=== PATIENT | female | born 1950 | race Caucasian/White ===

== ENCOUNTER 2016-08-12 10:43 | Day surgery (SDC) | payer MEDICARE, MEDICAID ==
[2016-08-12] MEDS ORDERED: Lactated Ringers 1,000 ML IV SCH (11:30)
[2016-08-12] MEDS ORDERED: Cyanocobalamin (Vitamin B12) 1,000 MCG/ML SDV IM ONE (12:00)
[2016-08-12] MEDS ORDERED: Glycopyrrolate 0.2 MG/ML 2 ML SYRINGE IVPUSH ONE (12:00)
[2016-08-12] MEDS ORDERED: Propofol 200 MG/20 ML SDV ONE (12:05)
[2016-08-12] MEDS ORDERED: Midazolam 1 MG/ML 2 ML SDV ONE ×2 (12:05→14:28)
[2016-08-12] MEDS ORDERED: fentaNYL 100 MCG/2 ML SDV ONE ×2 (12:05→14:28)
[2016-08-12] MEDS ORDERED: MVI, Adult with Vitamin K 10 ML, Thiamine 200 MG, Chromium/Copper/Mang/Selen/Zn 1 ML in... IV SCH ×4 (13:30)
[2016-08-12 15:35] VITALS: BP 123/76
--- NOTE | 2016-08-15 14:55 | OR ---
DATE OF PROCEDURE: 08/12/2016 PREOPERATIVE DIAGNOSIS: Bilious emesis status post Kenny-en-Y gastric bypass. POSTOPERATIVE DIAGNOSES: Bilious emesis status post Kenny-en-Y gastric bypass with bile present within Kenny limb. OPERATIVE PROCEDURE: Upper GI endoscopy. ANESTHESIA: IV sedation. INDICATION FOR PROCEDURE: This is a 65-year-old status post Kenny-en-Y gastric bypass in 2010. 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 Recently, she has had some problems with bilious emesis, particularly in the evening. Plan is to proceed with upper GI endoscopy to investigate problems such as partial small bowel obstruction and/or recurrent gastrogastric fistula. Potential risks of the procedure including bleeding and perforation were discussed, and the patient wishes to proceed. DETAILS OF PROCEDURE: The patient was taken to the operating room and placed in a left lateral decubitus position. IV sedation was administered, after which the upper GI endoscope was passed orally through the length of the esophagus and into the gastric pouch, from there through the gastrojejunostomy and roughly 20 cm into the Kenny limb. Findings included normal esophagus and EG junction area at the gastrojejunostomy, gastric pouch, and surrounding area. There was no evidence of any fistula. There was no bile present at this time and minimal in the way of any inflammation. No stricture in the gastrojejunostomy. As one passed into the Kenny limb around 15 cm beyond the anastomosis, there was bile present and this would be suggestive of possible partial small-bowel obstruction. The scope was then withdrawn. The above findings reconfirmed. The procedure was then concluded. Given the patient's symptoms, she probably needs to have a revisional procedure to relieve the small-bowel obstruction. This would entail either a cner-ie-agwx jejunojejunostomy or revision of jejunojejunostomy making a more distal and such. We will see the patient back on Friday of this week to discuss the findings and develop a treatment plan. Jayant Hairston MD /[id number]
== END 2016-08-12 15:52 | disposition home or self-care (01) ==
LOC: JP.SDS 10:43
PROVIDERS: ATTEND Surgery
DX: R11.14 Bilious vomiting (principal); G47.33 Obstructive sleep apnea (adult) (pediatric); E78.5 Hyperlipidemia, unspecified; K21.9 Gastro-esophageal reflux disease without esophagitis; E03.9 Hypothyroidism, unspecified; E11.9 Type 2 diabetes mellitus without complications; Z88.1 Allergy status to other antibiotic agents; Z88.8 Allergy status to other drugs, medicaments and biological substances
CPT/HCPCS: 43235; J2250; J2704; J3010; J3411; J3420; J7120

== ENCOUNTER 2016-08-20 06:29 | Inpatient (IN) | payer MEDICARE, MEDICAID ==
[2016-08-20] MEDS ORDERED: Gabapentin 300 MG Cap PO ONE (06:45)
[2016-08-20] MEDS ORDERED: Celecoxib 200 MG Cap PO ONE (06:45)
[2016-08-20] MEDS ORDERED: Acetaminophen 325 MG Tab PO ONE (06:45)
[2016-08-20] MEDS ORDERED: Bupivacaine 0.5%/EPINEPHrine 1:200,000 50 ML MDV ONE (06:54)
[2016-08-20] MEDS ORDERED: Dextrose 5%-Lactated Ringers 1,000 ML IV SCH (07:00)
[2016-08-20] MEDS ORDERED: Scopolamine 1.5 MG Transdermal Patch TOP ONE (07:00)
[2016-08-20] MEDS ORDERED: HYDROmorphone/Normal Saline 15 MG/30 ML PCA IV PRN (07:27)
[2016-08-20] MEDS ORDERED: Naloxone 0.4 MG/ML SDV IVPUSH PRN (07:27)
[2016-08-20] MEDS ORDERED: Ropivacaine 32 ML, Dexamethasone 8 MG, EPINEPHrine 0.4 MG, Sodium Chloride 0.9% 45.6 ML INJECT SCH ×4 (08:00)
[2016-08-20] MEDS ORDERED: cefOXitin 2 GM in Sodium Chloride 0.9% 50 ML IV ONE (09:00)
[2016-08-20] MEDS ORDERED: Albuterol/Ipratropium 3.0-0.5 MG/3 ML Neb Soln NEB ONE (09:00)
[2016-08-20] MEDS ORDERED: Midazolam 1 MG/ML 2 ML SDV ONE (11:11)
[2016-08-20] MEDS ORDERED: Propofol 200 MG/20 ML SDV ONE (11:11)
[2016-08-20] MEDS ORDERED: fentaNYL 250 MCG/5 ML SDV ONE (11:11)
[2016-08-20] MEDS ORDERED: Dexamethasone 4 MG/ML SDV ONE (11:11)
[2016-08-20] MEDS ORDERED: Rocuronium 50 MG/5 ML Vial ONE ×2 (11:11→12:37)
[2016-08-20] MEDS ORDERED: Succinylcholine/Normal Saline 200 MG/10 ML Syringe ONE (11:11)
[2016-08-20] MEDS ORDERED: Neostigmine Methylsulfate 1 MG/ML 5 ML Syringe ONE (11:11)
[2016-08-20] MEDS ORDERED: Ondansetron 4 MG/2 ML SDV ONE (11:11)
[2016-08-20] MEDS ORDERED: Lactated Ringers 1,000 ML ONE (12:01)
[2016-08-20] MEDS ORDERED: Meropenem 500 MG SDV ONE (12:27)
[2016-08-20] MEDS ORDERED: fentaNYL 100 MCG/2 ML SDV IVPUSH ONE (14:15)
[2016-08-20] MEDS ORDERED: Albuterol/Ipratropium 3.0-0.5 MG/3 ML Neb Soln INH PRN (15:31)
[2016-08-20] MEDS ORDERED: Labetalol 20 MG/4 ML Syringe IVPUSH PRN (15:32)
[2016-08-20] MEDS ORDERED: hydrOXYzine HCl 50 MG/ML SDV IM PRN (15:32)
[2016-08-20] MEDS ORDERED: SCOPOLAMINE PATCH ASK TOP SCH (15:32)
[2016-08-20] MEDS ORDERED: Metoclopramide 10 MG/2 ML SDV IVPUSH PRN (15:34)
[2016-08-20] MEDS ORDERED: diphenhydrAMINE 50 MG/ML SDV IVPUSH PRN (15:35)
[2016-08-20] MEDS: MVI, Adult with Vitamin K 10 ML, Thiamine 200 MG, Chromium/Copper/Mang/Selen/Zn 1 ML in... IV SCH ×4 (16:29)
[2016-08-20] MEDS: Pantoprazole 40 MG Vial IVPUSH SCH (16:33)
[2016-08-20] MEDS: Acetaminophen 325 MG Tab PO SCH ×2 (16:33→23:27)
[2016-08-20] MEDS: cefOXitin 2 GM in Sodium Chloride 0.9% 50 ML IV SCH ×2 (18:17→23:26)
[2016-08-20] MEDS: Heparin Sodium 5,000 Units/ML Vial SUBCUT SCH (21:06)
[2016-08-20] MEDS: Gabapentin 300 MG Cap PO SCH (21:06)
[2016-08-20] MEDS: Albuterol/Ipratropium 3.0-0.5 MG/3 ML Neb Soln INH SCH (21:08)
[2016-08-20] MEDS: Dextrose 5%-Lactated Ringers 1,000 ML IV SCH (23:26)
[2016-08-21] MEDS ORDERED: Iohexol 647 MG/ML 50 ML SDV PO STA (04:15)
[2016-08-21] MEDS: cefOXitin 2 GM in Sodium Chloride 0.9% 50 ML IV SCH ×2 (05:16→11:17)
[2016-08-21] MEDS: Acetaminophen 325 MG Tab PO SCH ×4 (05:16→21:28)
[2016-08-21] MEDS: Dextrose 5%-Lactated Ringers 1,000 ML IV SCH (05:17)
[2016-08-21] MEDS: Albuterol/Ipratropium 3.0-0.5 MG/3 ML Neb Soln INH SCH ×4 (07:20→21:27)
[2016-08-21] MEDS ORDERED: Dextrose 5%-Lactated Ringers 1,000 ML IV SCH (07:51)
[2016-08-21] MEDS: SCOPOLAMINE PATCH CHECK TOP SCH (08:52)
[2016-08-21] MEDS: Celecoxib 200 MG Cap PO SCH (08:57)
[2016-08-21] MEDS: Heparin Sodium 5,000 Units/ML Vial SUBCUT SCH ×2 (08:57→21:27)
[2016-08-21] MEDS: Gabapentin 300 MG Cap PO SCH ×3 (08:58→21:28)
--- NOTE | 2016-08-21 09:22 | PN ---
DATE OF SERVICE: 08/21/2016 SUBJECTIVE: Ana Maria is postop day 1. She reports her pain is controlled. She has been up ambulating. She is requesting coffee. Vital signs have been stable. REVIEW OF SYSTEMS: Remainder of review of systems negative for any pertinent positives and negatives. OBJECTIVE: GENERAL: Ana Maria Bryant is a 66-year-old female. She is alert and orientated. VITAL SIGNS: TPR 97, 66, 18, blood pressure 103/52. HEENT: Negative. NECK: Supple. HEART: Regular rate and rhythm. LUNGS: Clear. ABDOMEN: Dressings dry and intact. Abdominal binder is on. EXTREMITIES: Without peripheral edema. ASSESSMENT: Diagnostic laparoscopy with lysis of adhesion, revision of the jejunostomy component of the Kenny-en-Y gastric bypass surgery, separate small-bowel stricturoplasty for partial small bowel obstruction secondary to extensive adhesions at the jejunostomy junction and separate stricture and small bowel, distal to the jejunostomy on 08/20/2016. PLAN: 1. Step-4 gastric bypass diet. 2. Discontinue Gomez catheter. 3. Decrease IV to 80 mL/h. 4. Good pulmonary toilet encouraged. 5. We will evaluate p.r.n. or in a.m. Nadia Mccoy PA-C /[id number]
--- NOTE | 2016-08-21 10:04 | CR ---
UGI wo KUB HISTORY: Post gastric bypass. COMPARISON: None FINDINGS: Opacification of the gastric remnant is seen without extravasation of oral contrast. Opaci fication of small bowel on the later films with no dilated loops or evidence for obstruction.
[2016-08-21] MEDS: MVI, Adult with Vitamin K 10 ML, Thiamine 200 MG, Chromium/Copper/Mang/Selen/Zn 1 ML in... IV SCH ×4 (16:13)
[2016-08-21] MEDS: Pantoprazole 40 MG Vial IVPUSH SCH (16:23)
[2016-08-22] MEDS: Acetaminophen 325 MG Tab PO SCH (03:17)
[2016-08-22] MEDS: Albuterol/Ipratropium 3.0-0.5 MG/3 ML Neb Soln INH SCH ×4 (07:25→21:19)
[2016-08-22] MEDS: Heparin Sodium 5,000 Units/ML Vial SUBCUT SCH ×2 (07:58→20:19)
[2016-08-22] MEDS: Gabapentin 300 MG Cap PO SCH ×3 (08:29→21:19)
[2016-08-22] MEDS: Acetaminophen/HYDROcodone 325-5 MG Tab PO PRN ×2 (08:29→12:24)
[2016-08-22] MEDS: Celecoxib 200 MG Cap PO SCH (08:29)
[2016-08-22] MEDS: SCOPOLAMINE PATCH CHECK TOP SCH (08:30)
[2016-08-22] MEDS ORDERED: Cyanocobalamin (Vitamin B12) 1,000 MCG/ML SDV IM ONE (09:00)
--- NOTE | 2016-08-22 10:16 | PN ---
DATE OF SERVICE: 08/22/2016 SUBJECTIVE: Ana Maria is postop day #2. She is up ambulating, tolerating a diet well. Vital signs have been stable. Pain is controlled. She has no problems or questions. REVIEW OF SYSTEMS: Review of systems negative for any pertinent positives or negatives. OBJECTIVE: GENERAL: Ana Maria Bryant is a 66-year-old female. She is alert and orientated. VITAL SIGNS: TPR is 99, 81, 16, blood pressure 111/58. HEENT: Negative. NECK: Supple. HEART: Regular rate and rhythm. LUNGS: Clear. ABDOMEN: Dressings dry and intact. Abdominal binder is on. EXTREMITIES: Without peripheral edema. ASSESSMENT: Diagnostic laparoscopy with lysis of adhesion, revision of the jejunostomy component of the Kenny-en-Y gastric bypass surgery, separate small-bowel strictureplasty for partial small bowel obstruction secondary to extensive adhesions at the jejunostomy junction and separate stricture and small bowel distal jejunostomy on 08/20/2016. PLAN: 1. 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 2. Discontinue continuous pulse ox and telemetry. 3. Dressing off, may shower. 4. Floyd 5/325 mg 1 to 2 every 4 hours p.r.n. pain. 5. Good pulmonary toilet encouraged. 6. We will evaluate p.r.n. or in a.m. Nadia Mccoy PA-C /[id number]
[2016-08-22] MEDS: Ondansetron 4 MG/2 ML SDV IVPUSH PRN ×2 (13:49→19:17)
[2016-08-22] MEDS: Pantoprazole 40 MG Tab.CR PO SCH (16:04)
[2016-08-22] MEDS: HYDROmorphone 2 MG Tab PO PRN ×2 (16:05→21:19)
[2016-08-22] MEDS: Metoclopramide 10 MG/2 ML SDV IVPUSH SCH (21:19)
[2016-08-22] MEDS ORDERED: HYDROmorphone/Normal Saline 15 MG/30 ML PCA IV SCH (22:15)
[2016-08-22] MEDS: Dextrose 5%-Lactated Ringers 1,000 ML IV SCH (22:36)
[2016-08-22] MEDS: Bisacodyl 10 MG Supp RECTAL PRN (23:03)
[2016-08-23] MEDS: Metoclopramide 10 MG/2 ML SDV IVPUSH SCH ×4 (03:57→20:34)
[2016-08-23] MEDS ORDERED: Sodium Chloride 0.9% 10 ML Syringe FLUSH ONE (06:02)
[2016-08-23] MEDS ORDERED: Sodium Chloride 0.9% 100 ML IV SCH (06:15)
[2016-08-23] MEDS ORDERED: Iopamidol 755 Mg/ML 100 ML Bottle IV SCH (06:15)
[2016-08-23] MEDS ORDERED: HYDROmorphone/Normal Saline 15 MG/30 ML PCA IV PRN (07:05)
[2016-08-23] MEDS ORDERED: Naloxone 0.4 MG/ML SDV IV PRN (07:06)
[2016-08-23] MEDS: Albuterol/Ipratropium 3.0-0.5 MG/3 ML Neb Soln INH SCH ×4 (07:07→20:34)
--- NOTE | 2016-08-23 08:43 | PCM.CONS ---
H&P History of Present Illness - General Date of Service: 08/23/16 Admit Problem/Dx: Admission Diagnosis/Problem Admission Diagnosis/Problem Kenny-en-Y gastrojejunostomy Source of Information: Patient, Provider History Limitations: Reports: No limitations - History of Present Illness Initial Comments - Free Text/Narative: Ana Maria is postop day 3 from an exploratory laparotomy with lysis of adhesions and revision of the jejunostomy. I was asked to see her this morning by Nadia Mccoy regarding hypotension, tachycardia and hypoxia. The patient was recently transferred from room to 40 down to the intensive care unit. She's currently receiving 8 L via face mask with saturations in the low 90s. Her heart rate is in the 100s. Blood pressures were in the normal range but on the low side. The patient reports that she feels well and is not sure what all the fuss is about. She does not feel short of breath and does not even feel tachypnea at this point. She has been coughing a little with occasional yellowish sputum production. She does not have any chest pain. She does not report any pleuritic type chest pain. She has not noticed that she has a temperature of greater than 102 at this time. No chills or sweats. Abdominal pain is approximately 3/10 and is very tolerable at this point. She has been up and walking around without much difficulty. She thinks that things went downhill overnight and had been feeling well yesterday. She was started on supplemental oxygen overnight with hypoxia noted on pulse oximetry monitoring. Lower Back Pain Score (Numeric/FACES): 4 Abdomen Pain Score (Numeric/FACES): 4 - Related Data Allergies/Adverse Reactions: Allergies Allergy/AdvReac Type Severity Reaction Status Date / Time erythromycin base Allergy Hives Verified 08/09/16 07:38 [Erythromycin Base] zolpidem tartrate AdvReac Disorientat Verified 08/20/16 12:40 [From Jacquelyn] [email or web address] Allergy Hives Uncoded 08/20/16 07:48 Home Medications: Home Meds Albuterol [Ventolin HFA] 1 - 2 puff IH Q4HR PRN 09/14/14 [History] Aspirin [Aspirin EC] 81 mg PO DAILY 09/14/14 [History] Calcium Carb & Citrate/Vit D3 [Citracal + D ER] 1 each PO BID 09/14/14 [History] Cholecalciferol (Vitamin D3) [Vitamin D] 2,000 unit PO DAILY 09/14/14 [History] Cyanocobalamin (Vitamin B-12) [Cyanocobalamin Injection] 1,000 mcg IJ .Q3WK [History] Cyanocobalamin (Vitamin B12) [Vitamin B12] 1,000 mcg PO DAILY 09/14/14 [History] Cyclobenzaprine [Flexeril] 10 mg PO TID 09/14/14 [History] Esomeprazole [NexIUM] 40 mg PO BID 09/14/14 [History] Folic Acid 1 mg PO DAILY 09/14/14 [History] Gabapentin [Gabapentin] 600 mg PO TID 09/14/14 [History] Multivitamin/Iron/Folic Acid [Centrum Complete Multivit] 2 tab PO DAILY [History] Sennosides [Senna] 1 tab PO DAILY PRN 09/14/14 [History] Thiamine HCl [Vitamin B-1] 100 mg PO DAILY 09/14/14 [History] Vitamin B Complex [Super B-50 Complex] 1 tab PO DAILY 09/14/14 [History] atorvaSTATin Calcium [Atorvastatin Calcium] 10 mg PO BEDTIME 09/14/14 [History] clonazePAM [Clonazepam] 2 mg PO DAILY 09/14/14 [History] traZODone HCl [Trazodone HCl] 100 mg PO BEDTIME 09/14/14 [History] Levothyroxine 112 mcg PO ACBREAKFAST 08/09/16 [History] Venlafaxine [Effexor XR] 37.5 mg PO DAILY 08/09/16 [History] Past Medical History HEENT History: Reports: Impaired vision Other HEENT History: wears glasses Cardiovascular History: Reports: High cholesterol, Hypertension Respiratory History: Reports: COPD, Other (see below) Other Respiratory History: granular naveed disease, checked every 6 months Gastrointestinal History: Reports: Bowel obstruction, Colon polyp, GERD Genitourinary History: Reports: None 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: Dysfunctional uterine bleeding, , Spontaneous Musculoskeletal History: Reports: Back pain, chronic, Fibromyalgia Neurological History: Reports: Neuropathy, diabetic Endocrine/Metabolic History: Reports: Diabetes, type II, Hypothyroidism, Vitamin D deficiency Hematologic History: Reports: Blood transfusion(s) - Infectious Disease History Infectious Disease History: Reports: Chicken pox, Measles, MRSA, Mumps, Rubella - Past Surgical History HEENT Surgical History: Reports: Cataract surgery, Tonsillectomy Cardiovascular Surgical History: Reports: None Respiratory Surgical History: Reports: None GI Surgical History: Reports: Appendectomy, Bariatric procedure, Colonoscopy, EGD, Hernia repair/other, Other (see below) Other GI Surgeries/Procedures: Panniculectomy Female Surgical History: Reports: Hysterectomy, Other (see below) Other Female Surgeries/Procedures: bladder lift Endocrine Surgical History: Reports: None Neurological Surgical History: Reports: None Musculoskeletal Surgical History: Reports: Arthroscopic knee, Carpal tunnel, Other (see below) Other Musculoskeletal Surgeries/Procedures:: surgery both knees, carpal tunnel surgery both hands Social & Family History - Family History Family Medical History: Noncontributory Cardiac: Reports: Arrhythmia, CAD Respiratory: Reports: COPD Musculoskeletal: Reports: Arthritis Endocrine/Metabolic: Reports: Diabetes, type II Oncologic: Reports: Breast, Lung - Tobacco Use Smoking Status *Q: Former Smoker Years of Tobacco use: 30 Used Tobacco, but Quit: Yes Month Tobacco Last Used: 05/2002 Second Hand Smoke Exposure: No - Caffeine Use Caffeine Use: Reports: Coffee - Alcohol Use Days Per Week of Alcohol Use: 0 - Recreational Drug Use Recreational Drug Use: No H&P Review of Systems - Review of Systems: Review Of Systems: See Below Free Text/Narrative: A complete 12 point review of systems was obtained. Pertinent positives and negatives are noted in the history of present illness. All other systems were reviewed and were negative except as noted. Exam - Exam Exam: See Below - Vital Signs Vital Signs: Last Vital Signs Temp 39.3 C H 08/23/16 07:00 Pulse 78 08/23/16 07:07 Resp 18 08/23/16 07:00 BP 91/55 L 08/23/16 07:00 Pulse Ox 96 08/23/16 07:00 Weight: 63.957 kg - Exam Quality Assessment: supplemental oxygen. No: urinary catheter General: alert, oriented, cooperative. No: mild distress HEENT: Conjunctiva clear, Mucosa moist & pink. No: Scleral icterus Neck: supple, trachea midline. No: lymphadenopathy, JVD, thyromegaly Lungs: Normal respiratory effort, Crackles (A few at both bases). No: Wheezing Cardiovascular: regular rhythm, tachycardia. No: systolic murmur Abdomen: normal bowel sounds, soft, tenderness. No: distention Back Exam: normal inspection, full range of motion Extremities: normal inspection, normal pulses. No: edema Peripheral Pulses: 2+: dorsalis pedis (L), dorsalis pedis (R) Skin: warm, dry, intact Neuro Extensive - Mental Status: alert, oriented x3, nl response to commands Neuro Extensive - Motor, Sensory, Reflexes: CN II-XII intact. No: dysarthria, abnormal motor, tremor Psychiatric: alert, normal affect - Patient Data Lab Results last 24 hrs: Laboratory Results - last 24 hr 08/23/16 08/23/16 08/23/16 Range/Units 05:55 05:55 05:55 WBC 8.2 (4.5-11.0) K/uL RBC 4.18 (3.30-5.50) M/uL Hgb 12.5 (12.0-15.0) g/dL Hct 39.3 (36.0-48.0) % MCV 94 (80-98) fL MCH 30 (27-31) pg MCHC 32 (32-36) % Plt Count 227 (150-400) K/uL Puncture Site ABG pH (7.350-7.450) ABG pCO2 (35.0-42.0) mmHg ABG pO2 (75.0-100.0) mmHg ABG HCO3 (22.0-26.0) mmol/L ABG Total CO2 (21.0-25.0) mmol/L ABG O2 Saturation (95.0-98.0) % ABG O2 Content (15.0-23.0) %vol ABG Base Excess mm/L ABG Hemoglobin (12.0-16.0) g/dL ABG Oxyhemoglobin % ABG Carboxyhemoglobin (0.0-1.6) % ABG Methemoglobin % Henry Test O2 Delivery Device Oxygen Flow Rate L Sodium 144 (140-148) mmol/L Potassium 3.5 L (3.6-5.2) mmol/L Chloride 103 (100-108) mmol/L Carbon Dioxide 34 H (21-32) mmol/L Anion Gap 10.5 (5.0-14.0) mmol/L BUN 6 L (7-18) mg/dL Creatinine 0.9 (0.6-1.0) mg/dL Est Cr Clr Drug Dosing 49.95 mL/min Estimated GFR (MDRD) > 60 (>60) BUN/Creatinine Ratio Not Reportable Glucose 115 H (74-106) mg/dL Calcium 8.4 L (8.5-10.1) mg/dL Phosphorus 4.3 (2.5-4.9) mg/dL Magnesium 1.7 L (1.8-2.4) mg/dL Total Bilirubin 0.8 D (0.2-1.0) mg/dL AST 16 (15-37) U/L ALT 20 (12-78) U/L Alkaline Phosphatase 84 (46-116) U/L Total Protein 6.8 (6.4-8.2) g/dL Albumin 3.2 L (3.4-5.0) g/dL Globulin 3.6 H (2.3-3.5) g/dL Albumin/Globulin Ratio 0.9 L (1.2-2.2) 08/23/16 Range/Units 07:53 WBC (4.5-11.0) K/uL RBC (3.30-5.50) M/uL Hgb (12.0-15.0) g/dL Hct (36.0-48.0) % MCV (80-98) fL MCH (27-31) pg MCHC (32-36) % Plt Count (150-400) K/uL Puncture Site Lt radial ABG pH 7.467 H (7.350-7.450) ABG pCO2 39.4 (35.0-42.0) mmHg ABG pO2 97.2 (75.0-100.0) mmHg ABG HCO3 28.1 H (22.0-26.0) mmol/L ABG Total CO2 25.2 H (21.0-25.0) mmol/L ABG O2 Saturation 96.4 (95.0-98.0) % ABG O2 Content 15.8 (15.0-23.0) %vol ABG Base Excess 4.5 mm/L ABG Hemoglobin 11.8 L (12.0-16.0) g/dL ABG Oxyhemoglobin 94.5 % ABG Carboxyhemoglobin 0.2 (0.0-1.6) % ABG Methemoglobin 1.8 % Henry Test Pass O2 Delivery Device Simple mask Oxygen Flow Rate 6 L Sodium (140-148) mmol/L Potassium (3.6-5.2) mmol/L Chloride (100-108) mmol/L Carbon Dioxide (21-32) mmol/L Anion Gap (5.0-14.0) mmol/L BUN (7-18) mg/dL Creatinine (0.6-1.0) mg/dL Est Cr Clr Drug Dosing mL/min Estimated GFR (MDRD) (>60) BUN/Creatinine Ratio Glucose (74-106) mg/dL Calcium (8.5-10.1) mg/dL Phosphorus (2.5-4.9) mg/dL Magnesium (1.8-2.4) mg/dL Total Bilirubin (0.2-1.0) mg/dL AST (15-37) U/L ALT (12-78) U/L Alkaline Phosphatase (46-116) U/L Total Protein (6.4-8.2) g/dL Albumin (3.4-5.0) g/dL Globulin (2.3-3.5) g/dL Albumin/Globulin Ratio (1.2-2.2) Result Diagrams: 08/23/16 05:55 08/23/16 05:55 Imaging Impressions last 24 hrs: CT scan of the chest abdomen and pelvis - images were all personally reviewed - there is no evidence for acute pulmonary embolism noted on the CT scan. There are patchy bilateral lower lung infiltrates consistent with pneumonia noted on the chest portion of the CT. No acute intra-abdominal pathology is noted with recent appropriate postop changes from small bowel resection. No evidence for abscess formation. Consult PN Assessment/Plan POD#: 3 Procedures: Procedures APPLY NEUROSTIMULATOR (11/03/13) ASSAY THYROID STIM HORMONE (01/21/16) C-REACTIVE PROTEIN (01/21/16) COMP SCREEN MAMMOGRAM ADD-ON (07/04/15) COMPLETE CBC W/AUTO DIFF WBC (01/21/16) COMPREHEN METABOLIC PANEL (01/21/16) CT THORAX W/O DYE (07/12/15) CULTURE SCREEN ONLY (01/13/14) EGD BIOPSY SINGLE/MULTIPLE (01/13/14) EGD DIAGNOSTIC BRUSH WASH (08/12/16) EMERGENCY DEPT VISIT (02/11/16) EMERGENCY DEPT VISIT (02/28/14) EMERGENCY DEPT VISIT (02/28/14) HOT OR COLD PACKS THERAPY (11/23/15) HYDRATE IV INFUSION ADD-ON (01/21/16) INJECT EPIDURAL PATCH (10/14/14) INJECT SPINE LUMBAR/SACRAL (10/12/14) LOWER EXTREMITY STUDY (03/05/16) MANUAL THERAPY 1/> REGIONS (09/09/14) MRI JOINT UPR EXTREM W/O DYE (10/25/15) MRI LUMBAR SPINE W/O DYE (07/11/14) NEUROMUSCULAR REEDUCATION (10/22/13) OT EVALUATION (07/19/13) POLYSOM 6/> YRS 4/> JACQUELINE (05/12/16) PT EVALUATION (11/23/15) ROUTINE VENIPUNCTURE (01/21/16) THER/PROPH/DIAG IV INF INIT (01/21/16) THERAPEUTIC EXERCISES (05/17/15) ULTRASOUND THERAPY (11/23/15) UPR/L XTREMITY ART 2 LEVELS (02/09/16) URINALYSIS AUTO W/SCOPE (02/11/16) URINE CULTURE/COLONY COUNT (02/11/16) X-RAY EXAM L-2 SPINE 4/>VWS (07/11/14) X-RAY EXAM SI JOINTS (07/11/14) (1) Bilateral pneumonia SNOMED Code(s): 059011308 Code(s): J18.9 - PNEUMONIA, UNSPECIFIED ORGANISM Current Visit: Yes Qualifiers: Pneumonia type: due to unspecified organism Lung location: lower lobe of lung Qualified Code(s): J18.9 - Pneumonia, unspecified organism Problem List Initiated/Reviewed/Updated: Yes My Orders last 24 hours: My Active Orders 08/23/16 08:28 Magnesium Sulfate/Water [Magnesium Sulfate 2 GM in Water 50 ML] 2 gm Premix Bag 1 bag IV ONETIME 08/23/16 08:30 Levofloxacin/Dextrose 5%-Water [Levaquin in D5W 750 MG/150 ML] 750 mg Premix Bag 1 bag IV Q24H Levothyroxine 112 mcg PO ACBREAKFAST Potassium Chloride 20 MEQ,Lidocaine 1% 2 ML IN 100ML NS @ 50 MLS/HR Potassium Chloride 20 meq Lidocaine 1% [Xylocaine 1%] 2 ml Sodium Chloride 0.9% [Normal Saline] 100 ml IV Q2H cefTRIAXone [Rocephin] 1 gm Sodium Chloride 0.9% [Normal Saline] 50 ml IV Q24H 08/23/16 08:45 Sodium Chloride 0.9% [Normal Saline] 1,000 ml IV ASDIRECTED Plan: Assessment and plan - Bilateral pneumonia with hypoxic respiratory failure - significant oxygen requirement at this time though her physical examination is relatively benign and clinically she looks well compared to the amount of supplemental oxygen she is requiring. There is no evidence for pulmonary embolism. No reason to suspect acute coronary syndrome. CT did show bilateral pulmonary infiltrates consistent with pneumonia. Aspiration versus bacterial are considerations. She would benefit from broad-spectrum antibiotic coverage. Blood cultures have been obtained. Volume overload does not seem to be an issue at this time. Arterial blood gases do not show CO2 retention. -Levofloxacin and ceftriaxone -Fluid challenges with tachycardia and borderline hypotension -Followup cultures -Supplement oxygen -Continue inspiratory spirometer use -Nebs Status post exploratory laparotomy with release of small bowel obstruction - clinically seems to be healing well from the surgery. -Postoperative cares per Dr. Hairston Thank you for the interesting consultation. I will be following along with Ana Maria's care during the acute phase. Sim Ortez M.D. Requesting Provider: Dr. Hairston Date Consult Requested: 08/23/16 Reason for Consult: Hypoxia and a possible sepsis Patient History Reviewed: Yes Admission H&P Reviewed: Yes Notified Requestor: No Time Spent (in minutes): 45
[2016-08-23] MEDS ORDERED: Sodium Chloride 0.9% 1,000 ML IV SCH (08:45)
[2016-08-23] MEDS: Levofloxacin/Dextrose 5%-Water 750 MG in Premix Bag 1 BAG IV SCH (08:57)
[2016-08-23] MEDS: Dextrose 5%-Lactated Ringers 1,000 ML IV SCH ×2 (09:16→22:28)
[2016-08-23] MEDS: Heparin Sodium 5,000 Units/ML Vial SUBCUT SCH ×2 (09:54→20:34)
[2016-08-23] MEDS: Gabapentin 300 MG Cap PO SCH ×3 (09:55→20:33)
[2016-08-23] MEDS: Celecoxib 200 MG Cap PO SCH (09:56)
[2016-08-23] MEDS: SCOPOLAMINE PATCH CHECK TOP SCH (09:56)
[2016-08-23] MEDS ORDERED: Magnesium Sulfate/Water 2 GM in Premix Bag 1 BAG IV ONE (10:00)
--- NOTE | 2016-08-23 10:05 | CR ---
Abdomen 2V AP Flat Upright HISTORY: No bowel movement. Pain. Nausea vomiting. COMPARISON: Upper GI KUB 08/21/2016. FINDINGS: Contrast from the prior upper GI KUB image has now reached the right colon. No obstruction is seen. Postoperative clips overlying the stomach and the left abdomen from prior gastric bypass. Moderate stool left colon.
[2016-08-23] MEDS: cefTRIAXone 1 GM in Sodium Chloride 0.9% 50 ML IV SCH (10:27)
[2016-08-23] MEDS: Levothyroxine 112 MCG Tab PO SCH (10:28)
[2016-08-23] MEDS ORDERED: Sodium Chloride 0.9% 1,000 ML IV ONE ×2 (10:45→15:15)
[2016-08-23] MEDS: Acetaminophen 325 MG Tab PO PRN ×2 (10:51→22:36)
[2016-08-23] MEDS: Potassium Chloride 20 MEQ, Lidocaine 1% 2 ML in Sodium Chloride 0.9% 100 ML IV SCH ×2 (11:05→14:06)
--- NOTE | 2016-08-23 11:42 | PN ---
DATE OF SERVICE: 08/23/2016 SUBJECTIVE: Ana Maria developed some emesis yesterday. During the night, she had a small emesis. Her everything was discontinued that was oral. She was started on a BATCH ATTENDANT and with the BATCH ATTENDANT, she did have normal pulse oximetry and put on. Her oxygen ranged between 89-94. She was put on 4 L of O2 to maintain that. Pulse did increase to 118. A stat CT of lungs and abdomen and pelvis was obtained. Temp max at this time was 98.1, 99, 98.4. Ana Maria reported her pain is controlled at 0610. She states her pain is controlled. She was feeling better. Denied any shortness of breath at all. She stated that she does have a cough, and she is coughing up some green-yellow sputum. She has slept with 2 L of O2 on. She was just going down for her CT at 0700, her temp spiked to 102.7, pulse was 114, respirations 18, O2 was 96% on 3 L, blood pressure 91/55. On next a.m., she stated she felt "fine." Dr. Sim Ortez was consulted and transferred to ICU. Culture and sensitivity of sputum ordered as well as blood cultures and Dr. Ortez would be in to see her within a few minutes. OBJECTIVE: GENERAL: Ana Maria is a 66-year-old female. VITAL SIGNS: TPR is 102.7, 114, 91/55, 18. Color pale. HEENT: Negative. NECK: Supple. HEART: Regular rate and rhythm. LUNGS: Revealed coarse breath sounds but good air exchange. ABDOMEN: Soft and nontender. EXTREMITIES: Without peripheral edema. ASSESSMENT: 1. Aspiration pneumonia per CT scan, bibasilar pneumonia. 2. Diagnostic laparoscopy with lysis of adhesion, revision of jejunostomy component of Kenny-en-Y gastric bypass, separate small-bowel, strictureplasty for partial small bowel obstruction secondary to sensitive extensive adhesions of the jejunostomy junction and separate stricture of the small bowel, distal jejunostomy on 08/20/2016. PLAN: Transfer to ICU and Sim Ortez MD consult. Nadia Mccoy PA-C /[id number]
[2016-08-23] MEDS: Pantoprazole 40 MG Tab.CR PO SCH (15:33)
[2016-08-24] MEDS: Metoclopramide 10 MG/2 ML SDV IVPUSH SCH ×2 (02:22→08:23)
[2016-08-24] MEDS: Acetaminophen 325 MG Tab PO PRN (02:22)
[2016-08-24] MEDS: Levothyroxine 112 MCG Tab PO SCH (07:14)
[2016-08-24] MEDS: Heparin Sodium 5,000 Units/ML Vial SUBCUT SCH ×2 (07:14→19:47)
[2016-08-24] MEDS: Albuterol/Ipratropium 3.0-0.5 MG/3 ML Neb Soln INH SCH ×4 (07:26→21:07)
[2016-08-24] MEDS ORDERED: Docusate Sodium 100 MG Cap PO PRN (07:31)
[2016-08-24] MEDS: Levofloxacin/Dextrose 5%-Water 750 MG in Premix Bag 1 BAG IV SCH (08:01)
[2016-08-24] MEDS: Celecoxib 200 MG Cap PO SCH (08:23)
[2016-08-24] MEDS: Gabapentin 300 MG Cap PO SCH ×3 (08:23→21:07)
[2016-08-24] MEDS: SCOPOLAMINE PATCH CHECK TOP SCH (08:27)
[2016-08-24] MEDS: HYDROmorphone 2 MG Tab PO PRN ×4 (08:55→22:16)
--- NOTE | 2016-08-24 09:04 | PCM.CONSN ---
- General Info Date of Service: 08/24/16 Functional Status: Reports: pain controlled, tolerating diet, ambulating - Review of Systems General: Denies: Fever Pulmonary: Reports: cough Systems Review Comment:: No acute events overnight. She has been weaned off of her supplemental oxygen. Minimal cough. Slept fairly well. Abdominal pain is fairly well-controlled unless she's moving around. No fevers overnight. Sputum culture with gram- positive cocci. - Patient Data Vitals - most recent: Last Vital Signs Temp 36.6 C 08/24/16 08:00 Pulse 80 08/24/16 08:00 Resp 19 08/24/16 08:00 BP 121/58 L 08/24/16 08:00 Pulse Ox 95 08/24/16 08:00 Weight - most recent: 63.957 kg I&O - last 24 hours: Intake & Output 08/23/16 08/24/16 08/24/16 22:59 06:59 14:59 Intake Total 2136 1298 150 Output Total 2575 800 Balance -439 498 150 Lab Results last 24 hrs: Laboratory Results - last 24 hr 08/23/16 Range/Units 09:13 Urine Color Yellow Urine Appearance Clear Urine pH 8.0 (4.5-8.0) Ur Specific [place] 1.005 L (1.008-1.030) Urine Protein Negative (NEGATIVE) mg/dL Urine Glucose (UA) Normal (NEGATIVE) mg/dL Urine Ketones 15 H (NEGATIVE) mg/dL Urine Occult Blood Negative (NEGATIVE) Urine Nitrite Negative (NEGATIVE) Urine Bilirubin Negative (NEGATIVE) Urine Urobilinogen Normal (NORMAL) mg/dL Ur Leukocyte Esterase Negative (NEGATIVE) Urine RBC 0-5 (0-5) Urine WBC Not seen (0-5) Ur Epithelial Cells Rare Amorphous Sediment Not seen Urine Bacteria Not seen Urine Mucus Not seen Jared Results last 24 hrs: Microbiology 08/23/16 07:53 Aerobic Blood Culture - Preliminary Blood - Artery NO GROWTH AFTER 1 DAY Anaerobic Blood Culture - Preliminary NO GROWTH AFTER 1 DAY 08/23/16 07:40 Aerobic Blood Culture - Preliminary Blood - Arm, Left NO GROWTH AFTER 1 DAY Anaerobic Blood Culture - Preliminary NO GROWTH AFTER 1 DAY 08/23/16 09:13 Urine Culture - Preliminary Urine, Clean Catch NO GROWTH AFTER 1 DAY 08/23/16 23:15 Gram Stain - Final Sputum - Expectorated Med Orders - Current: Current Medications Acetaminophen (Tylenol) 650 mg PO Q4H PRN PRN Reason: Pain/Fever Last Admin: 08/24/16 02:22 Dose: 650 mg Albuterol/Ipratropium (Duoneb 3.0-0.5 Mg/3 Ml) 3 ml INH QIDRT YAN Last Admin: 08/24/16 07:26 Dose: 3 ml Albuterol/Ipratropium (Duoneb 3.0-0.5 Mg/3 Ml) 3 ml INH ASDIRECTED PRN PRN Reason: * Last Admin: 08/23/16 03:20 Dose: 3 ml Bisacodyl (Dulcolax) 10 mg RECTAL BID PRN PRN Reason: Constipation Last Admin: 08/22/16 23:03 Dose: 10 mg Bisacodyl (Dulcolax) 10 mg PO ASDIRECTED PRN PRN Reason: Constipation Celecoxib (Celebrex) 200 mg PO DAILY [facility] Last Admin: 08/24/16 08:23 Dose: 200 mg Diphenhydramine HCl (Benadryl) 25 - 50 mg IVPUSH Q4H PRN PRN Reason: Itching Docusate Sodium (Colace) 100 mg PO BID PRN PRN Reason: Constipation Gabapentin (Neurontin) 300 mg PO TID [facility] Last Admin: 08/24/16 08:23 Dose: 300 mg Heparin Sodium (Porcine) (Heparin Sodium) 5,000 units SUBCUT Q12H [facility] Last Admin: 08/24/16 07:14 Dose: 5,000 units Hydromorphone HCl (Dilaudid) 2 - 4 mg PO Q4H PRN PRN Reason: Pain Last Admin: 08/24/16 08:55 Dose: 2 mg Hydroxyzine HCl (Vistaril) 75 - 100 mg IM Q4H PRN PRN Reason: PAIN NOT CONTROLLED BY TELLER COORDINATOR Levofloxacin/Dextrose 750 mg/ (Premix) 150 mls @ 100 mls/hr IV Q24H [facility] Stop: 08/24/16 11:00 Last Admin: 08/24/16 08:01 Dose: 100 mls/hr Ceftriaxone Sodium 1 gm/ (Sodium Chloride) 50 mls @ 100 mls/hr IV Q24H [facility] Last Admin: 08/23/16 10:27 Dose: 100 mls/hr Levothyroxine Sodium (Levothyroxine) 112 mcg PO ACBREAKFAST [facility] Last Admin: 08/24/16 07:14 Dose: 112 mcg Naloxone HCl (Narcan) 0.1 mg IV ASDIRECTED PRN PRN Reason: decreased respiratory rate Scopolamine Patch (Check) 1 each TOP DAILY [facility] Last Admin: 08/24/16 08:27 Dose: 1 each Ondansetron HCl (Zofran) 4 mg IVPUSH Q4H PRN PRN Reason: Nausea/Vomiting Last Admin: 08/22/16 19:17 Dose: 4 mg Pantoprazole Sodium (Protonix) 40 mg PO Q24H [facility] Last Admin: 08/23/16 15:33 Dose: 40 mg Discontinued Medications Acetaminophen (Tylenol) 650 mg PO NOW ONE Stop: 08/20/16 06:46 Last Admin: 08/20/16 07:08 Dose: 650 mg Acetaminophen (Tylenol) 650 mg PO Q6HR [facility] Last Admin: 08/22/16 03:17 Dose: 650 mg Hydrocodone Bitart/Acetaminophen ([place]ley 325-5 Mg) 1 - 2 tab PO Q4H PRN PRN Reason: Pain Last Admin: 08/22/16 12:24 Dose: 1 tab Albuterol/Ipratropium (Duoneb 3.0-0.5 Mg/3 Ml) 3 ml NEB ONETIME ONE Stop: 08/20/16 09:01 Last Admin: 08/20/16 09:50 Dose: 3 ml Bupivacaine HCl/Epinephrine Bitart (Marcaine 0.5%/Epinephrine 1:200,000) Confirm Administered Dose 50 ml .ROUTE .STK-MED ONE Stop: 08/20/16 06:55 Last Admin: 08/20/16 12:19 Dose: 20 ml Celecoxib (Celebrex) 200 mg PO ONETIME ONE Stop: 08/20/16 06:46 Last Admin: 08/20/16 07:07 Dose: 200 mg Ropivacaine 32 ml/Dexamethasone 8 mg/Epinephrine HCl 0.4 mg/ Sodium Chloride 45.6 ml 0 ml INJECT ASDIRECTED [facility] Stop: 08/20/16 10:00 Cyanocobalamin (Vitamin B12) 1,000 mcg IM ONETIME ONE Stop: 08/22/16 09:01 Last Admin: 08/22/16 08:30 Dose: 1,000 mcg Dexamethasone (Dexamethasone) Confirm Administered Dose 4 mg .ROUTE .STK-MED ONE Stop: 08/20/16 11:12 Fentanyl (Sublimaze) Confirm Administered Dose 250 mcg .ROUTE .STK-MED ONE Stop: 08/20/16 11:12 Fentanyl (Sublimaze) 100 mcg IVPUSH ONETIME ONE Stop: 08/20/16 14:16 Last Admin: 08/20/16 14:18 Dose: 100 mcg Gabapentin (Neurontin) 300 mg PO ONETIME ONE Stop: 08/20/16 06:46 Last Admin: 08/20/16 07:08 Dose: 300 mg Glycopyrrolate () Confirm Administered Dose 1 mg .ROUTE .STK-MED ONE Stop: 08/20/16 11:12 Hydromorphone HCl (Dilaudid Aircraft Engine Dismantler 15 Mg In Ns 30 Ml) 0 mg IV ASDIRECTED PRN; Protocol PRN Reason: Pain Last Admin: 08/20/16 07:32 Dose: 0.3 mg Hydromorphone HCl (Dilaudid Aircraft Engine Dismantler 15 Mg In Ns 30 Ml) 15 mg IV ASDIRECTED YAN PRN Reason: Protocol Last Admin: 08/22/16 22:34 Dose: 15 mg Hydromorphone HCl (Dilaudid Aircraft Engine Dismantler 15 Mg In Ns 30 Ml) 0 mg IV ASDIRECTED PRN; Protocol PRN Reason: PAIN Dextrose/Lactated Ringer's (Dextrose 5%-Lactated Ringers) 1,000 mls @ 100 mls/ hr IV ASDIRECTED [facility] Last Admin: 08/20/16 08:23 Dose: 100 mls/hr Cefoxitin Sodium 2 gm/ Sodium (Chloride) 50 mls @ 100 mls/hr IV ONETIME ONE Stop: 08/20/16 09:29 Last Admin: 08/20/16 11:26 Dose: 100 mls/hr Lactated Ringer's (Ringers, Lactated) Confirm Administered Dose 1,000 mls @ as directed .ROUTE .ST-MED ONE Stop: 08/20/16 12:02 Dextrose/Lactated Ringer's (Dextrose 5%-Lactated Ringers) 1,000 mls @ 175 mls/ hr IV ASDIRECTED [facility] Last Admin: 08/21/16 05:17 Dose: 175 mls/hr Multivitamins/Minerals 10 ml/Thiamine HCl 200 mg/ Chromium/Copper/Manganese/ Seleni/Zn 1 ml/ Dextrose/Lactated Ringer's 1,013 mls @ 175 mls/hr IV DAILY@ 1600 [facility] Last Admin: 08/21/16 16:13 Dose: 175 mls/hr Cefoxitin Sodium 2 gm/ Sodium (Chloride) 50 mls @ 100 mls/hr IV Q6H [facility] Stop: 08/21/16 11:29 Last Admin: 08/21/16 11:17 Dose: 100 mls/hr Dextrose/Lactated Ringer's (Dextrose 5%-Lactated Ringers) 1,000 mls @ 80 mls/ hr IV ASDIRECTED [facility] Last Admin: 08/22/16 04:49 Dose: 80 mls/hr Dextrose/Lactated Ringer's (Dextrose 5%-Lactated Ringers) 1,000 mls @ 100 mls/ hr IV ASDIRECTED [facility] Last Admin: 08/23/16 22:28 Dose: 100 mls/hr Sodium Chloride (Normal Saline) 100 mls @ 3 mls/sec IV ASDIRECTED [facility] Last Admin: 08/23/16 06:37 Dose: 3 mls/sec Magnesium Sulfate 2 gm/ Premix 50 mls @ 25 mls/hr IV ONETIME ONE Stop: 08/23/16 11:59 Last Admin: 08/23/16 11:03 Dose: 25 mls/hr Potassium Chloride 20 meq/Lidocaine HCl 2 ml/ Sodium Chloride 112 mls @ 56 mls/ hr IV Q2H [facility] Stop: 08/23/16 14:59 Last Admin: 08/23/16 14:06 Dose: 56 mls/hr Sodium Chloride (Normal Saline) 1,000 mls @ 500 mls/hr IV ASDIRECTED [facility] Stop: 08/23/16 10:46 Last Admin: 08/23/16 08:00 Dose: 500 mls/hr Sodium Chloride (Normal Saline) 1,000 mls @ 500 mls/hr IV ASDIRECTED [facility] Stop: 08/23/16 12:44 Last Admin: 08/23/16 10:49 Dose: 500 mls/hr Sodium Chloride (Normal Saline) 1,000 mls @ 500 mls/hr IV ASDIRECTED ONE Stop: 08/23/16 17:14 Last Admin: 08/23/16 15:33 Dose: 500 mls/hr Iohexol (Omnipaque-300) 50 ml PO . DIRECTED STA Stop: 08/21/16 04:16 Last Admin: 08/21/16 04:28 Dose: 50 ml Iopamidol (Isovue-370 (76%)) 100 ml IV . DIRECTED [facility] Last Admin: 08/23/16 06:37 Dose: 100 ml Labetalol HCl (Normodyne) 5 - 15 mg IVPUSH Q1H PRN PRN Reason: SBP over 160 OR DBP over 95 Meropenem (Merrem) Confirm Administered Dose 500 mg .ROUTE .STK-MED ONE Stop: 08/20/16 12:28 Last Admin: 08/20/16 12:54 Dose: 500 mg Metoclopramide HCl (Reglan) 10 mg IVPUSH ASDIRECTED PRN PRN Reason: NAUSEA UNCONTROLLED BY ZOFRAN Last Admin: 08/22/16 14:48 Dose: 10 mg Metoclopramide HCl (Reglan) 10 mg IVPUSH Q6H [facility] Last Admin: 08/24/16 08:23 Dose: 10 mg Midazolam HCl (Versed 1 Mg/Ml) Confirm Administered Dose 2 mg .ROUTE .STK-MED ONE Stop: 08/20/16 11:12 Naloxone HCl (Narcan) 0.1 mg IVPUSH Q2M PRN PRN Reason: Respiratory Distress Neostigmine Methylsulfate (Neostigmine) Confirm Administered Dose 5 mg .ROUTE .STK-MED ONE Stop: 08/20/16 11:12 Ondansetron HCl (Zofran) Confirm Administered Dose 4 mg .ROUTE .STK-MED ONE Stop: 08/20/16 11:12 Pantoprazole Sodium (Protonix Iv) 40 mg IVPUSH Q24H [facility] Last Admin: 08/21/16 16:23 Dose: 40 mg Propofol (Diprivan 20 Ml) Confirm Administered Dose 200 mg .ROUTE .STK-MED ONE Stop: 08/20/16 11:12 Rocuronium [place] (Zemuron) Confirm Administered Dose 50 mg .ROUTE .STK-MED ONE Stop: 08/20/16 11:12 Rocuronium [place] (Zemuron) Confirm Administered Dose 50 mg .ROUTE .STK-MED ONE Stop: 08/20/16 12:38 Scopolamine (Transderm-Scop) 1.5 mg TOP ONETIME ONE Stop: 08/20/16 07:01 Last Admin: 08/20/16 07:10 Dose: 1.5 mg Scopolamine (Transderm-Scop) 1.5 mg TOP ASDIRECTED YAN Stop: 08/23/16 16:00 Sodium Chloride (Normal Saline) 500 ml IRR .STK-MED ONE Stop: 08/20/16 12:56 Last Admin: 08/20/16 12:55 Dose: 500 ml Sodium Chloride (Saline Flush) 10 ml FLUSH ONETIME ONE Stop: 08/23/16 06:03 Last Admin: 08/23/16 06:37 Dose: 10 ml Succinylcholine Chloride (Succinylcholine In Ns Pf) Confirm Administered Dose 200 mg .ROUTE .STK-MED ONE Stop: 08/20/16 11:12 - Exam Quality Assessment: No: supplemental oxygen General: alert, oriented, cooperative, no acute distress Neck: supple Lungs: Normal respiratory effort, Crackles (rare at bases) Cardiovascular: Regular Rate, Regular Rhythm Abdomen: bowel sounds present, soft, no distension Extremities: no edema, no cyanosis Skin: warm, dry Psy/Mental Status: alert, normal affect Consult PN Assessment/Plan POD#: 4 Procedures: Procedures APPLY NEUROSTIMULATOR (11/03/13) ASSAY THYROID STIM HORMONE (01/21/16) C-REACTIVE PROTEIN (01/21/16) COMP SCREEN MAMMOGRAM ADD-ON (07/04/15) COMPLETE CBC W/AUTO DIFF WBC (01/21/16) COMPREHEN METABOLIC PANEL (01/21/16) CT THORAX W/O DYE (07/12/15) CULTURE SCREEN ONLY (01/13/14) EGD BIOPSY SINGLE/MULTIPLE (01/13/14) EGD DIAGNOSTIC BRUSH WASH (08/12/16) EMERGENCY DEPT VISIT (02/11/16) EMERGENCY DEPT VISIT (02/28/14) EMERGENCY DEPT VISIT (02/28/14) HOT OR COLD PACKS THERAPY (11/23/15) HYDRATE IV INFUSION ADD-ON (01/21/16) INJECT EPIDURAL PATCH (10/14/14) INJECT SPINE LUMBAR/SACRAL (10/12/14) LOWER EXTREMITY STUDY (03/05/16) MANUAL THERAPY 1/> REGIONS (09/09/14) MRI JOINT UPR EXTREM W/O DYE (10/25/15) MRI LUMBAR SPINE W/O DYE (07/11/14) NEUROMUSCULAR REEDUCATION (10/22/13) OT EVALUATION (07/19/13) POLYSOM 6/> YRS 4/> JACQUELINE (05/12/16) PT EVALUATION (11/23/15) ROUTINE VENIPUNCTURE (01/21/16) THER/PROPH/DIAG IV INF INIT (01/21/16) THERAPEUTIC EXERCISES (05/17/15) ULTRASOUND THERAPY (11/23/15) UPR/L XTREMITY ART 2 LEVELS (02/09/16) URINALYSIS AUTO W/SCOPE (02/11/16) URINE CULTURE/COLONY COUNT (02/11/16) X-RAY EXAM L-2 SPINE 4/>VWS (07/11/14) X-RAY EXAM SI JOINTS (07/11/14) (1) Bilateral pneumonia SNOMED Code(s): 842818884 Code(s): J18.9 - PNEUMONIA, UNSPECIFIED ORGANISM Current Visit: Yes Qualifiers: Pneumonia type: due to unspecified organism Lung location: lower lobe of lung Qualified Code(s): J18.9 - Pneumonia, unspecified organism Problem List Initiated/Reviewed/Updated: Yes My Orders last 24 hours: My Active Orders 08/23/16 08:30 Levofloxacin/Dextrose 5%-Water [Levaquin in D5W 750 MG/150 ML] 750 mg Premix Bag 1 bag IV Q24H Levothyroxine 112 mcg PO ACBREAKFAST 08/23/16 10:00 cefTRIAXone [Rocephin] 1 gm Sodium Chloride 0.9% [Normal Saline] 50 ml IV Q24H 08/23/16 10:42 Acetaminophen [Tylenol] 650 mg PO Q4H PRN 08/24/16 09:00 Convert IV to Saline Lock [OM.PC] Routine 08/24/16 09:02 Transfer Patient (Change bed) [ADT] Routine 08/25/16 09:00 Levofloxacin [Levaquin] 250 mg PO Q24H Levofloxacin [Levaquin] 500 mg PO Q24H Plan: Assessment and plan - Bilateral pneumonia with hypoxic respiratory failure - dramatic improvement in the past 24 hours. Sputum Gram stain with gram-positive cocci and culture pending. Tolerating current antibiotics. Blood pressures have been normal. -Levofloxacin and ceftriaxone -Followup cultures -Supplement oxygen -Continue inspiratory spirometer use -Nebs Status post exploratory laparotomy with release of small bowel obstruction - clinically seems to be healing well from the surgery. -Postoperative cares per Dr. Hairston Thank you for the interesting consultation. I will be following along with Ana Maria's care during the acute phase. I think she is safe for transfer out of the intensive care unit. She may be ready for discharge home tomorrow and I would recommend an 8 day course of levofloxacin based on current response unless cultures suggest otherwise. Sim Ortez M.D.
[2016-08-24] MEDS: Docusate Sodium 100 MG Cap PO SCH ×2 (09:45→21:07)
[2016-08-24] MEDS: Bisacodyl 5 MG Tab PO PRN (09:45)
[2016-08-24] MEDS: cefTRIAXone 1 GM in Sodium Chloride 0.9% 50 ML IV SCH (09:50)
[2016-08-24] MEDS: Pantoprazole 40 MG Tab.CR PO SCH (16:23)
[2016-08-24] MEDS: Ondansetron 4 MG/2 ML SDV IVPUSH PRN (19:40)
[2016-08-25] MEDS: HYDROmorphone 2 MG Tab PO PRN ×3 (03:53→22:51)
[2016-08-25] MEDS: Levothyroxine 112 MCG Tab PO SCH (07:09)
[2016-08-25] MEDS: Heparin Sodium 5,000 Units/ML Vial SUBCUT SCH ×2 (07:10→19:27)
[2016-08-25] MEDS: Albuterol/Ipratropium 3.0-0.5 MG/3 ML Neb Soln INH SCH ×4 (07:25→20:52)
[2016-08-25] MEDS: Celecoxib 200 MG Cap PO SCH (08:55)
[2016-08-25] MEDS: Docusate Sodium 100 MG Cap PO SCH ×2 (08:55→20:52)
[2016-08-25] MEDS: SCOPOLAMINE PATCH CHECK TOP SCH (08:56)
[2016-08-25] MEDS: Gabapentin 300 MG Cap PO SCH ×3 (08:56→20:52)
[2016-08-25] MEDS ORDERED: Levofloxacin 500 MG Tab PO SCH (09:00)
[2016-08-25] MEDS ORDERED: Levofloxacin 250 MG Tab PO SCH (09:00)
[2016-08-25] MEDS: Bisacodyl 5 MG Tab PO PRN (09:00)
[2016-08-25] MEDS: cefTRIAXone 1 GM in Sodium Chloride 0.9% 50 ML IV SCH (09:01)
--- NOTE | 2016-08-25 09:48 | PCM.CONSN ---
- General Info Date of Service: 08/25/16 Functional Status: Reports: pain controlled, tolerating diet, ambulating - Review of Systems General: Reports: Weakness Pulmonary: Reports: cough Gastrointestinal: Reports: Abdominal pain (mild) Systems Review Comment:: No acute events overnight. She did use of supplemental oxygen while she was sleeping but does not need it during the day. No complaints of chest pain. Abdominal pain continues to improve. She is passing gas but has not had a bowel movement. - Patient Data Vitals - most recent: Last Vital Signs Temp 36.2 C 08/25/16 07:02 Pulse 74 08/25/16 07:02 Resp 16 08/25/16 07:02 BP 124/67 08/25/16 07:02 Pulse Ox 94 L 08/25/16 07:02 Weight - most recent: 63.957 kg I&O - last 24 hours: Intake & Output 08/24/16 08/25/16 08/25/16 22:59 06:59 14:59 Intake Total 560 720 530 Output Total 2500 1000 1300 Balance -1940 -280 -770 Jared Results last 24 hrs: Microbiology 08/23/16 07:53 Aerobic Blood Culture - Preliminary Blood - Artery NO GROWTH AFTER 2 DAYS Anaerobic Blood Culture - Preliminary NO GROWTH AFTER 2 DAYS 08/23/16 07:40 Aerobic Blood Culture - Preliminary Blood - Arm, Left NO GROWTH AFTER 2 DAYS Anaerobic Blood Culture - Preliminary NO GROWTH AFTER 2 DAYS 08/23/16 23:15 Gram Stain - Final Sputum - Expectorated Respiratory Culture - Preliminary NORMAL RESPIRATORY DANIA 1 DAY 08/23/16 09:13 Urine Culture - Final Urine, Clean Catch MIXED POSITIVE DANIA DAY 2 Med Orders - Current: Current Medications Acetaminophen (Tylenol) 650 mg PO Q4H PRN PRN Reason: Pain/Fever Last Admin: 08/24/16 02:22 Dose: 650 mg Albuterol/Ipratropium (Duoneb 3.0-0.5 Mg/3 Ml) 3 ml INH QIDRT YAN Last Admin: 08/25/16 07:25 Dose: 3 ml Albuterol/Ipratropium (Duoneb 3.0-0.5 Mg/3 Ml) 3 ml INH ASDIRECTED PRN PRN Reason: * Last Admin: 08/23/16 03:20 Dose: 3 ml Bisacodyl (Dulcolax) 10 mg RECTAL BID PRN PRN Reason: Constipation Last Admin: 08/22/16 23:03 Dose: 10 mg Bisacodyl (Dulcolax) 10 mg PO ASDIRECTED PRN PRN Reason: Constipation Last Admin: 08/25/16 09:00 Dose: 10 mg Celecoxib (Celebrex) 200 mg PO DAILY [facility] Last Admin: 08/25/16 08:55 Dose: 200 mg Diphenhydramine HCl (Benadryl) 25 - 50 mg IVPUSH Q4H PRN PRN Reason: Itching Docusate Sodium (Colace) 100 mg PO BID [facility] Last Admin: 08/25/16 08:55 Dose: 100 mg Gabapentin (Neurontin) 300 mg PO TID [facility] Last Admin: 08/25/16 08:56 Dose: 300 mg Heparin Sodium (Porcine) (Heparin Sodium) 5,000 units SUBCUT Q12H [facility] Last Admin: 08/25/16 07:10 Dose: 5,000 units Hydromorphone HCl (Dilaudid) 2 - 4 mg PO Q4H PRN PRN Reason: Pain Last Admin: 08/25/16 09:01 Dose: 2 mg Hydroxyzine HCl (Vistaril) 75 - 100 mg IM Q4H PRN PRN Reason: PAIN NOT CONTROLLED BY [employer] Ceftriaxone Sodium 1 gm/ (Sodium Chloride) 50 mls @ 100 mls/hr IV Q24H [facility] Last Admin: 08/25/16 09:01 Dose: 100 mls/hr Levofloxacin 500 mg/ (Levofloxacin 250 mg) 750 mg PO ACBREAKFAST [facility] Last Admin: 08/25/16 07:09 Dose: 750 mg Levothyroxine Sodium (Levothyroxine) 112 mcg PO ACBREAKFAST [facility] Last Admin: 08/25/16 07:09 Dose: 112 mcg Scopolamine Patch (Check) 1 each TOP DAILY [facility] Last Admin: 08/25/16 08:56 Dose: Not Given Ondansetron HCl (Zofran) 4 mg IVPUSH Q4H PRN PRN Reason: Nausea/Vomiting Last Admin: 08/24/16 19:40 Dose: 4 mg Pantoprazole Sodium (Protonix) 40 mg PO Q24H [facility] Last Admin: 08/24/16 16:23 Dose: 40 mg Discontinued Medications Acetaminophen (Tylenol) 650 mg PO NOW ONE Stop: 08/20/16 06:46 Last Admin: 08/20/16 07:08 Dose: 650 mg Acetaminophen (Tylenol) 650 mg PO Q6HR YAN Last Admin: 08/22/16 03:17 Dose: 650 mg Hydrocodone Bitart/Acetaminophen ([place] 325-5 Mg) 1 - 2 tab PO Q4H PRN PRN Reason: Pain Last Admin: 08/22/16 12:24 Dose: 1 tab Albuterol/Ipratropium (Duoneb 3.0-0.5 Mg/3 Ml) 3 ml NEB ONETIME ONE Stop: 08/20/16 09:01 Last Admin: 08/20/16 09:50 Dose: 3 ml Bupivacaine HCl/Epinephrine Bitart (Marcaine 0.5%/Epinephrine 1:200,000) Confirm Administered Dose 50 ml .ROUTE .STK-MED ONE Stop: 08/20/16 06:55 Last Admin: 08/20/16 12:19 Dose: 20 ml Celecoxib (Celebrex) 200 mg PO ONETIME ONE Stop: 08/20/16 06:46 Last Admin: 08/20/16 07:07 Dose: 200 mg Ropivacaine 32 ml/Dexamethasone 8 mg/Epinephrine HCl 0.4 mg/ Sodium Chloride 45.6 ml 0 ml INJECT ASDIRECTED YAN Stop: 08/20/16 10:00 Cyanocobalamin (Vitamin B12) 1,000 mcg IM ONETIME ONE Stop: 08/22/16 09:01 Last Admin: 08/22/16 08:30 Dose: 1,000 mcg Dexamethasone (Dexamethasone) Confirm Administered Dose 4 mg .ROUTE .STK-MED ONE Stop: 08/20/16 11:12 Docusate Sodium (Colace) 100 mg PO BID PRN PRN Reason: Constipation Fentanyl (Sublimaze) Confirm Administered Dose 250 mcg .ROUTE .STK-MED ONE Stop: 08/20/16 11:12 Fentanyl (Sublimaze) 100 mcg IVPUSH ONETIME ONE Stop: 08/20/16 14:16 Last Admin: 08/20/16 14:18 Dose: 100 mcg Gabapentin (Neurontin) 300 mg PO ONETIME ONE Stop: 08/20/16 06:46 Last Admin: 08/20/16 07:08 Dose: 300 mg Glycopyrrolate () Confirm Administered Dose 1 mg .ROUTE .STK-MED ONE Stop: 08/20/16 11:12 Hydromorphone HCl (Dilaudid Card Puncher 15 Mg In Ns 30 Ml) 0 mg IV ASDIRECTED PRN; Protocol PRN Reason: Pain Last Admin: 08/20/16 07:32 Dose: 0.3 mg Hydromorphone HCl (Dilaudid Card Puncher 15 Mg In Ns 30 Ml) 15 mg IV ASDIRECTED YAN PRN Reason: Protocol Last Admin: 08/22/16 22:34 Dose: 15 mg Hydromorphone HCl (Dilaudid Card Puncher 15 Mg In Ns 30 Ml) 0 mg IV ASDIRECTED PRN; Protocol PRN Reason: PAIN Dextrose/Lactated Ringer's (Dextrose 5%-Lactated Ringers) 1,000 mls @ 100 mls/ hr IV ASDIRECTED [facility] Last Admin: 08/20/16 08:23 Dose: 100 mls/hr Cefoxitin Sodium 2 gm/ Sodium (Chloride) 50 mls @ 100 mls/hr IV ONETIME ONE Stop: 08/20/16 09:29 Last Admin: 08/20/16 11:26 Dose: 100 mls/hr Lactated Ringer's (Ringers, Lactated) Confirm Administered Dose 1,000 mls @ as directed .ROUTE .STK-MED ONE Stop: 08/20/16 12:02 Dextrose/Lactated Ringer's (Dextrose 5%-Lactated Ringers) 1,000 mls @ 175 mls/ hr IV ASDIRECTED [facility] Last Admin: 08/21/16 05:17 Dose: 175 mls/hr Multivitamins/Minerals 10 ml/Thiamine HCl 200 mg/ Chromium/Copper/Manganese/ Seleni/Zn 1 ml/ Dextrose/Lactated Ringer's 1,013 mls @ 175 mls/hr IV DAILY@ 1600 [facility] Last Admin: 08/21/16 16:13 Dose: 175 mls/hr Cefoxitin Sodium 2 gm/ Sodium (Chloride) 50 mls @ 100 mls/hr IV Q6H [facility] Stop: 08/21/16 11:29 Last Admin: 08/21/16 11:17 Dose: 100 mls/hr Dextrose/Lactated Ringer's (Dextrose 5%-Lactated Ringers) 1,000 mls @ 80 mls/ hr IV ASDIRECTED [facility] Last Admin: 08/22/16 04:49 Dose: 80 mls/hr Dextrose/Lactated Ringer's (Dextrose 5%-Lactated Ringers) 1,000 mls @ 100 mls/ hr IV ASDIRECTED [facility] Last Admin: 08/23/16 22:28 Dose: 100 mls/hr Sodium Chloride (Normal Saline) 100 mls @ 3 mls/sec IV ASDIRECTED YAN Last Admin: 08/23/16 06:37 Dose: 3 mls/sec Levofloxacin/Dextrose 750 mg/ (Premix) 150 mls @ 100 mls/hr IV Q24H YAN Stop: 08/24/16 11:00 Last Admin: 08/24/16 08:01 Dose: 100 mls/hr Magnesium Sulfate 2 gm/ Premix 50 mls @ 25 mls/hr IV ONETIME ONE Stop: 08/23/16 11:59 Last Admin: 08/23/16 11:03 Dose: 25 mls/hr Potassium Chloride 20 meq/Lidocaine HCl 2 ml/ Sodium Chloride 112 mls @ 56 mls/ hr IV Q2H YAN Stop: 08/23/16 14:59 Last Admin: 08/23/16 14:06 Dose: 56 mls/hr Sodium Chloride (Normal Saline) 1,000 mls @ 500 mls/hr IV ASDIRECTED YAN Stop: 08/23/16 10:46 Last Admin: 08/23/16 08:00 Dose: 500 mls/hr Sodium Chloride (Normal Saline) 1,000 mls @ 500 mls/hr IV ASDIRECTED ONE Stop: 08/23/16 12:44 Last Admin: 08/23/16 10:49 Dose: 500 mls/hr Sodium Chloride (Normal Saline) 1,000 mls @ 500 mls/hr IV ASDIRECTED ONE Stop: 08/23/16 17:14 Last Admin: 08/23/16 15:33 Dose: 500 mls/hr Iohexol (Omnipaque-300) 50 ml PO . DIRECTED STA Stop: 08/21/16 04:16 Last Admin: 08/21/16 04:28 Dose: 50 ml Iopamidol (Isovue-370 (76%)) 100 ml IV . DIRECTED YAN Last Admin: 08/23/16 06:37 Dose: 100 ml Labetalol HCl (Normodyne) 5 - 15 mg IVPUSH Q1H PRN PRN Reason: SBP over 160 OR DBP over 95 Meropenem (Merrem) Confirm Administered Dose 500 mg .ROUTE .STK-MED ONE Stop: 08/20/16 12:28 Last Admin: 08/20/16 12:54 Dose: 500 mg Metoclopramide HCl (Reglan) 10 mg IVPUSH ASDIRECTED PRN PRN Reason: NAUSEA UNCONTROLLED BY ZOFRAN Last Admin: 08/22/16 14:48 Dose: 10 mg Metoclopramide HCl (Reglan) 10 mg IVPUSH Q6H [facility] Last Admin: 08/24/16 08:23 Dose: 10 mg Midazolam HCl (Versed 1 Mg/Ml) Confirm Administered Dose 2 mg .ROUTE .STK-MED ONE Stop: 08/20/16 11:12 Naloxone HCl (Narcan) 0.1 mg IVPUSH Q2M PRN PRN Reason: Respiratory Distress Naloxone HCl (Narcan) 0.1 mg IV ASDIRECTED PRN PRN Reason: decreased respiratory rate Neostigmine Methylsulfate (Neostigmine) Confirm Administered Dose 5 mg .ROUTE .STK-MED ONE Stop: 08/20/16 11:12 Ondansetron HCl (Zofran) Confirm Administered Dose 4 mg .ROUTE .STK-MED ONE Stop: 08/20/16 11:12 Pantoprazole Sodium (Protonix Iv) 40 mg IVPUSH Q24H [facility] Last Admin: 08/21/16 16:23 Dose: 40 mg Propofol (Diprivan 20 Ml) Confirm Administered Dose 200 mg .ROUTE .STK-MED ONE Stop: 08/20/16 11:12 Rocuronium [place] (Zemuron) Confirm Administered Dose 50 mg .ROUTE .STK-MED ONE Stop: 08/20/16 11:12 Rocuronium [place] (Zemuron) Confirm Administered Dose 50 mg .ROUTE .STK-MED ONE Stop: 08/20/16 12:38 Scopolamine (Transderm-Scop) 1.5 mg TOP ONETIME ONE Stop: 08/20/16 07:01 Last Admin: 08/20/16 07:10 Dose: 1.5 mg Scopolamine (Transderm-Scop) 1.5 mg TOP ASDIRECTED [facility] Stop: 08/23/16 16:00 Sodium Chloride (Normal Saline) 500 ml IRR .STK-MED ONE Stop: 08/20/16 12:56 Last Admin: 08/20/16 12:55 Dose: 500 ml Sodium Chloride (Saline Flush) 10 ml FLUSH ONETIME ONE Stop: 08/23/16 06:03 Last Admin: 08/23/16 06:37 Dose: 10 ml Succinylcholine Chloride (Succinylcholine In Ns Pf) Confirm Administered Dose 200 mg .ROUTE .STK-MED ONE Stop: 08/20/16 11:12 - Exam Quality Assessment: supplemental oxygen General: alert, oriented, cooperative, no acute distress Neck: supple Lungs: Clear to auscultation, Normal respiratory effort. No: Decreased breath sounds Cardiovascular: Regular Rate, Regular Rhythm Abdomen: bowel sounds present, soft, no distension Extremities: no edema, no cyanosis Skin: warm, dry Psy/Mental Status: alert, normal affect Consult PN Assessment/Plan POD#: 5 Procedures: Procedures APPLY NEUROSTIMULATOR (11/03/13) ASSAY THYROID STIM HORMONE (01/21/16) C-REACTIVE PROTEIN (01/21/16) COMP SCREEN MAMMOGRAM ADD-ON (07/04/15) COMPLETE CBC W/AUTO DIFF WBC (01/21/16) COMPREHEN METABOLIC PANEL (01/21/16) CT THORAX W/O DYE (07/12/15) CULTURE SCREEN ONLY (01/13/14) EGD BIOPSY SINGLE/MULTIPLE (01/13/14) EGD DIAGNOSTIC BRUSH WASH (08/12/16) EMERGENCY DEPT VISIT (02/11/16) EMERGENCY DEPT VISIT (02/28/14) EMERGENCY DEPT VISIT (02/28/14) HOT OR COLD PACKS THERAPY (11/23/15) HYDRATE IV INFUSION ADD-ON (01/21/16) INJECT EPIDURAL PATCH (10/14/14) INJECT SPINE LUMBAR/SACRAL (10/12/14) LOWER EXTREMITY STUDY (03/05/16) MANUAL THERAPY 1/> REGIONS (09/09/14) MRI JOINT UPR EXTREM W/O DYE (10/25/15) MRI LUMBAR SPINE W/O DYE (07/11/14) NEUROMUSCULAR REEDUCATION (10/22/13) OT EVALUATION (07/19/13) POLYSOM 6/> YRS 4/> JACQUELINE (05/12/16) PT EVALUATION (11/23/15) ROUTINE VENIPUNCTURE (01/21/16) THER/PROPH/DIAG IV INF INIT (01/21/16) THERAPEUTIC EXERCISES (05/17/15) ULTRASOUND THERAPY (11/23/15) UPR/L XTREMITY ART 2 LEVELS (02/09/16) URINALYSIS AUTO W/SCOPE (02/11/16) URINE CULTURE/COLONY COUNT (02/11/16) X-RAY EXAM L-2 SPINE 4/>VWS (07/11/14) X-RAY EXAM SI JOINTS (07/11/14) (1) Bilateral pneumonia SNOMED Code(s): 452162311 Code(s): J18.9 - PNEUMONIA, UNSPECIFIED ORGANISM Current Visit: Yes Qualifiers: Pneumonia type: due to unspecified organism Lung location: lower lobe of lung Qualified Code(s): J18.9 - Pneumonia, unspecified organism Problem List Initiated/Reviewed/Updated: Yes My Orders last 24 hours: My Active Orders 08/24/16 09:00 Convert IV to Saline Lock [OM.PC] Routine 08/24/16 09:02 Transfer Patient (Change bed) [ADT] Routine 08/25/16 07:30 Levofloxacin [Levaquin] 750 mg PO ACBREAKFAST Plan: Assessment and plan - Bilateral pneumonia with hypoxic respiratory failure - dramatic improvement in the past 24 hours. Sputum Gram stain with gram-positive cocci and culture pending but normal dania at this point. Tolerating current antibiotics. Blood pressures have been normal. No longer hypoxic. -Levofloxacin (discharge with levofloxacin 750 mg daily x4 days) -Followup cultures -Supplement oxygen -Continue inspiratory spirometer use -Nebs Status post exploratory laparotomy with release of small bowel obstruction - clinically seems to be healing well from the surgery, minimal pain. -Postoperative cares per Dr. Hairston -Receiving bowel stimulation today Sim Ortez M.D.
[2016-08-25] MEDS: Pantoprazole 40 MG Tab.CR PO SCH (15:10)
[2016-08-25] MEDS: Bisacodyl 10 MG Supp RECTAL PRN (19:36)
[2016-08-26] MEDS: HYDROmorphone 2 MG Tab PO PRN (02:13)
[2016-08-26 07:09] VITALS: BP 124/72
[2016-08-26] MEDS: Albuterol/Ipratropium 3.0-0.5 MG/3 ML Neb Soln INH SCH (07:15)
[2016-08-26] MEDS: Levothyroxine 112 MCG Tab PO SCH (07:33)
--- NOTE | 2016-08-26 08:04 | PN ---
DATE OF SERVICE: 08/24/2016 The patient has been afebrile overnight and from oxygenation standpoint, improved quite a bit. She does have some bilateral infiltrates. Gram stain of sputum had mixed dania, so this may have been an aspiration event, although she was never overly sleepy at any point postoperatively. She had no further nausea or vomiting and probably restart regular diet today. She has not moved her bowels for a couple days. We will give her some bowel stimulation and otherwise maximize activity and work with pulmonary toilet. Otherwise, continue management with assistance of . Jayant Hairston MD /[id number]
--- NOTE | 2016-08-26 08:38 | PN ---
DATE OF SERVICE: 08/25/2016 The patient has been afebrile with stable vital signs. Respiratory status is unlabored. Chest x-ray shows bilateral infiltrates still, and this is clearly lying behind what is going on clinically. At present oral intake is good and will keep the IV antibiotics going 1 more day. We will saline lock the IV, continue with antibiotics, and then likely will be discharged home tomorrow. Jayant Hairston MD /[id number]
[2016-08-26] MEDS: Gabapentin 300 MG Cap PO SCH (08:46)
[2016-08-26] MEDS: Docusate Sodium 100 MG Cap PO SCH (08:46)
[2016-08-26] MEDS: Celecoxib 200 MG Cap PO SCH (08:46)
[2016-08-26] MEDS: Heparin Sodium 5,000 Units/ML Vial SUBCUT SCH (08:46)
--- NOTE | 2016-08-26 09:03 | CR ---
Chest 2V HISTORY: pneumonia COMPARISON: 08/03/2012 FINDINGS: There are patchy infiltrates bilaterally suspicious for pneumonia. Mild linear atelectasis can be se en right lung base. Cardiomediastinal silhouette is within normal limits. No vascular redistribution or pleural fluid can be seen. Bony structures and soft tissues are unremarkable. IMPRESSION: Patchy infiltrates bilaterally suspicious for pneumonia.
[2016-08-26] MEDS: SCOPOLAMINE PATCH CHECK TOP SCH (10:12)
--- NOTE | 2016-08-27 00:17 | DISCH ---
ADMISSION DIAGNOSES: 1. 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 2. B12 deficiency. 3. Polyneuropathy and diabetes. 4. Granulomatous lung disease. 5. Neuroforaminal stenosis of lumbar spine. 6. Pain of lumbar facet joint. 7. Chronic sacroiliac joint pain. 8. Hyperlipidemia. 9. Diabetes type 2 controlled. 10.Chronic pain. 11.Fibromyalgia. 12.Hypoxia. 13.Sleep-related vitamin D deficiency. DISCHARGE DIAGNOSES: 1. Diagnostic laparoscopy with lysis of adhesion with jejunostomy component of the Kenny-en- Y gastric bypass, separate small-bowel strictureplasty for partial small bowel obstruction secondary to extensive adhesions at the jejunostomy junction and separate stricture of the small bowel, distal jejunostomy on 08/20/2016. 2. Bibasilar pneumonia. HISTORY: Ana Maria Bryant is a 66-year-old female who had severe reflux that woke her up during the middle of the night and she would wake up choking and coughing. After preoperative evaluation and discussion of possible risks and possible complications, she wished to proceed with surgical procedure. HOSPITAL COURSE: Ana Maria had her surgery on 08/20/2016. She had no operative complications. On postop day #1, she was started on a diet and she was advanced to step 4 diet. On 08/23/2016, she developed hypoxia. A CT of lungs and abdomen was obtained, revealed pneumonia in both lungs in the bases. She was treated with antibiotics appropriately and her temp max at that time was 102.7. She was put on antibiotics. Her magnesium and potassium were replaced and she rapidly increased. She was no longer febrile. Her activity was good. Her oxygen corrected itself and she was able to be discharged to home on 08/26/2016. PHYSICAL EXAMINATION: GENERAL: Ana Maria Bryant is a 66-year-old female. Height is 5 feet 2 inches. Weight is 141 pounds. HEENT: Negative. NECK: Supple. HEART: Regular rate and rhythm. LUNGS: Reveal some decreased breath sounds in bases bilaterally, otherwise are clear. Denies cough. ABDOMEN: Incisions look good. Sutures in place. Abdominal binder is on. EXTREMITIES: Without peripheral edema. DISPOSITION: Discharged to home. CONDITION: Stable and improving. FOLLOWUP APPOINTMENT: With Nadia Mccoy PA-C, on 08/29/2016 at 9:30 a.m. HOME MEDICATIONS: Dilaudid 2 mg 1 to 2 every 4 hours p.r.n. pain #50, Levaquin 500 mg p.o. q.24 hours x7 days. She is to resume her home medications. Albuterol inhaler 1 to 2 puffs every 4 hours, aspirin 81 mg daily, calcium citrate 1 each twice daily, vitamin D3 2000 international units oral daily, vitamin B12 1000 mcg injection every three weeks, vitamin B12 1000 mcg sublingual daily, Flexeril 10 mg oral 3 times a day, Nexium 40 mg oral twice daily, folic acid 1 mg oral daily, gabapentin 600 mg oral 3 times a day, levothyroxine 112 mcg oral before breakfast, multivitamin two tablets daily, senna one tablet oral daily p.r.n. constipation, thiamine B1 100 mg oral daily, Effexor XR 37.5 mg oral daily, vitamin B complex 1 tablet oral daily, add a trial of Avastin, calcium 10 mg at bedtime, clonazepam 2 mg oral daily, and trazodone 100 mg oral at bedtime. DIET AFTER DISCHARGE: Step 4 gastric bypass diet. ACTIVITY: No lifting greater than 10 pounds for 2 weeks[address], do not drive on pain medication, may shower. Notify provider of fever, increased pain, nausea, or vomiting. SPECIAL INSTRUCTION: Wound incision care, keep site clean and dry, wear abdominal binder for 6 weeks and then as tolerated. Use Acapella 10 times every hour while awake for 2 weeks.
--- NOTE | 2016-08-30 07:49 | OR ---
DATE OF PROCEDURE: 08/20/2016 PREOPERATIVE DIAGNOSIS: Partial small bowel obstruction. POSTOPERATIVE DIAGNOSES: 1. Partial small bowel obstruction secondary to extensive adhesions at jejunojejunostomy. 2. Separate stricture of small bowel involving the area of the common limb distal to the jejunojejunostomy. OPERATIVE PROCEDURE: Diagnostic laparoscopy with lysis of adhesions and: 1. Revision of the jejunojejunostomy, accompanied with Kenny-en-Y gastric bypass (46941). 2. Separate small bowel stricturoplasty (72177). ANESTHESIA: General. DRY CELL TESTER: Nadia Mccoy PA-C. INDICATIONS FOR PROCEDURE: This is a 66-year-old status post Kenny-en-Y gastric bypass, presenting with some persistent bilious emesis. After recent upper endoscopy, a gastrogastric fistula was ruled out. The patient was noted to have some bile within the Kenny limb, indicative of probable partial obstruction. Plan is to proceed with a diagnostic laparoscopy, laparotomy if necessary, and bowel resection as indicated. Potential risks including bleeding, infection, injury to underlying viscera, leaks from various GI tract closures, as well as possible incomplete relief of symptoms were all gone over, and lastly, the possibility of cardiopulmonary, septic, or hemorrhagic complications leading to were all discussed, and the patient wishes to proceed. DETAILS OF PROCEDURE: The patient was taken to the operating room and placed in a supine position. After general endotracheal anesthesia was induced, she was converted to lithotomy position. Gomez catheter was inserted. The abdomen was then prepped and draped. In the left lower quadrant, a transverse incision was made. The peritoneal cavity entered under direct vision with an Optiview trocar, inflated to 15 mmHg pressure with CO2. Laparoscope was reinserted. No underlying trocar insertion site injuries were seen. Following this, eventually 4 additional trocars were placed, 2 on the right side of the abdomen and 2 on the left. As one traced down the Kenny limb and into the area of the jejunojejunostomy, this was found to be involved in a quite complex matted area of adhesion formation, and after initial dissection, this was felt to be best resected. After some additional lysis of adhesions, we were able to detach the Kenny limb, as it came into the common limb from the biliopancreatic limb. This was done with 2 firings of the AXEL lópez loads. Some of the biliopancreatic limb was then resected, this being around 10 cm, and that specimen delivered from the field. To rule out a reversed Kenny limb, the biliopancreatic limb was traced back to the ligament of Treitz, and the Kenny limb was confirmed to remain in continuity as a single length of bowel from the point where it entered the previous jejunojejunostomy and continued as the common limb. Roughly 15 cm distal to the point of anastomosis within the common limb, there was an additional area of stricture formation. This was initially treated with opening of the bowel at the level of stricture, flipping the bowel over on itself, and then firing the XAEL lópez load into the area, thus creating a connection between those two segments of bowel. The common opening at that point was closed transversely with a AXEL purple load. The angles of anastomosis were reinforced with some 3-0 Vicryl stitch, and there was no mesenteric defect. The Kenny-en-Y anatomy was then reconstructed by means of an anastomosis between the biliopancreatic limb and the small bowel, roughly 20 cm distal to the point of the stricturoplasty. This was accomplished with internal firing of the Endo-AXEL lópez load, again the common opening being closed transversely with purple load. The angles of anastomosis and, in this case, the mesenteric defect were approximated with some 0 Ethibond stitch, along with fibrin sealant. At that point, no further problems were noted. Trocars were removed. The peritoneal cavity deflated. Incision was closed with some 6-0 Vicryl skin stitch. Dressing was applied. The patient was taken to the recovery room in satisfactory condition. Physician physician assistant surgery, Nadia Mccoy, played an essential role in assisting in this case, helping to position the patient, retract structures as needed, as well as suturing and cutting sutures when indicated. Her presence improved the patient's safety and decreased the operative time. Jayant Hairston MD /[id number]
== END 2016-08-26 10:10 | disposition home or self-care (01) | DRG 326 ==
LOC: JP.SDS 06:29 → JP.MS 06:29 → EDSTATUS 09:00 → JP.2SS 15:00 → JP.ICU 08-23 08:06 → JP.MS 08-24 11:28
PROVIDERS: ADMIT Surgery; ATTEND Surgery
PROC: 0D164ZA Bypass Stomach to Jejunum, Percutaneous Endoscopic Approach (ICD-10-PCS; principal; 2016-08-20)
PROC: 0DBA4ZX Excision of Jejunum, Percutaneous Endoscopic Approach, Diagnostic (ICD-10-PCS; principal; 2016-08-20)
PROC: 0DNA4ZZ Release Jejunum, Percutaneous Endoscopic Approach (ICD-10-PCS; principal; 2016-08-20)
DX: K56.5 Intestinal adhesions [bands] with obstruction (postinfection) (principal); J69.0 Pneumonitis due to inhalation of food and vomit; J96.91 Respiratory failure, unspecified with hypoxia; K21.9 Gastro-esophageal reflux disease without esophagitis; Y95 Nosocomial condition; I10 Essential (primary) hypertension; Z98.84 Bariatric surgery status; Z98.0 Intestinal bypass and anastomosis status; E11.42 Type 2 diabetes mellitus with diabetic polyneuropathy; E03.9 Hypothyroidism, unspecified; G47.30 Sleep apnea, unspecified; M79.7 Fibromyalgia; G89.29 Other chronic pain; E53.8 Deficiency of other specified B group vitamins; E53.9 Vitamin B deficiency, unspecified; J44.9 Chronic obstructive pulmonary disease, unspecified; Z87.891 Personal history of nicotine dependence; I95.9 Hypotension, unspecified; R00.0 Tachycardia, unspecified; E87.6 Hypokalemia; E83.42 Hypomagnesemia; Z79.82 Long term (current) use of aspirin; Z88.1 Allergy status to other antibiotic agents; Z91.018 Allergy to other foods; E78.5 Hyperlipidemia, unspecified; M53.3 Sacrococcygeal disorders, not elsewhere classified
CPT/HCPCS: 36415; 36600; 71020; 71020-26; 71275; 74020; 74020-26; 74177; 74240; 74240-26; 80053; 81001; 82803; 83735; 84100; 85027; 87040; 87070; 87086; 87205; 88307; 94640-76; 94762; A9270-GY; C9113; J0171; J0694; J0696; J1100; J1170; J1644; J1956; J2185; J2250; J2405; J2704; J2765; J2795; J3010; J3411; J3420; J3475; J3480; J7030; J7040; J7042; J7050; J7120; J7620; Q9967

== ENCOUNTER 2017-03-03 19:53 | Inpatient (IN) | payer MEDICARE, MEDICAID ==
[2017-03-03] MEDS ORDERED: Acetaminophen Soln 650 MG/20.3 ML UD Cup PO ONE (21:18)
--- NOTE | 2017-03-03 21:21 | EDM.PDOC ---
ED HPI GENERAL MEDICAL PROBLEM - General Chief Complaint: Fever Stated Complaint: FEVER, CHEST RATTLELY Time Seen by Provider: 03/03/17 20:30 Source of Information: Reports: Patient, Family History Limitations: Reports: No Limitations - History of Present Illness INITIAL COMMENTS - FREE TEXT/NARRATIVE: pt arrived with a elevated temp and she is sob. She is not having pleuritic pain with breathing. About 2 weeks ago she did having a choking episode and she wondered if she might have asperated. Onset: Today Duration: Hour(s):, Other (pt has been running a fever since last nite. ) Location: Reports: Chest Associated Symptoms: Reports: Cough, Shortness of Breath Abdominal Pain Score (Numeric/FACES): 2 - Related Data Allergies Allergy/AdvReac Type Severity Reaction Status Date / Time erythromycin base Allergy Hives Verified 10/16/16 09:03 [Erythromycin Base] zolpidem tartrate AdvReac Disorientat Verified 10/16/16 09:03 [From Ambien] ion .lyle peppers Allergy Hives Uncoded 10/16/16 09:03 Home Meds: Home Meds Albuterol [Ventolin HFA] 1 - 2 puff IH Q4HR PRN 09/14/14 [History] Aspirin [Aspirin EC] 81 mg PO DAILY 09/14/14 [History] Calcium Carb & Citrate/Vit D3 [Citracal + D ER] 1 each PO BID 09/14/14 [History] Cholecalciferol (Vitamin D3) [Vitamin D3] 2,000 unit PO DAILY 09/14/14 [History] Cyanocobalamin (Vitamin B-12) [Cyanocobalamin Injection] 1,000 mcg IJ .Q3WK [History] Cyanocobalamin (Vitamin B12) [Vitamin B12] 1,000 mcg PO DAILY 09/14/14 [History] Cyclobenzaprine [Flexeril] 10 mg PO TID PRN 09/14/14 [History] Folic Acid 1 mg PO DAILY 09/14/14 [History] Gabapentin 600 mg PO TID 09/14/14 [History] Multivitamin/Iron/Folic Acid [Centrum Complete Multivit] 2 tab PO DAILY [History] Sennosides [Senna] 1 tab PO DAILY PRN 09/14/14 [History] Thiamine HCl [Vitamin B-1] 100 mg PO DAILY 09/14/14 [History] Vitamin B Complex [Super B-50 Complex] 1 tab PO DAILY 09/14/14 [History] atorvaSTATin Calcium [Atorvastatin Calcium] 10 mg PO BEDTIME 09/14/14 [History] clonazePAM [Clonazepam] 2 mg PO DAILY 09/14/14 [History] traZODone HCl [Trazodone HCl] 100 mg PO BEDTIME 09/14/14 [History] Levothyroxine 112 mcg PO ACBREAKFAST 08/09/16 [History] Venlafaxine [Effexor XR] 37.5 mg PO DAILY 08/09/16 [History] Ondansetron [Zofran ODT] 4 mg PO Q4H PRN 08/29/16 [History] Pantoprazole Sodium [Protonix] 40 mg PO DAILY 10/16/16 [History] Past Medical History HEENT History: Reports: Impaired Vision Other HEENT History: wears glasses Cardiovascular History: Reports: High Cholesterol, Hypertension Respiratory History: Reports: COPD, Other (See Below) Other Respiratory History: granular naveed disease, checked every 6 months Gastrointestinal History: Reports: Bowel Obstruction, Colon Polyp, GERD Genitourinary History: Reports: None 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: Dysfunctional Uterine Bleeding, , Spontaneous Musculoskeletal History: Reports: Back Pain, Chronic, Fibromyalgia Neurological History: Reports: Neuropathy, Diabetic Endocrine/Metabolic History: Reports: Diabetes, Type II, Hypothyroidism, Vitamin D Deficiency Hematologic History: Reports: Blood Transfusion(s) - Infectious Disease History Infectious Disease History: Reports: Chicken Pox, Measles, MRSA, Mumps, Rubella - Past Surgical History HEENT Surgical History: Reports: Cataract Surgery, Tonsillectomy GI Surgical History: Reports: Appendectomy, Bariatric Procedure, Colonoscopy, EGD, Hernia Repair/Other, Other (See Below) Female Surgical History: Reports: Hysterectomy, Other (See Below) Musculoskeletal Surgical History: Reports: Arthroscopic Knee, Carpal Tunnel, Other (See Below) Social & Family History - Family History Family Medical History: Noncontributory Cardiac: Reports: Arrhythmia, CAD Respiratory: Reports: COPD Musculoskeletal: Reports: Arthritis Endocrine/Metabolic: Reports: Diabetes, type II Oncologic: Reports: Breast, Lung - Tobacco Use Smoking Status *Q: Never Smoker Years of Tobacco use: 30 Used Tobacco, but Quit: Yes Month Tobacco Last Used: 05/2002 Second Hand Smoke Exposure: No - Caffeine Use Caffeine Use: Reports: Coffee - Alcohol Use Days Per Week of Alcohol Use: 0 - Recreational Drug Use Recreational Drug Use: No ED ROS GENERAL - Review of Systems Review Of Systems: See Below Constitutional: Reports: Fever, Chills, Malaise HEENT: Reports: No Symptoms Respiratory: Reports: Shortness of Breath, Cough Cardiovascular: Reports: No Symptoms Endocrine: Reports: No Symptoms GI/Abdominal: Reports: No Symptoms : Reports: No Symptoms ED EXAM, GENERAL - Physical Exam Exam: See Below Free Text/Narrative:: pt has been very sob and she has been running atemp and feeling sick all over. She has been slightly wheezy. She had a very bad asperation pneumonia and ended up in icu on bipap in the past few monthes. Exam Limited By: No Limitations General Appearance: Alert, Anxious Ears: Normal TMs Nose: Normal Inspection Throat/Mouth: Normal Inspection, Other (mouth is dry) Head: Atraumatic Neck: Normal Inspection Respiratory/Chest: No Respiratory Distress Cardiovascular: Regular Rate, Rhythm, Tachycardia GI/Abdominal: Soft, Non-Tender Rectal (Female) Exam: Deferred Back Exam: Normal Inspection Extremities: Normal Inspection Neurological: Alert, Oriented, Normal Cognition Psychiatric: Normal Affect Course - Vital Signs Last Recorded V/S: Last Vital Signs Temp 39.2 C H 03/03/17 20:35 Pulse 92 03/03/17 20:35 Resp 16 03/03/17 20:35 BP 137/69 03/03/17 20:35 Pulse Ox 92 L 03/03/17 20:35 - Orders/Labs/Meds Orders: Active Orders 24 hr Category Date Time Status RT Aerosol Therapy [RC] ASDIRECTED Care 03/03/17 22:00 Ordered Chest 2V [CR] Stat Exams 03/03/17 21:17 Taken CULTURE BLOOD [BC] Urgent Lab 03/03/17 21:58 Ordered CULTURE BLOOD [BC] Urgent Lab 03/03/17 21:58 Ordered Clindamycin Phosphate [Cleocin] 300 mg Med 03/03/17 22:01 Ordered Sodium Chloride 0.9% [Normal Saline] 50 ml IV ONETIME Sodium Chloride 0.9% [Normal Saline] 1,000 ml Med 03/03/17 22:00 Ordered IV ASDIRECTED Blood Culture x2 Reflex Set [OM.PC] Urgent Oth 03/03/17 21:58 Ordered Medication Orders Sodium Chloride (Normal Saline) 1,000 mls @ 999 mls/hr IV ASDIRECTED [facility] Labs: Laboratory Tests 03/03/17 03/03/17 03/03/17 Range/Units 20:36 20:39 20:39 WBC 9.0 (4.5-11.0) K/uL RBC 4.12 (3.30-5.50) M/uL Hgb 12.3 (12.0-15.0) g/dL Hct 37.4 (36.0-48.0) % MCV 91 (80-98) fL MCH 30 (27-31) pg MCHC 33 (32-36) % Plt Count 192 (150-400) K/uL Neut % (Auto) 75 H (36-66) % Lymph % (Auto) 15 L (24-44) % [place] % (Auto) 10 H (2-6) % Eos % (Auto) 0 L (2-4) % Baso % (Auto) 0 (0-1) % Sodium 136 L (140-148) mmol/L Potassium 3.6 (3.6-5.2) mmol/L Chloride 99 L (100-108) mmol/L Carbon Dioxide 30 (21-32) mmol/L Anion Gap 10.6 (5.0-14.0) mmol/L BUN 15 D (7-18) mg/dL Creatinine 0.7 (0.6-1.0) mg/dL Est Cr Clr Drug Dosing 58.32 mL/min Estimated GFR (MDRD) > 60 (>60) Glucose 132 H (74-106) mg/dL Calcium 8.4 L (8.5-10.1) mg/dL Total Bilirubin 0.6 (0.2-1.0) mg/dL AST 17 (15-37) U/L ALT 22 (12-78) U/L Alkaline Phosphatase 96 (46-116) U/L C-Reactive Protein (0.0-0.3) mg/dL Total Protein 6.8 (6.4-8.2) g/dL Albumin 3.2 L (3.4-5.0) g/dL Globulin 3.6 H (2.3-3.5) g/dL Albumin/Globulin Ratio 0.9 L (1.2-2.2) Urine Color Yellow Urine Appearance Slightly cloudy Urine pH 5.0 (4.5-8.0) Ur Specific [place] 1.015 (1.008-1.030) Urine Protein Negative (NEGATIVE) mg/dL Urine Glucose (UA) Normal (NEGATIVE) mg/dL Urine Ketones Negative (NEGATIVE) mg/dL Urine Occult Blood Moderate (NEGATIVE) Urine Nitrite Negative (NEGATIVE) Urine Bilirubin Negative (NEGATIVE) Urine Urobilinogen Normal (NORMAL) mg/dL Ur Leukocyte Esterase Negative (NEGATIVE) Urine RBC 0-5 (0-5) Urine WBC 0-5 (0-5) Ur Epithelial Cells Rare Amorphous Sediment Not seen Urine Bacteria Not seen Urine Mucus Not seen 03/03/17 Range/Units 21:11 WBC (4.5-11.0) K/uL RBC (3.30-5.50) M/uL Hgb (12.0-15.0) g/dL Hct (36.0-48.0) % MCV (80-98) fL MCH (27-31) pg MCHC (32-36) % Plt Count (150-400) K/uL Neut % (Auto) (36-66) % Lymph % (Auto) (24-44) % [place] % (Auto) (2-6) % Eos % (Auto) (2-4) % Baso % (Auto) (0-1) % Sodium (140-148) mmol/L Potassium (3.6-5.2) mmol/L Chloride (100-108) mmol/L Carbon Dioxide (21-32) mmol/L Anion Gap (5.0-14.0) mmol/L BUN (7-18) mg/dL Creatinine (0.6-1.0) mg/dL Est Cr Clr Drug Dosing mL/min Estimated GFR (MDRD) (>60) Glucose (74-106) mg/dL Calcium (8.5-10.1) mg/dL Total Bilirubin (0.2-1.0) mg/dL AST (15-37) U/L ALT (12-78) U/L Alkaline Phosphatase (46-116) U/L C-Reactive Protein 15.58 H (0.0-0.3) mg/dL Total Protein (6.4-8.2) g/dL Albumin (3.4-5.0) g/dL Globulin (2.3-3.5) g/dL Albumin/Globulin Ratio (1.2-2.2) Urine Color Urine Appearance Urine pH (4.5-8.0) Ur Specific [place] (1.008-1.030) Urine Protein (NEGATIVE) mg/dL Urine Glucose (UA) (NEGATIVE) mg/dL Urine Ketones (NEGATIVE) mg/dL Urine Occult Blood (NEGATIVE) Urine Nitrite (NEGATIVE) Urine Bilirubin (NEGATIVE) Urine Urobilinogen (NORMAL) mg/dL Ur Leukocyte Esterase (NEGATIVE) Urine RBC (0-5) Urine WBC (0-5) Ur Epithelial Cells Amorphous Sediment Urine Bacteria Urine Mucus Meds: Medications Generic Name Dose Route Start Last Admin Trade Name Freq PRN Reason Stop Dose Admin Sodium Chloride 1,000 mls @ 999 mls/hr 03/03/17 22:00 Normal Saline IV ASDIRECTED YAN Discontinued Medications Generic Name Dose Route Start Last Admin Trade Name Freq PRN Reason Stop Dose Admin Acetaminophen 650 mg 03/03/17 21:18 03/03/17 21:23 Tylenol PO 03/03/17 21:19 650 mg ONETIME ONE Administration Albuterol 2.5 mg 03/03/17 22:00 Proventil Neb Soln NEB 03/03/17 22:01 ONETIME ONE - Re-Assessments/Exams Free Text/Narrative Re-Assessment/Exam: 03/03/17 22:05 pt was found to have a elevated temp. Her wbc is not markedly elevated. She has caroline quite sob and her o2 sats are around 90. Iv fluids were started and she was given clindomycin. Departure - Departure Time of Disposition: 22:06 Disposition: Admitted As Inpatient 68 Condition: Fair Clinical Impression: Pneumonia, Dehydration - Discharge Information Referrals: Jose M Guadarrama PA-C [Primary Care Provider] - Forms: ED Department Discharge Care Plan Goals: admit to hosp. -- Dr skinner. - My Orders Last 24 Hours: My Active Orders 03/03/17 21:17 Chest 2V [CR] Stat 03/03/17 21:58 CULTURE BLOOD [BC] Urgent CULTURE BLOOD [BC] Urgent Blood Culture x2 Reflex Set [OM.PC] Urgent 03/03/17 22:00 RT Aerosol Therapy [RC] ASDIRECTED Sodium Chloride 0.9% [Normal Saline] 1,000 ml IV ASDIRECTED 03/03/17 22:01 Clindamycin Phosphate [Cleocin] 300 mg Sodium Chloride 0.9% [Normal Saline] 50 ml IV ONETIME - Assessment/Plan Last 24 Hours: My Active Orders 03/03/17 21:17 Chest 2V [CR] Stat 03/03/17 21:58 CULTURE BLOOD [BC] Urgent CULTURE BLOOD [BC] Urgent Blood Culture x2 Reflex Set [OM.PC] Urgent 03/03/17 22:00 RT Aerosol Therapy [RC] ASDIRECTED Sodium Chloride 0.9% [Normal Saline] 1,000 ml IV ASDIRECTED 03/03/17 22:01 Clindamycin Phosphate [Cleocin] 300 mg Sodium Chloride 0.9% [Normal Saline] 50 ml IV ONETIME
[2017-03-03] MEDS ORDERED: Sodium Chloride 0.9% 1,000 ML IV SCH (22:00)
[2017-03-03] MEDS ORDERED: Albuterol 0.083% 2.5 MG/3 ML Neb Soln NEB ONE (22:00)
[2017-03-03] MEDS: Piperacillin/Tazobactam 3.375 GM in Sodium Chloride 0.9% 50 ML IV SCH (23:42)
--- NOTE | 2017-03-04 00:13 | PCM.HP ---
H&P History of Present Illness - General Date of Service: 03/04/17 Admit Problem/Dx: Admission Diagnosis/Problem Admission Diagnosis/Problem Pneumonia Source of Information: Patient, Provider, RN Notes Reviewed History Limitations: Reports: No Limitations - History of Present Illness Initial Comments - Free Text/Narative: This patient is a 66-year-old woman who is admitted through the emergency department with left lung pneumonia and early sepsis. Approximate 2 days ago did have significant reflux and thinks that she may have aspirated, there was significant coughing at that time. Over the past 48 hours his developed weakness with anorexia, shortness of breath, and fever. Because of temperature elevation she presented to the emergency department this evening, white blood cell count is normal, chest x-ray shows left lung infiltrate, lactic acid level is pending. Blood cultures have been drawn and IV antibiotic therapy has been initiated in the emergency department. She has received vigorous IV fluid replacement thus far and is feeling somewhat better. Blood pressures were borderline on initial evaluation, temperature of 102, heart rate normal. Abdominal Pain Score (Numeric/FACES): 2 - Related Data Allergies/Adverse Reactions: Allergies Allergy/AdvReac Type Severity Reaction Status Date / Time erythromycin base Allergy Hives Verified 10/16/16 09:03 [Erythromycin Base] zolpidem tartrate AdvReac Disorientat Verified 10/16/16 09:03 [From Ambien] ion .lyle peppers Allergy Hives Uncoded 10/16/16 09:03 Home Medications: Home Meds Albuterol [Ventolin HFA] 1 - 2 puff IH Q4HR PRN 09/14/14 [History] Aspirin [Aspirin EC] 81 mg PO DAILY 09/14/14 [History] Calcium Carb & Citrate/Vit D3 [Citracal + D ER] 1 each PO BID 09/14/14 [History] Cholecalciferol (Vitamin D3) [Vitamin D3] 2,000 unit PO DAILY 09/14/14 [History] Cyanocobalamin (Vitamin B-12) [Cyanocobalamin Injection] 1,000 mcg IJ .Q3WK [History] Cyanocobalamin (Vitamin B12) [Vitamin B12] 1,000 mcg PO DAILY 09/14/14 [History] Cyclobenzaprine [Flexeril] 10 mg PO TID PRN 09/14/14 [History] Folic Acid 1 mg PO DAILY 09/14/14 [History] Gabapentin 600 mg PO TID 09/14/14 [History] Multivitamin/Iron/Folic Acid [Centrum Complete Multivit] 2 tab PO DAILY [History] Sennosides [Senna] 1 tab PO DAILY PRN 09/14/14 [History] Thiamine HCl [Vitamin B-1] 100 mg PO DAILY 09/14/14 [History] Vitamin B Complex [Super B-50 Complex] 1 tab PO DAILY 09/14/14 [History] atorvaSTATin Calcium [Atorvastatin Calcium] 10 mg PO BEDTIME 09/14/14 [History] clonazePAM [Clonazepam] 2 mg PO DAILY 09/14/14 [History] traZODone HCl [Trazodone HCl] 100 mg PO BEDTIME 09/14/14 [History] Levothyroxine 112 mcg PO ACBREAKFAST 08/09/16 [History] Venlafaxine [Effexor XR] 37.5 mg PO DAILY 08/09/16 [History] Ondansetron [Zofran ODT] 4 mg PO Q4H PRN 08/29/16 [History] Pantoprazole Sodium [Protonix] 40 mg PO DAILY 10/16/16 [History] Past Medical History HEENT History: Reports: Impaired Vision Other HEENT History: wears glasses Cardiovascular History: Reports: High Cholesterol, Hypertension Respiratory History: Reports: COPD, Other (See Below) Other Respiratory History: granular naveed disease, checked every 6 months Gastrointestinal History: Reports: Bowel Obstruction, Colon Polyp, GERD Genitourinary History: Reports: None 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: Dysfunctional Uterine Bleeding, , Spontaneous Musculoskeletal History: Reports: Back Pain, Chronic, Fibromyalgia Neurological History: Reports: Neuropathy, Diabetic Endocrine/Metabolic History: Reports: Diabetes, Type II, Hypothyroidism, Vitamin D Deficiency Hematologic History: Reports: Blood Transfusion(s) - Infectious Disease History Infectious Disease History: Reports: Chicken Pox, Measles, MRSA, Mumps, Rubella - Past Surgical History HEENT Surgical History: Reports: Cataract Surgery, Tonsillectomy GI Surgical History: Reports: Appendectomy, Bariatric Procedure, Colonoscopy, EGD, Hernia Repair/Other, Other (See Below) Female Surgical History: Reports: Hysterectomy, Other (See Below) Musculoskeletal Surgical History: Reports: Arthroscopic Knee, Carpal Tunnel, Other (See Below) Social & Family History - Family History Family Medical History: Noncontributory Cardiac: Reports: Arrhythmia, CAD Respiratory: Reports: COPD Musculoskeletal: Reports: Arthritis Endocrine/Metabolic: Reports: Diabetes, type II Oncologic: Reports: Breast, Lung - Tobacco Use Smoking Status *Q: Never Smoker Years of Tobacco use: 30 Used Tobacco, but Quit: Yes Month Tobacco Last Used: 05/2002 Second Hand Smoke Exposure: No - Caffeine Use Caffeine Use: Reports: Coffee - Alcohol Use Days Per Week of Alcohol Use: 0 - Recreational Drug Use Recreational Drug Use: No H&P Review of Systems - Review of Systems: Review Of Systems: See Below General: Reports: Fever, Chills, Weakness, Diaphoresis, Decreased Appetite HEENT: Reports: No Symptoms Pulmonary: Reports: Shortness of Breath, Cough. Denies: Wheezing, Pleuritic Chest Pain, Sputum, Hemoptysis Cardiovascular: Reports: Dyspnea on Exertion, Lightheadedness. Denies: Chest Pain, Palpitations, Orthopnea, PND, Edema Gastrointestinal: Reports: No Symptoms Genitourinary: Reports: No Symptoms Musculoskeletal: Reports: No Symptoms Skin: Reports: No Symptoms Psychiatric: Reports: No Symptoms Neurological: Reports: No Symptoms Hematologic/Lymphatic: Reports: No Symptoms Immunologic: Reports: No Symptoms Exam - Exam Exam: See Below - Vital Signs Vital Signs: Last Vital Signs Temp 102.1 F H 03/03/17 22:08 Pulse 81 03/03/17 22:08 Resp 20 03/03/17 22:08 BP 94/56 L 03/03/17 22:08 Pulse Ox 90 L 03/03/17 22:08 Weight: 130 lb 1.164 oz - Exam Quality Assessment: DVT Prophylaxis General: Alert, Oriented, Cooperative, Mild Distress HEENT: Conjunctiva Clear, Hearing Intact, Normal Nasal Septum, Posterior Pharynx Clear, Pupils Equal. No: Mucosa Moist & [place] Neck: Supple, Trachea Midline, +2 Carotid Pulse wo Bruit Lungs: Decreased Breath Sounds. No: Crackles, Rales, Rhonchi, Rub, Wheezing Cardiovascular: Regular Rate, Regular Rhythm, Normal S1, Normal S2. No: Systolic Murmur, Diastolic Murmur GI/Abdominal Exam: Normal Bowel Sounds, Soft, Non-Tender, No Organomegaly, No Distention Back Exam: Normal Inspection, Full Range of Motion Extremities: Non-Tender, No Pedal Edema Skin: Warm, Dry, Intact Neurological: Cranial Nerves Intact, Strength Equal Bilateral, Normal Speech, Normal Tone, Sensation Intact. No: Focal Deficit Neuro Extensive - Mental Status: Alert, Oriented x3, Normal Mood/Affect, Normal Cognition, Memory Intact - Patient Data Lab Results Last 24 hrs: Laboratory Results - last 24 hr 03/03/17 03/03/17 03/03/17 Range/Units 20:36 20:39 20:39 WBC 9.0 (4.5-11.0) K/uL RBC 4.12 (3.30-5.50) M/uL Hgb 12.3 (12.0-15.0) g/dL Hct 37.4 (36.0-48.0) % MCV 91 (80-98) fL MCH 30 (27-31) pg MCHC 33 (32-36) % Plt Count 192 (150-400) K/uL Neut % (Auto) 75 H (36-66) % Lymph % (Auto) 15 L (24-44) % [place] % (Auto) 10 H (2-6) % Eos % (Auto) 0 L (2-4) % Baso % (Auto) 0 (0-1) % Sodium 136 L (140-148) mmol/L Potassium 3.6 (3.6-5.2) mmol/L Chloride 99 L (100-108) mmol/L Carbon Dioxide 30 (21-32) mmol/L Anion Gap 10.6 (5.0-14.0) mmol/L BUN 15 D (7-18) mg/dL Creatinine 0.7 (0.6-1.0) mg/dL Est Cr Clr Drug Dosing 58.32 mL/min Estimated GFR (MDRD) > 60 (>60) Glucose 132 H (74-106) mg/dL Lactic Acid (0.4-2.0) mmol/L Calcium 8.4 L (8.5-10.1) mg/dL Total Bilirubin 0.6 (0.2-1.0) mg/dL AST 17 (15-37) U/L ALT 22 (12-78) U/L Alkaline Phosphatase 96 (46-116) U/L C-Reactive Protein (0.0-0.3) mg/dL Total Protein 6.8 (6.4-8.2) g/dL Albumin 3.2 L (3.4-5.0) g/dL Globulin 3.6 H (2.3-3.5) g/dL Albumin/Globulin Ratio 0.9 L (1.2-2.2) Urine Color Yellow Urine Appearance Slightly cloudy Urine pH 5.0 (4.5-8.0) Ur Specific [place] 1.015 (1.008-1.030) Urine Protein Negative (NEGATIVE) mg/dL Urine Glucose (UA) Normal (NEGATIVE) mg/dL Urine Ketones Negative (NEGATIVE) mg/dL Urine Occult Blood Moderate (NEGATIVE) Urine Nitrite Negative (NEGATIVE) Urine Bilirubin Negative (NEGATIVE) Urine Urobilinogen Normal (NORMAL) mg/dL Ur Leukocyte Esterase Negative (NEGATIVE) Urine RBC 0-5 (0-5) Urine WBC 0-5 (0-5) Ur Epithelial Cells Rare Amorphous Sediment Not seen Urine Bacteria Not seen Urine Mucus Not seen 03/03/17 03/03/17 Range/Units 21:11 23:18 WBC (4.5-11.0) K/uL RBC (3.30-5.50) M/uL Hgb (12.0-15.0) g/dL Hct (36.0-48.0) % MCV (80-98) fL MCH (27-31) pg MCHC (32-36) % Plt Count (150-400) K/uL Neut % (Auto) (36-66) % Lymph % (Auto) (24-44) % [place] % (Auto) (2-6) % Eos % (Auto) (2-4) % Baso % (Auto) (0-1) % Sodium (140-148) mmol/L Potassium (3.6-5.2) mmol/L Chloride (100-108) mmol/L Carbon Dioxide (21-32) mmol/L Anion Gap (5.0-14.0) mmol/L BUN (7-18) mg/dL Creatinine (0.6-1.0) mg/dL Est Cr Clr Drug Dosing mL/min Estimated GFR (MDRD) (>60) Glucose (74-106) mg/dL Lactic Acid 0.9 (0.4-2.0) mmol/L Calcium (8.5-10.1) mg/dL Total Bilirubin (0.2-1.0) mg/dL AST (15-37) U/L ALT (12-78) U/L Alkaline Phosphatase (46-116) U/L C-Reactive Protein 15.58 H (0.0-0.3) mg/dL Total Protein (6.4-8.2) g/dL Albumin (3.4-5.0) g/dL Globulin (2.3-3.5) g/dL Albumin/Globulin Ratio (1.2-2.2) Urine Color Urine Appearance Urine pH (4.5-8.0) Ur Specific [place] (1.008-1.030) Urine Protein (NEGATIVE) mg/dL Urine Glucose (UA) (NEGATIVE) mg/dL Urine Ketones (NEGATIVE) mg/dL Urine Occult Blood (NEGATIVE) Urine Nitrite (NEGATIVE) Urine Bilirubin (NEGATIVE) Urine Urobilinogen (NORMAL) mg/dL Ur Leukocyte Esterase (NEGATIVE) Urine RBC (0-5) Urine WBC (0-5) Ur Epithelial Cells Amorphous Sediment Urine Bacteria Urine Mucus Result Diagrams: 03/03/17 20:39 03/03/17 20:39 *Q Meaningful Use (ADM) - VTE *Q VTE Criteria *Q: - VTE Risk Assess *Q Each Risk Factor Represents 1 Point: Serious Lung Disease Including Pneumonia, Less than 1 Month, Abnormal Pulmonary Function (COPD) Total Score 1 Point Risk Factors: 2 Each Risk Factor Represents 2 Points: Age 60 - 74 Years Total Score 2 Point Risk Factors: 2 Each Risk Factor Represents 3 Points: None Total Score 3 Point Risk Factors: 0 Each Risk Factor Represents 5 Points: None Total Score 5 Point Risk Factors: 0 Venous Thromboembolism Risk Factor Score *Q: 4 - Stroke *Q Stroke Criteria *Q: - AMI *Q AMI Criteria *Q: Problem List Initiated/Reviewed/Updated: Yes Orders Last 24hrs: Active Orders 24 hr Category Date Time Status Patient Status Manage Transfer [TRANSFER] Routine ADT 03/03/17 23:56 Active RT Aerosol Therapy [RC] ASDIRECTED Care 03/03/17 22:00 Active Chest 2V [CR] Stat Exams 03/03/17 21:17 Taken CULTURE BLOOD [BC] Urgent Lab 03/03/17 20:30 Received CULTURE BLOOD [BC] Urgent Lab 03/03/17 20:40 Received INFLUENZA A+B AG SCREEN [RM] Stat Lab 03/03/17 23:46 Ordered Piperacillin/Tazobactam [Zosyn] 3.375 gm Med 03/03/17 23:30 Active Sodium Chloride 0.9% [Normal Saline] 50 ml IV Q6H Sodium Chloride 0.9% [Normal Saline] 1,000 ml Med 03/03/17 22:00 Active IV ASDIRECTED Blood Culture x2 Reflex Set [OM.PC] Urgent Oth 03/03/17 21:58 Ordered Resuscitation Status Routine Resus Stat 03/03/17 23:59 Ordered Medication Orders Sodium Chloride (Normal Saline) 1,000 mls @ 999 mls/hr IV ASDIRECTED [facility] Last Admin: 03/03/17 22:07 Dose: 999 mls/hr Piperacillin Sod/Tazobactam (Sod 3.375 gm/ Sodium Chloride) 50 mls @ 100 mls/ hr IV Q6H [facility] Last Admin: 03/03/17 23:42 Dose: 100 mls/hr Assessment/Plan Comment:: ASSESSMENT AND PLAN LEFT LUNG PNEUMONIA WITH EARLY SEPSIS-history of probable aspiration. Blood pressure borderline on initial assessment with elevated temperature. -Influenza screen pending -Lactic acid level pending -Blood cultures and sputum cultures pending -IV fluids for hydration and management of early sepsis per protocol -Because of possible aspiration will treat with expanded IV antibiotic coverage ; Zosyn and azithromycin COPD-no evidence of acute exacerbation at the present time, subjectively she feels more short of breath -Supplemental oxygen as needed -Nebulizer therapy with albuterol and duo nebs HYPOTHYROIDISM -Continue outpatient thyroid replacement medication MAINTENANCE ISSUES -DVT prophylaxis; Lovenox 40 mg subcutaneous daily -GI prophylaxis; continue outpatient PPI therapy -Gomez catheter; not indicated -Nutrition; regular diet -Nicotine dependence; not required CODE STATUS-FULL CODE ADMISSION STATUS-patient will be admitted to inpatient status, expect at least a 2 night hospital stay for evaluation and management of problems as outlined above. At the time of this admission I do not reasonably expected evaluation and management of this problem will require more than a 96 hour hospital stay. DISPOSITION-anticipate discharge to home after the hospital stay. PRIMARY CARE PROVIDER-Jose M Guadarrama
[2017-03-04] MEDS ORDERED: Polyethylene Glycol 3350 Powder 17 GM Packet PO PRN (00:33)
[2017-03-04] MEDS ORDERED: Magnesium Hydroxide 400 MG/5 ML Susp 30 ML Cup PO PRN (00:33)
[2017-03-04] MEDS ORDERED: Enoxaparin 40 MG/0.4 ML Syringe SUBCUT SCH (00:33)
[2017-03-04] MEDS ORDERED: Docusate Sodium 100 MG Cap PO PRN (00:33)
[2017-03-04] MEDS ORDERED: Azithromycin 500 MG in Sodium Chloride 0.9% 250 ML IV SCH ×2 (00:33→21:00)
[2017-03-04] MEDS ORDERED: Albuterol 0.083% 2.5 MG/3 ML Neb Soln NEB PRN (00:33)
[2017-03-04] MEDS ORDERED: Lactated Ringers 500 ML IV SCH (00:33)
[2017-03-04] MEDS ORDERED: Ondansetron 4 MG/2 ML SDV IV PRN (00:33)
[2017-03-04] MEDS ORDERED: Sodium Chloride 0.9% 10 ML Syringe FLUSH PRN (00:33)
[2017-03-04] MEDS ORDERED: Albuterol 8 GM Inhaler INH PRN (00:33)
[2017-03-04] MEDS ORDERED: ClonazePAM 1 MG Tab ONE (01:06)
[2017-03-04] MEDS ORDERED: traZODone 50 MG Tab ONE (01:06)
[2017-03-04] MEDS: ClonazePAM 1 MG Tab PO SCH ×3 (01:12→22:06)
[2017-03-04] MEDS: traZODone 50 MG Tab PO SCH ×2 (01:13→21:56)
[2017-03-04] MEDS ORDERED: Lactated Ringers 1,000 ML IV SCH (01:45)
[2017-03-04] MEDS: Piperacillin/Tazobactam 3.375 GM in Sodium Chloride 0.9% 50 ML IV SCH (05:29)
[2017-03-04] MEDS: Albuterol/Ipratropium 3.0-0.5 MG/3 ML Neb Soln NEB SCH ×4 (07:04→22:06)
[2017-03-04] MEDS: Levothyroxine 112 MCG Tab PO SCH (07:32)
[2017-03-04] MEDS: Pantoprazole 40 MG Tab.CR PO SCH (07:33)
[2017-03-04] MEDS: Gabapentin 300 MG Cap PO SCH ×3 (08:23→21:55)
[2017-03-04] MEDS: Aspirin 81 MG Tab.EC PO SCH (08:23)
[2017-03-04] MEDS ORDERED: Magnesium Sulfate/Water 2 GM in Premix Bag 1 BAG IV ONE (09:00)
[2017-03-04] MEDS ORDERED: Potassium Chloride 20 MEQ Tab.ER PO ONE (09:00)
--- NOTE | 2017-03-04 09:05 | CR ---
Chest 2V FINDINGS: The heart and vascular structures are normal in appearance. There has been interval develop ment of a focal infiltrate in the left lung base. Additional infiltrates seen on the prior study have resolved. There are no pleural effusions. Impression: 1. Left basilar pneumonia. Follow-up is recommended to confirm resolution.
--- NOTE | 2017-03-04 09:27 | PCM.PN ---
- General Info Date of Service: 03/04/17 Functional Status: Reports: Pain Controlled, Tolerating Diet - Review of Systems General: Reports: Fever Pulmonary: Reports: Shortness of Breath, Cough Systems Review Comment:: No acute events since admission. She is feeling less short of breath. Not much in the way of a cough. Temperature curve has improved since admission. She was on oxygen overnight but is off supplemental oxygen this morning. No complaints of chest pain. In general she is feeling better. - Patient Data Vitals - Most Recent: Last Vital Signs Temp 37.1 C 03/04/17 07:58 Pulse 75 03/04/17 07:58 Resp 20 03/04/17 07:58 BP 128/63 03/04/17 07:58 Pulse Ox 98 03/04/17 07:58 Weight - Most Recent: 60 kg I&O - Last 24 Hours: Intake & Output 03/03/17 03/04/17 03/04/17 22:59 06:59 14:59 Intake Total 1774 Output Total 1100 Balance 674 Lab Results Last 24 Hours: Laboratory Results - last 24 hr 03/04/17 03/04/17 Range/Units 05:07 05:07 WBC 6.0 (4.5-11.0) K/uL RBC 3.49 (3.30-5.50) M/uL Hgb 10.5 L (12.0-15.0) g/dL Hct 32.1 L (36.0-48.0) % MCV 92 (80-98) fL MCH 30 (27-31) pg MCHC 33 (32-36) % Plt Count 152 (150-400) K/uL Neut % (Auto) 60 (36-66) % Lymph % (Auto) 24 (24-44) % [place] % (Auto) 14 H (2-6) % Eos % (Auto) 1 L (2-4) % Baso % (Auto) 0 (0-1) % Sodium 141 (140-148) mmol/L Potassium 3.4 L (3.6-5.2) mmol/L Chloride 106 (100-108) mmol/L Carbon Dioxide 30 (21-32) mmol/L Anion Gap 8.4 (5.0-14.0) mmol/L BUN 10 (7-18) mg/dL Creatinine 0.6 (0.6-1.0) mg/dL Est Cr Clr Drug Dosing 74.92 mL/min Estimated GFR (MDRD) > 60 (>60) Glucose 102 (74-106) mg/dL Calcium 8.0 L (8.5-10.1) mg/dL Magnesium 1.7 L (1.8-2.4) mg/dL Med Orders - Current: Current Medications Acetaminophen (Tylenol) 650 mg PO Q4H PRN PRN Reason: Pain (Mild 1-3)/fever Albuterol (Ventolin Hfa) 0 gm INH Q4H PRN PRN Reason: Dyspnea Albuterol (Proventil Neb Soln) 2.5 mg NEB Q4H PRN PRN Reason: Shortness Of Breath/wheezing Albuterol/Ipratropium (Duoneb 3.0-0.5 Mg/3 Ml) 3 ml NEB QIDRT [facility] Last Admin: 03/04/17 07:04 Dose: 3 ml Aspirin (Halfprin) 81 mg PO DAILY [facility] Last Admin: 03/04/17 08:23 Dose: 81 mg Atorvastatin Calcium (Lipitor) 10 mg PO BEDTIME YAN Clonazepam (Klonopin) 2 mg PO BEDTIME YAN Docusate Sodium (Colace) 100 mg PO BID PRN PRN Reason: Constipation Enoxaparin Sodium (Lovenox) 40 mg SUBCUT Q24H [facility] Gabapentin (Neurontin) 600 mg PO TID [facility] Last Admin: 03/04/17 08:23 Dose: 600 mg Piperacillin Sod/Tazobactam (Sod 3.375 gm/ Sodium Chloride) 50 mls @ 100 mls/ hr IV Q6H [facility] Last Admin: 03/04/17 05:29 Dose: 100 mls/hr Lactated Ringer's (Ringers, Lactated) 1,000 mls @ 125 mls/hr IV ASDIRECTED [facility] Last Admin: 03/04/17 03:33 Dose: 125 mls/hr Azithromycin 500 mg/ Sodium (Chloride) 250 mls @ 250 mls/hr IV Q24H [facility] Magnesium Sulfate 2 gm/ Premix 50 mls @ 12.5 mls/hr IV ONETIME ONE Stop: 03/04/17 12:59 Last Admin: 03/04/17 08:25 Dose: 12.5 mls/hr Influenza Virus Vaccine (Fluzone Quad [id number]) 60 mcg IM .ONCE ONE Stop: 03/04/17 10:01 Levothyroxine Sodium (Levothyroxine) 112 mcg PO ACBREAKFAST [facility] Last Admin: 03/04/17 07:32 Dose: 112 mcg Magnesium Hydroxide (Milk Of Magnesia) 30 ml PO Q12H PRN PRN Reason: Constipation Ondansetron HCl (Zofran) 4 mg IV Q4H PRN PRN Reason: Nausea/Vomiting Oxycodone HCl (Oxycodone) 5 mg PO Q4H PRN PRN Reason: Pain (moderate 4-6) Pantoprazole Sodium (Protonix) 40 mg PO ACBREAKFAST [facility] Last Admin: 03/04/17 07:33 Dose: 40 mg Polyethylene Glycol (Miralax) 17 gm PO DAILY PRN PRN Reason: Constipation Sodium Chloride (Saline Flush) 10 ml FLUSH ASDIRECTED PRN PRN Reason: Keep Vein Open Trazodone HCl (Trazodone) 100 mg PO BEDTIME [facility] Last Admin: 03/04/17 01:13 Dose: 100 mg Discontinued Medications Acetaminophen (Tylenol) 650 mg PO ONETIME ONE Stop: 03/03/17 21:19 Last Admin: 03/03/17 21:23 Dose: 650 mg Albuterol (Proventil Neb Soln) 2.5 mg NEB ONETIME ONE Stop: 03/03/17 22:01 Last Admin: 03/03/17 22:20 Dose: 2.5 mg Clonazepam (Klonopin) 2 mg PO DAILY [facility] Last Admin: 03/04/17 01:12 Dose: 2 mg Clonazepam (Klonopin) Confirm Administered Dose 2 mg .ROUTE .STK-MED ONE Stop: 03/04/17 01:07 Last Admin: 03/04/17 01:37 Dose: Not Given Enoxaparin Sodium (Lovenox) 40 mg SUBCUT DAILY [facility] Last Admin: 03/04/17 01:13 Dose: 40 mg Sodium Chloride (Normal Saline) 1,000 mls @ 999 mls/hr IV ASDIRECTED [facility] Last Admin: 03/03/17 22:07 Dose: 999 mls/hr Clindamycin Phosphate 300 mg/ (Sodium Chloride) 52 mls @ 150 mls/hr IV ONETIME ONE Stop: 03/03/17 22:21 Last Admin: 03/03/17 22:18 Dose: 150 mls/hr Azithromycin 500 mg/ Sodium (Chloride) 250 mls @ 250 mls/hr IV Q24H YAN Last Admin: 03/04/17 01:13 Dose: 250 mls/hr Lactated Ringer's (Ringers, Lactated) 500 mls @ 500 mls/hr IV .BOLUS YAN Stop: 03/04/17 02:34 Last Admin: 03/04/17 00:54 Dose: 500 mls/hr Influenza Virus Vaccine (Pharmacy To Dose - Influenza Vaccine) 1 each IM ONETIME ONE Stop: 03/04/17 10:01 Potassium Chloride (Klor-Con M20) 40 meq PO ONETIME ONE Stop: 03/04/17 09:01 Last Admin: 03/04/17 08:24 Dose: 40 meq Trazodone HCl (Trazodone) Confirm Administered Dose 100 mg .ROUTE .STK-MED ONE Stop: 03/04/17 01:07 Last Admin: 03/04/17 01:37 Dose: Not Given - Exam Quality Assessment: No: Supplemental Oxygen General: Alert, Oriented, Cooperative, No Acute Distress Neck: Supple Lungs: Normal Respiratory Effort, Rales (few left lung base) Cardiovascular: Regular Rate, Regular Rhythm GI/Abdominal Exam: Soft, Non-Tender, No Distention Extremities: Normal Inspection, No Pedal Edema. No: Increased Warmth Skin: Warm, Dry Psy/Mental Status: Alert, Normal Affect - Problem List Review Problem List Initiated/Reviewed/Updated: Yes - My Orders Last 24 Hours: My Active Orders 03/04/17 09:00 Magnesium Sulfate/Water [Magnesium Sulfate 2 GM in Water 50 ML] 2 gm Premix Bag 1 bag IV ONETIME 03/04/17 09:25 Transfer Patient (Change bed) [ADT] Routine 03/04/17 09:30 Sodium Chloride 0.9% [Normal Saline] 1,000 ml IV ASDIRECTED 03/04/17 11:00 cefTRIAXone [Rocephin] 1 gm Sodium Chloride 0.9% [Normal Saline] 50 ml IV Q24H 03/04/17 21:00 Azithromycin [Zithromax] 500 mg PO BEDTIME 03/05/17 05:00 BASIC METABOLIC PANEL,BMP [CHEM] Timed CBC W/O DIFF,HEMOGRAM [HEME] Timed (1) - Plan Plan:: ASSESSMENT AND PLAN LEFT LUNG PNEUMONIA WITH EARLY SEPSIS - sepsis has resolved. Aspiration event was 2 weeks ago making it unlikely that this pneumonia is related to the aspiration. Influenza was negative. -Antibiotic coverage with azithromycin and ceftriaxone -Follow-up cultures -Gentle IV fluids -Supplement oxygen as needed COPD - no evidence of acute exacerbation at the present time, subjectively she feels better today with treatments overnight. -Supplemental oxygen as needed -Nebulizer therapy with albuterol and duo nebs HYPOTHYROIDISM -Continue outpatient thyroid replacement medication MAINTENANCE ISSUES -DVT prophylaxis; Lovenox 40 mg subcutaneous daily -GI prophylaxis; continue outpatient PPI therapy -Gomez catheter; not indicated -Nutrition; regular diet DISPOSITION - anticipate discharge to home after the hospital stay. Sim Ortez M.D.
[2017-03-04] MEDS ORDERED: Sodium Chloride 0.9% 1,000 ML IV SCH (09:30)
[2017-03-04] MEDS ORDERED: FLU Vacc QS 2017-18 (36mos UP)/PF 60 MCG/0.5 ML Syringe IM ONE (10:00)
[2017-03-04] MEDS: cefTRIAXone 1 GM in Sodium Chloride 0.9% 50 ML IV SCH (10:45)
[2017-03-04] MEDS: oxyCODONE 5 MG Tab PO PRN ×2 (11:53→22:20)
[2017-03-04] MEDS: Acetaminophen 325 MG Tab PO PRN ×2 (17:33→22:19)
[2017-03-04] MEDS: Enoxaparin 40 MG/0.4 ML Syringe SUBCUT SCH (21:55)
[2017-03-04] MEDS: atorvaSTATin 10 MG Tab PO SCH (21:56)
[2017-03-04] MEDS: Azithromycin 250 MG Tab PO SCH (21:56)
[2017-03-05] MEDS: Pantoprazole 40 MG Tab.CR PO SCH (07:17)
[2017-03-05] MEDS: Levothyroxine 112 MCG Tab PO SCH (07:17)
[2017-03-05] MEDS: Albuterol/Ipratropium 3.0-0.5 MG/3 ML Neb Soln NEB SCH ×4 (07:20→20:43)
[2017-03-05] MEDS: Acetaminophen 325 MG Tab PO PRN ×3 (08:44→19:32)
[2017-03-05] MEDS: oxyCODONE 5 MG Tab PO PRN ×3 (08:44→19:32)
[2017-03-05] MEDS: Gabapentin 300 MG Cap PO SCH ×4 (08:45→20:55)
[2017-03-05] MEDS: Aspirin 81 MG Tab.EC PO SCH (08:45)
[2017-03-05] MEDS ORDERED: Metoclopramide 10 MG/2 ML SDV IVPUSH ONE (09:20)
--- NOTE | 2017-03-05 09:23 | PCM.PN ---
- General Info Date of Service: 03/05/17 Functional Status: Reports: Pain Controlled - Review of Systems General: Reports: Weakness. Denies: Fever Gastrointestinal: Reports: Vomiting Neurological: Reports: Headache Systems Review Comment:: No acute events overnight and patient slept well. She has not had any fevers. She has not needed supplemental oxygen. Unfortunately this morning she developed nausea with vomiting. She reports that her headache that had been mild has now progressed to a severe bandlike headache. She has not received much help from the pain medications. Vital signs have been stable. No significant visual difficulties at this time. - Patient Data Vitals - Most Recent: Last Vital Signs Temp 36.9 C 03/05/17 07:49 Pulse 91 03/05/17 07:49 Resp 20 03/05/17 07:49 BP 111/51 L 03/05/17 07:49 Pulse Ox 96 03/05/17 07:21 Weight - Most Recent: 60 kg I&O - Last 24 Hours: Intake & Output 03/04/17 03/05/17 03/05/17 22:59 06:59 14:59 Intake Total 2272 590 100 Output Total 2000 500 1200 Balance 272 90 -1100 Lab Results Last 24 Hours: Laboratory Results - last 24 hr 03/05/17 03/05/17 Range/Units 04:50 04:50 WBC 6.3 (4.5-11.0) K/uL RBC 3.17 L (3.30-5.50) M/uL Hgb 9.6 L (12.0-15.0) g/dL Hct 29.6 L (36.0-48.0) % MCV 93 (80-98) fL MCH 30 (27-31) pg MCHC 32 (32-36) % Plt Count 165 (150-400) K/uL Sodium 142 (140-148) mmol/L Potassium 3.8 (3.6-5.2) mmol/L Chloride 107 (100-108) mmol/L Carbon Dioxide 30 (21-32) mmol/L Anion Gap 4.9 L (5.0-14.0) mmol/L BUN 9 (7-18) mg/dL Creatinine 0.6 (0.6-1.0) mg/dL Est Cr Clr Drug Dosing 74.92 mL/min Estimated GFR (MDRD) > 60 (>60) Glucose 114 H (74-106) mg/dL Calcium 7.9 L (8.5-10.1) mg/dL Med Orders - Current: Current Medications Acetaminophen (Tylenol) 650 mg PO Q4H PRN PRN Reason: Pain (Mild 1-3)/fever Last Admin: 03/05/17 08:44 Dose: 650 mg Albuterol (Ventolin Hfa) 0 gm INH Q4H PRN PRN Reason: Dyspnea Albuterol (Proventil Neb Soln) 2.5 mg NEB Q4H PRN PRN Reason: Shortness Of Breath/wheezing Albuterol/Ipratropium (Duoneb 3.0-0.5 Mg/3 Ml) 3 ml NEB QIDRT [facility] Last Admin: 03/05/17 07:20 Dose: 3 ml Aspirin (Halfprin) 81 mg PO DAILY [facility] Last Admin: 03/05/17 08:45 Dose: 81 mg Atorvastatin Calcium (Lipitor) 10 mg PO BEDTIME [facility] Last Admin: 03/04/17 21:56 Dose: 10 mg Azithromycin (Zithromax) 500 mg PO BEDTIME [facility] Last Admin: 03/04/17 21:56 Dose: 500 mg Clonazepam (Klonopin) 2 mg PO BEDTIME [facility] Last Admin: 03/04/17 22:06 Dose: 2 mg Docusate Sodium (Colace) 100 mg PO BID PRN PRN Reason: Constipation Enoxaparin Sodium (Lovenox) 40 mg SUBCUT Q24H [facility] Last Admin: 03/04/17 21:55 Dose: 40 mg Gabapentin (Neurontin) 600 mg PO TID [facility] Last Admin: 03/05/17 08:45 Dose: 600 mg Ceftriaxone Sodium 1 gm/ (Sodium Chloride) 50 mls @ 100 mls/hr IV Q24H [facility] Last Admin: 03/04/17 10:45 Dose: 100 mls/hr Influenza Virus Vaccine (Fluzone Quad [id number]) 60 mcg IM .ONCE ONE Stop: 03/05/17 16:01 Levothyroxine Sodium (Levothyroxine) 112 mcg PO ACBREAKFAST [facility] Last Admin: 03/05/17 07:17 Dose: 112 mcg Magnesium Hydroxide (Milk Of Magnesia) 30 ml PO Q12H PRN PRN Reason: Constipation Metoclopramide HCl (Reglan) 5 mg IVPUSH ONETIME ONE Stop: 03/05/17 09:21 Ondansetron HCl (Zofran) 4 mg IV Q4H PRN PRN Reason: Nausea/Vomiting Oxycodone HCl (Oxycodone) 5 mg PO Q4H PRN PRN Reason: Pain (moderate 4-6) Last Admin: 03/05/17 08:44 Dose: 5 mg Pantoprazole Sodium (Protonix) 40 mg PO ACBREAKFAST [facility] Last Admin: 03/05/17 07:17 Dose: 40 mg Polyethylene Glycol (Miralax) 17 gm PO DAILY PRN PRN Reason: Constipation Sodium Chloride (Saline Flush) 10 ml FLUSH ASDIRECTED PRN PRN Reason: Keep Vein Open Trazodone HCl (Trazodone) 100 mg PO BEDTIME [facility] Last Admin: 03/04/17 21:56 Dose: 100 mg Discontinued Medications Acetaminophen (Tylenol) 650 mg PO ONETIME ONE Stop: 03/03/17 21:19 Last Admin: 03/03/17 21:23 Dose: 650 mg Albuterol (Proventil Neb Soln) 2.5 mg NEB ONETIME ONE Stop: 03/03/17 22:01 Last Admin: 03/03/17 22:20 Dose: 2.5 mg Clonazepam (Klonopin) 2 mg PO DAILY [facility] Last Admin: 03/04/17 01:12 Dose: 2 mg Clonazepam (Klonopin) Confirm Administered Dose 2 mg .ROUTE .STK-MED ONE Stop: 03/04/17 01:07 Last Admin: 03/04/17 01:37 Dose: Not Given Enoxaparin Sodium (Lovenox) 40 mg SUBCUT DAILY [facility] Last Admin: 03/04/17 01:13 Dose: 40 mg Sodium Chloride (Normal Saline) 1,000 mls @ 999 mls/hr IV ASDIRECTED [facility] Last Admin: 03/03/17 22:07 Dose: 999 mls/hr Clindamycin Phosphate 300 mg/ (Sodium Chloride) 52 mls @ 150 mls/hr IV ONETIME ONE Stop: 03/03/17 22:21 Last Admin: 03/03/17 22:18 Dose: 150 mls/hr Piperacillin Sod/Tazobactam (Sod 3.375 gm/ Sodium Chloride) 50 mls @ 100 mls/ hr IV Q6H [facility] Last Admin: 03/04/17 05:29 Dose: 100 mls/hr Azithromycin 500 mg/ Sodium (Chloride) 250 mls @ 250 mls/hr IV Q24H YAN Last Admin: 03/04/17 01:13 Dose: 250 mls/hr Lactated Ringer's (Ringers, Lactated) 500 mls @ 500 mls/hr IV .BOLUS [facility] Stop: 03/04/17 02:34 Last Admin: 03/04/17 00:54 Dose: 500 mls/hr Lactated Ringer's (Ringers, Lactated) 1,000 mls @ 125 mls/hr IV ASDIRECTED [facility] Last Admin: 03/04/17 03:33 Dose: 125 mls/hr Azithromycin 500 mg/ Sodium (Chloride) 250 mls @ 250 mls/hr IV Q24H YAN Magnesium Sulfate 2 gm/ Premix 50 mls @ 12.5 mls/hr IV ONETIME ONE Stop: 03/04/17 12:59 Last Admin: 03/04/17 08:25 Dose: 12.5 mls/hr Sodium Chloride (Normal Saline) 1,000 mls @ 50 mls/hr IV ASDIRECTED [facility] Last Admin: 03/04/17 11:26 Dose: 50 mls/hr Influenza Virus Vaccine (Pharmacy To Dose - Influenza Vaccine) 1 each IM ONETIME ONE Stop: 03/04/17 10:01 Influenza Virus Vaccine (Fluzone Quad [id number]) 60 mcg IM .ONCE ONE Stop: 03/04/17 10:01 Last Admin: 03/04/17 11:14 Dose: Not Given Potassium Chloride (Klor-Con M20) 40 meq PO ONETIME ONE Stop: 03/04/17 09:01 Last Admin: 03/04/17 08:24 Dose: 40 meq Trazodone HCl (Trazodone) Confirm Administered Dose 100 mg .ROUTE .STK-MED ONE Stop: 03/04/17 01:07 Last Admin: 03/04/17 01:37 Dose: Not Given - Exam Quality Assessment: No: Supplemental Oxygen General: Alert, Oriented, Cooperative, No Acute Distress Neck: Supple Lungs: Normal Respiratory Effort, Crackles (few left lung base) Cardiovascular: Regular Rate, Regular Rhythm GI/Abdominal Exam: Soft, No Distention Extremities: No Pedal Edema. No: Increased Warmth Psy/Mental Status: Alert, Normal Affect - Problem List Review Problem List Initiated/Reviewed/Updated: Yes - My Orders Last 24 Hours: My Active Orders 03/04/17 09:25 Transfer Patient (Change bed) [ADT] Routine 03/04/17 11:00 cefTRIAXone [Rocephin] 1 gm Sodium Chloride 0.9% [Normal Saline] 50 ml IV Q24H 03/04/17 21:00 Azithromycin [Zithromax] 500 mg PO BEDTIME 03/05/17 09:20 Metoclopramide [Reglan] 5 mg IVPUSH ONETIME ONE 03/05/17 09:21 Convert IV to Saline Lock [OM.PC] Routine - Plan Plan:: ASSESSMENT AND PLAN LEFT LUNG PNEUMONIA WITH EARLY SEPSIS - sepsis has resolved. Clinically doing much better and is off supplemental oxygen. -Antibiotic coverage with azithromycin and transition to oral cefdinir -Follow-up cultures -Saline lock IV -Supplement oxygen as needed TENSION HEADACHE, SUSPECTED - headache sounds most consistent with a tension headache. There is a family history of brain cancer and patient is very worried that this may be once causing her headache. Headache has not responded to other medication so far. -Head CT -Muscle relaxer -Heating pad for her neck COPD - no evidence of acute exacerbation at the present time, subjectively she feels better today with treatments overnight. -Supplemental oxygen as needed -Nebulizer therapy with albuterol and duo nebs HYPOTHYROIDISM -Continue outpatient thyroid replacement medication MAINTENANCE ISSUES -DVT prophylaxis; enoxaparin 40 mg subcutaneous daily -GI prophylaxis; continue outpatient PPI therapy -Nutrition; regular diet DISPOSITION - anticipate discharge to home after the hospital stay, hopefully tomorrow if stable overnight Sim Ortez M.D.
[2017-03-05] MEDS ORDERED: FLU Vacc QS 2017-18 (36mos UP)/PF 60 MCG/0.5 ML Syringe IM ONE ×2 (10:00→16:00)
[2017-03-05] MEDS: cefTRIAXone 1 GM in Sodium Chloride 0.9% 50 ML IV SCH (11:35)
[2017-03-05] MEDS ORDERED: tiZANidine 4 MG Tab PO PRN (14:50)
[2017-03-05] MEDS: Enoxaparin 40 MG/0.4 ML Syringe SUBCUT SCH (19:33)
[2017-03-05] MEDS: atorvaSTATin 10 MG Tab PO SCH (20:55)
[2017-03-05] MEDS: Azithromycin 250 MG Tab PO SCH (20:55)
[2017-03-05] MEDS: traZODone 50 MG Tab PO SCH (21:01)
[2017-03-05] MEDS: ClonazePAM 1 MG Tab PO SCH (21:01)
[2017-03-06 07:20] VITALS: BP 117/65
[2017-03-06] MEDS: Albuterol/Ipratropium 3.0-0.5 MG/3 ML Neb Soln NEB SCH (07:24)
[2017-03-06] MEDS: Levothyroxine 112 MCG Tab PO SCH (07:27)
[2017-03-06] MEDS: Pantoprazole 40 MG Tab.CR PO SCH (07:27)
[2017-03-06] MEDS: Gabapentin 300 MG Cap PO SCH (08:51)
[2017-03-06] MEDS: Aspirin 81 MG Tab.EC PO SCH (08:51)
--- NOTE | 2017-03-06 09:10 | PCM.DCSUM1 ---
Discharge Summary - Hospital Course Brief History: 66-year-old female with history of gastric bypass who presented with cough, fever and shortness of breath. She is admitted for management of community-acquired pneumonia - Discharge Data Discharge Date: 03/06/17 Discharge Disposition: Home, Self-Care 01 Condition: Good - Discharge Diagnosis/Problem(s) (1) Pneumonia SNOMED Code(s): 464186984 ICD Code: J18.9 - PNEUMONIA, UNSPECIFIED ORGANISM Status: Acute Current Visit: Yes Qualifiers: Pneumonia type: due to unspecified organism Laterality: left Lung location: lower lobe of lung Qualified Code(s): J18.1 - Lobar pneumonia, unspecified organism (2) Tension headache SNOMED Code(s): 049183151 ICD Code: G44.209 - TENSION-TYPE HEADACHE, UNSPECIFIED, NOT INTRACTABLE Status: Acute Current Visit: Yes (3) Hx of bariatric surgery SNOMED Code(s): 127008950 ICD Code: Z98.84 - BARIATRIC SURGERY STATUS Status: Chronic Current Visit : No - Patient Summary/Data Labs Pending at D/C: final results of blood cultures which are negative at 2 days Hospital Course: Ana Maria presented to the emergency room with fever, cough and shortness of breath. Workup in the emergency room was suggestive of a left lower lobe pneumonia. She was started on antibiotics and admitted to the hospital. Overnight following admission she showed significant improvement and we were able to wean her off supplemental oxygen. She remained weak and had a fairly impressive cough. during the second night of hospitalization things were fairly uneventful but unfortunately the morning after she developed nausea and vomiting as well as a fairly impressive headache. We treated this as a migraine initially without any improvement. Further examination and information suggested more of a tension type headache. This has responded well to muscle relaxers as well as a heating pad and has not completely resolved but has improved significantly. She has continued to have normal oxygen saturations without supplemental oxygen. Her cough has been improving. Her strength has been improving. I believe she is safe for outpatient management at this time. She will have 3 additional days of azithromycin as well as 4-1/2 additional days of cefdinir. She will have limited number of narcotics and muscle relaxers to help with the resolution of her tension headache. She would benefit from close follow-up to ensure that she continues to improve. - Patient Instructions Diet: Usual Diet as Tolerated Activity: As Tolerated Driving: Do Not Drive (if taking pain pills) Showering/Bathing: May Shower Notify Provider of: Fever, Increased Pain, Nausea and/or Vomiting Other/Special Instructions: 1. You were in the hospital for management of a left lower lung pneumonia. I suspect this was caused by a bacteria rather than aspiration. We have not been able to culture the causative bacteria but you have been getting better with our antibiotic treatment. I recommend that you continue to take antibiotics as listed below to continue your course of treatment. -cefdinir 300 mg taken twice daily with food for 9 more doses. Your next dose is due tonight. -The azithromycin 500 mg taken once daily at bedtimefor 3 days. Your next dose is due tonight. 2. You had a tension type headache while you were in the hospital. I recommend using muscle relaxers as well as a heating pad to help reduce the muscle spasm in your upper back and neck. You may use acetaminophen for mild pain or oxycodone for more intense pain well the muscle spasm is resolving. 3. Please seek medical attention if you develop fever greater than 101, have sudden onset of shortness of breath or if you develop chest pain/chest tightness. - Discharge Plan Prescriptions/Med Rec: Azithromycin 500 mg PO BEDTIME #3 tablet Cefdinir 300 mg PO BID #9 capsule oxyCODONE 5 mg PO Q4H PRN #15 tablet PRN Reason: Pain tiZANidine [Zanaflex] 4 mg PO Q6H PRN #15 tablet PRN Reason: Muscle Spasm Home Medications: Home Meds Albuterol [Ventolin HFA] 1 - 2 puff IH Q4HR PRN 09/14/14 [History] Aspirin [Aspirin EC] 81 mg PO DAILY 09/14/14 [History] Calcium Carb & Citrate/Vit D3 [Citracal + D ER] 1 each PO BID 09/14/14 [History] Cholecalciferol (Vitamin D3) [Vitamin D3] 2,000 unit PO DAILY 09/14/14 [History] Cyanocobalamin (Vitamin B-12) [Cyanocobalamin Injection] 1,000 mcg IJ .Q3WK [History] Cyanocobalamin (Vitamin B12) [Vitamin B12] 1,000 mcg PO DAILY 09/14/14 [History] Cyclobenzaprine [Flexeril] 10 mg PO TID PRN 09/14/14 [History] Folic Acid 1 mg PO DAILY 09/14/14 [History] Gabapentin 600 mg PO TID 09/14/14 [History] Multivitamin/Iron/Folic Acid [Centrum Complete Multivit] 2 tab PO DAILY [History] Sennosides [Senna] 1 tab PO DAILY PRN 09/14/14 [History] Thiamine HCl [Vitamin B-1] 100 mg PO DAILY 09/14/14 [History] Vitamin B Complex [Super B-50 Complex] 1 tab PO DAILY 09/14/14 [History] atorvaSTATin Calcium [Atorvastatin Calcium] 10 mg PO BEDTIME 09/14/14 [History] clonazePAM [Clonazepam] 2 mg PO DAILY 09/14/14 [History] traZODone HCl [Trazodone HCl] 100 mg PO BEDTIME 09/14/14 [History] Levothyroxine 112 mcg PO ACBREAKFAST 08/09/16 [History] Venlafaxine [Effexor XR] 37.5 mg PO DAILY 08/09/16 [History] Ondansetron [Zofran ODT] 4 mg PO Q4H PRN 08/29/16 [History] Pantoprazole Sodium [Protonix] 40 mg PO DAILY 10/16/16 [History] Azithromycin 500 mg PO BEDTIME #3 tablet 03/06/17 [Rx] Cefdinir 300 mg PO BID #9 capsule 03/06/17 [Rx] oxyCODONE 5 mg PO Q4H PRN #15 tablet 03/06/17 [Rx] tiZANidine [Zanaflex] 4 mg PO Q6H PRN #15 tablet 03/06/17 [Rx] Patient Handouts: Cefdinir capsules, Azithromycin tablets, Community-Acquired Pneumonia, Adult, Tension Headache Referrals: Jose M Guadarrama PA-C [Primary Care Provider] - (f/u in one week - follow-up hospital stay for pneumonia and tension headache) - Discharge Summary/Plan Comment DC Time >30 min.: No (25) - Patient Data Vitals - Most Recent: Last Vital Signs Temp 36.1 C 03/06/17 07:19 Pulse 66 03/06/17 07:24 Resp 18 03/06/17 07:19 BP 117/65 03/06/17 07:19 Pulse Ox 94 L 03/06/17 07:24 Weight - Most Recent: 60 kg I&O - Last 24 hours: Intake & Output 03/05/17 03/06/17 03/06/17 22:59 06:59 14:59 Intake Total 240 Output Total 1800 1000 700 Balance -1560 -1000 -700 Med Orders - Current: Current Medications Acetaminophen (Tylenol) 650 mg PO Q4H PRN PRN Reason: Pain (Mild 1-3)/fever Last Admin: 03/05/17 19:32 Dose: 650 mg Albuterol (Ventolin Hfa) 0 gm INH Q4H PRN PRN Reason: Dyspnea Albuterol (Proventil Neb Soln) 2.5 mg NEB Q4H PRN PRN Reason: Shortness Of Breath/wheezing Albuterol/Ipratropium (Duoneb 3.0-0.5 Mg/3 Ml) 3 ml NEB QIDRT [facility] Last Admin: 03/06/17 07:24 Dose: 3 ml Aspirin (Halfprin) 81 mg PO DAILY [facility] Last Admin: 03/06/17 08:51 Dose: 81 mg Atorvastatin Calcium (Lipitor) 10 mg PO BEDTIME [facility] Last Admin: 03/05/17 20:55 Dose: 10 mg Azithromycin (Zithromax) 500 mg PO BEDTIME [facility] Last Admin: 03/05/17 20:55 Dose: 500 mg Clonazepam (Klonopin) 2 mg PO BEDTIME [facility] Last Admin: 03/05/17 21:01 Dose: 2 mg Docusate Sodium (Colace) 100 mg PO BID PRN PRN Reason: Constipation Enoxaparin Sodium (Lovenox) 40 mg SUBCUT Q24H [facility] Last Admin: 03/05/17 19:33 Dose: 40 mg Gabapentin (Neurontin) 600 mg PO TID [facility] Last Admin: 03/06/17 08:51 Dose: 600 mg Ceftriaxone Sodium 1 gm/ (Sodium Chloride) 50 mls @ 100 mls/hr IV Q24H [facility] Last Admin: 03/05/17 11:35 Dose: 100 mls/hr Levothyroxine Sodium (Levothyroxine) 112 mcg PO ACBREAKFAST [facility] Last Admin: 03/06/17 07:27 Dose: 112 mcg Magnesium Hydroxide (Milk Of Magnesia) 30 ml PO Q12H PRN PRN Reason: Constipation Ondansetron HCl (Zofran) 4 mg IV Q4H PRN PRN Reason: Nausea/Vomiting Oxycodone HCl (Oxycodone) 5 mg PO Q4H PRN PRN Reason: Pain (moderate 4-6) Last Admin: 03/05/17 19:32 Dose: 5 mg Pantoprazole Sodium (Protonix) 40 mg PO ACBREAKFAST [facility] Last Admin: 03/06/17 07:27 Dose: 40 mg Polyethylene Glycol (Miralax) 17 gm PO DAILY PRN PRN Reason: Constipation Last Admin: 03/05/17 14:09 Dose: 17 gm Sodium Chloride (Saline Flush) 10 ml FLUSH ASDIRECTED PRN PRN Reason: Keep Vein Open Tizanidine HCl (Zanaflex) 4 mg PO Q6H PRN PRN Reason: Muscle Spasm Last Admin: 03/05/17 23:12 Dose: 4 mg Trazodone HCl (Trazodone) 100 mg PO BEDTIME [facility] Last Admin: 03/05/17 21:01 Dose: 100 mg Discontinued Medications Acetaminophen (Tylenol) 650 mg PO ONETIME ONE Stop: 03/03/17 21:19 Last Admin: 03/03/17 21:23 Dose: 650 mg Albuterol (Proventil Neb Soln) 2.5 mg NEB ONETIME ONE Stop: 03/03/17 22:01 Last Admin: 03/03/17 22:20 Dose: 2.5 mg Clonazepam (Klonopin) 2 mg PO DAILY [facility] Last Admin: 03/04/17 01:12 Dose: 2 mg Clonazepam (Klonopin) Confirm Administered Dose 2 mg .ROUTE .STK-MED ONE Stop: 03/04/17 01:07 Last Admin: 03/04/17 01:37 Dose: Not Given Enoxaparin Sodium (Lovenox) 40 mg SUBCUT DAILY [facility] Last Admin: 03/04/17 01:13 Dose: 40 mg Sodium Chloride (Normal Saline) 1,000 mls @ 999 mls/hr IV ASDIRECTED [facility] Last Admin: 03/03/17 22:07 Dose: 999 mls/hr Clindamycin Phosphate 300 mg/ (Sodium Chloride) 52 mls @ 150 mls/hr IV ONETIME ONE Stop: 03/03/17 22:21 Last Admin: 03/03/17 22:18 Dose: 150 mls/hr Piperacillin Sod/Tazobactam (Sod 3.375 gm/ Sodium Chloride) 50 mls @ 100 mls/ hr IV Q6H [facility] Last Admin: 03/04/17 05:29 Dose: 100 mls/hr Azithromycin 500 mg/ Sodium (Chloride) 250 mls @ 250 mls/hr IV Q24H [facility] Last Admin: 03/04/17 01:13 Dose: 250 mls/hr Lactated Ringer's (Ringers, Lactated) 500 mls @ 500 mls/hr IV .BOLUS YAN Stop: 03/04/17 02:34 Last Admin: 03/04/17 00:54 Dose: 500 mls/hr Lactated Ringer's (Ringers, Lactated) 1,000 mls @ 125 mls/hr IV ASDIRECTED [facility] Last Admin: 03/04/17 03:33 Dose: 125 mls/hr Azithromycin 500 mg/ Sodium (Chloride) 250 mls @ 250 mls/hr IV Q24H [facility] Magnesium Sulfate 2 gm/ Premix 50 mls @ 12.5 mls/hr IV ONETIME ONE Stop: 03/04/17 12:59 Last Admin: 03/04/17 08:25 Dose: 12.5 mls/hr Sodium Chloride (Normal Saline) 1,000 mls @ 50 mls/hr IV ASDIRECTED [facility] Last Admin: 03/04/17 11:26 Dose: 50 mls/hr Influenza Virus Vaccine (Pharmacy To Dose - Influenza Vaccine) 1 each IM ONETIME ONE Stop: 03/04/17 10:01 Influenza Virus Vaccine (Fluzone Quad [id number]) 60 mcg IM .ONCE ONE Stop: 03/04/17 10:01 Last Admin: 03/04/17 11:14 Dose: Not Given Influenza Virus Vaccine (Fluzone Quad [id number]) 60 mcg IM .ONCE ONE Stop: 03/05/17 10:01 Last Admin: 03/05/17 10:02 Dose: 60 mcg Metoclopramide HCl (Reglan) 5 mg IVPUSH ONETIME ONE Stop: 03/05/17 09:21 Last Admin: 03/05/17 10:05 Dose: 5 mg Potassium Chloride (Klor-Con M20) 40 meq PO ONETIME ONE Stop: 03/04/17 09:01 Last Admin: 03/04/17 08:24 Dose: 40 meq Trazodone HCl (Trazodone) Confirm Administered Dose 100 mg .ROUTE .STK-MED ONE Stop: 03/04/17 01:07 Last Admin: 03/04/17 01:37 Dose: Not Given - Exam Quality Assessment: Denies: Supplemental Oxygen General: Reports: Alert, Oriented, Cooperative, No Acute Distress Neck: Reports: Supple Lungs: Reports: Normal Respiratory Effort GI/Abdominal Exam: Soft, No Distention Extremities: No Pedal Edema Psy/Mental Status: Reports: Alert, Normal Affect *Q Meaningful Use (DIS) - VTE *Q VTE Criteria *Q: - Stroke *Q Stroke Criteria *Q: - AMI *Q AMI Criteria *Q:
== END 2017-03-06 10:15 | disposition home or self-care (01) | DRG 871 ==
LOC: JP.ED 19:53 → JP.ICU 23:56 → JP.MS 03-04 11:30
PROVIDERS: ADMIT Hospitalist; ATTEND Internal Medicine
DX: A41.9 Sepsis, unspecified organism (principal); J18.1 Lobar pneumonia, unspecified organism; E11.40 Type 2 diabetes mellitus with diabetic neuropathy, unspecified; I10 Essential (primary) hypertension; E03.9 Hypothyroidism, unspecified; E55.9 Vitamin D deficiency, unspecified; Z87.891 Personal history of nicotine dependence; J44.9 Chronic obstructive pulmonary disease, unspecified; G44.209 Tension-type headache, unspecified, not intractable; Z23 Encounter for immunization; Z80.8 Family history of malignant neoplasm of other organs or systems; Z79.2 Long term (current) use of antibiotics; Z98.84 Bariatric surgery status; Z86.14 Personal history of Methicillin resistant Staphylococcus aureus infection; M79.7 Fibromyalgia; M54.9 Dorsalgia, unspecified; G89.29 Other chronic pain; K21.9 Gastro-esophageal reflux disease without esophagitis; E78.00 Pure hypercholesterolemia, unspecified; H54.7 Unspecified visual loss; Z79.82 Long term (current) use of aspirin; Z88.1 Allergy status to other antibiotic agents; Z91.018 Allergy to other foods; Z88.8 Allergy status to other drugs, medicaments and biological substances
CPT/HCPCS: 36415; 71020 ×2; 80053; 81001; 83605; 85025; 86140; 87040 ×2; 87804 ×2; 94640; 96361; 96365; 96367; 99285; A9270; J2543; J7040; J7050 ×2; 70450; 80048; 83735; 85027; 90686; 99284; G0008; J0456; J0696; J1650; J2765; J3475; J7120; J7620; S0077

== ENCOUNTER 2017-06-17 05:27 | Day surgery (SDC) | payer MEDICAID, MEDICARE ==
[2017-06-17] MEDS ORDERED: Lactated Ringers 1,000 ML IV SCH (06:00)
[2017-06-17] MEDS ORDERED: Povidone-Iodine 10% Soln 118.25 ML Bottle ONE (06:37)
[2017-06-17] MEDS ORDERED: EPINEPHrine 1 MG/ML SDV ONE (06:37)
[2017-06-17] MEDS ORDERED: fentaNYL 250 MCG/5 ML SDV ONE (07:12)
[2017-06-17] MEDS ORDERED: Neostigmine Methylsulfate 1 MG/ML 5 ML Syringe ONE (07:13)
[2017-06-17] MEDS ORDERED: Propofol 200 MG/20 ML SDV ONE (07:13)
[2017-06-17] MEDS ORDERED: Rocuronium 50 MG/5 ML Vial ONE (07:13)
[2017-06-17] MEDS ORDERED: Dexamethasone 4 MG/ML SDV ONE (07:13)
[2017-06-17] MEDS ORDERED: Ondansetron 4 MG/2 ML SDV ONE (07:13)
[2017-06-17] MEDS ORDERED: Glycopyrrolate 0.2 MG/ML 5 ML MDV ONE (07:13)
[2017-06-17] MEDS ORDERED: Albuterol/Ipratropium 3.0-0.5 MG/3 ML Neb Soln NEB ONE (07:15)
[2017-06-17] MEDS ORDERED: ceFAZolin 1 GM in Premix Bag 1 BAG IV ONE (07:30)
[2017-06-17] MEDS: Bupivacaine 0.5%/EPINEPHrine 1:200,000 50 ML MDV ONE ×2 (08:28→08:48)
[2017-06-17] MEDS ORDERED: fentaNYL 100 MCG/2 ML SDV IVPUSH ONE (09:40)
[2017-06-17] MEDS ORDERED: Acetaminophen/oxyCODONE 325-5 MG Tab PO ONE (11:30)
[2017-06-17 12:27] VITALS: BP 104/59
--- NOTE | 2017-06-17 13:34 | OR ---
DATE OF PROCEDURE: 06/17/2017 PREOPERATIVE DIAGNOSES: 1. Right shoulder rotator cuff tear. 2. Right shoulder impingement. 3. Right shoulder bursitis. POSTOPERATIVE DIAGNOSES: 1. Right shoulder rotator cuff tear. 2. Right shoulder impingement. 3. Right shoulder bursitis. PROCEDURES: 1. Right shoulder arthroscopy with subacromial decompression. 2. Right shoulder partial bursectomy and partial synovectomy for limited debridement. 3. Mini open rotator cuff tear repair. OFFICER LIEUTENANT: Ayde Ruby NP. Physician orthodontic assistant, Ayde Ruby NP, played an essential role in assisting in this case, helping to position the patient, retract structures as needed, as well as suturing and cutting sutures as indicated. Her presence improved patient's safety and decreased operative time. ANESTHESIA: General endotracheal intubation. FLUIDS: Lactated Ringer solution. ESTIMATED BLOOD LOSS: Less than 10 mL. COMPLICATIONS: None. SPECIMEN: None. DISCHARGE DISPOSITION: Stable to PACU. HISTORY AND INDICATIONS FOR THE PROCEDURE: The patient was seen preoperatively by myself in the clinic. She had failed nonoperative treatment for her right shoulder rotator cuff tear. Risks and benefits of procedure were explained to the patient. Informed consent was obtained. Preoperative imaging confirmed the above-mentioned diagnosis. DETAILS OF PROCEDURE: The patient was seen preoperatively by myself and the Anesthesia staff in the preoperative holding area, where the operative site was marked. She was brought to the operative suite by the Anesthesia staff, where general anesthesia was administered. She was placed into a beach chair position. All extremities found to be well padded. The right upper extremity was then prepped and draped in a sterile manner. Time- out was called identifying the correct patient, the correct procedure, the correct site, and antibiotics had been with appropriate period of time. A posterior portal was made and the joint was entered using a trocar. There was found to be partial fraying of the labrum and partial fraying of the proximal biceps tendon at its insertion anteriorly and posteriorly of the glenoid labrum. Spinal needle was used to enter just inferior to the biceps tendon and then a trocar with cannula was then used to enter the joint for the anterior portal. I then used a shaver as well as an ablation unit to perform a limited debridement of the partial labral and biceps tendon tears. The glenohumeral joint did not appear to have any significant arthritis present. I then removed my cannulas and then used the trocar to enter the subacromial space in the posterior portal. I then made a lateral portal and used a trocar to triangulate with the camera. I then used a shaver and debrided the subacromial space and performed a partial bursectomy. I then used the ablation unit to delineate the border of the acromion, although the acromion was noted as a type 1 on MRI. It certainly appeared to have a sizable hook consistent with a type 2 acromion through the arthroscope. I then used the jair to perform a subacromial decompression, removed the inferior portion of the acromion and then used an ablation unit to control any bleeding. After this had been performed, I removed all of my instruments from the subacromial space and then re-prepped with ChloraPrep and then made a transverse incision along the edge of the acromion cranially for my mini open rotator cuff repair. The place where the lateral portal had been placed was in line with the delineation of the raphae between the anterior and medial deltoid. I then split this area and then removed the bursa overlying the rotator cuff. I was then able to identify the rotator cuff tear on the MRI. It only showed that the ventral portion retracted, however, I saw a rotator cuff tear approximately 7 mm anterior to posterior of the supraspinatus tendon. I then cleared a space off for my JuggerKnot anchors. I placed 2 JuggerKnot anchors and then passed them through the rotator cuff and then under traction with the Magnolia tied the knots over the supraspinatus tendon. This provided excellent stability. We then copiously irrigated with saline and Betadine, closed our deltoid with #1 Stratafix and then closed the subcutaneous tissue with 3-0 Stratafix followed by glue and Steri-Strips. We closed them with 3-0 nylon and closed with Betadine-soaked Adaptic and a sterile dressing. The patient was then placed into a sling. She was then allowed to awaken from general anesthesia and taken to the PACU in stable condition. Armani Hairston DO /[id number]
== END 2017-06-17 12:25 | disposition home or self-care (01) ==
LOC: JP.SDS 05:27
PROVIDERS: ATTEND Orthopaedic Surgery
DX: M75.101 Unspecified rotator cuff tear or rupture of right shoulder, not specified as traumatic (principal); M75.41 Impingement syndrome of right shoulder; M75.51 Bursitis of right shoulder; I10 Essential (primary) hypertension; E78.00 Pure hypercholesterolemia, unspecified; J44.9 Chronic obstructive pulmonary disease, unspecified; E11.9 Type 2 diabetes mellitus without complications; E03.9 Hypothyroidism, unspecified; E55.9 Vitamin D deficiency, unspecified; E11.40 Type 2 diabetes mellitus with diabetic neuropathy, unspecified; K21.9 Gastro-esophageal reflux disease without esophagitis; Z88.1 Allergy status to other antibiotic agents; Z88.8 Allergy status to other drugs, medicaments and biological substances; Z91.018 Allergy to other foods; Z79.82 Long term (current) use of aspirin; Z79.899 Other long term (current) drug therapy
CPT/HCPCS: 23412; 29820; 29826; A9270; J0171; J0690; J1100; J2405; J2704; J3010; J7120; J7620; 29822; J2710

== ENCOUNTER → 2018-09-02 | Outpatient (CLI) | payer MEDICARE ==
[2018-09-02 08:50] VITALS: BP 108/60; PULSE 62
--- NOTE | 2018-09-02 12:22 | NM ---
Myocardial Perf Spect Multi INDICATION: DYSPNEA ON EXERTION,DIZZINESS COMPARISON: October 12, 2016 TECHNIQUE: Nuclear medicine myocardial perfusion scan was performed after IV administration of 8.43 millicuries uptake technetium 99m Myoview at rest and 25.7 millicuries of technetium 99m at stress (Lexiscan). FINDINGS: Myocardial perfusion: There is a large photopenic area involving the inferior wall towards the lateral aspect on stress images. This shows reperfusion on rest images. Wall motion: Normal wall motion. LVEF stress: 48 % LVEF rest: 71 % Other findings: None. IMPRESSION: Large area of reversible ischemia in the inferior wall towards the lateral aspect. This has increased in size since October 12, 2016 No focal wall motion abnormality. Ejection fraction was borderline low on stress study. It was normal at rest.
--- NOTE | 2018-09-02 20:23 | STRESS ---
DATE OF SERVICE: 09/02/2018 STRESS TEST REPORT PROPOSED PROCEDURE: Lexiscan stress test. INDICATION FOR STRESS TEST: Dyspnea on exertion, dizziness. DESCRIPTION OF PROCEDURE: Ana Maria is a 68-year-old female here for an outpatient stress test. Baseline EKG shows a normal sinus rhythm with a normal axis and no significant abnormalities. Baseline blood pressure is 108/60 with a pulse of 59. The stress test was administered per the protocol. Review of the continuous EKG monitoring showed no significant changes to the ST segments during the stress or recovery portion of the test. She did develop diffuse T-wave flattening and also had a slight T-wave inversion in lead 3. These changes slowly improved throughout the recovery phase. Her blood pressure remained relatively stable throughout the stress test. Heart rate went from 59 up to 98 and then slowly declined. After the procedure, her blood pressure is 111/58 and her pulse is 77. Review of the central supply technician supervisor's notes showed that the patient developed minimal symptoms including shortness of breath, tickle in her throat and chest tightness as well as a slight headache. She did not report any chest pain. Symptoms resolved in the recovery phase without intervention. IMPRESSION: Negative EKG portion of the stress test. The patient did report shortness of breath and chest tightness, but no chest pain. The nuclear medicine portion will be interpreted separately. Sim Ortez MD /[id number]
== END ==
LOC: JP.ACU 07:10
PROVIDERS: ATTEND Nurse Practitioner Family
DX: R06.09 Other forms of dyspnea (principal); R42 Dizziness and giddiness; I25.10 Atherosclerotic heart disease of native coronary artery without angina pectoris
CPT/HCPCS: 78452; 93017; A9500; J2785; 93018

== ENCOUNTER → 2018-11-11 | Outpatient (CLI) | payer MEDICAID, MEDICARE ==
--- NOTE | 2018-11-11 14:39 | CRLCT ---
INDICATION: Lung infiltrates. TECHNIQUE: CT chest without contrast. COMPARISON: September 14, 2018. FINDINGS: Lungs and pleura: Again demonstrated are small patchy ground-glass infiltrates which are predominant in the right upper lobe but also present in the left upper lobe, right middle lobe and right lower lobe. Right upper lobe scarring or interstitial infiltrates have increased. Left upper lobe scarring is unchanged. Stable calcified left lower lobe granuloma. No pleural effusions, pleural thickening, or pneumothorax. Heart and vasculature: Heart size is normal. Thoracic aorta and pulmonary artery are normal in caliber.Coronary artery atherosclerosis is present. Lymph nodes/mediastinum: Few borderline mediastinal lymph nodes are unchanged. Thyroid gland is normal. Chest wall: No masses. Upper abdomen: Normal. Bones: Unremarkable for age. IMPRESSION: Interval worsening of scattered ground-glass and interstitial infiltrates in both lungs, most prevalent in the right upper lobe. A nonspecific interstitial pneumonitis is suspected. No other acute findings or significant changes. Please note that all CT scans at this facility use dose modulation, iterative reconstruction, and/or weight-based dosing when appropriate to reduce radiation dose to as low as reasonably achievable. Dictated by Gerard Alvarado MD @ Nov 11 2018 2:30PM Signed by Dr. Gerard Alvarado @ Nov 11 2018 2:37PM
== END ==
LOC: JP.CT 08:01
PROVIDERS: ATTEND Internal Medicine Sleep Medicine
DX: R91.8 Other nonspecific abnormal finding of lung field (principal); R05 Cough
CPT/HCPCS: 71250

== ENCOUNTER 2018-12-26 15:28 | Emergency (ER) | payer MEDICARE ==
--- NOTE | 2018-12-26 15:54 | EDM.PDOC ---
ED HPI GENERAL MEDICAL PROBLEM - General Chief Complaint: Upper Extremity Injury/Pain Stated Complaint: PAIN UNDER HER LEFT BREAST/CHEST Time Seen by Provider: 12/26/18 15:53 Source of Information: Reports: Patient History Limitations: Reports: No Limitations - History of Present Illness INITIAL COMMENTS - FREE TEXT/NARRATIVE: pt had a marked coughing episode the lasted for 2 hours. SDhe had an episode of acid reflux 2 nites ago and elizabeth wondered about asperation. Onset: Today, Sudden Duration: Hour(s): Location: Reports: Chest, Other (pt has pain in the left side and it hurts to move and to take a deep breath. ) Associated Symptoms: Reports: Chest Pain, Cough Left Anterior Chest Pain Score (Numeric/FACES): 6 - Related Data Allergies Allergy/AdvReac Type Severity Reaction Status Date / Time erythromycin base Allergy Hives Verified 12/26/18 15:50 [Erythromycin Base] zolpidem tartrate AdvReac Disorientat Verified 12/26/18 15:50 [From Jacquelyn] ion .lyle peppers Allergy Hives Uncoded 12/26/18 15:50 Home Meds: Home Meds Albuterol [Ventolin HFA] 2 puff IH Q6H PRN 09/14/14 [History] Aspirin [Aspirin EC] 81 mg PO DAILY 09/14/14 [History] Calcium Carb & Citrate/Vit D3 [Citracal + D ER] 1 tab PO BID 09/14/14 [History] Cholecalciferol (Vitamin D3) [Vitamin D3] 2,000 unit PO DAILY 09/14/14 [History] Cyanocobalamin (Vitamin B-12) [Cyanocobalamin Injection] 1,000 mcg IM .[id number] 09/14/14 [History] Cyanocobalamin (Vitamin B12) [Vitamin B12] 1,000 mcg SL DAILY 09/14/14 [History] Cyclobenzaprine [Flexeril] 10 mg PO Q8H PRN 09/14/14 [History] Folic Acid 1 mg PO DAILY 09/14/14 [History] Multivitamin/Iron/Folic Acid [Centrum Complete Multivit] 2 tab PO DAILY [History] Sennosides [Senna] 1 - 2 tab PO DAILY PRN 09/14/14 [History] Thiamine HCl [Vitamin B-1] 100 mg PO DAILY 09/14/14 [History] Vitamin B Complex [Super B-50 Complex] 1 tab PO DAILY 09/14/14 [History] atorvaSTATin Calcium [Atorvastatin Calcium] 10 mg PO BEDTIME 09/14/14 [History] clonazePAM [Clonazepam] 2 mg PO BEDTIME 09/14/14 [History] traZODone HCl [Trazodone HCl] 150 mg PO BEDTIME 09/14/14 [History] Levothyroxine 125 mcg PO ACBREAKFAST 08/09/16 [History] Venlafaxine [Effexor XR] 37.5 mg PO DAILY 08/09/16 [History] Pantoprazole Sodium [Protonix] 40 mg PO DAILY 10/16/16 [History] Cetirizine HCl [All Day Allergy] 10 mg PO DAILY 04/10/18 [History] Ferrous Sulfate [Feosol] 325 mg PO DAILY 04/10/18 [History] Zinc Gluconate [Zinc] 25 mg PO DAILY 04/10/18 [History] Vitamin A 10,000 units PO DAILY 04/14/18 [History] Calcium Citrate/Vitamin D3 [Calcium Citrate + D] 1 tab PO BID 09/01/18 [History] Diclofenac Sodium [Voltaren] 4 g TOP QID 09/01/18 [History] Fluticasone Propionate [Flonase] 2 spray ANNAMARIE DAILY 09/01/18 [History] Sucralfate 1 gm PO QID 09/01/18 [History] Past Medical History HEENT History: Reports: Impaired Vision Other HEENT History: wears glasses Cardiovascular History: Reports: High Cholesterol, Hypertension, SOB on Exertion Respiratory History: Reports: COPD, Pneumonia, Recurrent, Other (See Below) Other Respiratory History: granular lung disease, checked every 6 months; 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 status post R TKA 06/17/17 Neurological History: Reports: Neuropathy, Diabetic, Other (See Below) Other Neuro History: radiofrequency for back pain Endocrine/Metabolic History: Reports: Diabetes, Type II, Hypothyroidism, Vitamin D Deficiency Hematologic History: Reports: Anemia, B12 Deficiency, Blood Transfusion(s), Folic Acid, Iron Deficiency Dermatologic History: Reports: None - Infectious Disease History Infectious Disease History: Reports: Chicken Pox, Measles, MRSA, Mumps, Rubella - Past Surgical History HEENT Surgical History: Reports: Cataract Surgery, Tonsillectomy Cardiovascular Surgical History: Reports: None Respiratory Surgical History: Reports: Lung Biopsies GI Surgical History: Reports: Appendectomy, Bariatric Procedure, Colonoscopy, EGD, Hernia Repair/Other, Small Bowel Female Surgical History: Reports: Hysterectomy, Tubal Ligation, Other (See Below) Other Female Surgeries/Procedures: bladder lift Endocrine Surgical History: Reports: None Neurological Surgical History: Reports: None Musculoskeletal Surgical History: Reports: Arthroscopic Knee, Carpal Tunnel, Shoulder Surgery Dermatological Surgical History: Reports: None Social & Family History - Family History Family Medical History: Noncontributory Cardiac: Reports: Arrhythmia, CAD, Hypertension Respiratory: Reports: COPD Musculoskeletal: Reports: Arthritis Endocrine/Metabolic: Reports: Diabetes, type II Oncologic: Reports: Breast, Lung - Caffeine Use Caffeine Use: Reports: Coffee Review of Systems - Review of Systems Review Of Systems: See Below Constitutional: Reports: Weakness, Other (pleuritic chest pain) Eyes: Reports: No Symptoms Ears: Reports: No Symptoms Nose: Reports: No Symptoms Mouth/Throat: Reports: No Symptoms Respiratory: Reports: Shortness of Breath, Pleuritic Chest Pain, Cough, Other ( pt coughed for over 2 hours last nite. She is elevating the head of her bed. ) Cardiovascular: Reports: No Symptoms GI/Abdominal: Reports: No Symptoms Genitourinary: Reports: No Symptoms Musculoskeletal: Reports: No Symptoms Skin: Reports: No Symptoms Neurological: Reports: No Symptoms Psychiatric: Reports: Anxiety ED EXAM, GENERAL - Physical Exam Exam: See Below Free Text/Narrative:: pt arrived with a history of pain left chest she is very uncomfortable with movement and deep breathing. She had a coughing spell last nite that last for 2 hours and she wondered if she might have broken a rib. She has not had a fever. She did have a choking and reflux problem and wondered if she might have asperated. Exam Limited By: No Limitations General Appearance: Alert, Anxious, Moderate Distress Ears: Normal TMs Nose: Normal Inspection Throat/Mouth: Normal Inspection Head: Atraumatic Neck: Normal Inspection Respiratory/Chest: No Respiratory Distress, Other (pt is having a o2 sat in the 91area. ) Cardiovascular: Regular Rate, Rhythm Peripheral Pulses: 0: Brachial (R) GI/Abdominal: Soft, Non-Tender (Female) Exam: Deferred Rectal (Female) Exam: Deferred Back Exam: Normal Inspection Extremities: Normal Inspection Neurological: Alert, Oriented, Normal Cognition Psychiatric: Normal Affect Course - Vital Signs Last Recorded V/S: Last Vital Signs Temp 36.1 C 12/26/18 15:49 Pulse 79 12/26/18 15:49 Resp 19 12/26/18 15:49 BP 111/63 12/26/18 15:49 Pulse Ox 91 L 12/26/18 15:49 - Orders/Labs/Meds Orders: Active Orders 24 hr Category Date Time Status CULTURE BLOOD [BC] Urgent Lab 12/26/18 18:05 Received CULTURE BLOOD [BC] Urgent Lab 12/26/18 18:15 Received Azithromycin [Zithromax] Med 12/26/18 20:30 Active 500 mg PO DAILY Sodium Chloride 0.9% [Normal Saline] 1,000 ml Med 12/26/18 18:00 Active IV ASDIRECTED cefTRIAXone [Rocephin] 1 gm Med 12/26/18 20:24 Active Sodium Chloride 0.9% [Normal Saline] 50 ml IV ONETIME Blood Culture x2 Reflex Set [OM.PC] Urgent Oth 12/26/18 17:48 Ordered Medication Orders Azithromycin (Zithromax) 500 mg PO DAILY YAN Sodium Chloride (Normal Saline) 1,000 mls @ 999 mls/hr IV ASDIRECTED YAN Last Admin: 12/26/18 18:12 Dose: 999 mls/hr Ceftriaxone Sodium 1 gm/ (Sodium Chloride) 50 mls @ 100 mls/hr IV ONETIME ONE Stop: 12/26/18 20:53 Labs: Laboratory Tests 12/26/18 12/26/18 12/26/18 Range/Units 16:05 16:05 17:50 WBC 10.3 (4.5-11.0) K/uL RBC 3.85 (3.30-5.50) M/uL Hgb 11.6 L (12.0-15.0) g/dL Hct 36.1 (36.0-48.0) % MCV 94 (80-98) fL MCH 30 (27-31) pg MCHC 32 (32-36) % Plt Count 247 (150-400) K/uL Neut % (Auto) 85 H (36-66) % Lymph % (Auto) 10 L (24-44) % Hooker % (Auto) 5 (2-6) % Eos % (Auto) 0 L (2-4) % Baso % (Auto) 0 (0-1) % Sodium 142 (140-148) mmol/L Potassium 3.4 L (3.6-5.2) mmol/L Chloride 105 (100-108) mmol/L Carbon Dioxide 26 (21-32) mmol/L Anion Gap 14.4 H (5.0-14.0) mmol/L BUN 16 (7-18) mg/dL Creatinine 0.6 (0.6-1.0) mg/dL Est Cr Clr Drug Dosing 72.95 mL/min Estimated GFR (MDRD) > 60 (>60) Glucose 102 (74-106) mg/dL Calcium 8.5 (8.5-10.1) mg/dL Total Bilirubin 0.6 (0.2-1.0) mg/dL AST 17 (15-37) U/L ALT 27 (12-78) U/L Alkaline Phosphatase 100 (46-116) U/L C-Reactive Protein 5.57 H (0.0-0.3) mg/dL Total Protein 6.5 (6.4-8.2) g/dL Albumin 2.9 L (3.4-5.0) g/dL Globulin 3.6 H (2.3-3.5) g/dL Albumin/Globulin Ratio 0.8 L (1.2-2.2) Meds: Medications Generic Name Dose Route Start Last Admin Trade Name Freq PRN Reason Stop Dose Admin Azithromycin 500 mg 12/26/18 20:30 Zithromax PO DAILY YAN Sodium Chloride 1,000 mls @ 999 mls/hr 12/26/18 18:00 12/26/18 18:12 Normal Saline IV 999 mls/hr ASDIRECTED YAN Administration Ceftriaxone Sodium 1 gm/ 50 mls @ 100 mls/hr 12/26/18 20:24 Sodium Chloride IV 12/26/18 20:53 ONETIME ONE Discontinued Medications Generic Name Dose Route Start Last Admin Trade Name Freq PRN Reason Stop Dose Admin Hydromorphone HCl 0.5 mg 12/26/18 17:50 12/26/18 18:13 Dilaudid IVPUSH 12/26/18 17:51 0.5 mg ONETIME ONE Administration Hydromorphone HCl 0.5 mg 12/26/18 19:47 12/26/18 20:07 Dilaudid IVPUSH 12/26/18 19:48 0.5 mg ONETIME ONE Administration Sodium Chloride 75 mls @ 0 mls/hr 12/26/18 18:45 12/26/18 19:18 Normal Saline IV 12/26/18 18:46 3 mls/hr ONETIME ONE Administration KVO Iopamidol 100 ml 12/26/18 19:00 12/26/18 19:17 Isovue-300 (61%) IV 12/26/18 19:01 100 ml ONETIME ONE Administration Sodium Chloride 10 ml 12/26/18 18:45 12/26/18 19:17 Saline Flush FLUSH 12/26/18 18:46 10 ml ONETIME ONE Administration - Re-Assessments/Exams Free Text/Narrative Re-Assessment/Exam: 12/26/18 20:18 cat scan of the chest reveals a large infiltrate involving alot of the left lung. She has severe pleuritic chest pain. She had a coughing episode last nite which lasted for 2 hours. She then developed the pleuritic chest pain, she had a cat scan of the chest which revealed a infiltrate which involved alot of the chest on the rt, her o2 sats are in the 90s-89. 12/26/18 20:26 12/26/18 20:29 Departure - Departure Time of Disposition: 20:30 Disposition: DC/Tfer to Acute Hospital 02 Condition: Fair Clinical Impression: Pneumonia, aspiration, Dehydration - Discharge Information Referrals: Surya Orellana BUSHLER [Primary Care Provider] - Forms: ED Department Discharge Care Plan Goals: transfer to [facility] - My Orders Last 24 Hours: My Active Orders 12/26/18 17:48 Blood Culture x2 Reflex Set [OM.PC] Urgent 12/26/18 18:00 Sodium Chloride 0.9% [Normal Saline] 1,000 ml IV ASDIRECTED 12/26/18 18:05 CULTURE BLOOD [BC] Urgent 12/26/18 18:15 CULTURE BLOOD [BC] Urgent 12/26/18 20:24 cefTRIAXone [Rocephin] 1 gm Sodium Chloride 0.9% [Normal Saline] 50 ml IV ONETIME 12/26/18 20:30 Azithromycin [Zithromax] 500 mg PO DAILY - Assessment/Plan Last 24 Hours: My Active Orders 12/26/18 17:48 Blood Culture x2 Reflex Set [OM.PC] Urgent 12/26/18 18:00 Sodium Chloride 0.9% [Normal Saline] 1,000 ml IV ASDIRECTED 12/26/18 18:05 CULTURE BLOOD [BC] Urgent 12/26/18 18:15 CULTURE BLOOD [BC] Urgent 12/26/18 20:24 cefTRIAXone [Rocephin] 1 gm Sodium Chloride 0.9% [Normal Saline] 50 ml IV ONETIME 12/26/18 20:30 Azithromycin [Zithromax] 500 mg PO DAILY
[2018-12-26] MEDS ORDERED: HYDROmorphone 0.5 MG/0.5 ML Syringe IVPUSH ONE ×2 (17:50→19:47)
[2018-12-26] MEDS ORDERED: Sodium Chloride 0.9% 1,000 ML IV SCH (18:00)
--- NOTE | 2018-12-26 18:04 | CRLCR ---
INDICATION: Pain in left chest after a coughing episode TECHNIQUE: Chest and left ribs 3 views. COMPARISON: Chest CT November 11, 2018 FINDINGS: Normal cardiac size. Patchy opacity in the right upper lobe, right perihilar region, and left lung base. No pneumothorax or effusion. IMPRESSION: No rib fracture. Patchy bilateral pulmonary infiltrates concerning for pneumonia. These are increased compared to the prior chest CT from November 11, 2018. Dictated by Pratima Lynn MD @ Dec 26 2018 5:59PM Signed by Dr. Pratima Lynn @ Dec 26 2018 6:02PM
[2018-12-26] MEDS ORDERED: Sodium Chloride 0.9% 75 ML IV ONE (18:45)
[2018-12-26] MEDS ORDERED: Sodium Chloride 0.9% 10 ML Syringe FLUSH ONE (18:45)
[2018-12-26] MEDS ORDERED: Iopamidol 612 MG/ML 100 ML Bottle IV ONE (19:00)
--- NOTE | 2018-12-26 20:01 | CRLCT ---
INDICATION: Left chest pain TECHNIQUE: CT chest was acquired with 100 cc Isovue-300 IV contrast. COMPARISON: November 11, 2018 FINDINGS: Cardiovascular structures: Heart size is normal. Coronary artery calcifications. Thoracic aorta and main pulmonary artery are normal in caliber. Mediastinum and neda: 1.0 cm right paratracheal lymph node 1.2 cm subcarinal lymph node. 1.1 cm left hilar lymph node. Lungs: Patchy infiltrates in both lungs, left greater than right. The findings in the left lung are new compared to the prior study. Calcified granuloma left lower lobe. Pleura and pericardium: No effusions. Chest wall and axilla: No mass or adenopathy. Upper abdomen: Splenic calcification. There is distention of the gallbladder. Hepatic steatosis. 1.1 cm calcification in the right hepatic lobe. Status post gastric surgery. Bones: No significant findings. IMPRESSION: Bilateral pulmonary infiltrates, left greater than right. The infiltrates in the left lung are new compared to the prior study and are concerning for new pneumonia. Mediastinal adenopathy is likely reactive. Coronary artery disease. Distended gallbladder. Consider right upper quadrant ultrasound for further evaluation. Hepatic steatosis. Please note that all CT scans at this facility use dose modulation, iterative reconstruction, and/or weight-based dosing when appropriate to reduce radiation dose to as low as reasonably achievable. Dictated by Pratima Lynn MD @ Dec 26 2018 7:44PM Signed by Dr. Pratima Lynn @ Dec 26 2018 7:59PM
[2018-12-26] MEDS ORDERED: cefTRIAXone 1 GM in Sodium Chloride 0.9% 50 ML IV ONE (20:24)
[2018-12-26] MEDS ORDERED: Azithromycin 250 MG Tab PO SCH (20:30)
[2018-12-26 21:01] VITALS: BP 126/67; PULSE 72
== END 2018-12-26 23:54 ==
LOC: JP.ED 15:28
DX: J69.0 Pneumonitis due to inhalation of food and vomit (principal); E86.0 Dehydration; E78.00 Pure hypercholesterolemia, unspecified; I10 Essential (primary) hypertension; J44.9 Chronic obstructive pulmonary disease, unspecified; K21.9 Gastro-esophageal reflux disease without esophagitis; E11.40 Type 2 diabetes mellitus with diabetic neuropathy, unspecified; E03.9 Hypothyroidism, unspecified; Z88.1 Allergy status to other antibiotic agents; Z88.8 Allergy status to other drugs, medicaments and biological substances; Z91.018 Allergy to other foods; Z79.82 Long term (current) use of aspirin; Z79.899 Other long term (current) drug therapy; Z99.81 Dependence on supplemental oxygen
CPT/HCPCS: 36415; 71101; 71260; 80053; 85025; 86140; 87040; 96361; 96365; 96375; 96376; 99285; A9270; J0696; J1170; J7030; J7050; Q9967

== ENCOUNTER 2019-06-10 07:10 | Day surgery (SDC) | payer MEDICARE ==
[2019-06-10] MEDS ORDERED: Propofol 200 MG/20 ML SDV ONE (07:23)
[2019-06-10] MEDS ORDERED: fentaNYL 100 MCG/2 ML SDV ONE (07:23)
[2019-06-10] MEDS ORDERED: Midazolam 1 MG/ML 2 ML SDV ONE (07:24)
[2019-06-10] MEDS ORDERED: Lactated Ringers 1,000 ML IV SCH (08:00)
[2019-06-10] MEDS ORDERED: Dexamethasone 4 MG/ML SDV ONE (08:14)
[2019-06-10] MEDS ORDERED: Glycopyrrolate 0.2 MG/ML 2 ML SDV IVPUSH ONE (08:15)
[2019-06-10] MEDS ORDERED: Cyanocobalamin (Vitamin B12) 1,000 MCG/ML SDV IM ONE (08:30)
[2019-06-10 09:51] VITALS: BP 121/68; PULSE 90
[2019-06-10] MEDS ORDERED: MVI, Adult with Vitamin K 10 ML, Thiamine 200 MG, Chromium/Copper/Mang/Selen/Zn 1 ML in... IV ONE ×4 (10:00)
--- NOTE | 2019-06-10 18:02 | OR ---
DATE OF PROCEDURE: 06/10/2019 SURGEON: Jayant Hairston MD PREOPERATIVE DIAGNOSIS: Recurrent bilious aspiration with complications of aspiration pneumonia. POSTOPERATIVE DIAGNOSIS: Recurrent bilious aspiration with complications of aspiration pneumonia. OPERATIVE PROCEDURE: Upper gastrointestinal endoscopy. ANESTHESIA: IV sedation. INDICATION: This is a 68-year-old with ongoing problems with bilious reflux. This was noted in 2018, at the time of an endoscopy. She was tried on erythromycin, which she did not tolerate. Recently, this has become somewhat worsened. She has, in fact, been treated for aspiration pneumonia. The plan is to proceed with an upper endoscopy to confirm the current status of the anatomy and the extent of bilious reflux. If the latter is present and there is no evidence of something like a gastrogastric fistula partial small bowel obstruction somewhat more distally in the small bowel system. Plan to proceed with upper endoscopy with biopsies and/or dilation as indicated. Potential risks including bleeding and perforation were discussed, and the patient wishes to proceed. DETAILS OF PROCEDURE: The patient was taken to the operating room and placed in a left lateral decubitus position. IV sedation was administered, after which, the upper GI endoscope was passed orally through the length of the esophagus and into the gastric pouch, from there roughly 20 cm into the Kenny limb. The overall anatomy of the esophagus, gastric pouch, gastrojejunostomy, and Kenny limb were unremarkable. There was, however, bile present within the Kenny limb and slightly into the area of the gastric pouch, consistent with partial small bowel obstruction more distally. There was no evidence of gastrogastric fistula or other complications. The scope was then withdrawn, and the procedure then concluded. The plan will be to proceed with an open laparotomy with revision of the small bowel components of the gastric bypass so as to minimize problems with the issue of the bile reflux. This will likely entail making the Kenny limb significantly longer and correcting any problems in terms of stricturing of the Kenny limb. There was noted, at last revision in 2016, that her small bowel was clearly not in the reversed Kenny limb pattern. The patient will be scheduled for the upcoming surgery on 06/21/2019. Jayant Hairston MD /[id number]
== END 2019-06-10 10:20 | disposition home or self-care (01) ==
LOC: JP.SDS 07:10
PROVIDERS: ATTEND Surgery
DX: Z09 Encounter for follow-up examination after completed treatment for conditions other than malignant neoplasm (principal); K21.9 Gastro-esophageal reflux disease without esophagitis; J44.9 Chronic obstructive pulmonary disease, unspecified; F41.9 Anxiety disorder, unspecified; F32.9 Major depressive disorder, single episode, unspecified; Z88.1 Allergy status to other antibiotic agents; Z88.8 Allergy status to other drugs, medicaments and biological substances; Z87.01 Personal history of pneumonia (recurrent)
CPT/HCPCS: J1100; J2250; J2704; J3010; J3411; J3420; J3490; J7120

== ENCOUNTER 2019-06-21 09:43 | Inpatient (IN) | payer MEDICARE ==
[~2019-06-21 09:43] MED LIST: Bupivacaine 0.5% 50 ML MDV ONE; Lidocaine 1% with EPINEPHrine 1:100,000 50 ML MDV ONE; Meropenem 500 MG SDV ONE
[2019-06-21] MEDS ORDERED: Celecoxib 200 MG Cap PO ONE (10:00)
[2019-06-21] MEDS ORDERED: Scopolamine 1.5 MG Transdermal Patch TOP ONE (10:00)
[2019-06-21] MEDS ORDERED: Acetaminophen 500 MG Tab PO ONE (10:00)
[2019-06-21] MEDS ORDERED: Gabapentin 300 MG Cap PO ONE (10:00)
[2019-06-21] MEDS ORDERED: Dextrose 5%-Lactated Ringers 1,000 ML IV SCH (10:15)
[2019-06-21] MEDS ORDERED: Albuterol/Ipratropium 3.0-0.5 MG/3 ML Neb Soln NEB ONE (10:45)
[2019-06-21] MEDS ORDERED: methylPREDNISolone Sodium Succinate 125 MG/2 ML SDV IV ONE (10:45)
[2019-06-21] MEDS ORDERED: Glycopyrrolate 0.2 MG/ML 5 ML MDV ONE (11:19)
[2019-06-21] MEDS ORDERED: fentaNYL 250 MCG/5 ML SDV ONE (11:19)
[2019-06-21] MEDS ORDERED: Succinylcholine 200 MG/10 ML MDV ONE (11:19)
[2019-06-21] MEDS ORDERED: Ondansetron 4 MG/2 ML SDV ONE (11:19)
[2019-06-21] MEDS ORDERED: Dexamethasone 4 MG/ML SDV ONE (11:19)
[2019-06-21] MEDS ORDERED: Rocuronium 50 MG/5 ML Vial ONE ×2 (11:19→14:13)
[2019-06-21] MEDS ORDERED: Propofol 200 MG/20 ML SDV ONE (11:19)
[2019-06-21] MEDS ORDERED: Neostigmine Methylsulfate 1 MG/ML 5 ML Syringe ONE (11:19)
[2019-06-21] MEDS ORDERED: Ketamine 50 MG in Sodium Chloride 0.9% 49.5 ML IV SCH (11:30)
[2019-06-21] MEDS ORDERED: Ropivacaine 32 ML, dexAMETHasone 8 MG, EPINEPHrine 0.4 MG, Sodium Chloride 0.9% 45.6 ML NERVRT SCH ×4 (11:30)
[2019-06-21] MEDS ORDERED: SODIUM CHLORIDE 0.9% IV ONE (11:30)
[2019-06-21] MEDS ORDERED: MAGNESIUM SULFATE IV ONE (11:30)
[2019-06-21] MEDS ORDERED: Ketamine 500 MG/5 ML MDV IV SCH (11:30)
[2019-06-21] MEDS ORDERED: Lactated Ringers 1,000 ML ONE (14:14)
[2019-06-21] MEDS: cefOXitin 2 GM in Sodium Chloride 0.9% 50 ML IV ONE ×2 (14:32→17:45)
[2019-06-21] MEDS ORDERED: HYDROmorphone/Normal Saline 15 MG/30 ML PCA IV PRN (15:24)
[2019-06-21] MEDS ORDERED: Naloxone 0.4 MG/ML SDV IVPUSH PRN (15:24)
[2019-06-21] MEDS ORDERED: Naloxone 0.4 MG/ML SDV IV PRN (15:25)
[2019-06-21] MEDS: HYDROmorphone/Normal Saline 15 MG/30 ML PCA IV PRN (15:58)
[2019-06-21] MEDS ORDERED: Hypromellose 0.3% Ophth Soln 15 ML Bottle EYEBOTH PRN (17:07)
[2019-06-21] MEDS ORDERED: diphenhydrAMINE 50 MG/ML SDV IVPUSH PRN (17:09)
[2019-06-21] MEDS ORDERED: HYDROmorphone 1 MG/ML Syringe IV PRN (17:09)
[2019-06-21] MEDS ORDERED: Cyclobenzaprine 10 MG Tab PO PRN (17:09)
[2019-06-21] MEDS ORDERED: Labetalol 20 MG/4 ML Syringe IVPUSH PRN (17:09)
[2019-06-21] MEDS ORDERED: Albuterol/Ipratropium 3.0-0.5 MG/3 ML Neb Soln INH PRN (17:09)
[2019-06-21] MEDS ORDERED: HYDROmorphone 0.5 MG/0.5 ML Syringe IVPUSH PRN (17:09)
[2019-06-21] MEDS ORDERED: hydrOXYzine HCL 100 MG/2 ML SDV IM PRN (17:09)
[2019-06-21] MEDS ORDERED: Metoclopramide 10 MG/2 ML SDV IVPUSH PRN (17:09)
[2019-06-21] MEDS ORDERED: Ondansetron 4 MG/2 ML SDV IVPUSH PRN (17:09)
[2019-06-21] MEDS ORDERED: MVI, Adult with Vitamin K 10 ML, Thiamine 200 MG, Chromium/Copper/Mang/Selen/Zn 1 ML in... IV SCH ×4 (18:00)
[2019-06-21] MEDS: Acetaminophen 500 MG Tab PO SCH (18:01)
[2019-06-21] MEDS: methylPREDNISolone Sodium Succinate 125 MG/2 ML SDV IVPUSH SCH (18:01)
[2019-06-21] MEDS: cefOXitin 2 GM in Sodium Chloride 0.9% 50 ML IV SCH (20:39)
[2019-06-21] MEDS: ClonazePAM 1 MG Tab PO SCH (20:40)
[2019-06-21] MEDS: Gabapentin 250 MG/5 ML Solution ML 470 ML Bottle PO SCH (20:40)
[2019-06-21] MEDS: Pantoprazole 40 MG Vial IVPUSH SCH (20:41)
[2019-06-21] MEDS: Heparin Sodium 5,000 Units/ML Vial SUBCUT SCH (20:41)
[2019-06-21] MEDS: traZODone 50 MG Tab PO SCH (20:41)
[2019-06-21] MEDS: Albuterol/Ipratropium 3.0-0.5 MG/3 ML Neb Soln INH SCH (20:41)
[2019-06-22] MEDS: Dextrose 5%-Lactated Ringers 1,000 ML IV SCH ×3 (00:24→14:21)
[2019-06-22] MEDS: Acetaminophen 500 MG Tab PO SCH ×3 (01:31→17:31)
[2019-06-22] MEDS: cefOXitin 2 GM in Sodium Chloride 0.9% 50 ML IV SCH ×3 (01:36→14:21)
[2019-06-22] MEDS ORDERED: Iopamidol 612 MG/ML 50 ML SDV PO STA (03:43)
--- NOTE | 2019-06-22 05:16 | CRLCR ---
Indication: Revision of Kenny-en-Y Technique: KUB 3 view Comparison: None Findings/Impression: : Three static images of the abdomen were obtained after administration of contrast. Contrast material is seen within the distal esophagus gastric pouch and proximal mid small bowel. No evidence leak of oral contrast. Midline laparotomy skin malinda noted. Multiple surgical suture in the left lower quadrant. Nonspecific bowel gas pattern. Dictated by Pratima Lynn MD @ Jun 22 2019 5:15AM Signed by Dr. Pratima Lynn @ Jun 22 2019 5:15AM
[2019-06-22] MEDS: methylPREDNISolone Sodium Succinate 125 MG/2 ML SDV IVPUSH SCH (05:37)
[2019-06-22] MEDS: Albuterol/Ipratropium 3.0-0.5 MG/3 ML Neb Soln INH SCH ×4 (07:22→21:34)
[2019-06-22] MEDS ORDERED: Benzocaine/Cetylpyridinium/Menthol Lozenge MUCMEM PRN (07:54)
[2019-06-22] MEDS ORDERED: Ondansetron 4 MG Tab.DIS PO PRN (07:57)
[2019-06-22] MEDS: Levothyroxine 100 MCG, Levothyroxine 25 MCG PO SCH ×2 (08:02)
[2019-06-22] MEDS: Venlafaxine 37.5 MG Cap.ER PO SCH (09:38)
[2019-06-22] MEDS: Aspirin 81 MG Tab.EC PO SCH (09:39)
[2019-06-22] MEDS: Cetirizine 10 MG Tab PO SCH (09:39)
[2019-06-22] MEDS: Celecoxib 200 MG Cap PO SCH ×2 (09:40→21:35)
[2019-06-22] MEDS: Heparin Sodium 5,000 Units/ML Vial SUBCUT SCH ×2 (09:40→21:35)
[2019-06-22] MEDS: SCOPOLAMINE PATCH CHECK TOP SCH (09:41)
[2019-06-22] MEDS: Gabapentin 250 MG/5 ML Solution ML 470 ML Bottle PO SCH ×3 (09:52→21:34)
--- NOTE | 2019-06-22 11:21 | PN ---
DATE OF SERVICE: 06/22/2019 SUBJECTIVE: Ana Maria is postoperative day #1. Vital signs have been stable. Pain has been controlled. She has been up ambulating. Oral intake 840. Urine output via Gomez catheter 1295. REVIEW OF SYSTEMS: Remainder of review of systems negative for any pertinent positives and negatives. OBJECTIVE: GENERAL: Ana Maria Bryant is a pleasant 68-year-old female. She is alert and orientated. VITAL SIGNS: TPR 95.7, 78, 15, blood pressure 105/48, and O2 is 94% on 1.5 L of O2. HEENT: Negative. NECK: Supple. HEART: Regular rate and rhythm. LUNGS: Clear. ABDOMEN: Dressings dry and intact. Abdominal binder is on. EXTREMITIES: Without peripheral edema. ASSESSMENT: 1. Exploratory laparotomy with lysis of adhesions. a. Revision bypass jejunostomy component of the Kenny-en-Y gastric bypass surgery. b. Repair of incarcerated incisional hernia. c. Reduction of small bowel volvulus and closure of internal hernia. d. Placement of Interceed mesh for focal small bowel volvulus, partial small bowel obstruction with recurrent bile aspiration related pneumonias, incarcerated incisional hernia and extensive intraabdominal adhesions. Date of surgery, 06/21/2019. Surgeon, Jayant Hairston MD. PLAN: 1. Discontinue Gomez catheter. 2. Step-2 gastric bypass diet without cereal. 3. Cepacol lozenges every 2 hours p.r.n. sore throat. 4. Decrease IV to 100 mL per hour. 5. Zofran ODT 4 mg every 4 hours p.r.n. nausea or vomiting. 6. Communication order, may have one-half decaf and one-half regular coffee. 7. Continue OFFICE AGENT for pain control. 8. Work on good pulmonary toilet. 9. We will evaluate p.r.n. or in a.m. Nadia Mccoy PA-C /[id number]
[2019-06-22] MEDS: HYDROmorphone/Normal Saline 15 MG/30 ML PCA IV PRN (14:08)
[2019-06-22] MEDS: MVI, Adult with Vitamin K 10 ML, Thiamine 200 MG, Chromium/Copper/Mang/Selen/Zn 1 ML in... IV SCH ×4 (17:30)
[2019-06-22] MEDS: ClonazePAM 1 MG Tab PO SCH (21:34)
[2019-06-22] MEDS: Pantoprazole 40 MG Vial IVPUSH SCH (21:35)
[2019-06-22] MEDS: traZODone 50 MG Tab PO SCH (21:35)
[2019-06-23] MEDS: Acetaminophen 500 MG Tab PO SCH ×3 (02:49→17:09)
[2019-06-23] MEDS: Dextrose 5%-Lactated Ringers 1,000 ML IV SCH ×2 (03:35→12:41)
[2019-06-23] MEDS: Albuterol/Ipratropium 3.0-0.5 MG/3 ML Neb Soln INH SCH ×4 (07:10→21:22)
[2019-06-23] MEDS: HYDROmorphone 2 MG Tab PO PRN ×3 (08:26→17:10)
[2019-06-23] MEDS: Venlafaxine 37.5 MG Cap.ER PO SCH (08:26)
[2019-06-23] MEDS: Heparin Sodium 5,000 Units/ML Vial SUBCUT SCH ×2 (08:26→21:25)
[2019-06-23] MEDS: Cetirizine 10 MG Tab PO SCH (08:27)
[2019-06-23] MEDS: Levothyroxine 100 MCG, Levothyroxine 25 MCG PO SCH ×2 (08:27)
[2019-06-23] MEDS: Celecoxib 200 MG Cap PO SCH ×2 (08:28→21:25)
[2019-06-23] MEDS: Aspirin 81 MG Tab.EC PO SCH (08:28)
[2019-06-23] MEDS: SCOPOLAMINE PATCH CHECK TOP SCH (08:30)
[2019-06-23] MEDS: Gabapentin 250 MG/5 ML Solution ML 470 ML Bottle PO SCH ×3 (08:45→21:26)
[2019-06-23] MEDS ORDERED: Cyanocobalamin (Vitamin B12) 1,000 MCG/ML SDV IM ONE (09:00)
[2019-06-23] MEDS ORDERED: predniSONE 5 MG Tab PO ONE (09:00)
--- NOTE | 2019-06-23 11:28 | PN ---
DATE OF SERVICE: 06/23/2019 SUBJECTIVE: Ana Maria is postoperative day #2. She states her pain is controlled. She has been up ambulating independently. Vital signs have been stable. Oral intake 1620, urine output 2049. REVIEW OF SYSTEMS: Remainder of review of systems negative for any pertinent positives and negatives. OBJECTIVE: GENERAL: Ana Maria is a 68-year-old female, alert and orientated. VITAL SIGNS: TPR is 96.3, 77, 16, blood pressure 110/53. HEENT: Negative. NECK: Supple. HEART: Regular rate and rhythm. LUNGS: Clear. ABDOMEN: Dressings dry and intact. Abdominal binder is on. EXTREMITIES: Without peripheral edema. ASSESSMENT: 1. Exploratory laparotomy with lysis of adhesions: a. Revision bypass jejunostomy component of the Kenny-en-Y gastric bypass surgery. b. Repair of incarcerated incisional hernia. c. Reduction of small bowel volvulus and closure of internal hernia. d. Placement of Interceed mesh for focal small bowel volvulus, partial small bowel obstruction with recurrent bile aspiration related pneumonias, incarcerated incisional hernia and extensive intraabdominal adhesions. Date of surgery, 06/21/2019. Surgeon, Jayant Hairston MD. PLAN: 1. May shower. 2. Full liquid diet. 3. Discontinue ASSISTANT STATISTICIAN. 4. Discontinue continuous pulse ox. 5. Discontinue cardiac monitoring. 6. Prednisone 15 mg p.o. 1 time today. 7. Tomorrow, start prednisone 10 mg p.o. daily. 8. Good pulmonary toilet. 9. We will evaluate p.r.n. or in a.m. Nadia Mccoy PA-C /[id number]
[2019-06-23] MEDS: MVI, Adult with Vitamin K 10 ML, Thiamine 200 MG, Chromium/Copper/Mang/Selen/Zn 1 ML in... IV SCH ×4 (17:09)
[2019-06-23] MEDS: traZODone 50 MG Tab PO SCH (21:25)
[2019-06-23] MEDS: Pantoprazole 40 MG Tab.CR PO SCH (21:25)
[2019-06-23] MEDS: ClonazePAM 1 MG Tab PO SCH (21:29)
[2019-06-24] MEDS: Acetaminophen 500 MG Tab PO SCH ×3 (02:06→17:04)
[2019-06-24] MEDS: Dextrose 5%-Lactated Ringers 1,000 ML IV SCH (03:15)
[2019-06-24] MEDS: Albuterol/Ipratropium 3.0-0.5 MG/3 ML Neb Soln INH SCH ×4 (07:13→21:38)
[2019-06-24] MEDS: predniSONE 10 MG Tab PO SCH (08:05)
[2019-06-24] MEDS: Aspirin 81 MG Tab.EC PO SCH (08:05)
[2019-06-24] MEDS: Venlafaxine 37.5 MG Cap.ER PO SCH (08:05)
[2019-06-24] MEDS: Cetirizine 10 MG Tab PO SCH (08:05)
[2019-06-24] MEDS: Celecoxib 200 MG Cap PO SCH ×2 (08:06→21:39)
[2019-06-24] MEDS: Levothyroxine 100 MCG, Levothyroxine 25 MCG PO SCH ×2 (08:06)
[2019-06-24] MEDS: Heparin Sodium 5,000 Units/ML Vial SUBCUT SCH ×2 (08:07→21:41)
[2019-06-24] MEDS: Gabapentin 250 MG/5 ML Solution ML 470 ML Bottle PO SCH ×3 (08:10→21:39)
--- NOTE | 2019-06-24 09:57 | PN ---
DATE OF SERVICE: 06/24/2019 SUBJECTIVE: Ana Maria has been up, ambulating. She has not had a bowel movement yet. Vital signs have been stable. No fever. Oral intake 3140. Urine output 5525. REVIEW OF SYSTEMS: Remainder of review of systems negative for any pertinent positives and negatives. OBJECTIVE: GENERAL: Ana Maria Bryant is a pleasant 68-year-old female. LAST VITAL SIGNS: 02:36, 96.5, 63, 16, blood pressure 123/64. HEENT: Negative. NECK: Supple. HEART: Regular rate and rhythm. LUNGS: Clear. ABDOMEN: Aquacel dressings is on. Abdominal binder is on. EXTREMITIES: Without peripheral edema. ASSESSMENT: 1. Exploratory laparotomy with lysis of adhesions; a. Revision bypass jejunostomy component of the Kenny-en-Y gastric bypass surgery. b. Repair of incarcerated incisional hernia. c. Reduction of small bowel volvulus and closure of internal hernia. d. Placement of Interceed mesh for focal small bowel volvulus, partial small bowel obstruction with recurrent bile aspiration related pneumonias, incarcerated incisional hernia and extensive intraabdominal adhesions. Date of surgery, 06/21/2019. Surgeon, Jayant Hairston MD. PLAN: 1. Advance diet to step 3 gastric bypass diet. 2. Dulcolax 2 tablets p.o. b.i.d., may stop when the patient has bowel movement. 3. Saline lock IV. 4. Good pulmonary toilet. 5. Plan discharge in a. Nadia Mccoy PA-C /[id number]
[2019-06-24] MEDS: Bisacodyl 5 MG Tab PO SCH ×2 (11:02→21:39)
--- NOTE | 2019-06-24 11:37 | OR ---
DATE OF PROCEDURE: 06/21/2019 SURGEON: Jayant Hairston MD PREOPERATIVE DIAGNOSIS: Partial small bowel obstruction associated with recurrent bilious aspiration and related pneumonia. POSTOPERATIVE DIAGNOSES: 1. Partial small bowel obstruction associated with recurrent bilious aspiration and related pneumonia. 2. Focal small bowel volvulus. 3. Incarcerated incisional hernia. 4. Extensive intraabdominal adhesions. OPERATIVE PROCEDURES: Exploratory laparotomy with lysis of adhesions and: 1. Revision of jejunojejunostomy component of Kenny-en-Y gastric bypass (44353). 2. Repair of incarcerated incisional hernia (38281). 3. Reduction of small bowel volvulus and closure of internal hernia (90661). 4. Placement of Interceed mesh (06886). ANESTHESIA: General. BOOKBINDER APPRENTICE: Nadia Mccoy PA-C INDICATIONS FOR PROCEDURE: The patient is a 68-year-old status post Kenny-en-Y gastric bypass, presenting with problems with bilious vomiting. This has been severe enough that at times she has developed pneumonia and presently is on chronic steroid therapy to reduce the inflammation associated with the recent pneumonias. An upper endoscopy was done which showed completely wide-open esophagogastric junction, gastrojejunostomy, and Kenny limb to around 20 cm distal to the gastrojejunostomy. There was some bile within that Kenny limb, but there was no evidence of a gastrogastric fistula, and based on this finding, the patient would likely have a partial small bowel obstruction resulting in backup of bile from the area of the jejunojejunostomy. The plan is to proceed with exploratory laparotomy, lysis of adhesions, and revision of the gastric bypass such that she would be less prone to have this bilious regurgitation. Potential risks including bleeding, infection, leaks from GI tract closures, and possible incomplete relief of the problems were all reviewed along with the remote possibility of cardiopulmonary, septic, or hemorrhagic complications leading to , and the patient wishes to proceed. DETAILS OF PROCEDURE: The patient was taken to the operating room. After general endotracheal anesthesia was induced, a Gomez catheter was inserted and the abdomen prepped and draped. A midline incision from the umbilicus roughly a handsbreadth superiorly was made and carried down through the full thickness of the abdominal wall. Upon entering the peritoneal cavity, quite extensive adhesions were present between small bowel, some of the omentum, and the abdominal wall. These were taken down. Eventually, we got into the area of the jejunojejunostomy. This appeared to be fairly normal at this time with no obvious points of obstruction, although the above-mentioned adhesions may have been contributing to that problem. The patient did have a focal volvulus of the common limb underneath the Kenny limb from a [id number] direction, and this was reduced and that mesenteric defect underlying the Kenny limb closed with a 2-0 silk stitch. At this point, the limb lengths were mapped out. The biliopancreatic limb was 80 cm, the Kenny limb 80 cm, and the common limb 260 cm. The patient had a fairly low BMI. At this point, it was felt that in general we did not want to significantly reduce the common limb as her total elementary length at this point was 340 cm. Rather than creating a markedly more distal attachment to the biliopancreatic limb, we opted at this point to do a side-to- side anastomosis between the biliopancreatic limb and the common limb, this being about 20 cm distal to the first jejunojejunostomy. Thi was fashioned in a way such that it would result in bile drainage into the common limb distal to the primary anastomosis involving the Kenny limb. Of note, it was once again confirmed that the patient did not have any reversed Kenny limb based on the inspection of the limb lengths and johnson anatomic points such as the ligament of Treitz being the origin of what we now had as the biliopancreatic limb. The anastomosis was then completed with a [id number] enteroenterostomy with a 60 mm internal firing of the AXEL stapler followed by a 30 mm internal firing. Common opening was then closed transversely with the same stapler and the angles anastomosed, reinforced with some 3- 0 Vicryl stitch. The mesenteric defect was closed with some 2-0 silk stitch. At this point, no further problems were noted. The abdomen was irrigated with antibiotic-containing saline solution. Of note, the patient did have an incisional hernia likely related to previous trocar site in the lower aspect of the incision, and that tissue was excised at the time of the midline incision. To limit recurrent adhesion formation between the viscera and the overlying pelvic and abdominal corbett, Interceed mesh was then placed in that area, and the midline fascia was then approximated with a #2 Vicryl stitch, subcutaneous tissue with 2 layers of 3-0 and 4-0 Vicryl stitch deep, and then malinda for the skin. A dressing was applied. The patient was taken to the recovery room in satisfactory condition. At the beginning of the operation, after lysis of adhesions, bilateral transversus abdominis plane blocks were placed, and the patient had her incision also anesthetized with 1% lidocaine mixed with Marcaine. Physician assistant office manager, Nadia Mccoy, played an essential role in assisting in this case, helping to position the patient, retract structures as needed, as well as suturing and cutting sutures when indicated. Her presence improved patient safety and decreased operative time. Jayant Hairston MD /[id number]
[2019-06-24] MEDS: MVI, Adult with Vitamin K 10 ML, Thiamine 200 MG, Chromium/Copper/Mang/Selen/Zn 1 ML in... IV SCH ×4 (15:09)
[2019-06-24] MEDS: ClonazePAM 1 MG Tab PO SCH (21:39)
[2019-06-24] MEDS: HYDROmorphone 2 MG Tab PO PRN (21:39)
[2019-06-24] MEDS: traZODone 50 MG Tab PO SCH (21:39)
[2019-06-24] MEDS: Pantoprazole 40 MG Tab.CR PO SCH (21:39)
[2019-06-25] MEDS: Acetaminophen 500 MG Tab PO SCH ×2 (03:30→08:38)
[2019-06-25 06:55] VITALS: BP 95/60
[2019-06-25] MEDS: Albuterol/Ipratropium 3.0-0.5 MG/3 ML Neb Soln INH SCH (07:46)
[2019-06-25 07:47] VITALS: PULSE 72
[2019-06-25] MEDS: Bisacodyl 5 MG Tab PO SCH (08:37)
[2019-06-25] MEDS: Celecoxib 200 MG Cap PO SCH (08:37)
[2019-06-25] MEDS: predniSONE 10 MG Tab PO SCH (08:37)
[2019-06-25] MEDS: Levothyroxine 100 MCG, Levothyroxine 25 MCG PO SCH ×2 (08:37)
[2019-06-25] MEDS: Cetirizine 10 MG Tab PO SCH (08:37)
[2019-06-25] MEDS: Heparin Sodium 5,000 Units/ML Vial SUBCUT SCH (08:38)
[2019-06-25] MEDS: Aspirin 81 MG Tab.EC PO SCH (08:38)
[2019-06-25] MEDS: Venlafaxine 37.5 MG Cap.ER PO SCH (08:38)
[2019-06-25] MEDS: Gabapentin 250 MG/5 ML Solution ML 470 ML Bottle PO SCH (08:49)
--- NOTE | 2019-06-25 17:22 | DISCH ---
ADMISSION DIAGNOSES: 1. Partial small bowel obstruction associated with recurrent bilious aspiration and related pneumonia. 2. Status post Kenny-en-Y gastric bypass surgery. 3. Unspecified surgical malabsorption. 4. B12 deficiency. 5. Vitamin D deficiency. 6. B complex deficiency. 7. Adjustment disorder with mixed anxiety. 8. Atherosclerosis of coronary artery of [place] without angina. 9. Central lobular emphysema. 10.Chronic pain syndrome. 11.Controlled type 2 diabetes. 12.Chronic obstructive pulmonary disease. 13.Dyslipidemia. 14.Fibromyalgia. DISCHARGE DIAGNOSES: 1. Partial small bowel obstruction associated with recurrent bilious aspiration and related pneumonia. 2. Status post Kenny-en-Y gastric bypass surgery. 3. Unspecified surgical malabsorption. 4. B12 deficiency. 5. Vitamin D deficiency. 6. B complex deficiency. 7. Adjustment disorder with mixed anxiety. 8. Atherosclerosis of coronary artery of [place] without angina. 9. Central lobular emphysema. 10.Chronic pain syndrome. 11.Controlled type 2 diabetes. 12.Chronic obstructive pulmonary disease. 13.Dyslipidemia. 14.Fibromyalgia. HISTORY: Ana Maria is a 68-year-old female who is status post Kenny-en-Y gastric bypass surgery, presenting with problems with bilious vomiting. She has had pneumonia, thought to be from aspiration and is presently on chronic steroid therapy to reduce the inflammation associated with recent pneumonias. After preoperative evaluation and discussion of possible risks and possible complications, she wished to proceed with surgical procedure. HOSPITAL COURSE: Ana Maria had her surgery on 06/21/2019. She had no operative complications. On postoperative day #1, she was started on a clear liquid diet and, on postop day #2, was advanced to a full liquid diet. Her pain was well managed. Her activity was good. On postop day #3, she was given bowel stimulation, and she did have a bowel movement, and was able to be discharged to home without any complications on 06/25/2019. PHYSICAL EXAMINATION: GENERAL: Ana Maria is a pleasant 68-year-old female. VITAL SIGNS: Height is 5 feet 2 inches. Weight is 144 pounds. BMI is 26.3. TPR is 96.7, 70, 18, and blood pressure 195/60. HEENT: Negative. NECK: Supple. HEART: Regular rate and rhythm. LUNGS: Clear. ABDOMEN: Stapled, incision looks good. Abdominal binder has been on. EXTREMITIES: Without peripheral edema. DISPOSITION: Discharged to home with Home Healthcare. FOLLOWUP: Appointment with Nadia Mccoy PA-C, on 06/28/2019, at 11 a.m. DISCHARGE MEDICATIONS: 1. Dilaudid 2 mg every 6 hours p.r.n. pain, #28. 2. Tylenol Extra Strength 1000 mg q.8 hours scheduled, may go to p.r.n. 3. Dulcolax tabs 10 mg oral twice daily, #30. Stop when having bowel movements. 4. Celebrex 200 mg oral twice daily, #28. To resume home medications of, 1. Ventolin 2 puffs inhalation every 6 hours. 2. Aspirin 81 mg oral daily. 3. Calcium supplement one b.i.d. 4. Cetirizine 10 mg oral daily. 5. Vitamin D 2000 International Units oral daily. 6. Voltaren topical 4 g four times a day. 7. Flonase 2 sprays intranasally in each nostril daily. 8. Folic acid 1 mg daily. 9. Levothyroxine 125 mcg oral daily. 10.Multivitamin two tablets oral daily. 11.Protonix 40 mg oral daily. 12. Refresh (one drop in each eye as directed). 13.Senna 1 to 2 tabs oral at bedtime p.r.n. constipation. 14.Sucralfate 1 g oral before meals and at bedtime. 15.Thiamine B1 100 mg oral daily. 16.Venlafaxine 37.5 mg oral daily. 17.Vitamin B complex one tablet oral daily. 18.Zinc 25 mg oral daily. 19.Atorvastatin calcium 10 mg oral at bedtime. 20.Imuran 50 mg oral daily. 21.Clonazepam 2 mg oral at bedtime. 22.Prednisone 10 mg oral daily. 23.Trazodone 150 mg oral at bedtime. DIET: Step-3 gastric bypass diet for 2 weeks. Drink 8 to 10 glasses of water a day. ACTIVITY: No lifting greater than 10 pounds for 6 weeks. Walk 6 times daily inside your home. Driving, do not drive for 1 week and while on pain medication. Shower/bathing, may shower. DISCHARGE INSTRUCTIONS: Notify provider if any fever, increased pain, nausea, or vomiting. Keep site clean and dry. Wear abdominal binder for 6 weeks if tolerable. Special Instructions, 1. Use incentive spirometer 10 times every hour while awake for 1 week. 2. Sit up for 2 hours after eating to allow the food or drink to empty out of esophagus.
== END 2019-06-25 10:00 | disposition home or self-care (01) | DRG 326 ==
LOC: JP.SDS 09:43 → JP.SDSSCHI 09:43 → EDSTATUS 13:15 → JP.2SS 16:30
PROVIDERS: ADMIT Surgery; ATTEND Surgery
PROC: 0D160ZA Bypass Stomach to Jejunum, Open Approach (ICD-10-PCS; principal; 2019-06-21)
PROC: 0DSA0ZZ Reposition Jejunum, Open Approach (ICD-10-PCS; 2019-06-21)
PROC: 0DNU0ZZ Release Omentum, Open Approach (ICD-10-PCS; 2019-06-21)
PROC: 3E0M05Z Introduction of Adhesion Barrier into Peritoneal Cavity, Open Approach (ICD-10-PCS; 2019-06-21)
DX: K95.89 Other complications of other bariatric procedure (principal); J69.0 Pneumonitis due to inhalation of food and vomit; K56.2 Volvulus; K43.0 Incisional hernia with obstruction, without gangrene; K56.51 Intestinal adhesions [bands], with partial obstruction; K91.2 Postsurgical malabsorption, not elsewhere classified; T17.918A Gastric contents in respiratory tract, part unspecified causing other injury, initial encounter; J44.9 Chronic obstructive pulmonary disease, unspecified; E11.9 Type 2 diabetes mellitus without complications; E78.5 Hyperlipidemia, unspecified; K21.9 Gastro-esophageal reflux disease without esophagitis; M10.9 Gout, unspecified; E53.9 Vitamin B deficiency, unspecified; M79.7 Fibromyalgia; F43.23 Adjustment disorder with mixed anxiety and depressed mood; Z79.82 Long term (current) use of aspirin; Z79.899 Other long term (current) drug therapy
CPT/HCPCS: 74240; 88302; 94640; A9270-GY; C9113; J0171; J0330; J0694; J1100; J1170; J1644; J2185; J2405; J2704; J2710; J2795; J2930; J3010; J3411; J3420; J3475; J3490; J7050; J7120; J7121; J7500; J7620-GY; Q9967

== ENCOUNTER 2020-05-29 05:26 | Day surgery (SDC) | payer MEDICARE ==
[2020-05-29] MEDS ORDERED: Acetaminophen 500 MG Tab PO ONE (05:35)
[2020-05-29] MEDS: Dextrose 5%-Lactated Ringers 1,000 ML IV SCH ×2 (05:54→20:10)
[2020-05-29] MEDS ORDERED: Bupivacaine 0.5%/EPINEPHrine 1:200,000 50 ML MDV ONE ×2 (06:52→08:49)
[2020-05-29] MEDS ORDERED: Albuterol/Ipratropium 3.0-0.5 MG/3 ML Neb Soln NEB ONE (07:00)
[2020-05-29] MEDS: cefOXitin 2 GM in Sodium Chloride 0.9% 50 ML IV ONE ×2 (07:34→11:46)
[2020-05-29] MEDS ORDERED: Succinylcholine 200 MG/10 ML MDV ONE (07:40)
[2020-05-29] MEDS ORDERED: Rocuronium 50 MG/5 ML Vial ONE (07:40)
[2020-05-29] MEDS ORDERED: Dexamethasone 4 MG/ML SDV ONE (07:40)
[2020-05-29] MEDS ORDERED: Neostigmine Methylsulfate 1 MG/ML 5 ML Syringe ONE (07:40)
[2020-05-29] MEDS ORDERED: fentaNYL 250 MCG/5 ML SDV ONE (07:40)
[2020-05-29] MEDS ORDERED: Ondansetron 4 MG/2 ML SDV ONE (07:40)
[2020-05-29] MEDS ORDERED: Glycopyrrolate 0.2 MG/ML 5 ML MDV ONE (07:40)
[2020-05-29] MEDS ORDERED: Propofol 200 MG/20 ML SDV ONE (07:40)
[2020-05-29] MEDS ORDERED: fentaNYL 100 MCG/2 ML SDV ONE (08:55)
[2020-05-29] MEDS ORDERED: hydrOXYzine HCL 100 MG/2 ML SDV IM ONE (09:44)
[2020-05-29] MEDS ORDERED: Mometasone Furoate Nasal Spray 17 GM Canister NASBOTH PRN (11:18)
[2020-05-29] MEDS: HYDROmorphone 0.5 MG/0.5 ML Syringe IVPUSH PRN ×2 (11:52→14:36)
[2020-05-29] MEDS ORDERED: Albuterol/Ipratropium 3.0-0.5 MG/3 ML Neb Soln INH PRN (12:00)
[2020-05-29] MEDS ORDERED: HYDROmorphone 1 MG/ML Syringe IV PRN (12:00)
[2020-05-29] MEDS ORDERED: Ondansetron 4 MG/2 ML SDV IVPUSH PRN (12:00)
[2020-05-29] MEDS ORDERED: Pantoprazole 40 MG Vial IVPUSH SCH (14:00)
[2020-05-29] MEDS: cefOXitin 2 GM in Sodium Chloride 0.9% 50 ML IV SCH ×2 (14:44→20:11)
[2020-05-29] MEDS: Acetaminophen/HYDROcodone 325-5 MG Tab PO PRN ×2 (17:47→22:10)
[2020-05-29] MEDS ORDERED: traZODone 50 MG Tab PO SCH (21:00)
[2020-05-29] MEDS ORDERED: ClonazePAM 1 MG Tab PO SCH (21:00)
[2020-05-29] MEDS ORDERED: Sennosides 8.6 MG Tab PO SCH (21:00)
[2020-05-30] MEDS: Acetaminophen/HYDROcodone 325-5 MG Tab PO PRN (02:39)
[2020-05-30] MEDS: cefOXitin 2 GM in Sodium Chloride 0.9% 50 ML IV SCH ×2 (02:40→07:24)
[2020-05-30 06:51] VITALS: BP 108/56; PULSE 67
[2020-05-30] MEDS ORDERED: Levothyroxine 112 MCG Tab PO SCH (07:30)
--- NOTE | 2020-05-30 08:45 | DISCH ---
ADMISSION DIAGNOSES: Biliary dyskinesia, cholecystitis, SP Kenny-en-Y gastric bypass surgery, unspecified surgical malabsorption, B12 deficiency, chronic obstructive pulmonary disease, fibromyalgia, restless legs syndrome, and hypertension. DISCHARGE DIAGNOSES: Laparoscopic cholecystectomy for chronic cholecystitis and cholelithiasis. Date of procedure: 05/29/2020. Surgeon: Jayant Hairston MD. HISTORY: Ana Maria Bryant is a pleasant 69-year-old female with history of right upper quadrant abdominal pain associated with nausea. After preoperative evaluation and discussion of possible risks and possible complications, she wished to proceed with surgical procedure. HOSPITAL COURSE: Ana Maria had her surgery on 05/29/2020. She had no operative complications. On postoperative day #1; vital signs were stable, pain was well managed, oral intake adequate, activity good, and she was able to be discharged to home. PHYSICAL EXAMINATION: GENERAL: Ana Maria is a pleasant 69-year-old female. VITAL SIGNS: Height 5 feet 2 inches. Weight is 164 pounds. TPR is 96.9, 67, 16. Blood pressure 108/56. HEENT: Negative. NECK: Supple. HEART: Regular rate and rhythm. LUNGS: Clear. ABDOMEN: Dressings dry and intact. Abdominal binder is on. DWAINE drain is draining a light- red drainage and will be removed prior to discharge. EXTREMITIES: Without peripheral edema. DISPOSITION: Discharged to home. CONDITION: Stable and improving. FOLLOWUP: Followup appointment with Nadia Mccoy PA-C, on 06/08/2020 at 10 a.m. HOME MEDICATIONS: 1. [place] 5/325 mg 1 to 2 q.4 hours p.r.n. pain, #42. 2. Senna S, take 2 daily p.o. p.r.n. constipation. To resume home medications that she was taking prior to admission. DIET: Step 4 gastric bypass diet, 65 g of protein in 64 ounces of water. ACTIVITY: No lifting greater than 10 pounds for 2 weeks. Other activity is walk at least 6 times daily inside your home. Driving do not drive for 1 week or while on pain medication. Shower/bathing: May shower. Wound incision care: Keep operative site clean and dry. Wear abdominal binder for 2 weeks and then as tolerated. Notify provider if any fever, increased pain, swelling, redness, drainage, nausea, or vomiting. SPECIAL INSTRUCTION: Use incentive spirometer 10 times every hour while awake for 1 week. /[id number]
[2020-05-30] MEDS ORDERED: Cetirizine 10 MG Tab PO SCH (09:00)
[2020-05-30] MEDS ORDERED: Aspirin 81 MG Tab.EC PO SCH (09:00)
[2020-05-30] MEDS ORDERED: Venlafaxine 37.5 MG Cap.ER PO SCH (09:00)
--- NOTE | 2020-06-11 10:55 | OR ---
DATE OF PROCEDURE: 05/29/2020 SURGEON: Jayant Hairston MD PREOPERATIVE DIAGNOSES: Chronic cholecystitis and cholelithiasis. POSTOPERATIVE DIAGNOSES: Chronic cholecystitis and cholelithiasis. OPERATIVE PROCEDURE: Laparoscopic cholecystectomy (85676). ANESTHESIA: General. GORE STITCHER: Nadia Mccoy PA-C INDICATIONS FOR PROCEDURE: A 69-year-old female presenting with some recurrent right upper quadrant pain. Workup was consistent with chronic cholecystitis and cholelithiasis. Plan was to proceed with a laparoscopic or if necessary open cholecystectomy. Potential risks including bleeding, infection, injury to the bile duct or other adjacent viscera, possible migration of stones in the common bile duct requiring additional procedures for correction were gone over, and the patient wished to proceed. DETAILS OF PROCEDURE: The patient was taken to the operating room, placed in a supine position. After general endotracheal anesthesia was induced, the abdomen was prepped and draped. A transverse incision was made in the epigastrium and peritoneal cavity entered under direct vision with an Optiview trocar, inflated to 15 mmHg pressure of CO2. The laparoscope was reinserted. No underlying trocar insertion site injuries were seen. Following this, a 12 mm subumbilical trocar was placed along with 5 mm right subcostal trocar. The area of the gallbladder was identified and was noted to be quite edematous and somewhat gilbert in appearance consistent with a chronic cholecystitis. The gallbladder was retracted anterolaterally and dissection began on the gallbladder neck with Harmonic scalpel continued around the gallbladder neck and cystic duct junction. The cystic artery adjacent was also then identified. The cystic duct was noted to be quite thickened and friable. Given this, we elected to divide that with a AXEL purple load. The artery was then divided placed proximally and 1 distally, and the gallbladder was then dissected off the gallbladder bed using Harmonic scalpel and delivered through the epigastric trocar site. It was noted to contain several stones. The area of dissection was then inspected. No bile leaks or bleeding were identified and the trocars were then sequentially removed and the peritoneal cavity deflated. The fascia at the 12 mm site was closed with 0 Vicryl stitch. Prior to closure, bilateral subcostal transversus abdominis plane blocks were placed. The skin at each incision was closed with 4- 0 Vicryl skin stitch and dressing applied. The patient was taken to the recovery room in satisfactory condition. Physician assistant to the dean, Nadia Mccoy, played an essential role in assisting in this case, helping to position the patient, retract structures as needed as well as suturing and cutting sutures when indicated. Her presence improved patient safety and decreased the operative time. Jayant Hairston MD /[id number]
== END 2020-05-30 09:15 | disposition home or self-care (01) ==
LOC: JP.SDS 05:26 → JP.MS 09:30 → JP.SDS 05-30 09:15
PROVIDERS: ATTEND Surgery
DX: K80.10 Calculus of gallbladder with chronic cholecystitis without obstruction (principal); K91.2 Postsurgical malabsorption, not elsewhere classified; E53.8 Deficiency of other specified B group vitamins; J44.9 Chronic obstructive pulmonary disease, unspecified; I10 Essential (primary) hypertension; G25.81 Restless legs syndrome; M79.7 Fibromyalgia; K21.9 Gastro-esophageal reflux disease without esophagitis; E78.5 Hyperlipidemia, unspecified; G89.4 Chronic pain syndrome; I25.10 Atherosclerotic heart disease of native coronary artery without angina pectoris; E11.40 Type 2 diabetes mellitus with diabetic neuropathy, unspecified; E03.9 Hypothyroidism, unspecified; Z90.49 Acquired absence of other specified parts of digestive tract; Z98.890 Other specified postprocedural states; Z98.84 Bariatric surgery status; Z79.899 Other long term (current) drug therapy; Z88.1 Allergy status to other antibiotic agents; Z91.018 Allergy to other foods; Z88.8 Allergy status to other drugs, medicaments and biological substances
CPT/HCPCS: 36415; 47562; 82247; 82607; 82728; 82746; 84075; 84132; 85025; 88304; 94640; A9270; C9113; J0171; J0330; J0694; J1100; J1170; J2405; J2704; J2710; J2795; J3010; J3410; J3490; J7121; J7500; J7620-GY

== ENCOUNTER 2021-03-19 08:19 | Inpatient (IN) | payer MEDICARE ==
--- NOTE | 2021-03-19 08:56 | EDM.PDOC ---
ED HPI GENERAL MEDICAL PROBLEM - General Chief Complaint: General Stated Complaint: PAIN RT ANKLE & RT KNEE VIA [facility] Time Seen by Provider: 03/19/21 08:39 Source of Information: Reports: Patient, EMS History Limitations: Reports: No Limitations - History of Present Illness INITIAL COMMENTS - FREE TEXT/NARRATIVE: 70-year-old female with a history of COPD, was oxygen dependent a few day years ago but not currently. She is fully vaccinated for Covid. She got up this morning and coughed several times, then went to drink some honey and water because it helps her reflux which induces her cough but then became very lightheaded and collapsed to the floor. She does not think she completely lost consciousness but she scraped her left knee slightly and bumped her right knee and foot and they are painful. Her kids came and checked on her and did not feel she was herself and should get checked out. When EMS arrived her O2 sats were only in the mid 70s, without oxygen she is running in the low 80s here in the emergency room. On 4 L she is at 91%. She does not complain of shortness of breath, does not have chest pain, palpitations, nausea or vomiting or other complaints. If you would not of been for her discomfort in her knee and foot she would not of come in. She also has a mild to moderate headache and just general malaise. Onset: Sudden (Near syncope was in the last hour, general malaise has been for several days) Associated Symptoms: Reports: Cough, Malaise, Weakness. Denies: Confusion, Chest Pain, Nausea/Vomiting, Shortness of Breath (Despite her decreased O2 saturations she does not complain of shortness of breath) Bilateral Feet Pain Score (Numeric/FACES): 8 - Related Data Allergies Allergy/AdvReac Type Severity Reaction Status Date / Time erythromycin base Allergy Hives Verified 03/19/21 08:26 [Erythromycin Base] zolpidem tartrate AdvReac Disorientat Verified 03/19/21 08:26 [From Jacquelyn] natalee Valelyle peppers Allergy Hives Uncoded 03/19/21 08:26 Home Meds: Home Meds Albuterol [Ventolin HFA] 2 puff IH Q6H PRN 09/14/14 [History] Aspirin [Aspirin EC] 81 mg PO DAILY 09/14/14 [History] Calcium Carb, Citrate/Vit D3 [Citracal + D ER] 1 tab PO BID 09/14/14 [History] Cholecalciferol (Vitamin D3) [Vitamin D3] 2,000 unit PO DAILY 09/14/14 [History] Folic Acid 1 mg PO DAILY 09/14/14 [History] Thiamine HCl [Vitamin B-1] 100 mg PO DAILY 09/14/14 [History] Vitamin B Complex [Super B-50 Complex] 1 tab PO DAILY 09/14/14 [History] clonazePAM [Clonazepam] 2 mg PO BEDTIME 09/14/14 [History] traZODone HCl [Trazodone HCl] 150 mg PO BEDTIME 09/14/14 [History] Levothyroxine 112 mcg PO ACBREAKFAST 08/09/16 [History] Venlafaxine [Effexor XR] 37.5 mg PO DAILY 08/09/16 [History] Pantoprazole Sodium [Protonix] 40 mg PO DAILY 10/16/16 [History] Cetirizine HCl [All Day Allergy] 10 mg PO DAILY 04/10/18 [History] Zinc Gluconate [Zinc] 25 mg PO DAILY 04/10/18 [History] Diclofenac Sodium [Voltaren] 4 g TOP QID 09/01/18 [History] Polyvinyl Alcohol/Povidone [Refresh] 1 drop EYEBOTH ASDIRECTED 06/09/19 [History] Magnesium Oxide 400 mg PO DAILY 05/24/20 [History] Mometasone Furoate [Nasonex [place]] 2 spray ANNAMARIE DAILY PRN 05/24/20 [History] Ondansetron [Zofran ODT] 4 mg PO Q4HR PRN 05/24/20 [History] Pediatric Multivit #36/Iron [Vitalets Tablet Chewable] 2 tab PO DAILY 05/24/20 [History] Sennosides [Senna] 1 - 2 tab PO BEDTIME PRN #100 05/30/20 [Rx] Sennosides/Docusate Sodium [Senna-S] 2 each PO DAILY PRN #60 tablet 05/30/20 [Rx] buPROPion [Wellbutrin] 75 mg PO BID 03/07/21 [History] Past Medical History HEENT History: Reports: Cataract, Impaired Vision Other HEENT History: wears glasses Cardiovascular History: Reports: High Cholesterol, Hypertension, SOB on Exertion Respiratory History: Reports: COPD, Pneumonia, Recurrent, Other (See Below) Other Respiratory History: granular lung disease, checked every 6 months Gastrointestinal History: Reports: Bowel Obstruction, Cholelithiasis, Colon Polyp, GERD Genitourinary History: Reports: None BROKER IN CHARGE History: Reports: Dysfunctional Uterine Bleeding, , Spontaneous Musculoskeletal History: Reports: Gout, Other (See Below) Other Musculoskeletal History: radiofrequency for chronic pain Neurological History: Reports: Neuropathy, Diabetic, Other (See Below) Other Neuro History: radiofrequency for back pain Endocrine/Metabolic History: Reports: Diabetes, Type II, Hypothyroidism, Vitamin D Deficiency Hematologic History: Reports: Anemia, B12 Deficiency, Blood Transfusion(s), Folic Acid, Iron Deficiency Dermatologic History: Reports: None - Infectious Disease History Infectious Disease History: Reports: Chicken Pox, Measles, MRSA, Mumps, Rubella - Past Surgical History HEENT Surgical History: Reports: Cataract Surgery, Tonsillectomy Cardiovascular Surgical History: Reports: None Respiratory Surgical History: Reports: Lung Biopsies GI Surgical History: Reports: Appendectomy, Bariatric Procedure, Colonoscopy, EGD, Hernia Repair/Other, Small Bowel Other GI Surgeries/Procedures: Panniculectomy Female Surgical History: Reports: Hysterectomy, Tubal Ligation, Other (See Below) Other Female Surgeries/Procedures: bladder lift Endocrine Surgical History: Reports: None Neurological Surgical History: Reports: None Musculoskeletal Surgical History: Reports: Arthroscopic Knee, Carpal Tunnel, Shoulder Surgery Other Musculoskeletal Surgeries/Procedures:: surgery both knees, carpal tunnel surgery both hands Dermatological Surgical History: Reports: None Social & Family History - Family History Family Medical History: No Pertinent Family History Cardiac: Reports: Arrhythmia, CAD, Hypertension Respiratory: Reports: COPD GI: Reports: PUD Musculoskeletal: Reports: Arthritis Endocrine/Metabolic: Reports: Diabetes, type II Oncologic: Reports: Bone, Brain, Breast, Lung - Tobacco Use Tobacco Use Status *Q: Former Tobacco User Used Tobacco, but Quit: Yes Month/Year Tobacco Last Used: 2002 - Caffeine Use Caffeine Use: Reports: Coffee - Recreational Drug Use Recreational Drug Use: No ED ROS GENERAL - Review of Systems Review Of Systems: See Below Constitutional: Reports: Malaise. Denies: Fever, Chills HEENT: Denies: Rhinitis, Throat Pain Respiratory: Reports: Cough. Denies: Shortness of Breath, Sputum Cardiovascular: Denies: Chest Pain, Palpitations GI/Abdominal: Reports: No Symptoms : Reports: No Symptoms Musculoskeletal: Reports: Foot Pain (Right side), Other (Right-sided knee pain) Skin: Reports: Other (Slight abrasion on the left knee but no discomfort) Neurological: Reports: Other (Near syncope, weakness) Psychiatric: Reports: No Symptoms ED EXAM, GENERAL - Physical Exam Exam: See Below Exam Limited By: No Limitations General Appearance: Alert, No Apparent Distress Eye Exam: Bilateral Eye: Normal Inspection (No jaundice, good hydration) Head: Atraumatic Neck: Supple, Non-Tender Respiratory/Chest: Other (Decreased breath sounds and rhonchi are heard on the left base, otherwise clear without wheezing) Cardiovascular: Regular Rate, Rhythm. No: Tachycardia GI/Abdominal: Normal Bowel Sounds, Soft, Non-Tender Extremities: Other (Some small slight abrasion on the left knee, no palpation tenderness. She does have palpable tenderness around the right knee, right foot and ankle but there is no deformity, bruising, or objective visual evidence of injury). No: Pedal Edema Neurological: Alert, Oriented, No Motor/Sensory Deficits. No: Inattentive Psychiatric: Normal Affect, Normal Mood Course - Vital Signs Last Recorded V/S: Last Vital Signs Temp 99.9 F 03/19/21 14:46 Pulse 72 03/19/21 14:35 Resp 16 03/19/21 13:52 BP 105/56 L 03/19/21 13:52 Pulse Ox 92 L 03/19/21 14:32 - Orders/Labs/Meds Orders: Active Orders 24 hr Category Date Time Status Patient Status [ADT] Routine ADT 03/19/21 13:52 Active Ambulate [RC] QID Care 03/19/21 13:52 Active Height and Weight [RC] DAILY Care 03/19/21 13:52 Active Intake and Output [RC] QSHIFT Care 03/19/21 13:52 Active Notify Provider Vital Signs [RC] ASDIRECTED Care 03/19/21 13:52 Active Oxygen Therapy [RC] PRN Care 03/19/21 13:52 Active Peripheral IV Care [RC] . DIRECTED Care 03/19/21 13:52 Active Pulse Oximetry [RC] CONTINUOUS Care 03/19/21 13:52 Active RT Aerosol Therapy [RC] ASDIRECTED Care 03/19/21 13:52 Active Up With Assistance [RC] ASDIRECTED Care 03/19/21 13:52 Active Up to Chair [RC] QID Care 03/19/21 13:52 Active VTE/DVT Education [RC] Per Unit Routine Care 03/19/21 13:52 Active Vital Signs [RC] Q4H Care 03/19/21 13:52 Active Regular Diet [DIET] Diet 03/19/21 Lunch Active BASIC METABOLIC PANEL,BMP [CHEM] AM Lab 03/20/21 05:11 Ordered CBC WITH AUTO DIFF [HEME] AM Lab 03/20/21 05:11 Ordered CULTURE BLOOD [BC] Urgent Lab 03/19/21 10:07 Received CULTURE BLOOD [BC] Urgent Lab 03/19/21 10:25 Received MAGNESIUM [CHEM] AM Lab 03/20/21 05:11 Ordered PROCALCITONIN [CHEM] Routine Lab 03/20/21 05:00 Ordered Acetaminophen [TylenoL] Med 03/19/21 13:52 Active 650 mg PO Q4H PRN Albuterol [Proventil Neb Soln] Med 03/19/21 13:52 Active 2.5 mg NEB Q4H PRN Albuterol/Ipratropium [DuoNeb 3.0-0.5 MG/3 ML] Med 03/19/21 15:00 Active 3 ml NEB QIDRT Aspirin [Halfprin] Med 03/20/21 09:00 Active 81 mg PO DAILY Cetirizine [ZyrTEC] Med 03/20/21 09:00 Active 10 mg PO DAILY ClonazePAM [KlonoPIN] Med 03/19/21 21:00 Active 2 mg PO BEDTIME Diclofenac Sodium [Voltaren 1% Gel] Med 03/19/21 16:00 Active 4 gm TOP QID Docusate Sodium/Sennosides [Senna Plus] Med 03/19/21 13:52 Active 1 tab PO BID PRN Enoxaparin [Lovenox] Med 03/19/21 13:52 Active 40 mg SUBCUT DAILY Levothyroxine Med 03/20/21 07:30 Active 112 mcg PO ACBREAKFAST Magnesium Oxide Med 03/20/21 09:00 Active 400 mg PO DAILY Ondansetron [Zofran] Med 03/19/21 13:52 Active 4 mg IV Q4H PRN Pantoprazole [ProTONIX] Med 03/20/21 09:00 Active 40 mg PO DAILY Piperacillin/Tazobactam/Dext [Zosyn in Dextrose Iso- Med 03/19/21 17:30 Active Osmotic 3.375 GM/50 ML] 3.375 gm Premix Bag 1 bag IV Q6H Sodium Chloride 0.9% [Normal Saline] 1,000 ml Med 03/19/21 13:52 Active IV ASDIRECTED Sodium Chloride 0.9% [Saline Flush] Med 03/19/21 13:52 Active 10 ml FLUSH ASDIRECTED PRN Venlafaxine [Effexor XR] Med 03/20/21 09:00 Active 37.5 mg PO DAILY buPROPion [Wellbutrin] Med 03/19/21 21:00 Active 75 mg PO BID oxyCODONE Med 03/19/21 13:52 Active 5 mg PO Q4H PRN traZODone Med 03/19/21 21:00 Active 150 mg PO BEDTIME Blood Culture x2 Reflex Set [OM.PC] Urgent Oth 03/19/21 09:56 Ordered Peripheral IV Insertion Adult [OM.PC] Routine Oth 03/19/21 13:52 Ordered Resuscitation Status Routine Resus Stat 03/19/21 13:05 Ordered Medication Orders Acetaminophen (Acetaminophen 325 Mg Tab) 650 mg PO Q4H PRN PRN Reason: Pain (Mild 1-3)/fever Last Admin: 03/19/21 14:16 Dose: 650 mg Documented by: LOS Albuterol (Albuterol 0.083% 2.5 Mg/3 Ml Neb Soln) 2.5 mg NEB Q4H PRN PRN Reason: Shortness Of Breath/wheezing Albuterol/Ipratropium (Albuterol/Ipratropium 3.0-0.5 Mg/3 Ml Neb Soln) 3 ml NEB QIDRT YAN Last Admin: 03/19/21 14:33 Dose: 3 ml Documented by: SHYLA Aspirin (Aspirin 81 Mg Tab.Ec) 81 mg PO DAILY YAN Bupropion HCl (Bupropion 75 Mg Tab) 75 mg PO BID [facility] Cetirizine HCl (Cetirizine 10 Mg Tab) 10 mg PO DAILY YAN Clonazepam (Clonazepam 1 Mg Tab) 2 mg PO BEDTIME YAN Diclofenac Sodium (Diclofenac Sodium 1% Gel 100 Gm Tube) 4 gm TOP QID YAN Enoxaparin Sodium (Enoxaparin 40 Mg/0.4 Ml Syringe) 40 mg SUBCUT DAILY [facility] Last Admin: 03/19/21 14:52 Dose: 40 mg Documented by: LOS Levofloxacin/Dextrose 750 mg/ (Premix) 150 mls @ 100 mls/hr IV Q24H [facility] Sodium Chloride (Normal Saline) 1,000 mls @ 125 mls/hr IV ASDIRECTED YAN Piperacillin/Tazobactam/ (Dextrose 3.375 gm/ Premix) 50 mls @ 100 mls/hr IV Q6H [facility] Levothyroxine Sodium (Levothyroxine 112 Mcg Tab) 112 mcg PO ACBREAKFAST [facility] Magnesium Oxide (Magnesium Oxide 400 Mg Tab) 400 mg PO DAILY [facility] Ondansetron HCl (Ondansetron 4 Mg/2 Ml Sdv) 4 mg IV Q4H PRN PRN Reason: Nausea/Vomiting Oxycodone HCl (Oxycodone 5 Mg Tab) 5 mg PO Q4H PRN PRN Reason: Pain (moderate 4-6) Last Admin: 03/19/21 14:22 Dose: 5 mg Documented by: LOS Pantoprazole Sodium (Pantoprazole 40 Mg Tab.Cr) 40 mg PO DAILY [facility] Senna/Docusate Sodium (Docusate Sodium/Sennosides 50-8.6 Mg Tab) 1 tab PO BID PRN PRN Reason: Constipation Sodium Chloride (Sodium Chloride 0.9% 10 Ml Syringe) 10 ml FLUSH ASDIRECTED PRN PRN Reason: Keep Vein Open Trazodone HCl (Trazodone 50 Mg Tab) 150 mg PO BEDTIME [facility] Venlafaxine HCl (Venlafaxine 37.5 Mg Cap.Er) 37.5 mg PO DAILY [facility] Labs: Laboratory Tests 03/19/21 03/19/21 03/19/21 Range/Units 08:51 09:01 09:01 WBC 10.5 (4.5-11.0) K/uL RBC 4.36 (3.30-5.50) M/uL Hgb 13.3 D (12.0-15.0) g/dL Hct 40.7 (36.0-48.0) % MCV 93 (80-98) fL MCH 31 (27-31) pg MCHC 33 (32-36) % Plt Count 211 (150-400) K/uL Neut % (Auto) 89.1 H (36-66) % Lymph % (Auto) 5.2 L (24-44) % Granite % (Auto) 5.6 (2-6) % Eos % (Auto) 0.0 L (2-4) % Baso % (Auto) 0.1 (0-1) % D-Dimer, Quantitative (0.0-500.0) ng/mL Sodium 140 (140-148) mmol/L Potassium 3.4 L (3.6-5.2) mmol/L Chloride 102 (100-108) mmol/L Carbon Dioxide 28 (21-32) mmol/L Anion Gap 13.4 (5.0-14.0) mmol/L BUN 22 H (7-18) mg/dL Creatinine 0.8 (0.6-1.0) mg/dL Est Cr Clr Drug Dosing 52.01 mL/min Estimated GFR (MDRD) > 60 (>60) Glucose 137 H (74-106) mg/dL Lactic Acid (0.4-2.0) mmol/L Calcium 8.4 L (8.5-10.1) mg/dL Total Bilirubin 0.5 (0.2-1.0) mg/dL AST 24 (15-37) U/L ALT 39 (12-78) U/L Alkaline Phosphatase 105 (46-116) U/L Troponin I (0.000-0.056) ng/mL Total Protein 6.2 L (6.4-8.2) g/dL Albumin 3.3 L (3.4-5.0) g/dL Globulin 2.9 (2.3-3.5) g/dL Albumin/Globulin Ratio 1.1 L (1.2-2.2) Procalcitonin ng/mL SARS-CoV-2 RNA ([place]) Negative (NEGATIVE) 03/19/21 03/19/21 03/19/21 Range/Units 09:01 09:01 09:45 WBC (4.5-11.0) K/uL RBC (3.30-5.50) M/uL Hgb (12.0-15.0) g/dL Hct (36.0-48.0) % MCV (80-98) fL MCH (27-31) pg MCHC (32-36) % Plt Count (150-400) K/uL Neut % (Auto) (36-66) % Lymph % (Auto) (24-44) % Granite % (Auto) (2-6) % Eos % (Auto) (2-4) % Baso % (Auto) (0-1) % D-Dimer, Quantitative 34849.70 H (0.0-500.0) ng/mL Sodium (140-148) mmol/L Potassium (3.6-5.2) mmol/L Chloride (100-108) mmol/L Carbon Dioxide (21-32) mmol/L Anion Gap (5.0-14.0) mmol/L BUN (7-18) mg/dL Creatinine (0.6-1.0) mg/dL Est Cr Clr Drug Dosing mL/min Estimated GFR (MDRD) (>60) Glucose (74-106) mg/dL Lactic Acid (0.4-2.0) mmol/L Calcium (8.5-10.1) mg/dL Total Bilirubin (0.2-1.0) mg/dL AST (15-37) U/L ALT (12-78) U/L Alkaline Phosphatase (46-116) U/L Troponin I < 0.017 (0.000-0.056) ng/mL Total Protein (6.4-8.2) g/dL Albumin (3.4-5.0) g/dL Globulin (2.3-3.5) g/dL Albumin/Globulin Ratio (1.2-2.2) Procalcitonin 0.46 ng/mL SARS-CoV-2 RNA ([place]) (NEGATIVE) 03/19/21 Range/Units 09:51 WBC (4.5-11.0) K/uL RBC (3.30-5.50) M/uL Hgb (12.0-15.0) g/dL Hct (36.0-48.0) % MCV (80-98) fL MCH (27-31) pg MCHC (32-36) % Plt Count (150-400) K/uL Neut % (Auto) (36-66) % Lymph % (Auto) (24-44) % Granite % (Auto) (2-6) % Eos % (Auto) (2-4) % Baso % (Auto) (0-1) % D-Dimer, Quantitative (0.0-500.0) ng/mL Sodium (140-148) mmol/L Potassium (3.6-5.2) mmol/L Chloride (100-108) mmol/L Carbon Dioxide (21-32) mmol/L Anion Gap (5.0-14.0) mmol/L BUN (7-18) mg/dL Creatinine (0.6-1.0) mg/dL Est Cr Clr Drug Dosing mL/min Estimated GFR (MDRD) (>60) Glucose (74-106) mg/dL Lactic Acid 1.9 (0.4-2.0) mmol/L Calcium (8.5-10.1) mg/dL Total Bilirubin (0.2-1.0) mg/dL AST (15-37) U/L ALT (12-78) U/L Alkaline Phosphatase (46-116) U/L Troponin I (0.000-0.056) ng/mL Total Protein (6.4-8.2) g/dL Albumin (3.4-5.0) g/dL Globulin (2.3-3.5) g/dL Albumin/Globulin Ratio (1.2-2.2) Procalcitonin ng/mL SARS-CoV-2 RNA ([place]) (NEGATIVE) Meds: Medications Generic Name Dose Route Start Last Admin Trade Name Freq PRN Reason Stop Dose Admin Acetaminophen 650 mg 03/19/21 13:52 03/19/21 14:16 Acetaminophen 325 Mg Tab PO 650 mg Q4H PRN Administration Pain (Mild 1-3)/fever Albuterol 2.5 mg 03/19/21 13:52 Albuterol 0.083% 2.5 Mg/3 Ml Neb Soln NEB Q4H PRN Shortness Of Breath/wheezing Albuterol/Ipratropium 3 ml 03/19/21 15:00 03/19/21 14:33 Albuterol/Ipratropium 3.0-0.5 Mg/3 Ml Neb Soln NEB 3 ml QIDRT YAN Administration Aspirin 81 mg 03/20/21 09:00 Aspirin 81 Mg Tab.Ec PO DAILY YAN Bupropion HCl 75 mg 03/19/21 21:00 Bupropion 75 Mg Tab PO BID YAN Cetirizine HCl 10 mg 03/20/21 09:00 Cetirizine 10 Mg Tab PO DAILY [facility] Clonazepam 2 mg 03/19/21 21:00 Clonazepam 1 Mg Tab PO BEDTIME [facility] Diclofenac Sodium 4 gm 03/19/21 16:00 Diclofenac Sodium 1% Gel 100 Gm Tube TOP QID [facility] Enoxaparin Sodium 40 mg 03/19/21 13:52 03/19/21 14:52 Enoxaparin 40 Mg/0.4 Ml Syringe SUBCUT 40 mg DAILY [facility] Administration Levofloxacin/Dextrose 750 mg/ 150 mls @ 100 mls/hr 03/20/21 12:00 Premix IV Q24H [facility] Sodium Chloride 1,000 mls @ 125 mls/hr 03/19/21 13:52 Normal Saline IV ASDIRECTED [facility] Piperacillin/Tazobactam/ 50 mls @ 100 mls/hr 03/19/21 17:30 Dextrose 3.375 gm/ Premix IV Q6H [facility] Levothyroxine Sodium 112 mcg 03/20/21 07:30 Levothyroxine 112 Mcg Tab PO ACBREAKFAST [facility] Magnesium Oxide 400 mg 03/20/21 09:00 Magnesium Oxide 400 Mg Tab PO DAILY [facility] Ondansetron HCl 4 mg 03/19/21 13:52 Ondansetron 4 Mg/2 Ml Sdv IV Q4H PRN Nausea/Vomiting Oxycodone HCl 5 mg 03/19/21 13:52 03/19/21 14:22 Oxycodone 5 Mg Tab PO 5 mg Q4H PRN Administration Pain (moderate 4-6) Pantoprazole Sodium 40 mg 03/20/21 09:00 Pantoprazole 40 Mg Tab.Cr PO DAILY [facility] Senna/Docusate Sodium 1 tab 03/19/21 13:52 Docusate Sodium/Sennosides 50-8.6 Mg Tab PO BID PRN Constipation Sodium Chloride 10 ml 03/19/21 13:52 Sodium Chloride 0.9% 10 Ml Syringe FLUSH ASDIRECTED PRN Keep Vein Open Trazodone HCl 150 mg 03/19/21 21:00 Trazodone 50 Mg Tab PO BEDTIME [facility] Venlafaxine HCl 37.5 mg 03/20/21 09:00 Venlafaxine 37.5 Mg Cap.Er PO DAILY [facility] Discontinued Medications Generic Name Dose Route Start Last Admin Trade Name Freq PRN Reason Stop Dose Admin Fentanyl 25 mcg 03/19/21 09:59 03/19/21 10:18 Fentanyl 100 Mcg/2 Ml Sdv IVPUSH 03/19/21 10:00 25 mcg ONETIME ONE Administration Sodium Chloride 1,000 mls @ 1,000 mls/hr 03/19/21 10:00 03/19/21 10:18 Normal Saline IV 1,000 mls/hr ASDIRECTED YAN Administration Sodium Chloride 100 mls @ 4 mls/sec 03/19/21 10:45 03/19/21 10:50 Normal Saline IV 4 mls/sec ASDIRECTED YAN Administration Levofloxacin/Dextrose 750 mg/ 150 mls @ 100 mls/hr 03/19/21 10:44 03/19/21 11:17 Premix IV 03/19/21 12:13 100 mls/hr ONETIME ONE Administration Piperacillin/Tazobactam/ 50 mls @ 100 mls/hr 03/19/21 12:15 03/19/21 13:08 Dextrose 3.375 gm/ Premix IV 03/19/21 12:44 100 mls/hr ONETIME ONE Administration Levofloxacin/Dextrose 750 mg/ 150 mls @ 100 mls/hr 03/19/21 13:45 Premix IV Q24H YAN Iopamidol 100 ml 03/19/21 10:35 03/19/21 10:51 Iopamidol 755 Mg/Ml 100 Ml Bottle IV 03/19/21 10:36 100 ml . DIRECTED ONE Administration - Re-Assessments/Exams Free Text/Narrative Re-Assessment/Exam: 03/19/21 08:55 A review of her clinic records show just 20 days ago she had a postoperative visit for gastric bypass and her O2 saturations were 96%. Her significant decrease in O2 saturations along with the abnormal lung sounds on the left are concerning. A 2 view chest x-ray, knee x-ray on the right as well as a foot x- ray ordered is along with CBC, CMP, troponin and D-dimer. She will continue with O2 supplementation. A Covid test was also obtained. 03/19/21 10:01 Knee and foot x-ray shows osteoporosis but no acute fractures. Chest x-ray does show a diffuse left lower infiltrate. Patient does sleep on her left side and has significant reflux with a history of aspiration pneumonia, despite her lack of fever, normal white count she very possibly has another aspiration pneumonia. Pro calcitonin, lactic acid and blood cultures were added prior to antibiotic initiation. She will be bolused with 1 L of normal saline and given 25 mcg of fentanyl for pain control. 03/19/21 16:02 D-dimer returned fairly elevated at 12,000, procalcitonin and lactic acid were normal. Therefore CT angiogram of the chest was done to rule out PE which was negative. Patient was given Zosyn and IV Levaquin after blood cultures were obtained, and she was admitted to the hospitalist service for left-sided pneumonia. Departure - Departure Time of Disposition: 12:31 Disposition: Admitted As Inpatient 68 Clinical Impression: Pneumonia involving left lung Qualifiers: Pneumonia type: due to unspecified organism Lung location: lower lobe of lung Qualified Code(s): J18.9 - Pneumonia, unspecified organism - Discharge Information Sepsis Event Note (ED) - Evaluation Sepsis Screening Result: No Definite Risk - Focused Exam Vital Signs: Vital Signs Temp Pulse Resp BP Pulse Ox 03/19/21 12:30 93 104/50 L 92 L 03/19/21 11:05 81 20 109/47 L 92 L 03/19/21 11:03 78 105/52 L 03/19/21 09:28 74 20 96/48 L 96 03/19/21 08:22 98.4 F 84 16 118/62 91 L - My Orders Last 24 Hours: My Active Orders 03/19/21 09:56 Blood Culture x2 Reflex Set [OM.PC] Urgent 03/19/21 10:07 CULTURE BLOOD [BC] Urgent 03/19/21 10:25 CULTURE BLOOD [BC] Urgent - Assessment/Plan Last 24 Hours: My Active Orders 03/19/21 09:56 Blood Culture x2 Reflex Set [OM.PC] Urgent 03/19/21 10:07 CULTURE BLOOD [BC] Urgent 03/19/21 10:25 CULTURE BLOOD [BC] Urgent
[2021-03-19] MEDS ORDERED: fentaNYL 100 MCG/2 ML SDV IVPUSH ONE (09:59)
[2021-03-19] MEDS ORDERED: Sodium Chloride 0.9% 1,000 ML IV SCH (10:00)
--- NOTE | 2021-03-19 10:22 | CR ---
Knee 3V Rt CLINICAL HISTORY: Fall, pain FINDINGS: No acute fracture or dislocation is noted. There are no osseous lesions. There is medial joint space narrowing. There is periarticular and patellar spurring. Impression: No fracture Moderate osteoarthritis
--- NOTE | 2021-03-19 10:25 | CR ---
FOOT RIGHT 3 views CLINICAL HISTORY:Fall, pain FINDINGS:There is some osteophytic changes in the toes. There is some mild deformity of the distal aspects second and third metatarsals. There is a small cortical step-off in the third. Impression: Mild degenerative changes. Acute fracture suspected. Clinical correlation necessary Impression: Limited study Deformities of the distal aspects of the second and third metatarsals are suspect for fractures.
[2021-03-19] MEDS ORDERED: Iopamidol 755 Mg/ML 100 ML Bottle IV ONE (10:35)
[2021-03-19] MEDS ORDERED: Levofloxacin/Dextrose 5%-Water 750 MG in Premix Bag 1 BAG IV ONE (10:44)
[2021-03-19] MEDS ORDERED: Piperacillin/Tazobactam 3.375 GM in Sodium Chloride 0.9% 50 ML IV SCH (10:45)
[2021-03-19] MEDS ORDERED: Sodium Chloride 0.9% 100 ML IV SCH (10:45)
--- NOTE | 2021-03-19 11:19 | CT ---
Ang Chest CLINICAL HISTORY: Dyspnea, elevated d-dimer TECHNIQUE: Thin section axial contiguous tomographic sections were taken through the chest after bolus IV iodinated contrast administration. Coronal and sagittal images were reconstructed. Auto dosage reduction and iterative reconstruction techniques employed. FINDINGS: Lung window images show patchy infiltrate and some areas of consolidation in the left upper and left lower lobe. There are also some scattered groundglass opacities. Right lung is clear. There is a 3 mm nodule in the right upper lobe on image #47 there is some scarring in the right upper lobe. There is a 1 cm granuloma in the left lower lobe. No filling defects are identified in the pulmonary arteries. There are atherosclerotic changes in the aorta. No mediastinal mass or suspicious lymphadenopathy is identified. IMPRESSION: No evidence of pulmonary embolus Moderate pneumonic infiltrate involving the left upper and lower lobes. Previous granulomatous exposure
--- NOTE | 2021-03-19 11:21 | CR ---
CHEST: 2 view CLINICAL HISTORY:Dyspnea COMPARISON:CT 2019 FINDINGS: There is diffuse pneumonic infiltrate involving the left lung. There is a granuloma in the left lower lobe. Heart and pulmonary vascularity appear normal. There are atherosclerotic changes in the aorta. Impression: Diffuse left lung pneumonia.
[2021-03-19] MEDS ORDERED: Piperacillin/Tazobactam/Dext 3.375 GM in Premix Bag 1 BAG IV ONE (12:15)
[2021-03-19] MEDS ORDERED: Levofloxacin/Dextrose 5%-Water 750 MG in Premix Bag 1 BAG IV SCH (13:45)
[2021-03-19] MEDS ORDERED: Albuterol 0.083% 2.5 MG/3 ML Neb Soln NEB PRN (13:52)
[2021-03-19] MEDS ORDERED: Ondansetron 4 MG/2 ML SDV IV PRN (13:52)
--- NOTE | 2021-03-19 14:03 | PCM.HP.2 ---
H&P History of Present Illness - General Date of Service: 03/19/21 Admit Problem/Dx: Admission Diagnosis/Problem Admission Diagnosis/Problem Pneumonia Source of Information: Patient, Provider, RN Notes Reviewed History Limitations: Reports: No Limitations - History of Present Illness Initial Comments - Free Text/Narative: Ms. Bryant is a 70-year-old woman who was admitted through the emergency department with weakness, shortness of breath, and hypoxia, secondary to left l lesa pneumonia. She was feeling well through the day yesterday, she awoke during the night and felt very weak with shortness of breath and a cough. She had been experiencing difficulty with reflux during the night. She had 3 near syncopal/syncopal events and was extremely weak. She was brought into the emergency department via EMS. White blood cell count is within normal range and procalcitonin borderline elevated. Chest x-ray documents a left lung infiltrate. CT scan of the chest was obtained because of a elevated D-dimer. There was no evidence of pulmonary emboli but the chest x-ray did document left lung infiltrate. Because of the history of reflux there is some suspicion for possible aspiration. Blood cultures were obtained in the emergency department and she has been started on antibiotic therapy with levofloxacin and Zosyn. There has been no evidence of sepsis. Bilateral Feet Pain Score (Numeric/FACES): 8 - Related Data Allergies/Adverse Reactions: Allergies Allergy/AdvReac Type Severity Reaction Status Date / Time erythromycin base Allergy Hives Verified 03/19/21 08:26 [Erythromycin Base] zolpidem tartrate AdvReac Disorientat Verified 03/19/21 08:26 [From Jacquelyn] natalee Valelyle peppers Allergy Hives Uncoded 03/19/21 08:26 Home Medications: Home Meds Albuterol [Ventolin HFA] 2 puff IH Q6H PRN 09/14/14 [History] Aspirin [Aspirin EC] 81 mg PO DAILY 09/14/14 [History] Calcium Carb, Citrate/Vit D3 [Citracal + D ER] 1 tab PO BID 09/14/14 [History] Cholecalciferol (Vitamin D3) [Vitamin D3] 2,000 unit PO DAILY 09/14/14 [History] Folic Acid 1 mg PO DAILY 09/14/14 [History] Thiamine HCl [Vitamin B-1] 100 mg PO DAILY 09/14/14 [History] Vitamin B Complex [Super B-50 Complex] 1 tab PO DAILY 09/14/14 [History] clonazePAM [Clonazepam] 2 mg PO BEDTIME 09/14/14 [History] traZODone HCl [Trazodone HCl] 150 mg PO BEDTIME 09/14/14 [History] Levothyroxine 112 mcg PO ACBREAKFAST 08/09/16 [History] Venlafaxine [Effexor XR] 37.5 mg PO DAILY 08/09/16 [History] Pantoprazole Sodium [Protonix] 40 mg PO DAILY 10/16/16 [History] Cetirizine HCl [All Day Allergy] 10 mg PO DAILY 04/10/18 [History] Zinc Gluconate [Zinc] 25 mg PO DAILY 04/10/18 [History] Diclofenac Sodium [Voltaren] 4 g TOP QID 09/01/18 [History] Polyvinyl Alcohol/Povidone [Refresh] 1 drop EYEBOTH ASDIRECTED 06/09/19 [History] Magnesium Oxide 400 mg PO DAILY 05/24/20 [History] Mometasone Furoate [Nasonex [place]] 2 spray ANNAMARIE DAILY PRN 05/24/20 [History] Ondansetron [Zofran ODT] 4 mg PO Q4HR PRN 05/24/20 [History] Pediatric Multivit #36/Iron [Vitalets Tablet Chewable] 2 tab PO DAILY 05/24/20 [History] Sennosides [Senna] 1 - 2 tab PO BEDTIME PRN #100 05/30/20 [Rx] Sennosides/Docusate Sodium [Senna-S] 2 each PO DAILY PRN #60 tablet 05/30/20 [Rx] buPROPion [Wellbutrin] 75 mg PO BID 03/07/21 [History] Past Medical History HEENT History: Reports: Cataract, Impaired Vision Other HEENT History: wears glasses Cardiovascular History: Reports: High Cholesterol, Hypertension, SOB on Exertion Respiratory History: Reports: COPD, Pneumonia, Recurrent, Other (See Below) Other Respiratory History: granular lung disease, checked every 6 months Gastrointestinal History: Reports: Bowel Obstruction, Cholelithiasis, Colon Polyp, GERD Genitourinary History: Reports: None BOTTOM SPRAYER History: Reports: Dysfunctional Uterine Bleeding, , Spontaneous Musculoskeletal History: Reports: Gout, Other (See Below) Other Musculoskeletal History: radiofrequency for chronic pain Neurological History: Reports: Neuropathy, Diabetic, Other (See Below) Other Neuro History: radiofrequency for back pain Endocrine/Metabolic History: Reports: Diabetes, Type II, Hypothyroidism, Vitamin D Deficiency Hematologic History: Reports: Anemia, B12 Deficiency, Blood Transfusion(s), Folic Acid, Iron Deficiency Dermatologic History: Reports: None - Infectious Disease History Infectious Disease History: Reports: Chicken Pox, Measles, MRSA, Mumps, Rubella - Past Surgical History HEENT Surgical History: Reports: Cataract Surgery, Tonsillectomy Cardiovascular Surgical History: Reports: None Respiratory Surgical History: Reports: Lung Biopsies GI Surgical History: Reports: Appendectomy, Bariatric Procedure, Colonoscopy, EGD, Hernia Repair/Other, Small Bowel Other GI Surgeries/Procedures: Panniculectomy Female Surgical History: Reports: Hysterectomy, Tubal Ligation, Other (See Below) Other Female Surgeries/Procedures: bladder lift Endocrine Surgical History: Reports: None Neurological Surgical History: Reports: None Musculoskeletal Surgical History: Reports: Arthroscopic Knee, Carpal Tunnel, Shoulder Surgery Other Musculoskeletal Surgeries/Procedures:: surgery both knees, carpal tunnel surgery both hands Dermatological Surgical History: Reports: None Social & Family History - Family History Family Medical History: No Pertinent Family History Cardiac: Reports: Arrhythmia, CAD, Hypertension Respiratory: Reports: COPD GI: Reports: PUD Musculoskeletal: Reports: Arthritis Endocrine/Metabolic: Reports: Diabetes, type II Oncologic: Reports: Bone, Brain, Breast, Lung - Tobacco Use Tobacco Use Status *Q: Former Tobacco User Used Tobacco, but Quit: Yes Month/Year Tobacco Last Used: 2002 - Caffeine Use Caffeine Use: Reports: Coffee - Recreational Drug Use Recreational Drug Use: No H&P Review of Systems - Review of Systems: Review Of Systems: See Below General: Reports: Malaise, Weakness, Fatigue. Denies: Fever, Chills HEENT: Reports: No Symptoms Pulmonary: Reports: Shortness of Breath, Cough. Denies: Pleuritic Chest Pain, Sputum, Hemoptysis Cardiovascular: Reports: Dyspnea on Exertion. Denies: Chest Pain, Palpitations, Orthopnea, PND, Edema, Lightheadedness Gastrointestinal: Reports: No Symptoms Genitourinary: Reports: No Symptoms Musculoskeletal: Reports: No Symptoms Skin: Reports: No Symptoms Psychiatric: Reports: No Symptoms Neurological: Reports: No Symptoms Hematologic/Lymphatic: Reports: No Symptoms Immunologic: Reports: No Symptoms Exam - Exam Exam: See Below - Vital Signs Vital Signs: Last Vital Signs Temp 100.1 F 03/19/21 13:52 Pulse 70 03/19/21 13:52 Resp 16 03/19/21 13:52 BP 105/56 L 03/19/21 13:52 Pulse Ox 90 L 03/19/21 13:52 Weight: 159 lb - Exam Quality Assessment: Supplemental Oxygen, DVT Prophylaxis General: Alert, Oriented, Cooperative, Mild Distress HEENT: Conjunctiva Clear, Hearing Intact, Mucosa Moist & [place], Normal Nasal Septum, Posterior Pharynx Clear, Pupils Equal Neck: Supple, Trachea Midline, +2 Carotid Pulse wo Bruit Lungs: Normal Respiratory Effort, Rales, Rhonchi. No: Crackles, Wheezing Cardiovascular: Regular Rate, Regular Rhythm, Normal S1, Normal S2. No: Systolic Murmur, Diastolic Murmur GI/Abdominal Exam: Soft, Non-Tender, No Organomegaly, No Distention Back Exam: Normal Inspection, Full Range of Motion Extremities: Non-Tender, No Pedal Edema Skin: Warm, Dry, Intact Neurological: Cranial Nerves Intact, Strength Equal Bilateral, Normal Speech, Normal Tone, Sensation Intact. No: Focal Deficit Neuro Extensive - Mental Status: Alert, Oriented x3, Normal Mood/Affect, Normal Cognition, Memory Intact - Patient Data Lab Results Last 24 hrs: Laboratory Results - last 24 hr 03/19/21 03/19/21 03/19/21 Range/Units 08:51 09:01 09:01 WBC 10.5 (4.5-11.0) K/uL RBC 4.36 (3.30-5.50) M/uL Hgb 13.3 D (12.0-15.0) g/dL Hct 40.7 (36.0-48.0) % MCV 93 (80-98) fL MCH 31 (27-31) pg MCHC 33 (32-36) % Plt Count 211 (150-400) K/uL Neut % (Auto) 89.1 H (36-66) % Lymph % (Auto) 5.2 L (24-44) % [place] % (Auto) 5.6 (2-6) % Eos % (Auto) 0.0 L (2-4) % Baso % (Auto) 0.1 (0-1) % D-Dimer, Quantitative (0.0-500.0) ng/mL Sodium 140 (140-148) mmol/L Potassium 3.4 L (3.6-5.2) mmol/L Chloride 102 (100-108) mmol/L Carbon Dioxide 28 (21-32) mmol/L Anion Gap 13.4 (5.0-14.0) mmol/L BUN 22 H (7-18) mg/dL Creatinine 0.8 (0.6-1.0) mg/dL Est Cr Clr Drug Dosing 52.01 mL/min Estimated GFR (MDRD) > 60 (>60) Glucose 137 H (74-106) mg/dL Lactic Acid (0.4-2.0) mmol/L Calcium 8.4 L (8.5-10.1) mg/dL Total Bilirubin 0.5 (0.2-1.0) mg/dL AST 24 (15-37) U/L ALT 39 (12-78) U/L Alkaline Phosphatase 105 (46-116) U/L Troponin I (0.000-0.056) ng/mL Total Protein 6.2 L (6.4-8.2) g/dL Albumin 3.3 L (3.4-5.0) g/dL Globulin 2.9 (2.3-3.5) g/dL Albumin/Globulin Ratio 1.1 L (1.2-2.2) Procalcitonin ng/mL SARS-CoV-2 RNA ([place]) Negative (NEGATIVE) 03/19/21 03/19/21 03/19/21 Range/Units 09:01 09:01 09:45 WBC (4.5-11.0) K/uL RBC (3.30-5.50) M/uL Hgb (12.0-15.0) g/dL Hct (36.0-48.0) % MCV (80-98) fL MCH (27-31) pg MCHC (32-36) % Plt Count (150-400) K/uL Neut % (Auto) (36-66) % Lymph % (Auto) (24-44) % [place] % (Auto) (2-6) % Eos % (Auto) (2-4) % Baso % (Auto) (0-1) % D-Dimer, Quantitative 60810.70 H (0.0-500.0) ng/mL Sodium (140-148) mmol/L Potassium (3.6-5.2) mmol/L Chloride (100-108) mmol/L Carbon Dioxide (21-32) mmol/L Anion Gap (5.0-14.0) mmol/L BUN (7-18) mg/dL Creatinine (0.6-1.0) mg/dL Est Cr Clr Drug Dosing mL/min Estimated GFR (MDRD) (>60) Glucose (74-106) mg/dL Lactic Acid (0.4-2.0) mmol/L Calcium (8.5-10.1) mg/dL Total Bilirubin (0.2-1.0) mg/dL AST (15-37) U/L ALT (12-78) U/L Alkaline Phosphatase (46-116) U/L Troponin I < 0.017 (0.000-0.056) ng/mL Total Protein (6.4-8.2) g/dL Albumin (3.4-5.0) g/dL Globulin (2.3-3.5) g/dL Albumin/Globulin Ratio (1.2-2.2) Procalcitonin 0.46 ng/mL SARS-CoV-2 RNA ([place]) (NEGATIVE) 03/19/21 Range/Units 09:51 WBC (4.5-11.0) K/uL RBC (3.30-5.50) M/uL Hgb (12.0-15.0) g/dL Hct (36.0-48.0) % MCV (80-98) fL MCH (27-31) pg MCHC (32-36) % Plt Count (150-400) K/uL Neut % (Auto) (36-66) % Lymph % (Auto) (24-44) % [place] % (Auto) (2-6) % Eos % (Auto) (2-4) % Baso % (Auto) (0-1) % D-Dimer, Quantitative (0.0-500.0) ng/mL Sodium (140-148) mmol/L Potassium (3.6-5.2) mmol/L Chloride (100-108) mmol/L Carbon Dioxide (21-32) mmol/L Anion Gap (5.0-14.0) mmol/L BUN (7-18) mg/dL Creatinine (0.6-1.0) mg/dL Est Cr Clr Drug Dosing mL/min Estimated GFR (MDRD) (>60) Glucose (74-106) mg/dL Lactic Acid 1.9 (0.4-2.0) mmol/L Calcium (8.5-10.1) mg/dL Total Bilirubin (0.2-1.0) mg/dL AST (15-37) U/L ALT (12-78) U/L Alkaline Phosphatase (46-116) U/L Troponin I (0.000-0.056) ng/mL Total Protein (6.4-8.2) g/dL Albumin (3.4-5.0) g/dL Globulin (2.3-3.5) g/dL Albumin/Globulin Ratio (1.2-2.2) Procalcitonin ng/mL SARS-CoV-2 RNA ([place]) (NEGATIVE) Result Diagrams: 03/19/21 09:01 03/19/21 09:01 Sepsis Event Note - Evaluation Sepsis Screening Result: No Definite Risk - Focused Exam Vital Signs: Vital Signs Temp Temp Pulse Resp BP Pulse Ox 03/19/21 13:52 100.1 F 70 16 105/56 L 90 L 03/19/21 13:29 85 96/55 L 03/19/21 12:30 93 104/50 L 92 L 03/19/21 11:05 81 20 109/47 L 92 L 03/19/21 11:03 78 105/52 L 03/19/21 09:28 74 20 96/48 L 96 03/19/21 08:22 98.4 F 84 16 118/62 91 L *Q Meaningful Use (ADM) - VTE Risk Assess *Q Each Risk Factor Represents 1 Point: Obesity ( BMI > 25 kg/m2), Serious lung disease including pneumonia Total Score 1 Point Risk Factors: 2 Each Risk Factor Represents 2 Points: Age 60 - 74 Years Total Score 2 Point Risk Factors: 2 Each Risk Factor Represents 3 Points: None Total Score 3 Point Risk Factors: 0 Each Risk Factor Represents 5 Points: None Total Score 5 Point Risk Factors: 0 Venous Thromboembolism Risk Factor Score *Q: 4 Problem List Initiated/Reviewed/Updated: Yes Orders Last 24hrs: Active Orders 24 hr Category Date Time Status Patient Status [ADT] Routine ADT 03/19/21 13:52 Active Ambulate [RC] QID Care 03/19/21 13:52 Active Height and Weight [RC] DAILY Care 03/19/21 13:52 Active Intake and Output [RC] QSHIFT Care 03/19/21 13:52 Active Notify Provider Vital Signs [RC] ASDIRECTED Care 03/19/21 13:52 Active Oxygen Therapy [RC] PRN Care 03/19/21 13:52 Active Peripheral IV Care [RC] . DIRECTED Care 03/19/21 13:52 Active Pulse Oximetry [RC] CONTINUOUS Care 03/19/21 13:52 Active RT Aerosol Therapy [RC] ASDIRECTED Care 03/19/21 13:52 Active Up With Assistance [RC] ASDIRECTED Care 03/19/21 13:52 Active Up to Chair [RC] QID Care 03/19/21 13:52 Active VTE/DVT Education [RC] Per Unit Routine Care 03/19/21 13:52 Active Vital Signs [RC] Q4H Care 03/19/21 13:52 Active Regular Diet [DIET] Diet 03/19/21 Lunch Active BASIC METABOLIC PANEL,BMP [CHEM] AM Lab 03/20/21 05:11 Ordered CBC WITH AUTO DIFF [HEME] AM Lab 03/20/21 05:11 Ordered CULTURE BLOOD [BC] Urgent Lab 03/19/21 10:07 Received CULTURE BLOOD [BC] Urgent Lab 03/19/21 10:25 Received MAGNESIUM [CHEM] AM Lab 03/20/21 05:11 Ordered PROCALCITONIN [CHEM] Routine Lab 03/20/21 05:00 Ordered Acetaminophen [TylenoL] Med 03/19/21 13:52 Active 650 mg PO Q4H PRN Albuterol [Proventil Neb Soln] Med 03/19/21 13:52 Active 2.5 mg NEB Q4H PRN Albuterol/Ipratropium [DuoNeb 3.0-0.5 MG/3 ML] Med 03/19/21 15:00 Active 3 ml NEB QIDRT Aspirin [Halfprin] Med 03/20/21 09:00 Active 81 mg PO DAILY Cetirizine HCl [All Day Allergy] Med 03/20/21 09:00 Ordered 10 mg PO DAILY Diclofenac Sodium [Voltaren 1% Gel] Med 03/19/21 16:00 Active 4 gm TOP QID Docusate Sodium/Sennosides [Senna Plus] Med 03/19/21 13:52 Active 1 tab PO BID PRN Enoxaparin [Lovenox] Med 03/19/21 13:52 Active 40 mg SUBCUT DAILY Levofloxacin/Dextrose 5%-Water [Levaquin in D5W 750 MG/ Med 03/20/21 14:30 Active 150 ML] 750 mg Premix Bag 1 bag IV Q24H Levothyroxine Med 03/20/21 07:30 Ordered 112 mcg PO ACBREAKFAST Magnesium Oxide Med 03/20/21 09:00 Ordered 400 mg PO DAILY Ondansetron [Zofran] Med 03/19/21 13:52 Ordered 4 mg IV Q4H PRN Pantoprazole [ProTONIX Granules] Med 03/20/21 09:00 Ordered 40 mg PO DAILY Piperacillin/Tazobactam [Zosyn] 3.375 gm Med 03/19/21 13:52 Ordered Sodium Chloride 0.9% [Normal Saline] 50 ml IV Q6H Sodium Chloride 0.9% [Normal Saline] 1,000 ml Med 03/19/21 13:52 Ordered IV ASDIRECTED Sodium Chloride 0.9% [Saline Flush] Med 03/19/21 13:52 Ordered 10 ml FLUSH ASDIRECTED PRN Venlafaxine [Effexor XR] Med 03/20/21 09:00 Ordered 37.5 mg PO DAILY buPROPion [Wellbutrin] Med 03/19/21 21:00 Active 75 mg PO BID clonazePAM [Clonazepam] Med 03/19/21 21:00 Ordered 2 mg PO BEDTIME oxyCODONE Med 03/19/21 13:52 Ordered 5 mg PO Q4H PRN traZODone HCl [Trazodone HCl] Med 03/19/21 21:00 Ordered 150 mg PO BEDTIME Blood Culture x2 Reflex Set [OM.PC] Urgent Oth 03/19/21 09:56 Ordered Peripheral IV Insertion Adult [OM.PC] Routine Oth 03/19/21 13:52 Ordered Resuscitation Status Routine Resus Stat 03/19/21 13:05 Ordered Medication Orders Acetaminophen (Acetaminophen 325 Mg Tab) 650 mg PO Q4H PRN PRN Reason: Pain (Mild 1-3)/fever Albuterol (Albuterol 0.083% 2.5 Mg/3 Ml Neb Soln) 2.5 mg NEB Q4H PRN PRN Reason: Shortness Of Breath/wheezing Albuterol/Ipratropium (Albuterol/Ipratropium 3.0-0.5 Mg/3 Ml Neb Soln) 3 ml NEB QIDRT [facility] Aspirin (Aspirin 81 Mg Tab.Ec) 81 mg PO DAILY [facility] Bupropion HCl (Bupropion 75 Mg Tab) 75 mg PO BID [facility] Diclofenac Sodium (Diclofenac Sodium 1% Gel 100 Gm Tube) 4 gm TOP QID YAN Enoxaparin Sodium (Enoxaparin 40 Mg/0.4 Ml Syringe) 40 mg SUBCUT DAILY [facility] Levofloxacin/Dextrose 750 mg/ (Premix) 150 mls @ 100 mls/hr IV Q24H [facility] Sodium Chloride (Normal Saline) 1,000 mls @ 125 mls/hr IV ASDIRECTED [facility] Piperacillin Sod/Tazobactam (Sod 3.375 gm/ Sodium Chloride) 50 mls @ 100 mls/hr IV Q6H [facility] Levothyroxine Sodium (Levothyroxine 112 Mcg Tab) 112 mcg PO ACBREAKFAST [facility] Magnesium Oxide (Magnesium Oxide 400 Mg Tab) 400 mg PO DAILY [facility] Non-Formulary Medication (Cetirizine Hcl [All Day Allergy]) 10 mg PO DAILY [facility] Non-Formulary Medication (Clonazepam [Clonazepam]) 2 mg PO BEDTIME [facility] Non-Formulary Medication (Trazodone Hcl [Trazodone Hcl]) 150 mg PO BEDTIME [facility] Ondansetron HCl (Ondansetron 4 Mg/2 Ml Sdv) 4 mg IV Q4H PRN PRN Reason: Nausea/Vomiting Oxycodone HCl (Oxycodone 5 Mg Tab) 5 mg PO Q4H PRN PRN Reason: Pain (moderate 4-6) Pantoprazole Sodium (Pantoprazole 40 Mg Delayed-Release Granules 1 Packet) 40 mg PO DAILY [facility] Senna/Docusate Sodium (Docusate Sodium/Sennosides 50-8.6 Mg Tab) 1 tab PO BID PRN PRN Reason: Constipation Sodium Chloride (Sodium Chloride 0.9% 10 Ml Syringe) 10 ml FLUSH ASDIRECTED PRN PRN Reason: Keep Vein Open Venlafaxine HCl (Venlafaxine 37.5 Mg Cap.Er) 37.5 mg PO DAILY YAN Assessment/Plan Comment:: ASSESSMENT AND PLAN LEFT LUNG PNEUMONIA-possible aspiration with history of reflux last night. Relatively abrupt onset of symptoms early this morning. No evidence presently of significant sepsis. -Blood cultures pending -IV fluids, reassess in a.m. -IV Zosyn and levofloxacin pending culture results HYPOXIA-secondary to underlying pneumonia and COPD -Supplemental oxygen as needed -Nebulized albuterol and DuoNebs HISTORY OF COPD -Management as above MAINTENANCE ISSUES -DVT prophylaxis; Lovenox 40 mg subcu daily -GI prophylaxis; not indicated -Gomez catheter; not indicated -Nutrition; regular diet -Nicotine dependence; not required CODE STATUS-FULL CODE ADMISSION STATUS-patient will be admitted to inpatient status, expect at least a 2 night hospital stay for evaluation and management of problems as outlined above. At the time of this admission I do not reasonably expected evaluation and management of this problem will require more than a 96 hour hospital stay. DISPOSITION-anticipate discharge to home after the hospital stay. PRIMARY CARE PROVIDER-Radha Davison - Mortality Measure Prognosis:: Good
[2021-03-19] MEDS: Acetaminophen 325 MG Tab PO PRN ×2 (14:16→18:11)
[2021-03-19] MEDS: oxyCODONE 5 MG Tab PO PRN ×3 (14:22→22:10)
[2021-03-19] MEDS: Albuterol/Ipratropium 3.0-0.5 MG/3 ML Neb Soln NEB SCH ×2 (14:33→20:53)
[2021-03-19] MEDS: Enoxaparin 40 MG/0.4 ML Syringe SUBCUT SCH (14:52)
[2021-03-19] MEDS: Sodium Chloride 0.9% 1,000 ML IV SCH (16:25)
[2021-03-19] MEDS: Diclofenac Sodium 1% Gel 100 GM Tube TOP SCH ×2 (16:26→21:18)
[2021-03-19] MEDS: Piperacillin/Tazobactam/Dext 3.375 GM in Premix Bag 1 BAG IV SCH ×2 (17:20→23:38)
[2021-03-19] MEDS: traZODone 50 MG Tab PO SCH (20:53)
[2021-03-19] MEDS: ClonazePAM 1 MG Tab PO SCH (20:57)
[2021-03-20] MEDS: oxyCODONE 5 MG Tab PO PRN ×5 (02:42→21:41)
[2021-03-20] MEDS: Piperacillin/Tazobactam/Dext 3.375 GM in Premix Bag 1 BAG IV SCH ×4 (05:22→23:20)
[2021-03-20] MEDS: Albuterol/Ipratropium 3.0-0.5 MG/3 ML Neb Soln NEB SCH ×4 (07:10→21:40)
[2021-03-20] MEDS: Levothyroxine 112 MCG Tab PO SCH (07:44)
[2021-03-20] MEDS: Diclofenac Sodium 1% Gel 100 GM Tube TOP SCH ×4 (07:44→21:43)
[2021-03-20] MEDS ORDERED: Magnesium Sulfate/Water 2 GM in Premix Bag 1 BAG IV ONE (08:30)
[2021-03-20] MEDS: Enoxaparin 40 MG/0.4 ML Syringe SUBCUT SCH (08:54)
[2021-03-20] MEDS: Cetirizine 10 MG Tab PO SCH (08:55)
[2021-03-20] MEDS: Aspirin 81 MG Tab.EC PO SCH (08:55)
[2021-03-20] MEDS: Magnesium Oxide 400 MG Tab PO SCH (08:55)
[2021-03-20] MEDS ORDERED: Pantoprazole 40 MG Tab.CR PO SCH (09:00)
[2021-03-20] MEDS: Acetaminophen 325 MG Tab PO PRN ×4 (09:02→21:40)
[2021-03-20] MEDS: Venlafaxine 37.5 MG Cap.ER PO SCH (09:57)
[2021-03-20] MEDS: Sodium Chloride 0.9% 1,000 ML IV SCH (11:09)
[2021-03-20] MEDS: Levofloxacin/Dextrose 5%-Water 750 MG in Premix Bag 1 BAG IV SCH (11:12)
--- NOTE | 2021-03-20 13:38 | PCM.PN ---
- General Info Date of Service: 03/20/21 Subjective Update: Ms. Bryant has been fairly stable since admission yesterday. She continues to require supplemental oxygen and does get short of breath with minimal exertion. Continues to experience pain in her right foot. Formal x-ray report now available and does show possible metatarsal fractures in the foot. Functional Status: Reports: Tolerating Diet, Urinating - Review of Systems General: Reports: Weakness, Fatigue. Denies: Fever, Chills Pulmonary: Reports: Shortness of Breath, Cough. Denies: Pleuritic Chest Pain, Sputum, Hemoptysis, Wheezing Cardiovascular: Reports: Dyspnea on Exertion. Denies: Chest Pain, Palpitations, Orthopnea, PND, Edema, Lightheadedness Gastrointestinal: Reports: No Symptoms Genitourinary: Reports: No Symptoms - Patient Data Vitals - Most Recent: Last Vital Signs Temp 96.1 F L 03/20/21 11:01 Pulse 68 03/20/21 11:01 Resp 20 03/20/21 11:01 BP 103/78 03/20/21 11:01 Pulse Ox 93 L 03/20/21 12:38 Weight - Most Recent: 161 lb I&O - Last 24 Hours: Intake & Output 03/19/21 03/20/21 03/20/21 22:59 06:59 14:59 Intake Total 450 850 413 Output Total 3109 933 1029 Balance -956 -22 -120 Lab Results Last 24 Hours: Laboratory Results - last 24 hr 03/20/21 03/20/21 03/20/21 Range/Units 04:50 04:50 04:50 WBC 13.1 H (4.5-11.0) K/uL RBC 3.39 (3.30-5.50) M/uL Hgb 10.5 L D (12.0-15.0) g/dL Hct 32.3 L (36.0-48.0) % MCV 95 (80-98) fL MCH 31 (27-31) pg MCHC 33 (32-36) % Plt Count 156 (150-400) K/uL Neut % (Auto) 88.4 H (36-66) % Lymph % (Auto) 7.7 L (24-44) % [place] % (Auto) 3.0 (2-6) % Eos % (Auto) 0.8 L (2-4) % Baso % (Auto) 0.1 (0-1) % Sodium 139 L (140-148) mmol/L Potassium 3.7 (3.6-5.2) mmol/L Chloride 103 (100-108) mmol/L Carbon Dioxide 29 (21-32) mmol/L Anion Gap 10.7 (5.0-14.0) mmol/L BUN 12 (7-18) mg/dL Creatinine 0.7 (0.6-1.0) mg/dL Est Cr Clr Drug Dosing 59.44 mL/min Estimated GFR (MDRD) > 60 (>60) Glucose 90 (74-106) mg/dL Calcium 7.5 L (8.5-10.1) mg/dL Magnesium 1.6 L (1.8-2.4) mg/dL Procalcitonin 0.58 ng/mL Jared Results Last 24 Hours: Microbiology 03/19/21 10:25 Aerobic Blood Culture - Preliminary Blood - Arm, Right NO GROWTH AFTER 1 DAY Anaerobic Blood Culture - Preliminary NO GROWTH AFTER 1 DAY 03/19/21 10:07 Aerobic Blood Culture - Preliminary Blood - Arm, Right NO GROWTH AFTER 1 DAY Anaerobic Blood Culture - Preliminary NO GROWTH AFTER 1 DAY Med Orders - Current: Current Medications Acetaminophen (Acetaminophen 325 Mg Tab) 650 mg PO Q4H PRN PRN Reason: Pain (Mild 1-3)/fever Last Admin: 03/20/21 13:04 Dose: 650 mg Documented by: Albuterol (Albuterol 0.083% 2.5 Mg/3 Ml Neb Soln) 2.5 mg NEB Q4H PRN PRN Reason: Shortness Of Breath/wheezing Albuterol/Ipratropium (Albuterol/Ipratropium 3.0-0.5 Mg/3 Ml Neb Soln) 3 ml NEB QIDRT [facility] Last Admin: 03/20/21 10:56 Dose: 3 ml Documented by: Aspirin (Aspirin 81 Mg Tab.Ec) 81 mg PO DAILY [facility] Last Admin: 03/20/21 08:55 Dose: 81 mg Documented by: Bupropion HCl (Bupropion 75 Mg Tab) 75 mg PO BID [facility] Last Admin: 03/20/21 08:55 Dose: 75 mg Documented by: Cetirizine HCl (Cetirizine 10 Mg Tab) 10 mg PO DAILY [facility] Last Admin: 03/20/21 08:55 Dose: 10 mg Documented by: Clonazepam (Clonazepam 1 Mg Tab) 2 mg PO BEDTIME [facility] Last Admin: 03/19/21 20:57 Dose: 2 mg Documented by: Diclofenac Sodium (Diclofenac Sodium 1% Gel 100 Gm Tube) 4 gm TOP QID [facility] Last Admin: 03/20/21 11:59 Dose: Not Given Documented by: Enoxaparin Sodium (Enoxaparin 40 Mg/0.4 Ml Syringe) 40 mg SUBCUT DAILY [facility] Last Admin: 03/20/21 08:54 Dose: 40 mg Documented by: Levofloxacin/Dextrose 750 mg/ (Premix) 150 mls @ 100 mls/hr IV Q24H [facility] Last Admin: 03/20/21 11:12 Dose: 100 mls/hr Documented by: Piperacillin/Tazobactam/ (Dextrose 3.375 gm/ Premix) 50 mls @ 100 mls/hr IV Q6H [facility] Last Admin: 03/20/21 11:09 Dose: 100 mls/hr Documented by: Levothyroxine Sodium (Levothyroxine 112 Mcg Tab) 112 mcg PO ACBREAKFAST [facility] Last Admin: 03/20/21 07:44 Dose: 112 mcg Documented by: Magnesium Oxide (Magnesium Oxide 400 Mg Tab) 400 mg PO DAILY [facility] Last Admin: 03/20/21 08:55 Dose: 400 mg Documented by: Ondansetron HCl (Ondansetron 4 Mg/2 Ml Sdv) 4 mg IV Q4H PRN PRN Reason: Nausea/Vomiting Oxycodone HCl (Oxycodone 5 Mg Tab) 5 mg PO Q4H PRN PRN Reason: Pain (moderate 4-6) Last Admin: 03/20/21 13:04 Dose: 5 mg Documented by: Pantoprazole Sodium (Pantoprazole 40 Mg Tab.Cr) 40 mg PO ACBREAKFAST [facility] Senna/Docusate Sodium (Docusate Sodium/Sennosides 50-8.6 Mg Tab) 1 tab PO BID PRN PRN Reason: Constipation Sodium Chloride (Sodium Chloride 0.9% 10 Ml Syringe) 10 ml FLUSH ASDIRECTED PRN PRN Reason: Keep Vein Open Trazodone HCl (Trazodone 50 Mg Tab) 150 mg PO BEDTIME [facility] Last Admin: 03/19/21 20:53 Dose: 150 mg Documented by: Venlafaxine HCl (Venlafaxine 37.5 Mg Cap.Er) 37.5 mg PO DAILY [facility] Last Admin: 03/20/21 09:57 Dose: 37.5 mg Documented by: Discontinued Medications Fentanyl (Fentanyl 100 Mcg/2 Ml Sdv) 25 mcg IVPUSH ONETIME ONE Stop: 03/19/21 10:00 Last Admin: 03/19/21 10:18 Dose: 25 mcg Documented by: Sodium Chloride (Normal Saline) 1,000 mls @ 1,000 mls/hr IV ASDIRECTED [facility] Last Admin: 03/19/21 10:18 Dose: 1,000 mls/hr Documented by: Sodium Chloride (Normal Saline) 100 mls @ 4 mls/sec IV ASDIRECTED [facility] Last Admin: 03/19/21 10:50 Dose: 4 mls/sec Documented by: Levofloxacin/Dextrose 750 mg/ (Premix) 150 mls @ 100 mls/hr IV ONETIME ONE Stop: 03/19/21 12:13 Last Admin: 03/19/21 11:17 Dose: 100 mls/hr Documented by: Piperacillin/Tazobactam/ (Dextrose 3.375 gm/ Premix) 50 mls @ 100 mls/hr IV ONETIME ONE Stop: 03/19/21 12:44 Last Admin: 03/19/21 13:08 Dose: 100 mls/hr Documented by: Levofloxacin/Dextrose 750 mg/ (Premix) 150 mls @ 100 mls/hr IV Q24H [facility] Sodium Chloride (Normal Saline) 1,000 mls @ 125 mls/hr IV ASDIRECTED [facility] Last Admin: 03/20/21 11:09 Dose: 125 mls/hr Documented by: Magnesium Sulfate 2 gm/ Premix 50 mls @ 25 mls/hr IV ONETIME ONE Stop: 03/20/21 10:29 Last Admin: 03/20/21 08:53 Dose: 25 mls/hr Documented by: Iopamidol (Iopamidol 755 Mg/Ml 100 Ml Bottle) 100 ml IV . DIRECTED ONE Stop: 03/19/21 10:36 Last Admin: 03/19/21 10:51 Dose: 100 ml Documented by: Pantoprazole Sodium (Pantoprazole 40 Mg Tab.Cr) 40 mg PO DAILY [facility] Last Admin: 03/20/21 08:55 Dose: 40 mg Documented by: - Exam Quality Assessment: Supplemental Oxygen, DVT Prophylaxis General: Alert, Oriented, Cooperative, Mild Distress Lungs: Normal Respiratory Effort, Rales, Rhonchi. No: Crackles, Wheezing Cardiovascular: Regular Rate, Regular Rhythm, No Murmurs GI/Abdominal Exam: Soft, Non-Tender, No Organomegaly, No Distention Extremities: Non-Tender, No Pedal Edema - Patient Data Lab Results Last 24 hrs: Laboratory Results - last 24 hr 03/20/21 03/20/21 03/20/21 Range/Units 04:50 04:50 04:50 WBC 13.1 H (4.5-11.0) K/uL RBC 3.39 (3.30-5.50) M/uL Hgb 10.5 L D (12.0-15.0) g/dL Hct 32.3 L (36.0-48.0) % MCV 95 (80-98) fL MCH 31 (27-31) pg MCHC 33 (32-36) % Plt Count 156 (150-400) K/uL Neut % (Auto) 88.4 H (36-66) % Lymph % (Auto) 7.7 L (24-44) % Rowan % (Auto) 3.0 (2-6) % Eos % (Auto) 0.8 L (2-4) % Baso % (Auto) 0.1 (0-1) % Sodium 139 L (140-148) mmol/L Potassium 3.7 (3.6-5.2) mmol/L Chloride 103 (100-108) mmol/L Carbon Dioxide 29 (21-32) mmol/L Anion Gap 10.7 (5.0-14.0) mmol/L BUN 12 (7-18) mg/dL Creatinine 0.7 (0.6-1.0) mg/dL Est Cr Clr Drug Dosing 59.44 mL/min Estimated GFR (MDRD) > 60 (>60) Glucose 90 (74-106) mg/dL Calcium 7.5 L (8.5-10.1) mg/dL Magnesium 1.6 L (1.8-2.4) mg/dL Procalcitonin 0.58 ng/mL Result Diagrams: 03/20/21 04:50 03/20/21 04:50 Jared Results Last 24 hrs: Microbiology 03/19/21 10:25 Aerobic Blood Culture - Preliminary Blood - Arm, Right NO GROWTH AFTER 1 DAY Anaerobic Blood Culture - Preliminary NO GROWTH AFTER 1 DAY 03/19/21 10:07 Aerobic Blood Culture - Preliminary Blood - Arm, Right NO GROWTH AFTER 1 DAY Anaerobic Blood Culture - Preliminary NO GROWTH AFTER 1 DAY Sepsis Event Note - Evaluation Sepsis Screening Result: No Definite Risk - Focused Exam Vital Signs: Vital Signs Temp Pulse Resp BP Pulse Ox 03/20/21 12:38 93 L 03/20/21 11:01 96.1 F L 68 20 103/78 92 L 03/20/21 07:13 93 L 03/20/21 07:10 76 03/20/21 02:38 95 F L 78 18 99/41 L 93 L - Problem List Review Problem List Initiated/Reviewed/Updated: Yes - My Orders Last 24 Hours: My Active Orders 03/19/21 13:05 Resuscitation Status Routine 03/19/21 13:52 Acetaminophen [TylenoL] 650 mg PO Q4H PRN Albuterol [Proventil Neb Soln] 2.5 mg NEB Q4H PRN Docusate Sodium/Sennosides [Senna Plus] 1 tab PO BID PRN Enoxaparin [Lovenox] 40 mg SUBCUT DAILY Ondansetron [Zofran] 4 mg IV Q4H PRN Sodium Chloride 0.9% [Saline Flush] 10 ml FLUSH ASDIRECTED PRN oxyCODONE 5 mg PO Q4H PRN 03/19/21 13:52 Patient Status [ADT] Routine Ambulate [RC] QID Height and Weight [RC] DAILY Intake and Output [RC] QSHIFT Notify Provider Vital Signs [RC] ASDIRECTED Oxygen Therapy [RC] PRN Peripheral IV Care [RC] . DIRECTED Pulse Oximetry [RC] CONTINUOUS RT Aerosol Therapy [RC] ASDIRECTED Up With Assistance [RC] ASDIRECTED Up to Chair [RC] QID VTE/DVT Education [RC] Per Unit Routine Vital Signs [RC] Q4H Peripheral IV Insertion Adult [OM.PC] Routine 03/19/21 15:00 Albuterol/Ipratropium [DuoNeb 3.0-0.5 MG/3 ML] 3 ml NEB QIDRT 03/19/21 16:00 Diclofenac Sodium [Voltaren 1% Gel] 4 gm TOP QID 03/19/21 17:30 Piperacillin/Tazobactam/Dext [Zosyn in Dextrose Iso-Osmotic 3.375 GM/50 ML] 3.375 gm Premix Bag 1 bag IV Q6H 03/19/21 21:00 ClonazePAM [KlonoPIN] 2 mg PO BEDTIME buPROPion [Wellbutrin] 75 mg PO BID traZODone 150 mg PO BEDTIME 03/20/21 07:30 Levothyroxine 112 mcg PO ACBREAKFAST 03/20/21 09:00 Aspirin [Halfprin] 81 mg PO DAILY Cetirizine [ZyrTEC] 10 mg PO DAILY Magnesium Oxide 400 mg PO DAILY Venlafaxine [Effexor XR] 37.5 mg PO DAILY 03/20/21 12:00 Levofloxacin/Dextrose 5%-Water [Levaquin in D5W 750 MG/150 ML] 750 mg Premix Bag 1 bag IV Q24H 03/20/21 13:12 Consult to Physician [CONS] Routine 03/20/21 13:13 Notify Provider Consults [RC] ASDIRECTED 03/20/21 13:14 RT Acapella [RESPCARE] Routine 03/20/21 13:33 Convert IV to Saline Lock [OM.PC] Routine 03/21/21 05:00 BASIC METABOLIC PANEL,BMP [CHEM] Timed CBC WITH AUTO DIFF [HEME] Timed MAGNESIUM [CHEM] Timed 03/21/21 07:30 Pantoprazole [ProTONIX] 40 mg PO ACBREAKFAST - Plan Plan:: ASSESSMENT AND PLAN LEFT LUNG PNEUMONIA-possible aspiration with history of reflux. Fairly stable since admission, continues to require supplemental oxygen. -Blood cultures pending -Saline lock IV -IV Zosyn and levofloxacin pending culture results HYPOXIA-secondary to underlying pneumonia and COPD -Supplemental oxygen as needed -Nebulized albuterol and DuoNebs METATARSAL FRACTURES RIGHT FOOT -Orthopedic consult HISTORY OF COPD -Management as above MAINTENANCE ISSUES -DVT prophylaxis; Lovenox 40 mg subcu daily -GI prophylaxis; not indicated -Gomez catheter; not indicated -Nutrition; regular diet -Nicotine dependence; not required CODE STATUS-FULL CODE ADMISSION STATUS-patient will be admitted to inpatient status, expect at least a 2 night hospital stay for evaluation and management of problems as outlined above. At the time of this admission I do not reasonably expected evaluation and management of this problem will require more than a 96 hour hospital stay. DISPOSITION-anticipate discharge to home after the hospital stay. PRIMARY CARE PROVIDER-Radha Davison
--- NOTE | 2021-03-20 17:34 | PCM.CONS ---
H&P History of Present Illness - General Date of Service: 03/20/21 Admit Problem/Dx: Admission Diagnosis/Problem Admission Diagnosis/Problem Pneumonia Fractures of 2nd and 3rd metatarsal necks Source of Information: Patient, Old Records History Limitations: Reports: No Limitations - History of Present Illness Initial Comments - Free Text/Narative: Asked to see 70 year old female admitted with pneumonia and right foot pain. Had near syncopal episode and caught her foot. Now has pain with attempted weight bearing. Also with some right knee pain. History of distant trauma to right knee and moderate osteoarthritis. Onset of Symptoms: Reports: Sudden Duration of Symptoms: Reports: Day(s): Location: Reports: Lower Extremity, Right Quality: Reports: Sharp, Stabbing Severity: Moderate Improves with: Reports: Immobilization Worsens with: Reports: Other (weight bearing) Bilateral Feet Pain Score (Numeric/FACES): 6 - Related Data Allergies/Adverse Reactions: Allergies Allergy/AdvReac Type Severity Reaction Status Date / Time erythromycin base Allergy Hives Verified 03/19/21 08:26 [Erythromycin Base] zolpidem tartrate AdvReac Disorientat Verified 03/19/21 08:26 [From Ambien] ion .lyle peppers Allergy Hives Uncoded 03/19/21 08:26 Home Medications: Home Meds Albuterol [Ventolin HFA] 2 puff IH Q6H PRN 09/14/14 [History] Aspirin [Aspirin EC] 81 mg PO DAILY 09/14/14 [History] Calcium Carb, Citrate/Vit D3 [Citracal + D ER] 1 tab PO BID 09/14/14 [History] Cholecalciferol (Vitamin D3) [Vitamin D3] 2,000 unit PO DAILY 09/14/14 [History] Folic Acid 1 mg PO DAILY 09/14/14 [History] Thiamine HCl [Vitamin B-1] 100 mg PO DAILY 09/14/14 [History] Vitamin B Complex [Super B-50 Complex] 1 tab PO DAILY 09/14/14 [History] clonazePAM [Clonazepam] 2 mg PO BEDTIME 09/14/14 [History] traZODone HCl [Trazodone HCl] 150 mg PO BEDTIME 09/14/14 [History] Levothyroxine 112 mcg PO ACBREAKFAST 08/09/16 [History] Venlafaxine [Effexor XR] 37.5 mg PO DAILY 08/09/16 [History] Pantoprazole Sodium [Protonix] 40 mg PO DAILY 10/16/16 [History] Cetirizine HCl [All Day Allergy] 10 mg PO DAILY 04/10/18 [History] Zinc Gluconate [Zinc] 25 mg PO DAILY 04/10/18 [History] Diclofenac Sodium [Voltaren] 4 g TOP QID 09/01/18 [History] Polyvinyl Alcohol/Povidone [Refresh] 1 drop EYEBOTH ASDIRECTED 06/09/19 [History] Magnesium Oxide 400 mg PO DAILY 05/24/20 [History] Mometasone Furoate [Nasonex [place]] 2 spray ANNAMARIE DAILY PRN 05/24/20 [History] Ondansetron [Zofran ODT] 4 mg PO Q4HR PRN 05/24/20 [History] Pediatric Multivit #36/Iron [Vitalets Tablet Chewable] 2 tab PO DAILY 05/24/20 [History] Sennosides [Senna] 1 - 2 tab PO BEDTIME PRN #100 05/30/20 [Rx] Sennosides/Docusate Sodium [Senna-S] 2 each PO DAILY PRN #60 tablet 05/30/20 [Rx] buPROPion [Wellbutrin] 75 mg PO BID 03/07/21 [History] Past Medical History HEENT History: Reports: Cataract, Impaired Vision Other HEENT History: wears glasses Cardiovascular History: Reports: High Cholesterol, Hypertension, SOB on Exertion Respiratory History: Reports: COPD, Pneumonia, Recurrent, Other (See Below) Other Respiratory History: granular lung disease, checked every 6 months Gastrointestinal History: Reports: Bowel Obstruction, Cholelithiasis, Colon Polyp, GERD Genitourinary History: Reports: None 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 INSPECTOR History: Reports: Dysfunctional Uterine Bleeding, , Spontaneous Musculoskeletal History: Reports: Gout, Other (See Below) Other Musculoskeletal History: radiofrequency for chronic pain Neurological History: Reports: Neuropathy, Diabetic, Other (See Below) Other Neuro History: radiofrequency for back pain Endocrine/Metabolic History: Reports: Diabetes, Type II, Hypothyroidism, Vitamin D Deficiency Hematologic History: Reports: Anemia, B12 Deficiency, Blood Transfusion(s), Folic Acid, Iron Deficiency Dermatologic History: Reports: None - Infectious Disease History Infectious Disease History: Reports: Chicken Pox, Measles, MRSA, Mumps, Rubella - Past Surgical History HEENT Surgical History: Reports: Cataract Surgery, Tonsillectomy Cardiovascular Surgical History: Reports: None Respiratory Surgical History: Reports: Lung Biopsies GI Surgical History: Reports: Appendectomy, Bariatric Procedure, Colonoscopy, EGD, Hernia Repair/Other, Small Bowel Other GI Surgeries/Procedures: Panniculectomy Female Surgical History: Reports: Hysterectomy, Tubal Ligation, Other (See Below) Other Female Surgeries/Procedures: bladder lift Endocrine Surgical History: Reports: None Neurological Surgical History: Reports: None Musculoskeletal Surgical History: Reports: Arthroscopic Knee, Carpal Tunnel, Shoulder Surgery Other Musculoskeletal Surgeries/Procedures:: surgery both knees, carpal tunnel surgery both hands Dermatological Surgical History: Reports: None Social & Family History - Family History Family Medical History: No Pertinent Family History Cardiac: Reports: Arrhythmia, CAD, Hypertension Respiratory: Reports: COPD GI: Reports: PUD Musculoskeletal: Reports: Arthritis Endocrine/Metabolic: Reports: Diabetes, type II Oncologic: Reports: Bone, Brain, Breast, Lung - Tobacco Use Tobacco Use Status *Q: Former Tobacco User Used Tobacco, but Quit: Yes Month/Year Tobacco Last Used: 02/2003 - Caffeine Use Caffeine Use: Reports: Coffee - Recreational Drug Use Recreational Drug Use: No H&P Review of Systems - Review of Systems: Review Of Systems: See Below Pulmonary: Reports: Shortness of Breath Exam - Exam Exam: See Below - Vital Signs Vital Signs: Last Vital Signs Temp 35.8 C L 03/20/21 15:00 Pulse 63 03/20/21 15:00 Resp 16 03/20/21 15:00 BP 122/47 L 03/20/21 15:00 Pulse Ox 93 L 03/20/21 15:00 Weight: 73.028 kg - Exam General: Alert, Oriented Physical Exam Comments:: Right foot with swelling and early ecchymosis over MTP joints, tender over 2nd and 3rd distal metatarsals Right knee mildly tender over patella laterally, old scar, no effusion, mild PFJ crepitus - Patient Data Lab Results Last 24 hrs: Laboratory Results - last 24 hr 03/20/21 03/20/21 03/20/21 Range/Units 04:50 04:50 04:50 WBC 13.1 H (4.5-11.0) K/uL RBC 3.39 (3.30-5.50) M/uL Hgb 10.5 L D (12.0-15.0) g/dL Hct 32.3 L (36.0-48.0) % MCV 95 (80-98) fL MCH 31 (27-31) pg MCHC 33 (32-36) % Plt Count 156 (150-400) K/uL Neut % (Auto) 88.4 H (36-66) % Lymph % (Auto) 7.7 L (24-44) % [place] % (Auto) 3.0 (2-6) % Eos % (Auto) 0.8 L (2-4) % Baso % (Auto) 0.1 (0-1) % Sodium 139 L (140-148) mmol/L Potassium 3.7 (3.6-5.2) mmol/L Chloride 103 (100-108) mmol/L Carbon Dioxide 29 (21-32) mmol/L Anion Gap 10.7 (5.0-14.0) mmol/L BUN 12 (7-18) mg/dL Creatinine 0.7 (0.6-1.0) mg/dL Est Cr Clr Drug Dosing 59.44 mL/min Estimated GFR (MDRD) > 60 (>60) Glucose 90 (74-106) mg/dL Calcium 7.5 L (8.5-10.1) mg/dL Magnesium 1.6 L (1.8-2.4) mg/dL Procalcitonin 0.58 ng/mL Result Diagrams: 03/20/21 04:50 03/20/21 04:50 Jared Results Last 24 hrs: Microbiology 03/19/21 10:25 Aerobic Blood Culture - Preliminary Blood - Arm, Right NO GROWTH AFTER 1 DAY Anaerobic Blood Culture - Preliminary NO GROWTH AFTER 1 DAY 03/19/21 10:07 Aerobic Blood Culture - Preliminary Blood - Arm, Right NO GROWTH AFTER 1 DAY Anaerobic Blood Culture - Preliminary NO GROWTH AFTER 1 DAY Sepsis Event Note - Evaluation Sepsis Screening Result: Sepsis Risk - Focused Exam Vital Signs: Vital Signs Temp Pulse Resp BP Pulse Ox 03/20/21 15:00 35.8 C L 63 16 122/47 L 93 L 03/20/21 12:38 93 L 03/20/21 11:01 35.6 C L 68 20 103/78 92 L 03/20/21 07:13 93 L 03/20/21 07:10 76 Consult PN Assessment/Plan Procedures: Procedures AIRWAY INHALATION TREATMENT (05/29/20) APPL SURFACE NEUROSTIMULATOR (11/03/13) ASSAY ALKALINE PHOSPHATASE (05/29/20) ASSAY OF COPPER (04/14/18) ASSAY OF FERRITIN (05/29/20) ASSAY OF FOLIC ACID SERUM (05/29/20) ASSAY OF LACTIC ACID (03/03/17) ASSAY OF MAGNESIUM (03/03/17) ASSAY OF PHOSPHORUS (08/20/16) ASSAY OF SERUM POTASSIUM (05/29/20) ASSAY OF VITAMIN A (04/14/18) ASSAY OF VITAMIN B-1 (04/14/18) ASSAY OF ZINC (04/14/18) ASSAY THYROID STIM HORMONE (01/21/16) BILIRUBIN TOTAL (05/29/20) BLOOD CULTURE FOR BACTERIA (12/26/18) BLOOD GASES ANY COMBINATION (08/20/16) BREAST TOMOSYNTHESIS BI (11/15/20) C-REACTIVE PROTEIN (12/26/18) CARDIOVASCULAR STRESS TEST (09/02/18) CHEST X-RAY 2VW FRONTAL&LATL (03/03/17) COMP SCREEN MAMMOGRAM ADD-ON (07/04/15) COMPLETE CBC AUTOMATED (05/28/17) COMPLETE CBC W/AUTO DIFF WBC (05/29/20) COMPREHEN METABOLIC PANEL (12/26/18) CT ABD & PELV W/CONTRAST (08/20/16) CT ANGIOGRAPHY CHEST (08/20/16) CT HEAD/BRAIN W/O DYE (03/03/17) CT THORAX DX C+ (12/26/18) CT THORAX DX C- (05/24/19) CULTURE OTHR SPECIMN AEROBIC (08/20/16) CULTURE SCREEN ONLY (01/13/14) DIAGNOSTIC COLONOSCOPY (04/14/18) ECHO EXAM OF ABDOMEN (04/18/20) EGD BIOPSY SINGLE/MULTIPLE (01/13/14) EGD DIAGNOSTIC BRUSH WASH (06/10/19) ELECTROCARDIOGRAM TRACING (06/16/17) EMERGENCY DEPT VISIT (12/26/18) EMERGENCY DEPT VISIT (02/11/16) EMERGENCY DEPT VISIT (02/28/14) EMERGENCY DEPT VISIT (02/28/14) HOT OR COLD PACKS THERAPY (09/16/17) HT MUSCLE IMAGE SPECT MULT (09/02/18) HYDRATE IV INFUSION ADD-ON (12/26/18) INFLUENZA ASSAY W/OPTIC (03/03/17) INJECT EPIDURAL PATCH (10/14/14) INJECT SPINE LUMBAR/SACRAL (10/12/14) LAPAROSCOPIC CHOLECYSTECTOMY (05/29/20) LOWER EXTREMITY STUDY (03/05/16) MANUAL THERAPY 1/> REGIONS (07/17/18) MEASURE BLOOD OXYGEN LEVEL (08/20/16) METABOLIC PANEL TOTAL CA (03/03/17) MRI JOINT UPR EXTREM W/O DYE (05/15/17) MRI LUMBAR SPINE W/O DYE (07/11/14) NEUROMUSCULAR REEDUCATION (07/17/18) NJX INTERLAMINAR CRV/THRC (01/10/21) NJX INTERLAMINAR LMBR/SAC (01/24/21) OT EVALUATION (07/19/13) POLYSOM 6/> YRS 4/> JACQUELINE (05/12/16) POSTOP FOLLOW-UP VISIT (07/28/17) PT EVAL LOW COMPLEX 20 MIN (07/21/17) PT EVAL MOD COMPLEX 30 MIN (07/17/18) PT EVALUATION (11/23/15) REPAIR ROTATOR CUFF CHRONIC (06/17/17) ROUTINE VENIPUNCTURE (05/29/20) SCR MAMMO BI INCL CAD (11/15/20) JESSICA ARTHRS SRG DECOMPRESSION (06/17/17) JESSICA ARTHRS SRG LMTD DBRDMT (06/17/17) JESSICA ARTHRS SRG PRTL SYNVCT (06/17/17) SMEAR GRAM STAIN (08/20/16) THER/PROPH/DIAG IV INF INIT (12/26/18) THERAPEUTIC ACTIVITIES (08/19/17) THERAPEUTIC EXERCISES (07/17/18) TISSUE EXAM BY PATHOLOGIST (05/29/20) TISSUE EXAM BY PATHOLOGIST (06/21/19) TISSUE EXAM BY PATHOLOGIST (08/20/16) TTE W/DOPPLER COMPLETE (09/14/18) TX/PRO/DX INJ NEW DRUG ADDON (12/26/18) TX/PRO/DX INJ SAME DRUG TECHNICAL LABORATORY ASST (12/26/18) TX/PROPH/DG ADDL SEQ IV INF (03/03/17) ULTRASOUND THERAPY (11/23/15) UPR/L XTREMITY ART 2 LEVELS (02/09/16) URINALYSIS AUTO W/SCOPE (03/03/17) URINE CULTURE/COLONY COUNT (08/20/16) VITAMIN B-12 (05/29/20) VITAMIN D 25 HYDROXY (04/14/18) WITHDRAWAL OF ARTERIAL BLOOD (08/20/16) X-RAY EXAM L-2 SPINE 4/>VWS (07/11/14) X-RAY EXAM OF ABDOMEN (08/20/16) X-RAY EXAM SI JOINTS (07/11/14) X-RAY EXAM UNILAT RIBS/CHEST (12/26/18) X-RAY XM UPR GI TRC 1CNTRST (06/21/19) (1) Metatarsal bone fracture SNOMED Code(s): 295291687 Code(s): S92.309A - FRACTURE OF UNSP METATARSAL BONE(S), UNSP FOOT, INIT Current Visit: Yes Comment: mildly displaced 2nd and third metatarsal neck fractures Qualifiers: Encounter type: initial encounter Metatarsal bone: unspecified metatarsal Fracture type: closed Fracture alignment: displaced Laterality: right Qualified Code(s): S92.301A - Fracture of unspecified metatarsal bone(s), right foot, initial encounter for closed fracture (2) Knee contusion SNOMED Code(s): 56436885 Code(s): S80.00XA - CONTUSION OF UNSPECIFIED KNEE, INITIAL ENCOUNTER Current Visit: Yes Qualifiers: Encounter type: initial encounter Laterality: right Qualified Code(s): S80.01XA - Contusion of right knee, initial encounter Problem List Initiated/Reviewed/Updated: Yes Plan: Mildly displaced fractures of right 2nd and 3rd metatarsal necks. Contusion of right knee. CAM boot fitted to right foot. Recommend wearing the boot for weight bearing, my be removed for showers/bath and as needed. Will follow up tomorrow. Can be up with PT, WBAT with boot. Plan follow up as outpatient in 2 weeks.
[2021-03-20] MEDS: ClonazePAM 1 MG Tab PO SCH (21:41)
[2021-03-20] MEDS: traZODone 50 MG Tab PO SCH (21:42)
[2021-03-21] MEDS: oxyCODONE 5 MG Tab PO PRN ×2 (02:33→10:07)
[2021-03-21] MEDS: Acetaminophen 325 MG Tab PO PRN ×3 (02:33→20:40)
[2021-03-21] MEDS: Piperacillin/Tazobactam/Dext 3.375 GM in Premix Bag 1 BAG IV SCH ×4 (05:32→22:34)
[2021-03-21] MEDS: Diclofenac Sodium 1% Gel 100 GM Tube TOP SCH ×4 (05:35→22:35)
[2021-03-21] MEDS: Albuterol/Ipratropium 3.0-0.5 MG/3 ML Neb Soln NEB SCH ×4 (07:18→20:40)
[2021-03-21] MEDS: Pantoprazole 40 MG Tab.CR PO SCH (08:14)
[2021-03-21] MEDS: Levothyroxine 112 MCG Tab PO SCH (08:14)
[2021-03-21] MEDS: Venlafaxine 37.5 MG Cap.ER PO SCH (09:15)
[2021-03-21] MEDS: Magnesium Oxide 400 MG Tab PO SCH (09:15)
[2021-03-21] MEDS: Aspirin 81 MG Tab.EC PO SCH (09:15)
[2021-03-21] MEDS: Enoxaparin 40 MG/0.4 ML Syringe SUBCUT SCH (09:16)
[2021-03-21] MEDS: Cetirizine 10 MG Tab PO SCH (09:16)
[2021-03-21] MEDS: Sodium Chloride 0.9% 10 ML Syringe FLUSH PRN ×3 (10:14→13:30)
--- NOTE | 2021-03-21 11:08 | PCM.PN ---
- General Info Date of Service: 03/21/21 Subjective Update: Ms. Bryant has been stable since yesterday. Energy level and shortness of breath have improved. Right foot feels better with use of the cam walker. She continues to require supplemental oxygen at 4 L/min via nasal cannula. Functional Status: Reports: Tolerating Diet, Ambulating, Urinating - Review of Systems General: Reports: Weakness, Fatigue. Denies: Fever, Chills Pulmonary: Reports: Shortness of Breath, Cough. Denies: Sputum, Hemoptysis, Wheezing Cardiovascular: Reports: Dyspnea on Exertion. Denies: Chest Pain, Palpitations, Orthopnea, PND, Edema, Lightheadedness Gastrointestinal: Reports: No Symptoms Genitourinary: Reports: No Symptoms - Patient Data Vitals - Most Recent: Last Vital Signs Temp 96.4 F L 03/21/21 07:15 Pulse 57 L 03/21/21 07:15 Resp 13 03/21/21 07:15 BP 91/48 L 03/21/21 07:15 Pulse Ox 97 03/21/21 07:15 Weight - Most Recent: 167 lb 3.2 oz I&O - Last 24 Hours: Intake & Output 03/20/21 03/21/21 03/21/21 22:59 06:59 14:59 Intake Total 50 350 650 Output Total 300 900 600 Balance -250 -550 50 Lab Results Last 24 Hours: Laboratory Results - last 24 hr 03/21/21 03/21/21 Range/Units 05:45 05:45 WBC 10.4 (4.5-11.0) K/uL RBC 3.37 (3.30-5.50) M/uL Hgb 10.3 L (12.0-15.0) g/dL Hct 32.0 L (36.0-48.0) % MCV 95 (80-98) fL MCH 31 (27-31) pg MCHC 32 (32-36) % Plt Count 165 (150-400) K/uL Neut % (Auto) 83.6 H (36-66) % Lymph % (Auto) 8.5 L (24-44) % Hubbard % (Auto) 3.6 (2-6) % Eos % (Auto) 4.2 H (2-4) % Baso % (Auto) 0.1 (0-1) % Sodium 141 (140-148) mmol/L Potassium 3.7 (3.6-5.2) mmol/L Chloride 104 (100-108) mmol/L Carbon Dioxide 30 (21-32) mmol/L Anion Gap 7.5 (5.0-14.0) mmol/L BUN 7 (7-18) mg/dL Creatinine 0.7 (0.6-1.0) mg/dL Est Cr Clr Drug Dosing 59.44 mL/min Estimated GFR (MDRD) > 60 (>60) Glucose 95 (74-106) mg/dL Calcium 8.0 L (8.5-10.1) mg/dL Magnesium 2.0 (1.8-2.4) mg/dL Jared Results Last 24 Hours: Microbiology 03/19/21 10:25 Aerobic Blood Culture - Preliminary Blood - Arm, Right NO GROWTH AFTER 2 DAYS Anaerobic Blood Culture - Preliminary NO GROWTH AFTER 2 DAYS 03/19/21 10:07 Aerobic Blood Culture - Preliminary Blood - Arm, Right NO GROWTH AFTER 2 DAYS Anaerobic Blood Culture - Preliminary NO GROWTH AFTER 2 DAYS Med Orders - Current: Current Medications Acetaminophen (Acetaminophen 325 Mg Tab) 650 mg PO Q4H PRN PRN Reason: Pain (Mild 1-3)/fever Last Admin: 03/21/21 10:04 Dose: 650 mg Documented by: Albuterol (Albuterol 0.083% 2.5 Mg/3 Ml Neb Soln) 2.5 mg NEB Q4H PRN PRN Reason: Shortness Of Breath/wheezing Albuterol/Ipratropium (Albuterol/Ipratropium 3.0-0.5 Mg/3 Ml Neb Soln) 3 ml NEB QIDRT [facility] Last Admin: 03/21/21 10:54 Dose: 3 ml Documented by: Aspirin (Aspirin 81 Mg Tab.Ec) 81 mg PO DAILY [facility] Last Admin: 03/21/21 09:15 Dose: 81 mg Documented by: Bupropion HCl (Bupropion 75 Mg Tab) 75 mg PO BID [facility] Last Admin: 03/21/21 09:16 Dose: 75 mg Documented by: Cetirizine HCl (Cetirizine 10 Mg Tab) 10 mg PO DAILY [facility] Last Admin: 03/21/21 09:16 Dose: 10 mg Documented by: Clonazepam (Clonazepam 1 Mg Tab) 2 mg PO BEDTIME [facility] Last Admin: 03/20/21 21:41 Dose: 2 mg Documented by: Diclofenac Sodium (Diclofenac Sodium 1% Gel 100 Gm Tube) 4 gm TOP QID [facility] Last Admin: 03/21/21 09:22 Dose: Not Given Documented by: Enoxaparin Sodium (Enoxaparin 40 Mg/0.4 Ml Syringe) 40 mg SUBCUT DAILY [facility] Last Admin: 03/21/21 09:16 Dose: 40 mg Documented by: Levofloxacin/Dextrose 750 mg/ (Premix) 150 mls @ 100 mls/hr IV Q24H [facility] Last Admin: 03/20/21 11:12 Dose: 100 mls/hr Documented by: Piperacillin/Tazobactam/ (Dextrose 3.375 gm/ Premix) 50 mls @ 100 mls/hr IV Q6H [facility] Last Admin: 03/21/21 05:32 Dose: 100 mls/hr Documented by: Levothyroxine Sodium (Levothyroxine 112 Mcg Tab) 112 mcg PO ACBREAKFAST [facility] Last Admin: 03/21/21 08:14 Dose: 112 mcg Documented by: Magnesium Oxide (Magnesium Oxide 400 Mg Tab) 400 mg PO DAILY [facility] Last Admin: 03/21/21 09:15 Dose: 400 mg Documented by: Ondansetron HCl (Ondansetron 4 Mg/2 Ml Sdv) 4 mg IV Q4H PRN PRN Reason: Nausea/Vomiting Oxycodone HCl (Oxycodone 5 Mg Tab) 5 mg PO Q4H PRN PRN Reason: Pain (moderate 4-6) Last Admin: 03/21/21 10:07 Dose: 5 mg Documented by: Pantoprazole Sodium (Pantoprazole 40 Mg Tab.Cr) 40 mg PO ACBREAKFAST [facility] Last Admin: 03/21/21 08:14 Dose: 40 mg Documented by: Senna/Docusate Sodium (Docusate Sodium/Sennosides 50-8.6 Mg Tab) 1 tab PO BID PRN PRN Reason: Constipation Sodium Chloride (Sodium Chloride 0.9% 10 Ml Syringe) 10 ml FLUSH ASDIRECTED PRN PRN Reason: Keep Vein Open Last Admin: 03/21/21 10:14 Dose: 10 ml Documented by: Trazodone HCl (Trazodone 50 Mg Tab) 150 mg PO BEDTIME [facility] Last Admin: 03/20/21 21:42 Dose: 150 mg Documented by: Venlafaxine HCl (Venlafaxine 37.5 Mg Cap.Er) 37.5 mg PO DAILY [facility] Last Admin: 03/21/21 09:15 Dose: 37.5 mg Documented by: Discontinued Medications Fentanyl (Fentanyl 100 Mcg/2 Ml Sdv) 25 mcg IVPUSH ONETIME ONE Stop: 03/19/21 10:00 Last Admin: 03/19/21 10:18 Dose: 25 mcg Documented by: Sodium Chloride (Normal Saline) 1,000 mls @ 1,000 mls/hr IV ASDIRECTED [facility] Last Admin: 03/19/21 10:18 Dose: 1,000 mls/hr Documented by: Sodium Chloride (Normal Saline) 100 mls @ 4 mls/sec IV ASDIRECTED [facility] Last Admin: 03/19/21 10:50 Dose: 4 mls/sec Documented by: Levofloxacin/Dextrose 750 mg/ (Premix) 150 mls @ 100 mls/hr IV ONETIME ONE Stop: 03/19/21 12:13 Last Admin: 03/19/21 11:17 Dose: 100 mls/hr Documented by: Piperacillin/Tazobactam/ (Dextrose 3.375 gm/ Premix) 50 mls @ 100 mls/hr IV ONETIME ONE Stop: 03/19/21 12:44 Last Admin: 03/19/21 13:08 Dose: 100 mls/hr Documented by: Levofloxacin/Dextrose 750 mg/ (Premix) 150 mls @ 100 mls/hr IV Q24H [facility] Sodium Chloride (Normal Saline) 1,000 mls @ 125 mls/hr IV ASDIRECTED [facility] Last Admin: 03/20/21 11:09 Dose: 125 mls/hr Documented by: Magnesium Sulfate 2 gm/ Premix 50 mls @ 25 mls/hr IV ONETIME ONE Stop: 03/20/21 10:29 Last Admin: 03/20/21 08:53 Dose: 25 mls/hr Documented by: Influenza Virus Vaccine (Pharmacy To Dose - Influenza Vaccine) 1 each IM O NETIME ONE Stop: 03/21/21 10:01 Influenza Virus Vaccine (Flu Vacc [id number](65yr Up)/Pf 240 Mcg/0.7 Ml Syringe) 240 mcg IM .ONCE ONE Stop: 03/21/21 10:01 Last Admin: 03/21/21 10:10 Dose: 240 mcg Documented by: Iopamidol (Iopamidol 755 Mg/Ml 100 Ml Bottle) 100 ml IV . DIRECTED ONE Stop: 03/19/21 10:36 Last Admin: 03/19/21 10:51 Dose: 100 ml Documented by: Pantoprazole Sodium (Pantoprazole 40 Mg Tab.Cr) 40 mg PO DAILY [facility] Last Admin: 03/20/21 08:55 Dose: 40 mg Documented by: - Exam Quality Assessment: Supplemental Oxygen, DVT Prophylaxis General: Alert, Oriented, Cooperative, Mild Distress Lungs: Normal Respiratory Effort, Rales, Rhonchi. No: Wheezing Cardiovascular: Regular Rate, Regular Rhythm, No Murmurs GI/Abdominal Exam: Soft, Non-Tender, No Organomegaly, No Distention Extremities: Other (Right foot pain) - Patient Data Lab Results Last 24 hrs: Laboratory Results - last 24 hr 03/21/21 03/21/21 Range/Units 05:45 05:45 WBC 10.4 (4.5-11.0) K/uL RBC 3.37 (3.30-5.50) M/uL Hgb 10.3 L (12.0-15.0) g/dL Hct 32.0 L (36.0-48.0) % MCV 95 (80-98) fL MCH 31 (27-31) pg MCHC 32 (32-36) % Plt Count 165 (150-400) K/uL Neut % (Auto) 83.6 H (36-66) % Lymph % (Auto) 8.5 L (24-44) % Hubbard % (Auto) 3.6 (2-6) % Eos % (Auto) 4.2 H (2-4) % Baso % (Auto) 0.1 (0-1) % Sodium 141 (140-148) mmol/L Potassium 3.7 (3.6-5.2) mmol/L Chloride 104 (100-108) mmol/L Carbon Dioxide 30 (21-32) mmol/L Anion Gap 7.5 (5.0-14.0) mmol/L BUN 7 (7-18) mg/dL Creatinine 0.7 (0.6-1.0) mg/dL Est Cr Clr Drug Dosing 59.44 mL/min Estimated GFR (MDRD) > 60 (>60) Glucose 95 (74-106) mg/dL Calcium 8.0 L (8.5-10.1) mg/dL Magnesium 2.0 (1.8-2.4) mg/dL Result Diagrams: 03/21/21 05:45 03/21/21 05:45 Jared Results Last 24 hrs: Microbiology 03/19/21 10:25 Aerobic Blood Culture - Preliminary Blood - Arm, Right NO GROWTH AFTER 2 DAYS Anaerobic Blood Culture - Preliminary NO GROWTH AFTER 2 DAYS 03/19/21 10:07 Aerobic Blood Culture - Preliminary Blood - Arm, Right NO GROWTH AFTER 2 DAYS Anaerobic Blood Culture - Preliminary NO GROWTH AFTER 2 DAYS Sepsis Event Note - Evaluation Sepsis Screening Result: Sepsis Risk - Focused Exam Vital Signs: Vital Signs Temp Pulse Resp BP Pulse Ox 03/21/21 07:15 96.4 F L 57 L 13 91/48 L 97 03/21/21 07:02 94 L 03/21/21 02:34 96.4 F L 67 18 103/55 L 92 L 03/21/21 01:56 92 L 03/20/21 23:20 96.4 F L 71 18 89/65 L 93 L - Problem List Review Problem List Initiated/Reviewed/Updated: Yes - My Orders Last 24 Hours: My Active Orders 03/20/21 12:00 Levofloxacin/Dextrose 5%-Water [Levaquin in D5W 750 MG/150 ML] 750 mg Premix Bag 1 bag IV Q24H 03/20/21 13:12 Consult to Physician [CONS] Routine 03/20/21 13:13 Notify Provider Consults [RC] ASDIRECTED 03/20/21 13:14 RT Acapella [RESPCARE] Routine 03/20/21 13:33 Convert IV to Saline Lock [OM.PC] Routine 03/20/21 19:21 Vaccine to be Administered/Admin Charge [RC] ASDIRECTED 03/21/21 07:30 Pantoprazole [ProTONIX] 40 mg PO ACBREAKFAST - Plan Plan:: ASSESSMENT AND PLAN LEFT LUNG PNEUMONIA-possible aspiration with history of reflux. Fairly stable s eleni admission, continues to require supplemental oxygen. -Blood cultures pending -Saline lock IV -IV Zosyn and levofloxacin pending culture results HYPOXIA-secondary to underlying pneumonia and COPD -Supplemental oxygen as needed -Nebulized albuterol and DuoNebs METATARSAL FRACTURES RIGHT FOOT -CAM Walker -Follow-up per orthopedic surgery HISTORY OF COPD -Management as above MAINTENANCE ISSUES -DVT prophylaxis; Lovenox 40 mg subcu daily -GI prophylaxis; not indicated -Gomez catheter; not indicated -Nutrition; regular diet -Nicotine dependence; not required CODE STATUS-FULL CODE ADMISSION STATUS-patient will be admitted to inpatient status, expect at least a 2 night hospital stay for evaluation and management of problems as outlined above. At the time of this admission I do not reasonably expected evaluation and management of this problem will require more than a 96 hour hospital stay. DISPOSITION-anticipate discharge to home after the hospital stay. PRIMARY CARE PROVIDER-Radha Davison
[2021-03-21] MEDS: Levofloxacin/Dextrose 5%-Water 750 MG in Premix Bag 1 BAG IV SCH (11:37)
--- NOTE | 2021-03-21 12:39 | PCM.CONSN ---
- General Info Date of Service: 03/21/21 Admission Dx/Problem (Free Text): Admission Diagnosis/Problem Admission Diagnosis/Problem Pneumonia Fractures of 2nd and 3rd metatarsal necks Subjective Update: Pleasant 70 y/o female, suffered right 2nd and 3rd metatarsal fractures and right knee contusion from fall during near syncopal episode. Was placed in CAM boot yesterday. Patient notes ambulation within hospital room with CAM boot on, weight bearing as tolerated on right foot. Pain has been adequately controlled with current pain medications and with boot on during ambulation. Takes boot off while resting in bed. Notes knee is still sore, but improved from the day prior. Functional Status: Reports: Pain Controlled, Tolerating Diet, Ambulating (with CAM boot on RLE ) - Review of Systems Musculoskeletal: Reports: Leg Pain (right ), Foot Pain (right ), Joint Swelling (right ankle extending into forefoot and toes ) Skin: Reports: Bruising (right foot) - Patient Data Vitals - Most Recent: Last Vital Signs Temp 96.4 F L 03/21/21 11:00 Pulse 61 03/21/21 11:00 Resp 17 03/21/21 11:00 BP 104/48 L 03/21/21 11:00 Pulse Ox 95 03/21/21 12:10 Weight - Most Recent: 167 lb 3.2 oz I&O - Last 24 Hours: Intake & Output 03/20/21 03/21/21 03/21/21 22:59 06:59 14:59 Intake Total 50 350 1330 Output Total 218 276 4556 Balance -250 -550 330 Lab Results Last 24 Hours: Laboratory Results - last 24 hr 03/21/21 03/21/21 Range/Units 05:45 05:45 WBC 10.4 (4.5-11.0) K/uL RBC 3.37 (3.30-5.50) M/uL Hgb 10.3 L (12.0-15.0) g/dL Hct 32.0 L (36.0-48.0) % MCV 95 (80-98) fL MCH 31 (27-31) pg MCHC 32 (32-36) % Plt Count 165 (150-400) K/uL Neut % (Auto) 83.6 H (36-66) % Lymph % (Auto) 8.5 L (24-44) % [place] % (Auto) 3.6 (2-6) % Eos % (Auto) 4.2 H (2-4) % Baso % (Auto) 0.1 (0-1) % Sodium 141 (140-148) mmol/L Potassium 3.7 (3.6-5.2) mmol/L Chloride 104 (100-108) mmol/L Carbon Dioxide 30 (21-32) mmol/L Anion Gap 7.5 (5.0-14.0) mmol/L BUN 7 (7-18) mg/dL Creatinine 0.7 (0.6-1.0) mg/dL Est Cr Clr Drug Dosing 59.44 mL/min Estimated GFR (MDRD) > 60 (>60) Glucose 95 (74-106) mg/dL Calcium 8.0 L (8.5-10.1) mg/dL Magnesium 2.0 (1.8-2.4) mg/dL Jared Results Last 24 Hours: Microbiology 03/19/21 10:25 Aerobic Blood Culture - Preliminary Blood - Arm, Right NO GROWTH AFTER 2 DAYS Anaerobic Blood Culture - Preliminary NO GROWTH AFTER 2 DAYS 03/19/21 10:07 Aerobic Blood Culture - Preliminary Blood - Arm, Right NO GROWTH AFTER 2 DAYS Anaerobic Blood Culture - Preliminary NO GROWTH AFTER 2 DAYS Med Orders - Current: Current Medications Acetaminophen (Acetaminophen 325 Mg Tab) 650 mg PO Q4H PRN PRN Reason: Pain (Mild 1-3)/fever Last Admin: 03/21/21 10:04 Dose: 650 mg Documented by: Albuterol (Albuterol 0.083% 2.5 Mg/3 Ml Neb Soln) 2.5 mg NEB Q4H PRN PRN Reason: Shortness Of Breath/wheezing Albuterol/Ipratropium (Albuterol/Ipratropium 3.0-0.5 Mg/3 Ml Neb Soln) 3 ml NEB QIDRT [facility] Last Admin: 03/21/21 10:54 Dose: 3 ml Documented by: Aspirin (Aspirin 81 Mg Tab.Ec) 81 mg PO DAILY [facility] Last Admin: 03/21/21 09:15 Dose: 81 mg Documented by: Bupropion HCl (Bupropion 75 Mg Tab) 75 mg PO BID [facility] Last Admin: 03/21/21 09:16 Dose: 75 mg Documented by: Cetirizine HCl (Cetirizine 10 Mg Tab) 10 mg PO DAILY [facility] Last Admin: 03/21/21 09:16 Dose: 10 mg Documented by: Clonazepam (Clonazepam 1 Mg Tab) 2 mg PO BEDTIME [facility] Last Admin: 03/20/21 21:41 Dose: 2 mg Documented by: Diclofenac Sodium (Diclofenac Sodium 1% Gel 100 Gm Tube) 4 gm TOP QID [facility] Last Admin: 03/21/21 09:22 Dose: Not Given Documented by: Enoxaparin Sodium (Enoxaparin 40 Mg/0.4 Ml Syringe) 40 mg SUBCUT DAILY [facility] Last Admin: 03/21/21 09:16 Dose: 40 mg Documented by: Levofloxacin/Dextrose 750 mg/ (Premix) 150 mls @ 100 mls/hr IV Q24H [facility] Last Admin: 03/21/21 11:37 Dose: 100 mls/hr Documented by: Piperacillin/Tazobactam/ (Dextrose 3.375 gm/ Premix) 50 mls @ 100 mls/hr IV Q6H [facility] Last Admin: 03/21/21 11:05 Dose: 100 mls/hr Documented by: Levothyroxine Sodium (Levothyroxine 112 Mcg Tab) 112 mcg PO ACBREAKFAST [facility] Last Admin: 03/21/21 08:14 Dose: 112 mcg Documented by: Magnesium Oxide (Magnesium Oxide 400 Mg Tab) 400 mg PO DAILY [facility] Last Admin: 03/21/21 09:15 Dose: 400 mg Documented by: Ondansetron HCl (Ondansetron 4 Mg/2 Ml Sdv) 4 mg IV Q4H PRN PRN Reason: Nausea/Vomiting Oxycodone HCl (Oxycodone 5 Mg Tab) 5 mg PO Q4H PRN PRN Reason: Pain (moderate 4-6) Last Admin: 03/21/21 10:07 Dose: 5 mg Documented by: Pantoprazole Sodium (Pantoprazole 40 Mg Tab.Cr) 40 mg PO ACBREAKFAST [facility] Last Admin: 03/21/21 08:14 Dose: 40 mg Documented by: Senna/Docusate Sodium (Docusate Sodium/Sennosides 50-8.6 Mg Tab) 1 tab PO BID PRN PRN Reason: Constipation Sodium Chloride (Sodium Chloride 0.9% 10 Ml Syringe) 10 ml FLUSH ASDIRECTED PRN PRN Reason: Keep Vein Open Last Admin: 03/21/21 10:14 Dose: 10 ml Documented by: Trazodone HCl (Trazodone 50 Mg Tab) 150 mg PO BEDTIME [facility] Last Admin: 03/20/21 21:42 Dose: 150 mg Documented by: Venlafaxine HCl (Venlafaxine 37.5 Mg Cap.Er) 37.5 mg PO DAILY [facility] Last Admin: 03/21/21 09:15 Dose: 37.5 mg Documented by: Discontinued Medications Fentanyl (Fentanyl 100 Mcg/2 Ml Sdv) 25 mcg IVPUSH ONETIME ONE Stop: 03/19/21 10:00 Last Admin: 03/19/21 10:18 Dose: 25 mcg Documented by: Sodium Chloride (Normal Saline) 1,000 mls @ 1,000 mls/hr IV ASDIRECTED [facility] Last Admin: 03/19/21 10:18 Dose: 1,000 mls/hr Documented by: Sodium Chloride (Normal Saline) 100 mls @ 4 mls/sec IV ASDIRECTED [facility] Last Admin: 03/19/21 10:50 Dose: 4 mls/sec Documented by: Levofloxacin/Dextrose 750 mg/ (Premix) 150 mls @ 100 mls/hr IV ONETIME ONE Stop: 03/19/21 12:13 Last Admin: 03/19/21 11:17 Dose: 100 mls/hr Documented by: Piperacillin/Tazobactam/ (Dextrose 3.375 gm/ Premix) 50 mls @ 100 mls/hr IV ON ETIME ONE Stop: 03/19/21 12:44 Last Admin: 03/19/21 13:08 Dose: 100 mls/hr Documented by: Levofloxacin/Dextrose 750 mg/ (Premix) 150 mls @ 100 mls/hr IV Q24H [facility] Sodium Chloride (Normal Saline) 1,000 mls @ 125 mls/hr IV ASDIRECTED [facility] Last Admin: 03/20/21 11:09 Dose: 125 mls/hr Documented by: Magnesium Sulfate 2 gm/ Premix 50 mls @ 25 mls/hr IV ONETIME ONE Stop: 03/20/21 10:29 Last Admin: 03/20/21 08:53 Dose: 25 mls/hr Documented by: Influenza Virus Vaccine (Pharmacy To Dose - Influenza Vaccine) 1 each IM ONETIME ONE Stop: 03/21/21 10:01 Influenza Virus Vaccine (Flu Vacc [id number](65yr Up)/Pf 240 Mcg/0.7 Ml Syringe) 240 mcg IM .ONCE ONE Stop: 03/21/21 10:01 Last Admin: 03/21/21 10:10 Dose: 240 mcg Documented by: Iopamidol (Iopamidol 755 Mg/Ml 100 Ml Bottle) 100 ml IV . DIRECTED ONE Stop: 03/19/21 10:36 Last Admin: 03/19/21 10:51 Dose: 100 ml Documented by: Pantoprazole Sodium (Pantoprazole 40 Mg Tab.Cr) 40 mg PO DAILY [facility] Last Admin: 03/20/21 08:55 Dose: 40 mg Documented by: - Exam Quality Assessment: Supplemental Oxygen General: Alert, Oriented, Cooperative Extremities: Normal Capillary Refill, Joint Swelling (right ankle, extending into foot and toes. ), Leg Pain (right ), Limited Range of Motion (right foot ), Other (Tender over neck +mid shaft of 2nd and 3rd metatarsals) Skin: Warm, Ecchymosis Neurological: No New Focal Deficit Psy/Mental Status: Alert, Normal Affect, Normal Mood Sepsis Event Note - Evaluation Sepsis Screening Result: Sepsis Risk - Focused Exam Vital Signs: Vital Signs Temp Pulse Resp BP Pulse Ox 03/21/21 12:10 95 03/21/21 11:00 96.4 F L 61 17 104/48 L 95 03/21/21 07:15 96.4 F L 57 L 13 91/48 L 97 03/21/21 07:02 94 L 03/21/21 02:34 96.4 F L 67 18 103/55 L 92 L 03/21/21 01:56 92 L Consult PN Assessment/Plan Procedures: Procedures AIRWAY INHALATION TREATMENT (05/29/20) APPL SURFACE NEUROSTIMULATOR (11/03/13) ASSAY ALKALINE PHOSPHATASE (05/29/20) ASSAY OF COPPER (04/14/18) ASSAY OF FERRITIN (05/29/20) ASSAY OF FOLIC ACID SERUM (05/29/20) ASSAY OF LACTIC ACID (03/03/17) ASSAY OF MAGNESIUM (03/03/17) ASSAY OF PHOSPHORUS (08/20/16) ASSAY OF SERUM POTASSIUM (05/29/20) ASSAY OF VITAMIN A (04/14/18) ASSAY OF VITAMIN B-1 (04/14/18) ASSAY OF ZINC (04/14/18) ASSAY THYROID STIM HORMONE (01/21/16) BILIRUBIN TOTAL (05/29/20) BLOOD CULTURE FOR BACTERIA (12/26/18) BLOOD GASES ANY COMBINATION (08/20/16) BREAST TOMOSYNTHESIS BI (11/15/20) C-REACTIVE PROTEIN (12/26/18) CARDIOVASCULAR STRESS TEST (09/02/18) CHEST X-RAY 2VW FRONTAL&LATL (03/03/17) COMP SCREEN MAMMOGRAM ADD-ON (07/04/15) COMPLETE CBC AUTOMATED (05/28/17) COMPLETE CBC W/AUTO DIFF WBC (05/29/20) COMPREHEN METABOLIC PANEL (12/26/18) CT ABD & PELV W/CONTRAST (08/20/16) CT ANGIOGRAPHY CHEST (08/20/16) CT HEAD/BRAIN W/O DYE (03/03/17) CT THORAX DX C+ (12/26/18) CT THORAX DX C- (05/24/19) CULTURE OTHR SPECIMN AEROBIC (08/20/16) CULTURE SCREEN ONLY (01/13/14) DIAGNOSTIC COLONOSCOPY (04/14/18) ECHO EXAM OF ABDOMEN (04/18/20) EGD BIOPSY SINGLE/MULTIPLE (01/13/14) EGD DIAGNOSTIC BRUSH WASH (06/10/19) ELECTROCARDIOGRAM TRACING (06/16/17) EMERGENCY DEPT VISIT (12/26/18) EMERGENCY DEPT VISIT (02/11/16) EMERGENCY DEPT VISIT (02/28/14) EMERGENCY DEPT VISIT (02/28/14) HOT OR COLD PACKS THERAPY (09/16/17) HT MUSCLE IMAGE SPECT MULT (09/02/18) HYDRATE IV INFUSION ADD-ON (12/26/18) INFLUENZA ASSAY W/OPTIC (03/03/17) INJECT EPIDURAL PATCH (10/14/14) INJECT SPINE LUMBAR/SACRAL (10/12/14) LAPAROSCOPIC CHOLECYSTECTOMY (05/29/20) LOWER EXTREMITY STUDY (03/05/16) MANUAL THERAPY 1/> REGIONS (07/17/18) MEASURE BLOOD OXYGEN LEVEL (08/20/16) METABOLIC PANEL TOTAL CA (03/03/17) MRI JOINT UPR EXTREM W/O DYE (05/15/17) MRI LUMBAR SPINE W/O DYE (07/11/14) NEUROMUSCULAR REEDUCATION (07/17/18) NJX INTERLAMINAR CRV/THRC (01/10/21) NJX INTERLAMINAR LMBR/SAC (01/24/21) OT EVALUATION (07/19/13) POLYSOM 6/> YRS 4/> JACQUELINE (05/12/16) POSTOP FOLLOW-UP VISIT (07/28/17) PT EVAL LOW COMPLEX 20 MIN (07/21/17) PT EVAL MOD COMPLEX 30 MIN (07/17/18) PT EVALUATION (11/23/15) REPAIR ROTATOR CUFF CHRONIC (06/17/17) ROUTINE VENIPUNCTURE (05/29/20) SCR MAMMO BI INCL CAD (11/15/20) JESSICA ARTHRS SRG DECOMPRESSION (06/17/17) JESSICA ARTHRS SRG LMTD DBRDMT (06/17/17) JESSICA ARTHRS SRG PRTL SYNVCT (06/17/17) SMEAR GRAM STAIN (08/20/16) THER/PROPH/DIAG IV INF INIT (12/26/18) THERAPEUTIC ACTIVITIES (08/19/17) THERAPEUTIC EXERCISES (07/17/18) TISSUE EXAM BY PATHOLOGIST (05/29/20) TISSUE EXAM BY PATHOLOGIST (06/21/19) TISSUE EXAM BY PATHOLOGIST (08/20/16) TTE W/DOPPLER COMPLETE (09/14/18) TX/PRO/DX INJ NEW DRUG ADDON (12/26/18) TX/PRO/DX INJ SAME DRUG CAREER ORIENTATION TEACHER (12/26/18) TX/PROPH/DG ADDL SEQ IV INF (03/03/17) ULTRASOUND THERAPY (11/23/15) UPR/L XTREMITY ART 2 LEVELS (02/09/16) URINALYSIS AUTO W/SCOPE (03/03/17) URINE CULTURE/COLONY COUNT (08/20/16) VITAMIN B-12 (05/29/20) VITAMIN D 25 HYDROXY (04/14/18) WITHDRAWAL OF ARTERIAL BLOOD (08/20/16) X-RAY EXAM L-2 SPINE 4/>VWS (07/11/14) X-RAY EXAM OF ABDOMEN (08/20/16) X-RAY EXAM SI JOINTS (07/11/14) X-RAY EXAM UNILAT RIBS/CHEST (12/26/18) X-RAY XM UPR GI TRC 1CNTRST (06/21/19) (1) Metatarsal bone fracture SNOMED Code(s): 467667879 Code(s): S92.309A - FRACTURE OF UNSP METATARSAL BONE(S), UNSP FOOT, INIT Current Visit: Yes Comment: mildly displaced 2nd and third metatarsal neck fractures Qualifiers: Encounter type: initial encounter Metatarsal bone: unspecified metatarsal Fracture type: closed Fracture alignment: displaced Laterality: right Qualified Code(s): S92.301A - Fracture of unspecified metatarsal bone(s), right foot, initial encounter for closed fracture (2) Knee contusion SNOMED Code(s): 08560225 Code(s): S80.00XA - CONTUSION OF UNSPECIFIED KNEE, INITIAL ENCOUNTER Current Visit: Yes Qualifiers: Encounter type: initial encounter Laterality: right Qualified Code(s): S80.01XA - Contusion of right knee, initial encounter Problem List Initiated/Reviewed/Updated: Yes Plan: * Hospitalist to continue medical management of patient. * Continue with current pain control regimen. * Patient to continue wearing CAM boot on R foot with ambulation. May weight bear as tolerated on right foot with CAM boot on. Okay to take boot off at rest. * Orthopedic service will sign off at this time. Will follow up with patient in outpatient clinic in 2 weeks with repeat films. Encouraged to contact clinic with any concerns.
[2021-03-21] MEDS: ClonazePAM 1 MG Tab PO SCH (20:40)
[2021-03-21] MEDS: traZODone 50 MG Tab PO SCH (20:40)
[2021-03-22] MEDS: Diclofenac Sodium 1% Gel 100 GM Tube TOP SCH ×4 (05:09→21:45)
[2021-03-22] MEDS: Piperacillin/Tazobactam/Dext 3.375 GM in Premix Bag 1 BAG IV SCH ×4 (05:09→23:14)
[2021-03-22] MEDS: Albuterol/Ipratropium 3.0-0.5 MG/3 ML Neb Soln NEB SCH ×4 (07:15→21:44)
[2021-03-22] MEDS: Levothyroxine 112 MCG Tab PO SCH (07:38)
[2021-03-22] MEDS: Pantoprazole 40 MG Tab.CR PO SCH (07:41)
[2021-03-22] MEDS: Aspirin 81 MG Tab.EC PO SCH (09:06)
[2021-03-22] MEDS: Cetirizine 10 MG Tab PO SCH (09:06)
[2021-03-22] MEDS: Enoxaparin 40 MG/0.4 ML Syringe SUBCUT SCH (09:06)
[2021-03-22] MEDS: Venlafaxine 37.5 MG Cap.ER PO SCH (09:06)
[2021-03-22] MEDS: Magnesium Oxide 400 MG Tab PO SCH (09:06)
[2021-03-22] MEDS: Acetaminophen 325 MG Tab PO PRN (09:12)
[2021-03-22] MEDS: Levofloxacin/Dextrose 5%-Water 750 MG in Premix Bag 1 BAG IV SCH (11:56)
--- NOTE | 2021-03-22 15:40 | PCM.PN ---
- General Info Date of Service: 03/22/21 Subjective Update: Ms. Bryant fairly stable since yesterday. She does feel more fatigued today and does continue to require supplemental oxygen at 4 L/min to maintain adequate oxy genation. She is doing better with ambulation and use of the cam walker. Functional Status: Reports: Tolerating Diet, Ambulating, Urinating - Review of Systems General: Reports: Weakness, Fatigue. Denies: Fever, Chills Pulmonary: Reports: Shortness of Breath, Cough, Sputum. Denies: Pleuritic Chest Pain, Hemoptysis, Wheezing Cardiovascular: Reports: Dyspnea on Exertion. Denies: Chest Pain, Palpitations, Orthopnea, PND, Edema, Lightheadedness Gastrointestinal: Reports: No Symptoms Genitourinary: Reports: No Symptoms - Patient Data Vitals - Most Recent: Last Vital Signs Temp 97.6 F 03/22/21 10:33 Pulse 74 03/22/21 14:44 Resp 18 03/22/21 14:39 BP 101/51 L 03/22/21 14:39 Pulse Ox 90 L 03/22/21 14:44 Weight - Most Recent: 171 lb 1.259 oz I&O - Last 24 Hours: Intake & Output 03/22/21 03/22/21 03/22/21 06:59 14:59 22:59 Intake Total 350 503 Output Total 2300 Balance 350 -1797 Jared Results Last 24 Hours: Microbiology 03/19/21 10:25 Aerobic Blood Culture - Preliminary Blood - Arm, Right NO GROWTH AFTER 3 DAYS Anaerobic Blood Culture - Preliminary NO GROWTH AFTER 3 DAYS 03/19/21 10:07 Aerobic Blood Culture - Preliminary Blood - Arm, Right NO GROWTH AFTER 3 DAYS Anaerobic Blood Culture - Preliminary NO GROWTH AFTER 3 DAYS Med Orders - Current: Current Medications Acetaminophen (Acetaminophen 325 Mg Tab) 650 mg PO Q4H PRN PRN Reason: Pain (Mild 1-3)/fever Last Admin: 03/22/21 09:12 Dose: 650 mg Documented by: Albuterol (Albuterol 0.083% 2.5 Mg/3 Ml Neb Soln) 2.5 mg NEB Q4H PRN PRN Reason: Shortness Of Breath/wheezing Albuterol/Ipratropium (Albuterol/Ipratropium 3.0-0.5 Mg/3 Ml Neb Soln) 3 ml NEB QIDRT [facility] Last Admin: 03/22/21 14:44 Dose: 3 ml Documented by: Aspirin (Aspirin 81 Mg Tab.Ec) 81 mg PO DAILY [facility] Last Admin: 03/22/21 09:06 Dose: 81 mg Documented by: Bupropion HCl (Bupropion 75 Mg Tab) 75 mg PO BID [facility] Last Admin: 03/22/21 09:06 Dose: 75 mg Documented by: Cetirizine HCl (Cetirizine 10 Mg Tab) 10 mg PO DAILY [facility] Last Admin: 03/22/21 09:06 Dose: 10 mg Documented by: Clonazepam (Clonazepam 1 Mg Tab) 2 mg PO BEDTIME [facility] Last Admin: 03/21/21 20:40 Dose: 2 mg Documented by: Diclofenac Sodium (Diclofenac Sodium 1% Gel 100 Gm Tube) 4 gm TOP QID [facility] Last Admin: 03/22/21 15:21 Dose: Not Given Documented by: Enoxaparin Sodium (Enoxaparin 40 Mg/0.4 Ml Syringe) 40 mg SUBCUT DAILY [facility] Last Admin: 03/22/21 09:06 Dose: 40 mg Documented by: Levofloxacin/Dextrose 750 mg/ (Premix) 150 mls @ 100 mls/hr IV Q24H [facility] Last Admin: 03/22/21 11:56 Dose: 100 mls/hr Documented by: Piperacillin/Tazobactam/ (Dextrose 3.375 gm/ Premix) 50 mls @ 100 mls/hr IV Q6H [facility] Last Admin: 03/22/21 11:09 Dose: 100 mls/hr Documented by: Levothyroxine Sodium (Levothyroxine 112 Mcg Tab) 112 mcg PO ACBREAKFAST [facility] Last Admin: 03/22/21 07:38 Dose: 112 mcg Documented by: Magnesium Oxide (Magnesium Oxide 400 Mg Tab) 400 mg PO DAILY [facility] Last Admin: 03/22/21 09:06 Dose: 400 mg Documented by: Ondansetron HCl (Ondansetron 4 Mg/2 Ml Sdv) 4 mg IV Q4H PRN PRN Reason: Nausea/Vomiting Oxycodone HCl (Oxycodone 5 Mg Tab) 5 mg PO Q4H PRN PRN Reason: Pain (moderate 4-6) Last Admin: 03/21/21 10:07 Dose: 5 mg Documented by: Pantoprazole Sodium (Pantoprazole 40 Mg Tab.Cr) 40 mg PO ACBREAKFAST [facility] Last Admin: 03/22/21 07:41 Dose: 40 mg Documented by: Senna/Docusate Sodium (Docusate Sodium/Sennosides 50-8.6 Mg Tab) 1 tab PO BID PRN PRN Reason: Constipation Sodium Chloride (Sodium Chloride 0.9% 10 Ml Syringe) 10 ml FLUSH ASDIRECTED PRN PRN Reason: Keep Vein Open Last Admin: 03/21/21 13:30 Dose: 10 ml Documented by: Trazodone HCl (Trazodone 50 Mg Tab) 150 mg PO BEDTIME [facility] Last Admin: 03/21/21 20:40 Dose: 150 mg Documented by: Venlafaxine HCl (Venlafaxine 37.5 Mg Cap.Er) 37.5 mg PO DAILY [facility] Last Admin: 03/22/21 09:06 Dose: 37.5 mg Documented by: Discontinued Medications Fentanyl (Fentanyl 100 Mcg/2 Ml Sdv) 25 mcg IVPUSH ONETIME ONE Stop: 03/19/21 10:00 Last Admin: 03/19/21 10:18 Dose: 25 mcg Documented by: Sodium Chloride (Normal Saline) 1,000 mls @ 1,000 mls/hr IV ASDIRECTED [facility] Last Admin: 03/19/21 10:18 Dose: 1,000 mls/hr Documented by: Sodium Chloride (Normal Saline) 100 mls @ 4 mls/sec IV ASDIRECTED [facility] Last Admin: 03/19/21 10:50 Dose: 4 mls/sec Documented by: Levofloxacin/Dextrose 750 mg/ (Premix) 150 mls @ 100 mls/hr IV ONETIME ONE Stop: 03/19/21 12:13 Last Admin: 03/19/21 11:17 Dose: 100 mls/hr Documented by: Piperacillin/Tazobactam/ (Dextrose 3.375 gm/ Premix) 50 mls @ 100 mls/hr IV ONETIME ONE Stop: 03/19/21 12:44 Last Admin: 03/19/21 13:08 Dose: 100 mls/hr Documented by: Levofloxacin/Dextrose 750 mg/ (Premix) 150 mls @ 100 mls/hr IV Q24H [facility] Sodium Chloride (Normal Saline) 1,000 mls @ 125 mls/hr IV ASDIRECTED [facility] Last Admin: 03/20/21 11:09 Dose: 125 mls/hr Documented by: Magnesium Sulfate 2 gm/ Premix 50 mls @ 25 mls/hr IV ONETIME ONE Stop: 03/20/21 10:29 Last Admin: 03/20/21 08:53 Dose: 25 mls/hr Documented by: Influenza Virus Vaccine (Pharmacy To Dose - Influenza Vaccine) 1 each IM ONETIME ONE Stop: 03/21/21 10:01 Influenza Virus Vaccine (Flu Vacc [id number](65yr Up)/Pf 240 Mcg/0.7 Ml Syringe) 240 mcg IM .ONCE ONE Stop: 03/21/21 10:01 Last Admin: 03/21/21 10:10 Dose: 240 mcg Documented by: Iopamidol (Iopamidol 755 Mg/Ml 100 Ml Bottle) 100 ml IV . DIRECTED ONE Stop: 03/19/21 10:36 Last Admin: 03/19/21 10:51 Dose: 100 ml Documented by: Pantoprazole Sodium (Pantoprazole 40 Mg Tab.Cr) 40 mg PO DAILY [facility] Last Admin: 03/20/21 08:55 Dose: 40 mg Documented by: - Exam Quality Assessment: Supplemental Oxygen, DVT Prophylaxis General: Alert, Oriented, Cooperative, Mild Distress Lungs: Normal Respiratory Effort, Decreased Breath Sounds, Rales, Rhonchi. No: Crackles, Wheezing Cardiovascular: Regular Rate, Regular Rhythm, No Murmurs GI/Abdominal Exam: Soft, Non-Tender, No Organomegaly, No Distention Extremities: No Pedal Edema, Other (Right foot pain) - Patient Data Result Diagrams: 03/21/21 05:45 03/21/21 05:45 Jared Results Last 24 hrs: Microbiology 03/19/21 10:25 Aerobic Blood Culture - Preliminary Blood - Arm, Right NO GROWTH AFTER 3 DAYS Anaerobic Blood Culture - Preliminary NO GROWTH AFTER 3 DAYS 03/19/21 10:07 Aerobic Blood Culture - Preliminary Blood - Arm, Right NO GROWTH AFTER 3 DAYS Anaerobic Blood Culture - Preliminary NO GROWTH AFTER 3 DAYS Sepsis Event Note - Evaluation Sepsis Screening Result: No Definite Risk - Focused Exam Vital Signs: Vital Signs Temp Pulse Resp BP Pulse Ox Pulse Ox 03/22/21 14:44 74 90 L 03/22/21 14:39 78 18 101/51 L 91 L 03/22/21 13:00 92 L 03/22/21 10:42 65 03/22/21 10:33 97.6 F 60 18 107/52 L 94 L 03/22/21 07:52 92 L 03/22/21 06:55 99.1 F 75 18 102/46 L 91 L - Problem List Review Problem List Initiated/Reviewed/Updated: Yes - My Orders Last 24 Hours: My Active Orders 03/22/21 14:04 Dietary Supplements [RC] TIDMEALS - Plan Plan:: ASSESSMENT AND PLAN LEFT LUNG PNEUMONIA-possible aspiration with history of reflux. Fairly stable since admission, continues to require supplemental oxygen at 4 L/min via nasal cannula -Blood cultures pending -Saline lock IV -IV Zosyn and levofloxacin pending culture results HYPOXIA-secondary to underlying pneumonia and COPD -Supplemental oxygen as needed -Nebulized albuterol and DuoNebs METATARSAL FRACTURES RIGHT FOOT-ambulation has improved with use of the cam walker -CAM Walker -Follow-up per orthopedic surgery HISTORY OF COPD -Management as above MAINTENANCE ISSUES -DVT prophylaxis; Lovenox 40 mg subcu daily -GI prophylaxis; not indicated -Gomez catheter; not indicated -Nutrition; regular diet -Nicotine dependence; not required CODE STATUS-FULL CODE ADMISSION STATUS-patient will be admitted to inpatient status, expect at least a 2 night hospital stay for evaluation and management of problems as outlined abo ve. At the time of this admission I do not reasonably expected evaluation and management of this problem will require more than a 96 hour hospital stay. DISPOSITION-anticipate discharge to home after the hospital stay. PRIMARY CARE PROVIDER-Radha Davison
[2021-03-22] MEDS: oxyCODONE 5 MG Tab PO PRN (19:31)
[2021-03-22] MEDS: ClonazePAM 1 MG Tab PO SCH (21:48)
[2021-03-22] MEDS: traZODone 50 MG Tab PO SCH (21:48)
[2021-03-23] MEDS: Piperacillin/Tazobactam/Dext 3.375 GM in Premix Bag 1 BAG IV SCH ×3 (05:31→16:50)
[2021-03-23] MEDS: Diclofenac Sodium 1% Gel 100 GM Tube TOP SCH ×3 (05:34→16:51)
[2021-03-23] MEDS: Albuterol/Ipratropium 3.0-0.5 MG/3 ML Neb Soln NEB SCH ×4 (07:03→20:13)
[2021-03-23] MEDS: Levothyroxine 112 MCG Tab PO SCH (07:51)
[2021-03-23] MEDS: Pantoprazole 40 MG Tab.CR PO SCH (07:51)
[2021-03-23] MEDS: Cetirizine 10 MG Tab PO SCH (09:38)
[2021-03-23] MEDS: Enoxaparin 40 MG/0.4 ML Syringe SUBCUT SCH (09:38)
[2021-03-23] MEDS: Venlafaxine 37.5 MG Cap.ER PO SCH (09:39)
[2021-03-23] MEDS: Magnesium Oxide 400 MG Tab PO SCH (09:39)
[2021-03-23] MEDS: Aspirin 81 MG Tab.EC PO SCH (09:39)
[2021-03-23] MEDS: Levofloxacin/Dextrose 5%-Water 750 MG in Premix Bag 1 BAG IV SCH (12:21)
--- NOTE | 2021-03-23 13:10 | PCM.PN ---
- General Info Date of Service: 03/23/21 Subjective Update: Ms. Bryant remains fairly weak and does get short of breath with mild to moderate levels of exertion. She continues to require 4 L of oxygen via nasal cannula. Ongoing difficulty with cough and chest wall tenderness related to cough and deep breathing. Vital signs have otherwise been stable and she has remained afebrile. Functional Status: Reports: Tolerating Diet, Ambulating, Urinating - Review of Systems General: Reports: Weakness, Fatigue. Denies: Fever, Chills Pulmonary: Reports: Shortness of Breath, Cough, Sputum. Denies: Pleuritic Chest Pain, Hemoptysis, Wheezing Cardiovascular: Reports: Dyspnea on Exertion. Denies: Chest Pain, Palpitations, Orthopnea, PND, Edema, Lightheadedness Gastrointestinal: Reports: No Symptoms Genitourinary: Reports: No Symptoms - Patient Data Vitals - Most Recent: Last Vital Signs Temp 97.4 F 03/23/21 11:00 Pulse 78 03/23/21 11:00 Resp 16 03/23/21 11:00 BP 113/57 L 03/23/21 11:00 Pulse Ox 92 L 03/23/21 11:00 Weight - Most Recent: 164 lb 10.965 oz I&O - Last 24 Hours: Intake & Output 03/22/21 03/23/21 03/23/21 22:59 06:59 14:59 Intake Total 510 620 Output Total 400 650 Balance -400 -140 620 Jared Results Last 24 Hours: Microbiology 03/19/21 10:25 Aerobic Blood Culture - Preliminary Blood - Arm, Right NO GROWTH AFTER 4 DAYS Anaerobic Blood Culture - Preliminary NO GROWTH AFTER 4 DAYS 03/19/21 10:07 Aerobic Blood Culture - Preliminary Blood - Arm, Right NO GROWTH AFTER 4 DAYS Anaerobic Blood Culture - Preliminary NO GROWTH AFTER 4 DAYS Med Orders - Current: Current Medications Acetaminophen (Acetaminophen 325 Mg Tab) 650 mg PO Q4H PRN PRN Reason: Pain (Mild 1-3)/fever Last Admin: 03/22/21 09:12 Dose: 650 mg Documented by: Albuterol (Albuterol 0.083% 2.5 Mg/3 Ml Neb Soln) 2.5 mg NEB Q4H PRN PRN Reason: Shortness Of Breath/wheezing Albuterol/Ipratropium (Albuterol/Ipratropium 3.0-0.5 Mg/3 Ml Neb Soln) 3 ml NEB QIDRT [facility] Last Admin: 03/23/21 10:39 Dose: 3 ml Documented by: Aspirin (Aspirin 81 Mg Tab.Ec) 81 mg PO DAILY [facility] Last Admin: 03/23/21 09:39 Dose: 81 mg Documented by: Bupropion HCl (Bupropion 75 Mg Tab) 75 mg PO BID [facility] Last Admin: 03/23/21 09:39 Dose: 75 mg Documented by: Cetirizine HCl (Cetirizine 10 Mg Tab) 10 mg PO DAILY [facility] Last Admin: 03/23/21 09:38 Dose: 10 mg Documented by: Clonazepam (Clonazepam 1 Mg Tab) 2 mg PO BEDTIME [facility] Last Admin: 03/22/21 21:48 Dose: 2 mg Documented by: Diclofenac Sodium (Diclofenac Sodium 1% Gel 100 Gm Tube) 4 gm TOP QID [facility] Last Admin: 03/23/21 09:40 Dose: Not Given Documented by: Enoxaparin Sodium (Enoxaparin 40 Mg/0.4 Ml Syringe) 40 mg SUBCUT DAILY [facility] Last Admin: 03/23/21 09:38 Dose: 40 mg Documented by: Levofloxacin/Dextrose 750 mg/ (Premix) 150 mls @ 100 mls/hr IV Q24H [facility] Last Admin: 03/23/21 12:21 Dose: 100 mls/hr Documented by: Piperacillin/Tazobactam/ (Dextrose 3.375 gm/ Premix) 50 mls @ 100 mls/hr IV Q6H [facility] Last Admin: 03/23/21 11:32 Dose: 100 mls/hr Documented by: Levothyroxine Sodium (Levothyroxine 112 Mcg Tab) 112 mcg PO ACBREAKFAST [facility] Last Admin: 03/23/21 07:51 Dose: 112 mcg Documented by: Magnesium Oxide (Magnesium Oxide 400 Mg Tab) 400 mg PO DAILY [facility] Last Admin: 03/23/21 09:39 Dose: 400 mg Documented by: Ondansetron HCl (Ondansetron 4 Mg/2 Ml Sdv) 4 mg IV Q4H PRN PRN Reason: Nausea/Vomiting Oxycodone HCl (Oxycodone 5 Mg Tab) 5 mg PO Q4H PRN PRN Reason: Pain (moderate 4-6) Last Admin: 03/22/21 19:31 Dose: 5 mg Documented by: Pantoprazole Sodium (Pantoprazole 40 Mg Tab.Cr) 40 mg PO ACBREAKFAST [facility] Last Admin: 03/23/21 07:51 Dose: 40 mg Documented by: Senna/Docusate Sodium (Docusate Sodium/Sennosides 50-8.6 Mg Tab) 1 tab PO BID PRN PRN Reason: Constipation Sodium Chloride (Sodium Chloride 0.9% 10 Ml Syringe) 10 ml FLUSH ASDIRECTED PRN PRN Reason: Keep Vein Open Last Admin: 03/21/21 13:30 Dose: 10 ml Documented by: Trazodone HCl (Trazodone 50 Mg Tab) 150 mg PO BEDTIME [facility] Last Admin: 03/22/21 21:48 Dose: 150 mg Documented by: Venlafaxine HCl (Venlafaxine 37.5 Mg Cap.Er) 37.5 mg PO DAILY [facility] Last Admin: 03/23/21 09:39 Dose: 37.5 mg Documented by: Discontinued Medications Fentanyl (Fentanyl 100 Mcg/2 Ml Sdv) 25 mcg IVPUSH ONETIME ONE Stop: 03/19/21 10:00 Last Admin: 03/19/21 10:18 Dose: 25 mcg Documented by: Sodium Chloride (Normal Saline) 1,000 mls @ 1,000 mls/hr IV ASDIRECTED [facility] Last Admin: 03/19/21 10:18 Dose: 1,000 mls/hr Documented by: Sodium Chloride (Normal Saline) 100 mls @ 4 mls/sec IV ASDIRECTED [facility] Last Admin: 03/19/21 10:50 Dose: 4 mls/sec Documented by: Levofloxacin/Dextrose 750 mg/ (Premix) 150 mls @ 100 mls/hr IV ONETIME ONE Stop: 03/19/21 12:13 Last Admin: 03/19/21 11:17 Dose: 100 mls/hr Documented by: Piperacillin/Tazobactam/ (Dextrose 3.375 gm/ Premix) 50 mls @ 100 mls/hr IV ONETIME ONE Stop: 03/19/21 12:44 Last Admin: 03/19/21 13:08 Dose: 100 mls/hr Documented by: Levofloxacin/Dextrose 750 mg/ (Premix) 150 mls @ 100 mls/hr IV Q24H [facility] Sodium Chloride (Normal Saline) 1,000 mls @ 125 mls/hr IV ASDIRECTED [facility] Last Admin: 03/20/21 11:09 Dose: 125 mls/hr Documented by: Magnesium Sulfate 2 gm/ Premix 50 mls @ 25 mls/hr IV ONETIME ONE Stop: 03/20/21 10:29 Last Admin: 03/20/21 08:53 Dose: 25 mls/hr Documented by: Influenza Virus Vaccine (Pharmacy To Dose - Influenza Vaccine) 1 each IM ONETIME ONE Stop: 03/21/21 10:01 Influenza Virus Vaccine (Flu Vacc [id number](65yr Up)/Pf 240 Mcg/0.7 Ml Syringe) 240 mcg IM .ONCE ONE Stop: 03/21/21 10:01 Last Admin: 03/21/21 10:10 Dose: 240 mcg Documented by: Iopamidol (Iopamidol 755 Mg/Ml 100 Ml Bottle) 100 ml IV . DIRECTED ONE Stop: 03/19/21 10:36 Last Admin: 03/19/21 10:51 Dose: 100 ml Documented by: Pantoprazole Sodium (Pantoprazole 40 Mg Tab.Cr) 40 mg PO DAILY [facility] Last Admin: 03/20/21 08:55 Dose: 40 mg Documented by: - Exam Quality Assessment: Supplemental Oxygen, DVT Prophylaxis General: Alert, Oriented, Cooperative, Moderate Distress Lungs: Normal Respiratory Effort, Rales, Rhonchi. No: Wheezing Cardiovascular: Regular Rate, Regular Rhythm, No Murmurs GI/Abdominal Exam: Soft, Non-Tender, No Organomegaly, No Distention Extremities: Non-Tender, No Pedal Edema - Patient Data Result Diagrams: 03/21/21 05:45 03/21/21 05:45 Jared Results Last 24 hrs: Microbiology 03/19/21 10:25 Aerobic Blood Culture - Preliminary Blood - Arm, Right NO GROWTH AFTER 4 DAYS Anaerobic Blood Culture - Preliminary NO GROWTH AFTER 4 DAYS 03/19/21 10:07 Aerobic Blood Culture - Preliminary Blood - Arm, Right NO GROWTH AFTER 4 DAYS Anaerobic Blood Culture - Preliminary NO GROWTH AFTER 4 DAYS Sepsis Event Note - Evaluation Sepsis Screening Result: No Definite Risk - Focused Exam Vital Signs: Vital Signs Temp Pulse Resp BP Pulse Ox Pulse Ox 03/23/21 11:00 97.4 F 78 16 113/57 L 92 L 03/23/21 07:00 97.1 F 81 16 108/49 L 93 L 93 L 03/23/21 03:00 97.0 F 80 20 106/49 L 92 L - Problem List Review Problem List Initiated/Reviewed/Updated: Yes - My Orders Last 24 Hours: My Active Orders 03/22/21 14:04 Dietary Supplements [RC] TIDMEALS - Plan Plan:: ASSESSMENT AND PLAN LEFT LUNG PNEUMONIA-possible aspiration with history of reflux. Fairly stable since admission, continues to require supplemental oxygen at 4 L/min via nasal cannula. Remains weak and fatigued, ongoing cough with occasional sputum production. Chest wall pain related to cough and deep breathing. -Blood cultures pending -Saline lock IV -IV Zosyn and levofloxacin pending culture results HYPOXIA-secondary to underlying pneumonia and COPD -Supplemental oxygen as needed -Nebulized albuterol and DuoNebs METATARSAL FRACTURES RIGHT FOOT-ambulation has improved with use of the cam walker -CAM Walker -Follow-up per orthopedic surgery HISTORY OF COPD -Management as above MAINTENANCE ISSUES -DVT prophylaxis; Lovenox 40 mg subcu daily -GI prophylaxis; not indicated -Gomez catheter; not indicated -Nutrition; regular diet -Nicotine dependence; not required CODE STATUS-FULL CODE ADMISSION STATUS-patient will be admitted to inpatient status, expect at least a 2 night hospital stay for evaluation and management of problems as outlined above. At the time of this admission I do not reasonably expected evaluation and management of this problem will require more than a 96 hour hospital stay. DISPOSITION-anticipate discharge to home after the hospital stay. PRIMARY CARE PROVIDER-Radha Davison
[2021-03-23] MEDS: oxyCODONE 5 MG Tab PO PRN (17:01)
[2021-03-23] MEDS: Acetaminophen 325 MG Tab PO PRN (20:05)
[2021-03-23] MEDS: traZODone 50 MG Tab PO SCH (20:07)
[2021-03-23] MEDS: ClonazePAM 1 MG Tab PO SCH (20:12)
[2021-03-24] MEDS: Piperacillin/Tazobactam/Dext 3.375 GM in Premix Bag 1 BAG IV SCH ×5 (00:07→23:22)
[2021-03-24] MEDS: Diclofenac Sodium 1% Gel 100 GM Tube TOP SCH ×5 (00:14→21:21)
[2021-03-24] MEDS: Albuterol/Ipratropium 3.0-0.5 MG/3 ML Neb Soln NEB SCH ×4 (07:05→21:19)
[2021-03-24] MEDS: Pantoprazole 40 MG Tab.CR PO SCH (07:51)
[2021-03-24] MEDS: Levothyroxine 112 MCG Tab PO SCH (07:51)
[2021-03-24] MEDS: Magnesium Oxide 400 MG Tab PO SCH (09:29)
[2021-03-24] MEDS: Venlafaxine 37.5 MG Cap.ER PO SCH (09:29)
[2021-03-24] MEDS: Aspirin 81 MG Tab.EC PO SCH (09:29)
[2021-03-24] MEDS: Enoxaparin 40 MG/0.4 ML Syringe SUBCUT SCH (09:29)
[2021-03-24] MEDS: Cetirizine 10 MG Tab PO SCH (09:29)
[2021-03-24] MEDS: Levofloxacin/Dextrose 5%-Water 750 MG in Premix Bag 1 BAG IV SCH (13:20)
--- NOTE | 2021-03-24 16:40 | PCM.PN ---
- General Info Date of Service: 03/24/21 Subjective Update: Ms. Bryant continues to experience generalized weakness and shortness of breath. No significant improvement in oxygenation over the last 24 hours. She has been afebrile and otherwise hemodynamically stable. There is been no significant worsening of her hypoxia but thus far we have seen no improvement. Functional Status: Reports: Tolerating Diet, Ambulating, Urinating - Review of Systems General: Reports: Weakness, Fatigue. Denies: Fever, Chills Pulmonary: Reports: Shortness of Breath, Cough. Denies: Pleuritic Chest Pain, Sputum, Hemoptysis, Wheezing Cardiovascular: Reports: Dyspnea on Exertion. Denies: Chest Pain, Palpitations, Orthopnea, PND, Edema, Lightheadedness Gastrointestinal: Reports: No Symptoms Genitourinary: Reports: No Symptoms - Patient Data Vitals - Most Recent: Last Vital Signs Temp 97.7 F 03/24/21 16:05 Pulse 74 03/24/21 16:05 Resp 18 03/24/21 16:05 BP 113/51 L 03/24/21 16:05 Pulse Ox 96 03/24/21 16:05 Weight - Most Recent: 165 lb 5.547 oz I&O - Last 24 Hours: Intake & Output 03/24/21 03/24/21 03/24/21 06:59 14:59 22:59 Intake Total 100 960 Output Total 1800 600 Balance -1700 360 Jared Results Last 24 Hours: Microbiology 03/19/21 10:25 Aerobic Blood Culture - Final Blood - Arm, Right NO GROWTH AFTER 5 DAYS Anaerobic Blood Culture - Final NO GROWTH AFTER 5 DAYS 03/19/21 10:07 Aerobic Blood Culture - Final Blood - Arm, Right NO GROWTH AFTER 5 DAYS Anaerobic Blood Culture - Final NO GROWTH AFTER 5 DAYS Med Orders - Current: Current Medications Acetaminophen (Acetaminophen 325 Mg Tab) 650 mg PO Q4H PRN PRN Reason: Pain (Mild 1-3)/fever Last Admin: 03/23/21 20:05 Dose: 650 mg Documented by: Albuterol (Albuterol 0.083% 2.5 Mg/3 Ml Neb Soln) 2.5 mg NEB Q4H PRN PRN Reason: Shortness Of Breath/wheezing Albuterol/Ipratropium (Albuterol/Ipratropium 3.0-0.5 Mg/3 Ml Neb Soln) 3 ml NEB QIDRT [facility] Last Admin: 03/24/21 14:32 Dose: 3 ml Documented by: Aspirin (Aspirin 81 Mg Tab.Ec) 81 mg PO DAILY [facility] Last Admin: 03/24/21 09:29 Dose: 81 mg Documented by: Bupropion HCl (Bupropion 75 Mg Tab) 75 mg PO BID [facility] Last Admin: 03/24/21 09:29 Dose: 75 mg Documented by: Cetirizine HCl (Cetirizine 10 Mg Tab) 10 mg PO DAILY [facility] Last Admin: 03/24/21 09:29 Dose: 10 mg Documented by: Clonazepam (Clonazepam 1 Mg Tab) 2 mg PO BEDTIME [facility] Last Admin: 03/23/21 20:12 Dose: 2 mg Documented by: Diclofenac Sodium (Diclofenac Sodium 1% Gel 100 Gm Tube) 4 gm TOP QID [facility] Last Admin: 03/24/21 09:30 Dose: 1 applic Documented by: Enoxaparin Sodium (Enoxaparin 40 Mg/0.4 Ml Syringe) 40 mg SUBCUT DAILY [facility] Last Admin: 03/24/21 09:29 Dose: 40 mg Documented by: Levofloxacin/Dextrose 750 mg/ (Premix) 150 mls @ 100 mls/hr IV Q24H [facility] Last Admin: 03/24/21 13:20 Dose: 100 mls/hr Documented by: Piperacillin/Tazobactam/ (Dextrose 3.375 gm/ Premix) 50 mls @ 100 mls/hr IV Q6H [facility] Last Admin: 03/24/21 12:34 Dose: 100 mls/hr Documented by: Levothyroxine Sodium (Levothyroxine 112 Mcg Tab) 112 mcg PO ACBREAKFAST [facility] Last Admin: 03/24/21 07:51 Dose: 112 mcg Documented by: Magnesium Oxide (Magnesium Oxide 400 Mg Tab) 400 mg PO DAILY [facility] Last Admin: 03/24/21 09:29 Dose: 400 mg Documented by: Ondansetron HCl (Ondansetron 4 Mg/2 Ml Sdv) 4 mg IV Q4H PRN PRN Reason: Nausea/Vomiting Oxycodone HCl (Oxycodone 5 Mg Tab) 5 mg PO Q4H PRN PRN Reason: Pain (moderate 4-6) Last Admin: 03/23/21 17:01 Dose: 5 mg Documented by: Pantoprazole Sodium (Pantoprazole 40 Mg Tab.Cr) 40 mg PO ACBREAKFAST [facility] Last Admin: 03/24/21 07:51 Dose: 40 mg Documented by: Senna/Docusate Sodium (Docusate Sodium/Sennosides 50-8.6 Mg Tab) 1 tab PO BID PRN PRN Reason: Constipation Sodium Chloride (Sodium Chloride 0.9% 10 Ml Syringe) 10 ml FLUSH ASDIRECTED PRN PRN Reason: Keep Vein Open Last Admin: 03/21/21 13:30 Dose: 10 ml Documented by: Trazodone HCl (Trazodone 50 Mg Tab) 150 mg PO BEDTIME [facility] Last Admin: 03/23/21 20:07 Dose: 150 mg Documented by: Venlafaxine HCl (Venlafaxine 37.5 Mg Cap.Er) 37.5 mg PO DAILY [facility] Last Admin: 03/24/21 09:29 Dose: 37.5 mg Documented by: Discontinued Medications Fentanyl (Fentanyl 100 Mcg/2 Ml Sdv) 25 mcg IVPUSH ONETIME ONE Stop: 03/19/21 10:00 Last Admin: 03/19/21 10:18 Dose: 25 mcg Documented by: Sodium Chloride (Normal Saline) 1,000 mls @ 1,000 mls/hr IV ASDIRECTED [facility] Last Admin: 03/19/21 10:18 Dose: 1,000 mls/hr Documented by: Sodium Chloride (Normal Saline) 100 mls @ 4 mls/sec IV ASDIRECTED [facility] Last Admin: 03/19/21 10:50 Dose: 4 mls/sec Documented by: Levofloxacin/Dextrose 750 mg/ (Premix) 150 mls @ 100 mls/hr IV ONETIME ONE Stop: 03/19/21 12:13 Last Admin: 03/19/21 11:17 Dose: 100 mls/hr Documented by: Piperacillin/Tazobactam/ (Dextrose 3.375 gm/ Premix) 50 mls @ 100 mls/hr IV ONETIME ONE Stop: 03/19/21 12:44 Last Admin: 03/19/21 13:08 Dose: 100 mls/hr Documented by: Levofloxacin/Dextrose 750 mg/ (Premix) 150 mls @ 100 mls/hr IV Q24H [facility] Sodium Chloride (Normal Saline) 1,000 mls @ 125 mls/hr IV ASDIRECTED [facility] Last Admin: 03/20/21 11:09 Dose: 125 mls/hr Documented by: Magnesium Sulfate 2 gm/ Premix 50 mls @ 25 mls/hr IV ONETIME ONE Stop: 03/20/21 10:29 Last Admin: 03/20/21 08:53 Dose: 25 mls/hr Documented by: Influenza Virus Vaccine (Pharmacy To Dose - Influenza Vaccine) 1 each IM ONETIM E ONE Stop: 03/21/21 10:01 Influenza Virus Vaccine (Flu Vacc [id number](65yr Up)/Pf 240 Mcg/0.7 Ml Syringe) 240 mcg IM .ONCE ONE Stop: 03/21/21 10:01 Last Admin: 03/21/21 10:10 Dose: 240 mcg Documented by: Iopamidol (Iopamidol 755 Mg/Ml 100 Ml Bottle) 100 ml IV . DIRECTED ONE Stop: 03/19/21 10:36 Last Admin: 03/19/21 10:51 Dose: 100 ml Documented by: Pantoprazole Sodium (Pantoprazole 40 Mg Tab.Cr) 40 mg PO DAILY [facility] Last Admin: 03/20/21 08:55 Dose: 40 mg Documented by: - Exam Quality Assessment: Supplemental Oxygen, DVT Prophylaxis General: Alert, Oriented, Cooperative, Mild Distress Lungs: Normal Respiratory Effort, Rales, Rhonchi. No: Crackles, Wheezing Cardiovascular: Regular Rate, Regular Rhythm, No Murmurs GI/Abdominal Exam: Soft, Non-Tender, No Organomegaly, No Distention Extremities: Non-Tender, No Pedal Edema - Patient Data Result Diagrams: 03/21/21 05:45 03/21/21 05:45 Jared Results Last 24 hrs: Microbiology 03/19/21 10:25 Aerobic Blood Culture - Final Blood - Arm, Right NO GROWTH AFTER 5 DAYS Anaerobic Blood Culture - Final NO GROWTH AFTER 5 DAYS 03/19/21 10:07 Aerobic Blood Culture - Final Blood - Arm, Right NO GROWTH AFTER 5 DAYS Anaerobic Blood Culture - Final NO GROWTH AFTER 5 DAYS Sepsis Event Note - Evaluation Sepsis Screening Result: No Definite Risk - Focused Exam Vital Signs: Vital Signs Temp Pulse Resp BP Pulse Ox 03/24/21 16:05 97.7 F 74 18 113/51 L 96 03/24/21 11:00 97.7 F 75 18 100/50 L 94 L 03/24/21 07:00 96.8 F L 69 17 111/73 92 L - Problem List Review Problem List Initiated/Reviewed/Updated: Yes - My Orders Last 24 Hours: My Active Orders 03/24/21 16:33 Chest 2V [CR] Urgent 03/25/21 05:00 BASIC METABOLIC PANEL,BMP [CHEM] Timed CBC WITH AUTO DIFF [HEME] Timed MAGNESIUM [CHEM] Timed - Plan Plan:: ASSESSMENT AND PLAN LEFT LUNG PNEUMONIA-possible aspiration with history of reflux. Continues to require supplemental oxygen at 4 L/min via nasal cannula. Remains weak and fatigued, ongoing cough with occasional sputum production. Chest wall pain related to cough and deep breathing. -Blood cultures pending -Saline lock IV -IV Zosyn and levofloxacin pending culture results -Follow-up PA and lateral chest x-ray -BMP and CBC in a.m. HYPOXIA-secondary to underlying pneumonia and COPD -Supplemental oxygen as needed -Nebulized albuterol and DuoNebs METATARSAL FRACTURES RIGHT FOOT-ambulation has improved with use of the cam walker -CAM Walker -Follow-up per orthopedic surgery HISTORY OF COPD -Management as above -IV Solu-Medrol 40 mg IV every 8 hours -Albuterol and DuoNebs MAINTENANCE ISSUES -DVT prophylaxis; Lovenox 40 mg subcu daily -GI prophylaxis; not indicated -Gomez catheter; not indicated -Nutrition; regular diet -Nicotine dependence; not required CODE STATUS-FULL CODE ADMISSION STATUS-patient will be admitted to inpatient status, expect at least a 2 night hospital stay for evaluation and management of problems as outlined above. At the time of this admission I do not reasonably expected evaluation and management of this problem will require more than a 96 hour hospital stay. DISPOSITION-anticipate discharge to home after the hospital stay. PRIMARY CARE PROVIDER-Radha Davison
[2021-03-24] MEDS: methylPREDNISolone Sodium Succinate 40 MG/1 ML SDV IVPUSH SCH (16:57)
[2021-03-24] MEDS: ClonazePAM 1 MG Tab PO SCH (21:19)
[2021-03-24] MEDS: traZODone 50 MG Tab PO SCH (21:20)
[2021-03-24] MEDS: Acetaminophen 325 MG Tab PO PRN (22:38)
[2021-03-25] MEDS: methylPREDNISolone Sodium Succinate 40 MG/1 ML SDV IVPUSH SCH ×5 (00:15→23:05)
[2021-03-25] MEDS: Diclofenac Sodium 1% Gel 100 GM Tube TOP SCH ×4 (05:02→22:36)
[2021-03-25] MEDS: Piperacillin/Tazobactam/Dext 3.375 GM in Premix Bag 1 BAG IV SCH ×4 (05:02→22:36)
[2021-03-25] MEDS: Albuterol/Ipratropium 3.0-0.5 MG/3 ML Neb Soln NEB SCH ×4 (07:08→20:41)
[2021-03-25] MEDS: Pantoprazole 40 MG Tab.CR PO SCH (07:55)
[2021-03-25] MEDS: Levothyroxine 112 MCG Tab PO SCH (07:55)
[2021-03-25] MEDS ORDERED: Furosemide 20 MG/2 ML VIAL IVPUSH ONE ×2 (08:30→18:00)
[2021-03-25] MEDS: Venlafaxine 37.5 MG Cap.ER PO SCH (08:56)
[2021-03-25] MEDS: Aspirin 81 MG Tab.EC PO SCH (08:57)
[2021-03-25] MEDS: Enoxaparin 40 MG/0.4 ML Syringe SUBCUT SCH (08:57)
[2021-03-25] MEDS: Cetirizine 10 MG Tab PO SCH (08:57)
[2021-03-25] MEDS: Magnesium Oxide 400 MG Tab PO SCH (08:57)
[2021-03-25] MEDS: Acetaminophen 325 MG Tab PO PRN ×2 (11:05→19:41)
[2021-03-25] MEDS: Levofloxacin/Dextrose 5%-Water 750 MG in Premix Bag 1 BAG IV SCH (12:21)
--- NOTE | 2021-03-25 15:03 | PCM.PN ---
- General Info Date of Service: 03/25/21 Subjective Update: Ms. Bryant has felt modestly improved over the last 24 hours with some improvement in shortness of breath. She continues to require 4 L of oxygen per minute via nasal cannula to maintain adequate oxygenation. Energy level seems to be improved as well as appetite. Functional Status: Reports: Tolerating Diet, Ambulating, Urinating - Review of Systems General: Reports: Weakness, Fatigue. Denies: Fever, Chills Pulmonary: Reports: Shortness of Breath, Cough, Sputum. Denies: Pleuritic Chest Pain, Hemoptysis, Wheezing Cardiovascular: Reports: Dyspnea on Exertion. Denies: Chest Pain, Palpitations, Orthopnea, PND, Edema, Lightheadedness Gastrointestinal: Reports: No Symptoms Genitourinary: Reports: No Symptoms - Patient Data Vitals - Most Recent: Last Vital Signs Temp 97.2 F 03/25/21 14:11 Pulse 68 03/25/21 14:38 Resp 16 03/25/21 14:11 BP 105/59 L 03/25/21 14:11 Pulse Ox 95 03/25/21 14:11 Weight - Most Recent: 164 lb 10.965 oz I&O - Last 24 Hours: Intake & Output 03/24/21 03/25/21 03/25/21 22:59 06:59 14:59 Intake Total 50 100 950 Output Total 500 1900 1400 Balance -450 -1800 -450 Lab Results Last 24 Hours: Laboratory Results - last 24 hr 03/25/21 03/25/21 Range/Units 05:52 05:52 WBC 6.8 (4.5-11.0) K/uL RBC 3.38 (3.30-5.50) M/uL Hgb 10.5 L (12.0-15.0) g/dL Hct 32.1 L (36.0-48.0) % MCV 95 (80-98) fL MCH 31 (27-31) pg MCHC 33 (32-36) % Plt Count 240 (150-400) K/uL Neut % (Auto) 86.3 H (36-66) % Lymph % (Auto) 8.7 L (24-44) % [place] % (Auto) 2.5 (2-6) % Eos % (Auto) 0.1 L (2-4) % Baso % (Auto) 0.3 (0-1) % Sodium 142 (140-148) mmol/L Potassium 4.3 (3.6-5.2) mmol/L Chloride 102 (100-108) mmol/L Carbon Dioxide 32 (21-32) mmol/L Anion Gap 7.6 (5.0-14.0) mmol/L BUN 12 D (7-18) mg/dL Creatinine 0.6 (0.6-1.0) mg/dL Est Cr Clr Drug Dosing 69.35 mL/min Estimated GFR (MDRD) > 60 (>60) Glucose 161 H (74-106) mg/dL Calcium 8.9 (8.5-10.1) mg/dL Magnesium 2.0 (1.8-2.4) mg/dL Jared Results Last 24 Hours: Microbiology 03/19/21 10:25 Aerobic Blood Culture - Final Blood - Arm, Right NO GROWTH AFTER 5 DAYS Anaerobic Blood Culture - Final NO GROWTH AFTER 5 DAYS 03/19/21 10:07 Aerobic Blood Culture - Final Blood - Arm, Right NO GROWTH AFTER 5 DAYS Anaerobic Blood Culture - Final NO GROWTH AFTER 5 DAYS Med Orders - Current: Current Medications Acetaminophen (Acetaminophen 325 Mg Tab) 650 mg PO Q4H PRN PRN Reason: Pain (Mild 1-3)/fever Last Admin: 03/25/21 11:05 Dose: 650 mg Documented by: Albuterol (Albuterol 0.083% 2.5 Mg/3 Ml Neb Soln) 2.5 mg NEB Q4H PRN PRN Reason: Shortness Of Breath/wheezing Albuterol/Ipratropium (Albuterol/Ipratropium 3.0-0.5 Mg/3 Ml Neb Soln) 3 ml NEB QIDRT [facility] Last Admin: 03/25/21 14:38 Dose: 3 ml Documented by: Aspirin (Aspirin 81 Mg Tab.Ec) 81 mg PO DAILY [facility] Last Admin: 03/25/21 08:57 Dose: 81 mg Documented by: Bupropion HCl (Bupropion 75 Mg Tab) 75 mg PO BID [facility] Last Admin: 03/25/21 08:57 Dose: 75 mg Documented by: Cetirizine HCl (Cetirizine 10 Mg Tab) 10 mg PO DAILY [facility] Last Admin: 03/25/21 08:57 Dose: 10 mg Documented by: Clonazepam (Clonazepam 1 Mg Tab) 2 mg PO BEDTIME [facility] Last Admin: 03/24/21 21:19 Dose: 2 mg Documented by: Diclofenac Sodium (Diclofenac Sodium 1% Gel 100 Gm Tube) 4 gm TOP QID [facility] Last Admin: 03/25/21 09:03 Dose: 4 applic Documented by: Enoxaparin Sodium (Enoxaparin 40 Mg/0.4 Ml Syringe) 40 mg SUBCUT DAILY [facility] Last Admin: 03/25/21 08:57 Dose: 40 mg Documented by: Furosemide (Furosemide 40 Mg/4 Ml Vial) 20 mg IVPUSH NOW ONE Stop: 03/25/21 18:01 Furosemide (Furosemide 40 Mg/4 Ml Vial) 20 mg IVPUSH NOW ONE Stop: 03/26/21 08:01 Levofloxacin/Dextrose 750 mg/ (Premix) 150 mls @ 100 mls/hr IV Q24H [facility] Last Admin: 03/25/21 12:21 Dose: 100 mls/hr Documented by: Piperacillin/Tazobactam/ (Dextrose 3.375 gm/ Premix) 50 mls @ 100 mls/hr IV Q6H [facility] Last Admin: 03/25/21 11:10 Dose: 100 mls/hr Documented by: Levothyroxine Sodium (Levothyroxine 112 Mcg Tab) 112 mcg PO ACBREAKFAST [facility] Last Admin: 03/25/21 07:55 Dose: 112 mcg Documented by: Magnesium Oxide (Magnesium Oxide 400 Mg Tab) 400 mg PO DAILY [facility] Last Admin: 03/25/21 08:57 Dose: 400 mg Documented by: Methylprednisolone Sodium Succinate (Methylprednisolone Sodium Succinate 40 Mg/1 Ml Sdv) 40 mg IVPUSH Q8H [facility] Last Admin: 03/25/21 09:05 Dose: 40 mg Documented by: Ondansetron HCl (Ondansetron 4 Mg/2 Ml Sdv) 4 mg IV Q4H PRN PRN Reason: Nausea/Vomiting Oxycodone HCl (Oxycodone 5 Mg Tab) 5 mg PO Q4H PRN PRN Reason: Pain (moderate 4-6) Last Admin: 03/23/21 17:01 Dose: 5 mg Documented by: Pantoprazole Sodium (Pantoprazole 40 Mg Tab.Cr) 40 mg PO ACBREAKFAST [facility] Last Admin: 03/25/21 07:55 Dose: 40 mg Documented by: Senna/Docusate Sodium (Docusate Sodium/Sennosides 50-8.6 Mg Tab) 1 tab PO BID PRN PRN Reason: Constipation Last Admin: 03/25/21 11:07 Dose: 1 tab Documented by: Sodium Chloride (Sodium Chloride 0.9% 10 Ml Syringe) 10 ml FLUSH ASDIRECTED PRN PRN Reason: Keep Vein Open Last Admin: 03/21/21 13:30 Dose: 10 ml Documented by: Trazodone HCl (Trazodone 50 Mg Tab) 150 mg PO BEDTIME [facility] Last Admin: 03/24/21 21:20 Dose: 150 mg Documented by: Venlafaxine HCl (Venlafaxine 37.5 Mg Cap.Er) 37.5 mg PO DAILY [facility] Last Admin: 03/25/21 08:56 Dose: 37.5 mg Documented by: Discontinued Medications Fentanyl (Fentanyl 100 Mcg/2 Ml Sdv) 25 mcg IVPUSH ONETIME ONE Stop: 03/19/21 10:00 Last Admin: 03/19/21 10:18 Dose: 25 mcg Documented by: Furosemide (Furosemide 20 Mg/2 Ml Vial) 20 mg IVPUSH NOW ONE Stop: 03/25/21 08:31 Last Admin: 03/25/21 09:07 Dose: 20 mg Documented by: Sodium Chloride (Normal Saline) 1,000 mls @ 1,000 mls/hr IV ASDIRECTED [facility] Last Admin: 03/19/21 10:18 Dose: 1,000 mls/hr Documented by: Sodium Chloride (Normal Saline) 100 mls @ 4 mls/sec IV ASDIRECTED [facility] Last Admin: 03/19/21 10:50 Dose: 4 mls/sec Documented by: Levofloxacin/Dextrose 750 mg/ (Premix) 150 mls @ 100 mls/hr IV ONETIME ONE Stop: 03/19/21 12:13 Last Admin: 03/19/21 11:17 Dose: 100 mls/hr Documented by: Piperacillin/Tazobactam/ (Dextrose 3.375 gm/ Premix) 50 mls @ 100 mls/hr IV ONETIME ONE Stop: 03/19/21 12:44 Last Admin: 03/19/21 13:08 Dose: 100 mls/hr Documented by: Levofloxacin/Dextrose 750 mg/ (Premix) 150 mls @ 100 mls/hr IV Q24H [facility] Sodium Chloride (Normal Saline) 1,000 mls @ 125 mls/hr IV ASDIRECTED [facility] Last Admin: 03/20/21 11:09 Dose: 125 mls/hr Documented by: Magnesium Sulfate 2 gm/ Premix 50 mls @ 25 mls/hr IV ONETIME ONE Stop: 03/20/21 10:29 Last Admin: 03/20/21 08:53 Dose: 25 mls/hr Documented by: Influenza Virus Vaccine (Pharmacy To Dose - Influenza Vaccine) 1 each IM ONETIME ONE Stop: 03/21/21 10:01 Influenza Virus Vaccine (Flu Vacc [id number](65yr Up)/Pf 240 Mcg/0.7 Ml Syringe) 240 mcg IM .ONCE ONE Stop: 03/21/21 10:01 Last Admin: 03/21/21 10:10 Dose: 240 mcg Documented by: Iopamidol (Iopamidol 755 Mg/Ml 100 Ml Bottle) 100 ml IV . DIRECTED ONE Stop: 03/19/21 10:36 Last Admin: 03/19/21 10:51 Dose: 100 ml Documented by: Methylprednisolone Sodium Succinate (Methylprednisolone Sodium Succinate 40 Mg/1 Ml Sdv) 40 mg IVPUSH Q8H [facility] Last Admin: 03/25/21 00:15 Dose: 40 mg Documented by: Pantoprazole Sodium (Pantoprazole 40 Mg Tab.Cr) 40 mg PO DAILY [facility] Last Admin: 03/20/21 08:55 Dose: 40 mg Documented by: - Exam Quality Assessment: Supplemental Oxygen, DVT Prophylaxis General: Alert, Oriented, Cooperative, Mild Distress Lungs: Normal Respiratory Effort, Decreased Breath Sounds, Rales. No: Crackles, Rhonchi, Wheezing Cardiovascular: Regular Rate, Regular Rhythm, No Murmurs GI/Abdominal Exam: Soft, Non-Tender, No Organomegaly, No Distention Extremities: Non-Tender, No Pedal Edema - Patient Data Lab Results Last 24 hrs: Laboratory Results - last 24 hr 03/25/21 03/25/21 Range/Units 05:52 05:52 WBC 6.8 (4.5-11.0) K/uL RBC 3.38 (3.30-5.50) M/uL Hgb 10.5 L (12.0-15.0) g/dL Hct 32.1 L (36.0-48.0) % MCV 95 (80-98) fL MCH 31 (27-31) pg MCHC 33 (32-36) % Plt Count 240 (150-400) K/uL Neut % (Auto) 86.3 H (36-66) % Lymph % (Auto) 8.7 L (24-44) % [place] % (Auto) 2.5 (2-6) % Eos % (Auto) 0.1 L (2-4) % Baso % (Auto) 0.3 (0-1) % Sodium 142 (140-148) mmol/L Potassium 4.3 (3.6-5.2) mmol/L Chloride 102 (100-108) mmol/L Carbon Dioxide 32 (21-32) mmol/L Anion Gap 7.6 (5.0-14.0) mmol/L BUN 12 D (7-18) mg/dL Creatinine 0.6 (0.6-1.0) mg/dL Est Cr Clr Drug Dosing 69.35 mL/min Estimated GFR (MDRD) > 60 (>60) Glucose 161 H (74-106) mg/dL Calcium 8.9 (8.5-10.1) mg/dL Magnesium 2.0 (1.8-2.4) mg/dL Result Diagrams: 03/25/21 05:52 03/25/21 05:52 Jared Results Last 24 hrs: Microbiology 03/19/21 10:25 Aerobic Blood Culture - Final Blood - Arm, Right NO GROWTH AFTER 5 DAYS Anaerobic Blood Culture - Final NO GROWTH AFTER 5 DAYS 03/19/21 10:07 Aerobic Blood Culture - Final Blood - Arm, Right NO GROWTH AFTER 5 DAYS Anaerobic Blood Culture - Final NO GROWTH AFTER 5 DAYS Sepsis Event Note - Evaluation Sepsis Screening Result: No Definite Risk - Focused Exam Vital Signs: Vital Signs Temp Pulse Resp BP Pulse Ox 03/25/21 14:38 68 03/25/21 14:11 97.2 F 68 16 105/59 L 95 03/25/21 11:29 97.2 F 80 16 100/53 L 95 03/25/21 07:33 96.9 F 62 15 106/53 L 95 03/25/21 03:00 95.7 F L 59 L 16 130/62 96 - Problem List Review Problem List Initiated/Reviewed/Updated: Yes - My Orders Last 24 Hours: My Active Orders 10/30/21 16:33 Chest 2V [CR] Urgent 03/25/21 08:00 methylPREDNISolone Sod Succ [Solu-MEDROL] 40 mg IVPUSH Q8H 03/25/21 18:00 Furosemide [Lasix] 20 mg IVPUSH NOW ONE 03/26/21 05:00 BASIC METABOLIC PANEL,BMP [CHEM] Timed 03/26/21 08:00 Furosemide [Lasix] 20 mg IVPUSH NOW ONE - Plan Plan:: ASSESSMENT AND PLAN LEFT LUNG PNEUMONIA-possible aspiration with history of reflux. Continues to require supplemental oxygen at 4 L/min via nasal cannula. Subjectively mild improvement in shortness of breath over the last 24 hours. Appetite and energy level also appear to be mildly improved. -Blood cultures negative so far -Saline lock IV -IV Zosyn and levofloxacin pending culture results -Follow-up PA and lateral chest x-ray -BMP and CBC in a.m. HYPOXIA-secondary to underlying pneumonia and COPD. Chest x-ray shows evidence of pulmonary edema, despite negative fluid balance over the past several days. -Supplemental oxygen as needed -Nebulized albuterol and DuoNebs -Solu-Medrol 40 mg IV every 8 hours -Furosemide 20 mg IV twice today and again in a.m., then reassess METATARSAL FRACTURES RIGHT FOOT-ambulation has improved with use of the cam walker -CAM Walker -Follow-up per orthopedic surgery HISTORY OF COPD -Management as above -IV Solu-Medrol 40 mg IV every 8 hours -Albuterol and DuoNebs MAINTENANCE ISSUES -DVT prophylaxis; Lovenox 40 mg subcu daily -GI prophylaxis; not indicated -Gomez catheter; not indicated -Nutrition; regular diet -Nicotine dependence; not required CODE STATUS-FULL CODE ADMISSION STATUS-patient will be admitted to inpatient status, expect at least a 2 night hospital stay for evaluation and management of problems as outlined above. At the time of this admission I do not reasonably expected evaluation and management of this problem will require more than a 96 hour hospital stay. DISPOSITION-anticipate discharge to home after the hospital stay. PRIMARY CARE PROVIDER-Radha Davison
[2021-03-25] MEDS: traZODone 50 MG Tab PO SCH (20:37)
[2021-03-25] MEDS: ClonazePAM 1 MG Tab PO SCH (20:42)
[2021-03-26] MEDS: Diclofenac Sodium 1% Gel 100 GM Tube TOP SCH ×4 (05:31→22:23)
[2021-03-26] MEDS: Piperacillin/Tazobactam/Dext 3.375 GM in Premix Bag 1 BAG IV SCH ×2 (05:35→11:34)
[2021-03-26] MEDS: Levothyroxine 112 MCG Tab PO SCH (07:17)
[2021-03-26] MEDS: methylPREDNISolone Sodium Succinate 40 MG/1 ML SDV IVPUSH SCH ×2 (07:17→15:12)
[2021-03-26] MEDS: Pantoprazole 40 MG Tab.CR PO SCH (07:17)
[2021-03-26] MEDS: Albuterol/Ipratropium 3.0-0.5 MG/3 ML Neb Soln NEB SCH ×4 (07:21→20:14)
[2021-03-26] MEDS ORDERED: Furosemide 20 MG/2 ML VIAL IVPUSH ONE (08:00)
--- NOTE | 2021-03-26 09:29 | CR ---
CHEST: 2 view CLINICAL HISTORY:Follow-up pneumonia, persistent hypoxia COMPARISON:CT 03/19/2021 FINDINGS: There has been some improvement in the diffuse left lung pneumonia. There has been development of some right lower lobe infiltrate. The granuloma in the left lower lobe Impression: Slight improvement left lung infiltrate New right lower lobe infiltrate
[2021-03-26] MEDS: Enoxaparin 40 MG/0.4 ML Syringe SUBCUT SCH (09:38)
[2021-03-26] MEDS: Cetirizine 10 MG Tab PO SCH (09:38)
[2021-03-26] MEDS: Aspirin 81 MG Tab.EC PO SCH (09:38)
[2021-03-26] MEDS: Magnesium Oxide 400 MG Tab PO SCH (09:38)
[2021-03-26] MEDS: Venlafaxine 37.5 MG Cap.ER PO SCH (09:38)
[2021-03-26] MEDS: Levofloxacin/Dextrose 5%-Water 750 MG in Premix Bag 1 BAG IV SCH (12:37)
[2021-03-26] MEDS: Acetaminophen 325 MG Tab PO PRN ×2 (15:12→22:33)
--- NOTE | 2021-03-26 16:17 | PCM.PN ---
- General Info Date of Service: 03/26/21 Subjective Update: No acute events overnight. No fevers. She did stay on supplemental oxygen overnight. They did try to wean her off this morning but she became mildly hypoxic. Currently requiring 1/2 to 1 L of supplemental oxygen. Strength and breathing are slowly improving. Appetite has not been very good. Blood pressure and heart rate have been stable. She has been walking in the [place] and going a little bit further each day. - Patient Data Vitals - Most Recent: Last Vital Signs Temp 36.8 C 03/26/21 15:08 Pulse 43 L 03/26/21 15:08 Resp 16 03/26/21 15:08 BP 131/56 L 03/26/21 15:08 Pulse Ox 91 L 03/26/21 15:08 Weight - Most Recent: 73.8 kg I&O - Last 24 Hours: Intake & Output 03/26/21 03/26/21 03/26/21 06:59 14:59 22:59 Intake Total 50 Output Total 1800 1300 Balance -1750 -1300 Lab Results Last 24 Hours: Laboratory Results - last 24 hr 03/26/21 Range/Units 05:00 Sodium 140 (140-148) mmol/L Potassium 4.1 (3.6-5.2) mmol/L Chloride 100 (100-108) mmol/L Carbon Dioxide 34 H (21-32) mmol/L Anion Gap 10.1 (5.0-14.0) mmol/L BUN 20 H D (7-18) mg/dL Creatinine 0.7 (0.6-1.0) mg/dL Est Cr Clr Drug Dosing 59.44 mL/min Estimated GFR (MDRD) > 60 (>60) Glucose 153 H (74-106) mg/dL Calcium 9.2 (8.5-10.1) mg/dL Med Orders - Current: Current Medications Acetaminophen (Acetaminophen 325 Mg Tab) 650 mg PO Q4H PRN PRN Reason: Pain (Mild 1-3)/fever Last Admin: 03/26/21 15:12 Dose: 650 mg Documented by: Albuterol (Albuterol 0.083% 2.5 Mg/3 Ml Neb Soln) 2.5 mg NEB Q4H PRN PRN Reason: Shortness Of Breath/wheezing Albuterol/Ipratropium (Albuterol/Ipratropium 3.0-0.5 Mg/3 Ml Neb Soln) 3 ml NEB QIDRT [facility] Last Admin: 03/26/21 14:35 Dose: 3 ml Documented by: Aspirin (Aspirin 81 Mg Tab.Ec) 81 mg PO DAILY [facility] Last Admin: 03/26/21 09:38 Dose: 81 mg Documented by: Bupropion HCl (Bupropion 75 Mg Tab) 75 mg PO BID [facility] Last Admin: 03/26/21 09:38 Dose: 75 mg Documented by: Cetirizine HCl (Cetirizine 10 Mg Tab) 10 mg PO DAILY [facility] Last Admin: 03/26/21 09:38 Dose: 10 mg Documented by: Clonazepam (Clonazepam 1 Mg Tab) 2 mg PO BEDTIME [facility] Last Admin: 03/25/21 20:42 Dose: 2 mg Documented by: Diclofenac Sodium (Diclofenac Sodium 1% Gel 100 Gm Tube) 4 gm TOP QID [facility] Last Admin: 03/26/21 15:09 Dose: Not Given Documented by: Enoxaparin Sodium (Enoxaparin 40 Mg/0.4 Ml Syringe) 40 mg SUBCUT DAILY [facility] Last Admin: 03/26/21 09:38 Dose: 40 mg Documented by: Levofloxacin/Dextrose 750 mg/ (Premix) 150 mls @ 100 mls/hr IV Q24H [facility] Last Admin: 03/26/21 12:37 Dose: 100 mls/hr Documented by: Piperacillin/Tazobactam/ (Dextrose 3.375 gm/ Premix) 50 mls @ 100 mls/hr IV Q6H [facility] Last Admin: 03/26/21 11:34 Dose: 100 mls/hr Documented by: Levothyroxine Sodium (Levothyroxine 112 Mcg Tab) 112 mcg PO ACBREAKFAST [facility] Last Admin: 03/26/21 07:17 Dose: 112 mcg Documented by: Magnesium Oxide (Magnesium Oxide 400 Mg Tab) 400 mg PO DAILY [facility] Last Admin: 03/26/21 09:38 Dose: 400 mg Documented by: Methylprednisolone Sodium Succinate (Methylprednisolone Sodium Succinate 40 Mg/1 Ml Sdv) 40 mg IVPUSH Q8H [facility] Last Admin: 03/26/21 15:12 Dose: 40 mg Documented by: Ondansetron HCl (Ondansetron 4 Mg/2 Ml Sdv) 4 mg IV Q4H PRN PRN Reason: Nausea/Vomiting Oxycodone HCl (Oxycodone 5 Mg Tab) 5 mg PO Q4H PRN PRN Reason: Pain (moderate 4-6) Last Admin: 03/23/21 17:01 Dose: 5 mg Documented by: Pantoprazole Sodium (Pantoprazole 40 Mg Tab.Cr) 40 mg PO ACBREAKFAST [facility] Last Admin: 03/26/21 07:17 Dose: 40 mg Documented by: Senna/Docusate Sodium (Docusate Sodium/Sennosides 50-8.6 Mg Tab) 1 tab PO BID PRN PRN Reason: Constipation Last Admin: 03/25/21 11:07 Dose: 1 tab Documented by: Sodium Chloride (Sodium Chloride 0.9% 10 Ml Syringe) 10 ml FLUSH ASDIRECTED PRN PRN Reason: Keep Vein Open Last Admin: 03/21/21 13:30 Dose: 10 ml Documented by: Trazodone HCl (Trazodone 50 Mg Tab) 150 mg PO BEDTIME [facility] Last Admin: 03/25/21 20:37 Dose: 150 mg Documented by: Venlafaxine HCl (Venlafaxine 37.5 Mg Cap.Er) 37.5 mg PO DAILY [facility] Last Admin: 03/26/21 09:38 Dose: 37.5 mg Documented by: Discontinued Medications Fentanyl (Fentanyl 100 Mcg/2 Ml Sdv) 25 mcg IVPUSH ONETIME ONE Stop: 03/19/21 10:00 Last Admin: 03/19/21 10:18 Dose: 25 mcg Documented by: Furosemide (Furosemide 20 Mg/2 Ml Vial) 20 mg IVPUSH NOW ONE Stop: 03/25/21 08:31 Last Admin: 03/25/21 09:07 Dose: 20 mg Documented by: Furosemide (Furosemide 20 Mg/2 Ml Vial) 20 mg IVPUSH NOW ONE Stop: 03/25/21 18:01 Last Admin: 03/25/21 17:12 Dose: 20 mg Documented by: Furosemide (Furosemide 20 Mg/2 Ml Vial) 20 mg IVPUSH NOW ONE Stop: 03/26/21 08:01 Last Admin: 03/26/21 07:17 Dose: 20 mg Documented by: Sodium Chloride (Normal Saline) 1,000 mls @ 1,000 mls/hr IV ASDIRECTED [facility] Last Admin: 03/19/21 10:18 Dose: 1,000 mls/hr Documented by: Sodium Chloride (Normal Saline) 100 mls @ 4 mls/sec IV ASDIRECTED [facility] Last Admin: 03/19/21 10:50 Dose: 4 mls/sec Documented by: Levofloxacin/Dextrose 750 mg/ (Premix) 150 mls @ 100 mls/hr IV ONETIME ONE Stop: 03/19/21 12:13 Last Admin: 03/19/21 11:17 Dose: 100 mls/hr Documented by: Piperacillin/Tazobactam/ (Dextrose 3.375 gm/ Premix) 50 mls @ 100 mls/hr IV ONETIME ONE Stop: 03/19/21 12:44 Last Admin: 03/19/21 13:08 Dose: 100 mls/hr Documented by: Levofloxacin/Dextrose 750 mg/ (Premix) 150 mls @ 100 mls/hr IV Q24H [facility] Sodium Chloride (Normal Saline) 1,000 mls @ 125 mls/hr IV ASDIRECTED [facility] Last Admin: 03/20/21 11:09 Dose: 125 mls/hr Documented by: Magnesium Sulfate 2 gm/ Premix 50 mls @ 25 mls/hr IV ONETIME ONE Stop: 03/20/21 10:29 Last Admin: 03/20/21 08:53 Dose: 25 mls/hr Documented by: Influenza Virus Vaccine (Pharmacy To Dose - Influenza Vaccine) 1 each IM ONETIME ONE Stop: 03/21/21 10:01 Influenza Virus Vaccine (Flu Vacc [id number](65yr Up)/Pf 240 Mcg/0.7 Ml Syringe) 240 mcg IM .ONCE ONE Stop: 03/21/21 10:01 Last Admin: 03/21/21 10:10 Dose: 240 mcg Documented by: Iopamidol (Iopamidol 755 Mg/Ml 100 Ml Bottle) 100 ml IV . DIRECTED ONE Stop: 03/19/21 10:36 Last Admin: 03/19/21 10:51 Dose: 100 ml Documented by: Methylprednisolone Sodium Succinate (Methylprednisolone Sodium Succinate 40 Mg/1 Ml Sdv) 40 mg IVPUSH Q8H [facility] Last Admin: 03/25/21 00:15 Dose: 40 mg Documented by: Pantoprazole Sodium (Pantoprazole 40 Mg Tab.Cr) 40 mg PO DAILY [facility] Last Admin: 03/20/21 08:55 Dose: 40 mg Documented by: - Exam Quality Assessment: Supplemental Oxygen General: Alert, Oriented, Cooperative, No Acute Distress Neck: No JVD Lungs: Clear to Auscultation, Normal Respiratory Effort. No: Wheezing Cardiovascular: Regular Rate, Regular Rhythm GI/Abdominal Exam: Soft, No Distention Extremities: No Pedal Edema. No: Increased Warmth Skin: Warm, Dry Psy/Mental Status: Alert, Normal Affect - Patient Data Lab Results Last 24 hrs: Laboratory Results - last 24 hr 03/26/21 Range/Units 05:00 Sodium 140 (140-148) mmol/L Potassium 4.1 (3.6-5.2) mmol/L Chloride 100 (100-108) mmol/L Carbon Dioxide 34 H (21-32) mmol/L Anion Gap 10.1 (5.0-14.0) mmol/L BUN 20 H D (7-18) mg/dL Creatinine 0.7 (0.6-1.0) mg/dL Est Cr Clr Drug Dosing 59.44 mL/min Estimated GFR (MDRD) > 60 (>60) Glucose 153 H (74-106) mg/dL Calcium 9.2 (8.5-10.1) mg/dL Result Diagrams: 03/25/21 05:52 03/26/21 05:00 Sepsis Event Note - Evaluation Sepsis Screening Result: No Definite Risk - Focused Exam Vital Signs: Vital Signs Temp Pulse Resp BP Pulse Ox 03/26/21 15:08 36.8 C 43 L 16 131/56 L 91 L 03/26/21 09:56 35.6 C L 75 16 112/56 L 90 L - Problem List Review Problem List Initiated/Reviewed/Updated: Yes - Plan Plan:: ASSESSMENT AND PLAN - LEFT LUNG PNEUMONIA-possible aspiration with history of reflux. Supplemental oxygen requirements decreasing but not off oxygen as of yet. Chest x-ray yesterday showed improvement in the infiltrate. -Blood cultures negative so far -Saline lock IV -Continue levofloxacin -BMP and CBC in a.m. HYPOXIA-secondary to underlying pneumonia and COPD. Fluid status improving. -Supplemental oxygen as needed -Nebulized albuterol and DuoNebs -Solu-Medrol 40 mg IV every 8 hours today, transition to prednisone tomorrow -Reassess volume status tomorrow METATARSAL FRACTURES RIGHT FOOT-ambulation has improved with use of the cam walker. -CAM Walker -Follow-up per orthopedic surgery HISTORY OF COPD -Management as above -IV steroids today, prednisone tomorrow -Albuterol and DuoNebs MAINTENANCE ISSUES -DVT prophylaxis; Lovenox 40 mg subcu daily -GI prophylaxis; not indicated -Gomez catheter; not indicated -Nutrition; regular diet DISPOSITION-anticipate discharge to home after the hospital stay. Sim Ortez MD
[2021-03-26] MEDS: ClonazePAM 1 MG Tab PO SCH (20:14)
[2021-03-26] MEDS: traZODone 50 MG Tab PO SCH (20:14)
[2021-03-27] MEDS: methylPREDNISolone Sodium Succinate 40 MG/1 ML SDV IVPUSH SCH (02:04)
[2021-03-27] MEDS: Diclofenac Sodium 1% Gel 100 GM Tube TOP SCH (05:45)
[2021-03-27] MEDS: Albuterol/Ipratropium 3.0-0.5 MG/3 ML Neb Soln NEB SCH ×3 (07:27→14:25)
[2021-03-27] MEDS: Pantoprazole 40 MG Tab.CR PO SCH (07:31)
[2021-03-27] MEDS: Levothyroxine 112 MCG Tab PO SCH (07:31)
[2021-03-27 07:34] VITALS: BP 104/52
[2021-03-27] MEDS ORDERED: predniSONE 20 MG Tab PO SCH (08:00)
[2021-03-27] MEDS: Venlafaxine 37.5 MG Cap.ER PO SCH (08:53)
[2021-03-27] MEDS: Magnesium Oxide 400 MG Tab PO SCH (08:53)
[2021-03-27] MEDS: Cetirizine 10 MG Tab PO SCH (08:54)
[2021-03-27] MEDS: Enoxaparin 40 MG/0.4 ML Syringe SUBCUT SCH (08:54)
[2021-03-27] MEDS: Aspirin 81 MG Tab.EC PO SCH (08:54)
[2021-03-27 10:52] VITALS: PULSE 103
--- NOTE | 2021-03-27 10:55 | PCM.DCSUM1 ---
Discharge Summary - Hospital Course Brief History: 70-year-old female with history of COPD, type 2 diabetes mellitus and previous gastric bypass surgery who presented with syncope and shortness of breath. She was admitted for management of a left lower lobe pneumonia with acute respiratory failure and hypoxia. Diagnosis: Stroke: No - Discharge Data Discharge Date: 03/27/21 Discharge Disposition: Home, W Home Health Agency 06 Condition: Fair - Referral to Home Health Date of Face to Face Encounter: 03/27/21 Reason for Homebound Status: dyspnea, weakness after pneumonia Primary Care Physician: PCP Unknown Skilled Need: Nursing and PT - Discharge Diagnosis/Problem(s) (1) Pneumonia involving left lung SNOMED Code(s): 678823182 ICD Code: J18.9 - PNEUMONIA, UNSPECIFIED ORGANISM Status: Acute Qualifiers: Pneumonia type: due to unspecified organism Lung location: lower lobe of lung Qualified Code(s): J18.9 - Pneumonia, unspecified organism (2) Acute respiratory failure with hypoxia SNOMED Code(s): 29235480, 568664398 ICD Code: J96.01 - ACUTE RESPIRATORY FAILURE WITH HYPOXIA Status: Acute (3) Metatarsal bone fracture SNOMED Code(s): 696900652 ICD Code: S92.309A - FRACTURE OF UNSP METATARSAL BONE(S), UNSP FOOT, INIT Status: Acute Problem Details: mildly displaced 2nd and third metatarsal neck fractures Qualifiers: Encounter type: initial encounter Metatarsal bone: unspecified metatarsal Fracture type: closed Fracture alignment: displaced Laterality: right Qualified Code(s): S92.301A - Fracture of unspecified metatarsal bone(s), right foot, initial encounter for closed fracture (4) Hx of bariatric surgery SNOMED Code(s): 570283179, 973971168 ICD Code: Z98.84 - BARIATRIC SURGERY STATUS Status: Chronic (5) Type 2 diabetes mellitus SNOMED Code(s): 48717608 ICD Code: E11.9 - TYPE 2 DIABETES MELLITUS WITHOUT COMPLICATIONS Status: Chronic Qualifiers: Diabetes mellitus mcc insulin use: without medical terminologist use Diabetes mellitus complication status: with other specified complication Qualified Code(s): E11.69 - Type 2 diabetes mellitus with other specified complication - Patient Summary/Data Consults: Consultations 03/20/21 13:12 Consult to Physician [CONS] Routine Consulting Provider: Jamison Emery Courtesy Call Completed to Consulting Physician: Yes Reason for Consult: Possible metatarsal fractures right foot Hospital Course: Ana Maria presented to the emergency room after several episodes of near syncope as well as dyspnea and weakness. Work-up in the emergency room revealed evidence for a left lung pneumonia with acute respiratory failure with hypoxia. There is also evidence for fractures of the second and third metatarsals on the right foot secondary to a fall she sustained at home. She was started on broad-spectr um antibiotic coverage after cultures were obtained. She was admitted to the hospital for further management of the pneumonia. Over the next several days we did see some clinical improvement with no fevers and normalization of her white blood cell count. Her pain related to the fractures of the right foot was well controlled. She continued to require 4 L of supplemental oxygen. There was some evidence for volume overload so diuresis was initiated and once this was undertaken then we did see a steady improvement in her respiratory status. Repeat x-ray imaging showed improvement in the left lung infiltrate. All of her cultures have been negative. By the time of readiness for hospital discharge we have weaned her supplemental oxygen down to about 1 L of oxygen. She does drop down to about 87% without supplemental oxygen. She feels well enough to go home and would like to go home. I think she is safe for discharge home. She has completed 8 days of antibiotics and this should be adequate antibiotic therapy. Cough is minimal. Appetite is good. Strength steadily improving. She was set up for home oxygen through [facility]. She has early follow-up with primary care. Imaging in the emergency room revealed fractures of the second and third metatarsals. Orthopedics was consulted. A cam boot was placed. She will continue to wear this while she is up and about but may have it off when she is resting or showering. Pain has been well controlled. - Patient Instructions Diet: Usual Diet as Tolerated Activity: As Tolerated Showering/Bathing: May Shower Other/Special Instructions: 1. You were in the hospital for management of a left lower lobe pneumonia. We did not determine a causative bacteria. Your condition has been improving with antibiotic therapy as well as diuresis. I believe you have completed adequate antibiotic therapy at this time. Your volume status seems to be appropriate and you do not need additional diuresis. Your oxygen levels did drop without supplemental oxygen. We did complete paperwork so you can have oxygen at home. I would recommend that you use 1 to 2 L/min to keep your oxygen saturations greater than 90%. Hopefully over the next few weeks you will be able to wean yourself down and then eventually off of the supplemental oxygen. 2. X ray imaging of the right foot showed fractures of metatarsal bones. You have been placed in a cam walker. I would recommend that you use this while you are up and about. You may have it off while you are resting at night. Follow-up with the orthopedic team has been scheduled. 3. Follow up as scheduled with your primary care to ensure that you continue to improve after treatment for pneumonia. 4. I have placed a referral to home health care. They will provide nursing and physical therapy services to help ease your transition home from the hospital. - Discharge Plan *PRESCRIPTION DRUG MONITORING PROGRAM REVIEWED*: Not Applicable *COPY OF PRESCRIPTION DRUG MONITORING REPORT IN PATIENT [place]ONITA: Not Applicable Prescriptions/Med Rec: oxyCODONE 5 mg PO Q4H PRN #10 tablet PRN Reason: Pain (Moderate 4-6) Home Medications: Home Meds Albuterol [Ventolin HFA] 2 puff IH Q6H PRN 09/14/14 [History] Aspirin [Aspirin EC] 81 mg PO DAILY 09/14/14 [History] Calcium Carb, Citrate/Vit D3 [Citracal + D ER] 1 tab PO BID 09/14/14 [History] Cholecalciferol (Vitamin D3) [Vitamin D3] 2,000 unit PO DAILY 09/14/14 [History] Folic Acid 1 mg PO DAILY 09/14/14 [History] Thiamine HCl [Vitamin B-1] 100 mg PO DAILY 09/14/14 [History] Vitamin B Complex [Super B-50 Complex] 1 tab PO DAILY 09/14/14 [History] clonazePAM [Clonazepam] 2 mg PO BEDTIME 09/14/14 [History] traZODone HCl [Trazodone HCl] 150 mg PO BEDTIME 09/14/14 [History] Levothyroxine 112 mcg PO ACBREAKFAST 08/09/16 [History] Venlafaxine [Effexor XR] 37.5 mg PO DAILY 08/09/16 [History] Pantoprazole Sodium [Protonix] 40 mg PO DAILY 10/16/16 [History] Cetirizine HCl [All Day Allergy] 10 mg PO DAILY 04/10/18 [History] Zinc Gluconate [Zinc] 25 mg PO DAILY 04/10/18 [History] Diclofenac Sodium [Voltaren] 4 g TOP QID 09/01/18 [History] Polyvinyl Alcohol/Povidone [Refresh] 1 drop EYEBOTH ASDIRECTED 06/09/19 [History] Magnesium Oxide 400 mg PO DAILY 05/24/20 [History] Mometasone Furoate [Nasonex Mayo] 2 spray ANNAMARIE DAILY PRN 05/24/20 [History] Ondansetron [Zofran ODT] 4 mg PO Q4HR PRN 05/24/20 [History] Pediatric Multivit #36/Iron [Vitalets Tablet Chewable] 2 tab PO DAILY 05/24/20 [History] Sennosides [Senna] 1 - 2 tab PO BEDTIME PRN #100 05/30/20 [Rx] Sennosides/Docusate Sodium [Senna-S] 2 each PO DAILY PRN #60 tablet 05/30/20 [Rx] buPROPion [Wellbutrin] 75 mg PO BID 03/07/21 [History] oxyCODONE 5 mg PO Q4H PRN #10 tablet 03/27/21 [Rx] Oxygen Therapy Mode: Nasal Cannula (2) Patient Handouts: Hypoxia, Fall Prevention in the Home, Adult, [id number], Aspiration Pneumonia, Adult Referrals: Courtney Davison PA [Advanced RN Practitioner] - 04/03/21 1:30 pm (Please arrive 15 minutes early to register for your appointment.) Nam Jimenez PA [Ordering Only Provider] - 04/05/21 10:30 am (Please arrive 15 minutes early to register for your appointment Please register at the ER desk.) - Discharge Summary/Plan Comment DC Time >30 min.: Yes (45) Total # of Minutes for Discharge Time: 45 minutes - home oxygen and home care - Patient Data Vitals - Most Recent: Last Vital Signs Temp 35.4 C L 03/27/21 07:32 Pulse 103 H 03/27/21 10:52 Resp 16 03/27/21 07:32 BP 104/52 L 03/27/21 07:32 Pulse Ox 98 03/27/21 07:32 Weight - Most Recent: 70.2 kg I&O - Last 24 hours: Intake & Output 03/26/21 03/27/21 03/27/21 22:59 06:59 14:59 Intake Total 1350 Output Total 1375 Balance -25 Med Orders - Current: Current Medications Acetaminophen (Acetaminophen 325 Mg Tab) 650 mg PO Q4H PRN PRN Reason: Pain (Mild 1-3)/fever Last Admin: 03/26/21 22:33 Dose: 650 mg Documented by: Albuterol (Albuterol 0.083% 2.5 Mg/3 Ml Neb Soln) 2.5 mg NEB Q4H PRN PRN Reason: Shortness Of Breath/wheezing Albuterol/Ipratropium (Albuterol/Ipratropium 3.0-0.5 Mg/3 Ml Neb Soln) 3 ml NEB QIDRT [facility] Last Admin: 03/27/21 10:51 Dose: 3 ml Documented by: Aspirin (Aspirin 81 Mg Tab.Ec) 81 mg PO DAILY [facility] Last Admin: 03/27/21 08:54 Dose: 81 mg Documented by: Bupropion HCl (Bupropion 75 Mg Tab) 75 mg PO BID [facility] Last Admin: 03/27/21 08:54 Dose: 75 mg Documented by: Cetirizine HCl (Cetirizine 10 Mg Tab) 10 mg PO DAILY [facility] Last Admin: 03/27/21 08:54 Dose: 10 mg Documented by: Clonazepam (Clonazepam 1 Mg Tab) 2 mg PO BEDTIME [facility] Last Admin: 03/26/21 20:14 Dose: 2 mg Documented by: Diclofenac Sodium (Diclofenac Sodium 1% Gel 100 Gm Tube) 4 gm TOP QID [facility] Last Admin: 03/27/21 05:45 Dose: Not Given Documented by: Enoxaparin Sodium (Enoxaparin 40 Mg/0.4 Ml Syringe) 40 mg SUBCUT DAILY [facility] Last Admin: 03/27/21 08:54 Dose: 40 mg Documented by: Levofloxacin 250 mg/ (Levofloxacin 500 mg) 750 mg PO Q24H [facility] Levothyroxine Sodium (Levothyroxine 112 Mcg Tab) 112 mcg PO ACBREAKFAST [facility] Last Admin: 03/27/21 07:31 Dose: 112 mcg Documented by: Magnesium Oxide (Magnesium Oxide 400 Mg Tab) 400 mg PO DAILY [facility] Last Admin: 03/27/21 08:53 Dose: 400 mg Documented by: Ondansetron HCl (Ondansetron 4 Mg/2 Ml Sdv) 4 mg IV Q4H PRN PRN Reason: Nausea/Vomiting Oxycodone HCl (Oxycodone 5 Mg Tab) 5 mg PO Q4H PRN PRN Reason: Pain (moderate 4-6) Last Admin: 03/23/21 17:01 Dose: 5 mg Documented by: Pantoprazole Sodium (Pantoprazole 40 Mg Tab.Cr) 40 mg PO ACBREAKFAST [facility] Last Admin: 03/27/21 07:31 Dose: 40 mg Documented by: Prednisone (Prednisone 20 Mg Tab) 40 mg PO WITHBREAKFAST [facility] Last Admin: 03/27/21 07:31 Dose: 40 mg Documented by: Senna/Docusate Sodium (Docusate Sodium/Sennosides 50-8.6 Mg Tab) 1 tab PO BID PRN PRN Reason: Constipation Last Admin: 03/27/21 08:53 Dose: 1 tab Documented by: Sodium Chloride (Sodium Chloride 0.9% 10 Ml Syringe) 10 ml FLUSH ASDIRECTED PRN PRN Reason: Keep Vein Open Last Admin: 03/21/21 13:30 Dose: 10 ml Documented by: Trazodone HCl (Trazodone 50 Mg Tab) 150 mg PO BEDTIME [facility] Last Admin: 03/26/21 20:14 Dose: 150 mg Documented by: Venlafaxine HCl (Venlafaxine 37.5 Mg Cap.Er) 37.5 mg PO DAILY [facility] Last Admin: 03/27/21 08:53 Dose: 37.5 mg Documented by: Discontinued Medications Fentanyl (Fentanyl 100 Mcg/2 Ml Sdv) 25 mcg IVPUSH ONETIME ONE Stop: 03/19/21 10:00 Last Admin: 03/19/21 10:18 Dose: 25 mcg Documented by: Furosemide (Furosemide 20 Mg/2 Ml Vial) 20 mg IVPUSH NOW ONE Stop: 03/25/21 08:31 Last Admin: 03/25/21 09:07 Dose: 20 mg Documented by: Furosemide (Furosemide 20 Mg/2 Ml Vial) 20 mg IVPUSH NOW ONE Stop: 03/25/21 18:01 Last Admin: 03/25/21 17:12 Dose: 20 mg Documented by: Furosemide (Furosemide 20 Mg/2 Ml Vial) 20 mg IVPUSH NOW ONE Stop: 03/26/21 08:01 Last Admin: 03/26/21 07:17 Dose: 20 mg Documented by: Sodium Chloride (Normal Saline) 1,000 mls @ 1,000 mls/hr IV ASDIRECTED [facility] Last Admin: 03/19/21 10:18 Dose: 1,000 mls/hr Documented by: Sodium Chloride (Normal Saline) 100 mls @ 4 mls/sec IV ASDIRECTED [facility] Last Admin: 03/19/21 10:50 Dose: 4 mls/sec Documented by: Levofloxacin/Dextrose 750 mg/ (Premix) 150 mls @ 100 mls/hr IV ONETIME ONE Stop: 03/19/21 12:13 Last Admin: 03/19/21 11:17 Dose: 100 mls/hr Documented by: Piperacillin/Tazobactam/ (Dextrose 3.375 gm/ Premix) 50 mls @ 100 mls/hr IV ONETIME ONE Stop: 03/19/21 12:44 Last Admin: 03/19/21 13:08 Dose: 100 mls/hr Documented by: Levofloxacin/Dextrose 750 mg/ (Premix) 150 mls @ 100 mls/hr IV Q24H [facility] Levofloxacin/Dextrose 750 mg/ (Premix) 150 mls @ 100 mls/hr IV Q24H [facility] Last Admin: 03/26/21 12:37 Dose: 100 mls/hr Documented by: Sodium Chloride (Normal Saline) 1,000 mls @ 125 mls/hr IV ASDIRECTED [facility] Last Admin: 03/20/21 11:09 Dose: 125 mls/hr Documented by: Piperacillin/Tazobactam/ (Dextrose 3.375 gm/ Premix) 50 mls @ 100 mls/hr IV Q6H [facility] Last Admin: 03/26/21 11:34 Dose: 100 mls/hr Documented by: Magnesium Sulfate 2 gm/ Premix 50 mls @ 25 mls/hr IV ONETIME ONE Stop: 03/20/21 10:29 Last Admin: 03/20/21 08:53 Dose: 25 mls/hr Documented by: Influenza Virus Vaccine (Pharmacy To Dose - Influenza Vaccine) 1 each IM ONETIME ONE Stop: 03/21/21 10:01 Influenza Virus Vaccine (Flu Vacc [id number](65yr Up)/Pf 240 Mcg/0.7 Ml Syringe) 240 mcg IM .ONCE ONE Stop: 03/21/21 10:01 Last Admin: 03/21/21 10:10 Dose: 240 mcg Documented by: Iopamidol (Iopamidol 755 Mg/Ml 100 Ml Bottle) 100 ml IV . DIRECTED ONE Stop: 03/19/21 10:36 Last Admin: 03/19/21 10:51 Dose: 100 ml Documented by: Methylprednisolone Sodium Succinate (Methylprednisolone Sodium Succinate 40 Mg/1 Ml Sdv) 40 mg IVPUSH Q8H [facility] Last Admin: 03/25/21 00:15 Dose: 40 mg Documented by: Methylprednisolone Sodium Succinate (Methylprednisolone Sodium Succinate 40 Mg/1 Ml Sdv) 40 mg IVPUSH Q8H [facility] Stop: 03/27/21 02:00 Last Admin: 03/27/21 02:04 Dose: 40 mg Documented by: Pantoprazole Sodium (Pantoprazole 40 Mg Tab.Cr) 40 mg PO DAILY [facility] Last Admin: 03/20/21 08:55 Dose: 40 mg Documented by:
[2021-03-27] MEDS ORDERED: Levofloxacin 250 MG Tab PO SCH (12:00)
[2021-03-27] MEDS ORDERED: Levofloxacin 500 MG Tab PO SCH (12:00)
--- NOTE | 2021-03-27 18:25 | PCM.EKG ---
#1 Interpretation EKG Date: 03/26/21 Time: 22:33 Rhythm: NSR Rate (Beats/Min): 77 [place]: Normal P-Wave: Present QRS: Normal ST-T: Normal QT: Normal VT/PQ Interval: normal Comparison: No Change
== END 2021-03-27 14:42 | disposition home health service (06) | DRG 193 ==
LOC: JP.ED 08:19 → JP.MS 13:25
PROVIDERS: ADMIT Hospitalist; ATTEND Hospitalist
DX: J18.9 Pneumonia, unspecified organism (principal); W19.XXXA Unspecified fall, initial encounter; H54.7 Unspecified visual loss; E78.00 Pure hypercholesterolemia, unspecified; I10 Essential (primary) hypertension; J96.01 Acute respiratory failure with hypoxia; J44.0 Chronic obstructive pulmonary disease with (acute) lower respiratory infection; M10.9 Gout, unspecified; G89.29 Other chronic pain; E11.40 Type 2 diabetes mellitus with diabetic neuropathy, unspecified; E11.9 Type 2 diabetes mellitus without complications; E53.8 Deficiency of other specified B group vitamins; E55.9 Vitamin D deficiency, unspecified; Z86.14 Personal history of Methicillin resistant Staphylococcus aureus infection; Z87.891 Personal history of nicotine dependence; Z88.1 Allergy status to other antibiotic agents; Z88.8 Allergy status to other drugs, medicaments and biological substances; Z91.018 Allergy to other foods; Z79.82 Long term (current) use of aspirin; Z79.890 Hormone replacement therapy; Z79.899 Other long term (current) drug therapy; S92.301A Fracture of unspecified metatarsal bone(s), right foot, initial encounter for closed fracture; Z98.84 Bariatric surgery status; Z20.822 Contact with and (suspected) exposure to COVID-19; Z87.01 Personal history of pneumonia (recurrent); S80.01XA Contusion of right knee, initial encounter; W18.30XA Fall on same level, unspecified, initial encounter; K21.9 Gastro-esophageal reflux disease without esophagitis; E03.9 Hypothyroidism, unspecified; D64.9 Anemia, unspecified; Z98.42 Cataract extraction status, left eye; Z98.41 Cataract extraction status, right eye; Z98.890 Other specified postprocedural states; Z90.89 Acquired absence of other organs; Z79.4 Long term (current) use of insulin; Z90.49 Acquired absence of other specified parts of digestive tract; Z90.710 Acquired absence of both cervix and uterus; Z98.51 Tubal ligation status; Y92.009 Unspecified place in unspecified non-institutional (private) residence as the place of occurrence of the external cause
CPT/HCPCS: 36415; 71046; 71046-26; 71275; 71275-26; 73562-26-RT; 73562-RT; 73620-26-RT; 73620-RT; 80048; 80053; 83605; 83735; 84145; 84484; 85025; 85379; 87040; 90662; 93005; 94640; 94667; 94668; 94762; 96365; 96375; 99285-25; A9270-GY; G0008; J1650; J1940; J1956; J2543; J2920; J3010; J3475; J7030; J7512; J7620-GY; Q9967; U0002

== ENCOUNTER 2021-06-09 17:52 | Emergency (ER) | payer MEDICARE ==
[2021-06-09 18:52] VITALS: BP 124/55; PULSE 69
[2021-06-09] MEDS ORDERED: Diphtheria,Pertussis(Acell),Tetanus Vaccine 0.5 ML Syringe IM ONE (18:52)
== END 2021-06-09 20:04 | disposition home or self-care (01) ==
LOC: JP.ED 17:52
DX: S51.812A Laceration without foreign body of left forearm, initial encounter (principal); S60.212A Contusion of left wrist, initial encounter; I10 Essential (primary) hypertension; J44.9 Chronic obstructive pulmonary disease, unspecified; K21.9 Gastro-esophageal reflux disease without esophagitis; M10.9 Gout, unspecified; E11.40 Type 2 diabetes mellitus with diabetic neuropathy, unspecified; E03.9 Hypothyroidism, unspecified; D50.9 Iron deficiency anemia, unspecified; Z23 Encounter for immunization; Z87.891 Personal history of nicotine dependence; Z88.1 Allergy status to other antibiotic agents; Z91.018 Allergy to other foods; Z88.8 Allergy status to other drugs, medicaments and biological substances; Z79.82 Long term (current) use of aspirin; Z79.899 Other long term (current) drug therapy; W20.8XXA Other cause of strike by thrown, projected or falling object, initial encounter
CPT/HCPCS: 73110-26-LT; 73110-LT; 90471; 90715; 99283; 99283-25

== ENCOUNTER 2022-09-28 23:45 | Emergency (ER) | payer MEDICARE ==
[2022-09-28] MEDS ORDERED: Sodium Chloride 0.9% 1,000 ML IV ONE (23:47)
[2022-09-28] MEDS ORDERED: Sodium Chloride 0.9% 10 ML Syringe FLUSH PRN (23:47)
[2022-09-29 00:23] LABS: BASOPHILS ABSOLUTE AUTO 0.01 K/uL (0.00-0.10); BASOPHILS PERCENT AUTO 0.1 % (0.1-1.3); EOSINOPHILS ABSOLUTE AUTO 0.03 K/uL (0.00-0.40); EOSINOPHILS PERCENT AUTO 0.4 % (0.0-5.4); HEMATOCRIT 36.6 % (34.3-46.0); HEMOGLOBIN 12.1 g/dL (11.2-15.5); IMMATURE GRAN ABSOLUTE AUTO 0.04 K/uL (0.00-0.23); IMMATURE GRAN PERCENT AUTO 0.6 % (0.0-0.7); LYMPHOCYTES ABSOLUTE AUTO 0.45 K/uL (0.8-3.3); LYMPHOCYTES PERCENT AUTO 6.4 % (11.4-47.7); MEAN CORPUSCULAR HEMOGLOBIN 31.9 pg (31.6-35.5); MEAN CORPUSCULAR HGB CONC 33.1 g/dL (31.6-35.5); MEAN CORPUSCULAR VOLUME 96.6 fL (81.4-99.0); MONOCYTES ABSOLUTE AUTO 0.45 K/uL (0.20-0.90); MONOCYTES PERCENT AUTO 6.4 % (3.3-12.6); NEUTROPHILS ABSOLUTE AUTO 6.09 K/uL (1.0-7.6); NEUTROPHILS PERCENT AUTO 86.1 % (40.0-78.1); PLATELET COUNT,PLT 208 K/uL (130-375); RED BLOOD CELL COUNT 3.79 M/uL (3.77-5.24); WHITE BLOOD CELL COUNT,WBC 7.1 K/uL (3.2-11.0)
[2022-09-29 00:31] LABS: CALCIUM 7.8 mg/dL (8.5-10.1); CREATININE 0.8 mg/dL (0.6-1.0); EST CRCL DRUG DOSING (CG) 51.75 mL/min; MAGNESIUM 1.6 mg/dL (1.8-2.4); POTASSIUM,K 3.2 mmol/L (3.6-5.2)
[2022-09-29 00:32] LABS: ANION GAP 9.2 mmol/L (5.0-14.0)
[2022-09-29] MEDS ORDERED: Sodium Chloride 0.9% 1,000 ML IV ONE (01:06)
[2022-09-29] MEDS ORDERED: Potassium Chloride 20 MEQ Tab.ER PO ONE (01:06)
[2022-09-29] MEDS ORDERED: Magnesium Oxide 400 MG Tab PO ONE (01:06)
[2022-09-29 01:50] VITALS: BP 93/47; PULSE 61
== END 2022-09-29 02:56 | disposition home or self-care (01) ==
LOC: JP.ED 23:45
DX: A09 Infectious gastroenteritis and colitis, unspecified (principal); E86.0 Dehydration; E87.6 Hypokalemia; E83.42 Hypomagnesemia; E78.00 Pure hypercholesterolemia, unspecified; I10 Essential (primary) hypertension; J44.9 Chronic obstructive pulmonary disease, unspecified; E03.9 Hypothyroidism, unspecified; M10.9 Gout, unspecified; E11.40 Type 2 diabetes mellitus with diabetic neuropathy, unspecified; Z88.1 Allergy status to other antibiotic agents; Z88.8 Allergy status to other drugs, medicaments and biological substances; Z91.048 Other nonmedicinal substance allergy status; Z79.82 Long term (current) use of aspirin; Z79.899 Other long term (current) drug therapy
CPT/HCPCS: 36415; 80048; 83735; 85025; 96360; 96361; 99285; A9270; J3490; J7030; 99284

== ENCOUNTER 2023-03-06 15:11 | Emergency (ER) | payer MEDICARE ==
[2023-03-06 15:21] VITALS: BP 140/63; PULSE 62
== END 2023-03-06 21:39 | disposition home or self-care (01) ==
LOC: JP.ED 15:11
DX: S20.211A Contusion of right front wall of thorax, initial encounter (principal); S80.211A Abrasion, right knee, initial encounter; E78.00 Pure hypercholesterolemia, unspecified; J44.9 Chronic obstructive pulmonary disease, unspecified; E11.40 Type 2 diabetes mellitus with diabetic neuropathy, unspecified; I10 Essential (primary) hypertension; E03.9 Hypothyroidism, unspecified; Z88.1 Allergy status to other antibiotic agents; Z88.8 Allergy status to other drugs, medicaments and biological substances; Z79.82 Long term (current) use of aspirin; Z79.899 Other long term (current) drug therapy; W01.0XXA Fall on same level from slipping, tripping and stumbling without subsequent striking against object, initial encounter
CPT/HCPCS: 70450; 71250; 99283

== ENCOUNTER 2024-02-19 07:51 | Day surgery (SDC) | payer MEDICARE ==
[2024-02-19] MEDS: Sodium Chloride 0.9% 1,000 ML IV SCH (08:37)
[2024-02-19] MEDS ORDERED: fentaNYL 50 MCG/ML SDV ONE (08:48)
[2024-02-19] MEDS ORDERED: Propofol 200 MG/20 ML SDV ONE (08:48)
[2024-02-19 10:41] VITALS: BP 124/64; PULSE 48
== END 2024-02-19 10:50 | disposition home or self-care (01) ==
LOC: JP.SDS 07:51
PROVIDERS: ATTEND Surgery
DX: K22.70 Barrett's esophagus without dysplasia (principal); K21.9 Gastro-esophageal reflux disease without esophagitis; E11.9 Type 2 diabetes mellitus without complications; R13.10 Dysphagia, unspecified; F32.A Depression, unspecified
CPT/HCPCS: 43239; 88305; J2704; J3010; J7030; 00731-QZ

== ENCOUNTER 2024-03-06 18:16 | Emergency (ER) | payer MEDICARE ==
[2024-03-06 18:34] VITALS: BP 130/57; PULSE 61
[2024-03-06] MEDS: Acetaminophen/Codeine 300-30 MG Tab PO ONE (19:57)
== END 2024-03-06 20:04 | disposition home or self-care (01) ==
LOC: JP.ED 18:16
DX: S67.196A Crushing injury of right little finger, initial encounter (principal); E78.00 Pure hypercholesterolemia, unspecified; I10 Essential (primary) hypertension; J44.9 Chronic obstructive pulmonary disease, unspecified; K21.9 Gastro-esophageal reflux disease without esophagitis; E11.9 Type 2 diabetes mellitus without complications; E03.9 Hypothyroidism, unspecified; Z79.82 Long term (current) use of aspirin; Z79.899 Other long term (current) drug therapy; Z88.1 Allergy status to other antibiotic agents; Z88.8 Allergy status to other drugs, medicaments and biological substances; W23.1XXA Caught, crushed, jammed, or pinched between stationary objects, initial encounter
CPT/HCPCS: 73140; 99283; A9270

== ENCOUNTER 2024-06-15 14:49 | Emergency (ER) | payer MEDICARE ==
[2024-06-15 15:35] LABS: BASOPHILS ABSOLUTE AUTO 0.04 K/uL (0.00-0.10); BASOPHILS PERCENT AUTO 0.3 % (0.1-1.3); EOSINOPHILS ABSOLUTE AUTO 0.08 K/uL (0.00-0.40); EOSINOPHILS PERCENT AUTO 0.6 % (0.0-5.4); HEMATOCRIT 36.3 % (34.3-46.0); HEMOGLOBIN 12.4 g/dL (11.2-15.5); IMMATURE GRAN ABSOLUTE AUTO 0.02 K/uL (0.00-0.23); IMMATURE GRAN PERCENT AUTO 0.2 % (0.0-0.7); LYMPHOCYTES ABSOLUTE AUTO 1.54 K/uL (0.8-3.3); LYMPHOCYTES PERCENT AUTO 12.2 % (11.4-47.7); MEAN CORPUSCULAR HEMOGLOBIN 32.2 pg (31.6-35.5); MEAN CORPUSCULAR HGB CONC 34.2 g/dL (31.6-35.5); MEAN CORPUSCULAR VOLUME 94.3 fL (81.4-99.0); MONOCYTES ABSOLUTE AUTO 0.98 K/uL (0.20-0.90); MONOCYTES PERCENT AUTO 7.7 % (3.3-12.6); NEUTROPHILS ABSOLUTE AUTO 9.99 K/uL (1.0-7.6); PLATELET COUNT,PLT 226 K/uL (130-375); RED BLOOD CELL COUNT 3.85 M/uL (3.77-5.24); WHITE BLOOD CELL COUNT,WBC 12.7 K/uL (3.2-11.0)
[2024-06-15 15:43] VITALS: BP 110/59; PULSE 71
[2024-06-15 15:56] LABS: A/G RATIO 1.1 (1.2-2.2); ALANINE AMINOTRANSFERASE,ALT 23 U/L (12-78); ALBUMIN 3.4 g/dL (3.4-5.0); ALKALINE PHOSPHATASE 115 U/L (46-116); ANION GAP 8.5 mmol/L (5.0-14.0); ASPARTATE AMNIOTRANSFERASE,AST 24 U/L (15-37); BILIRUBIN TOTAL 0.8 mg/dL (0.2-1.0); BLOOD UREA NITROGEN,BUN 13 mg/dL (7-18); CALCIUM 8.5 mg/dL (8.5-10.1); CARBON DIOXIDE,CO2 29 mmol/L (21-32); CHLORIDE,CL 103 mmol/L (100-108); CREATININE 0.8 mg/dL (0.6-1.0); EST CRCL DRUG DOSING (CG) 49.84 mL/min; ESTIMATED GFR 79 mL/min (>60); GLUCOSE RANDOM 106 mg/dL (74-106); MAGNESIUM 1.7 mg/dL (1.8-2.4); POTASSIUM,K 3.8 mmol/L (3.6-5.2); PROTEIN TOTAL,TP 6.6 g/dL (6.4-8.2); SODIUM,NA 140 mmol/L (140-148)
[2024-06-15 16:30] LABS: APPEARANCE,URINE SLIGHTLY CLOUDY (CLEAR); BILIRUBIN,URINE NEGATIVE (NEGATIVE); COLOR,URINE YELLOW (YELLOW); GLUCOSE,URINE NEGATIVE (NEGATIVE); KETONES,URINE NEGATIVE (NEGATIVE); LEUKOCYTE ESTERASE,URINE SMALL (NEGATIVE); NITRITE,URINE NEGATIVE (NEGATIVE); OCCULT BLOOD,URINE NEGATIVE (NEGATIVE); PH,URINE 6.5 (5.0-8.0); PROTEIN,URINE NEGATIVE (NEGATIVE); UROBILINOGEN,URINE >=8.0 EU/dL (0.2-1.0)
[2024-06-15 16:35] LABS: AMORPHOUS SEDIMENT,URINE NOT SEEN; BACTERIA,URINE FEW; EPITHELIAL CELLS,URINE RARE; MUCUS,URINE NOT SEEN; RBC,URINE 0-5 (0-5)
== END 2024-06-15 16:54 | disposition home or self-care (01) ==
LOC: JP.ED 14:49
DX: R53.1 Weakness (principal); R25.1 Tremor, unspecified; I10 Essential (primary) hypertension; E78.00 Pure hypercholesterolemia, unspecified; J44.9 Chronic obstructive pulmonary disease, unspecified; K21.9 Gastro-esophageal reflux disease without esophagitis; E11.42 Type 2 diabetes mellitus with diabetic polyneuropathy; E03.9 Hypothyroidism, unspecified; Z90.49 Acquired absence of other specified parts of digestive tract; Z98.84 Bariatric surgery status; Z90.710 Acquired absence of both cervix and uterus; Z88.1 Allergy status to other antibiotic agents; Z88.8 Allergy status to other drugs, medicaments and biological substances; Z91.018 Allergy to other foods; Z79.51 Long term (current) use of inhaled steroids; Z79.82 Long term (current) use of aspirin; Z79.890 Hormone replacement therapy; Z79.899 Other long term (current) drug therapy
CPT/HCPCS: 36415; 70450; 70450-26; 71045; 71045-26; 80053; 81001; 82947; 83605; 83735; 84145; 84484; 85025; 87428-QW; 93005; 93010; 99284; 99285